=== PATIENT | male | born 1940 | race Caucasian/White ===

== ENCOUNTER 2022-05-26 21:03 | Inpatient (IN) | payer MEDICARE, SELFPAY ==
[2022-05-26] VITALS (18 sets, daily range): BP systolic 106–157; BP diastolic 44–65; BMI 38.9
[2022-05-26 17:10] LABS: % Basophils 1.4 % (0-2); % Eosinophils 1.5 % (0-6); % Monocytes 13.5 % (1.7-9.3); % Neutrophils 62.6 % (42.2-75.2); Absolute Basophils 0.1 10^3/uL (0-0.2); Absolute Eosinophils 0.1 10^3/uL (0-0.7); Absolute Immature Granulocytes 0.7 10^3/uL (0-0.05); Absolute Lymphocytes 1.1 10^3/uL (1.2-3.4); Absolute Monocytes 1.1 10^3/uL (0.1-0.6); Absolute Neutrophils 5.1 10^3/uL (1.4-6.5); Hematocrit 24.5 % (39.0-52.0); Hemoglobin 7.6 g/dL (13.0-18.0); Mean Corpuscular Hgb 30.8 pg (27.0-31.0); Mean Corpuscular Volume 99.2 fL (80.0-94.0); Mean Platelet Volume 11.2 fL (7.4-10.4); Nucleated Red Blood Cells % 0.5 % (-); Platelet Count 131 10^3/uL (130-400); Red Blood Cell Count 2.47 10^6/uL (4.70-6.10); Red Cell Dist. Width 16.9 % (11.5-14.5); White Blood Cell Count 8.1 10^3/uL (4.8-10.8)
[2022-05-26 17:26] LABS: ALT (SGPT) 22 U/L (0-50); AST (SGOT) 34 U/L (17-59); Albumin 3.9 g/dl (3.5-5.0); Alkaline Phosphatase 234 U/L (38-126); Blood Urea Nitrogen 24 mg/dl (9-20); Calcium 9.1 mg/dl (8.4-10.2); Carbon Dioxide 34 mmol/L (22-30); Chloride 96 mmol/L (98-107); Glomerular Filtration Rate 19.4; Glucose 102 mg/dl (65-99); Potassium 3.4 mmol/L (3.5-5.1); Sodium 140 mmol/L (135-145); Total Bilirubin 0.8 mg/dl (0.2-1.3); Total Protein 6.8 g/dl (6.3-8.2)
--- NOTE | 2022-05-26 18:55 | ED.GENMED ---
History of Present Illness
General
Chief Complaint: Urinary Symptoms
Source: patient and spouse
Exam Limitations: none
Time Seen by Provider: 05/26/22 18:16
Nursing documentation reviewed up to this point in time: agreed with
Travel History
Have you had any contact with someone who has COVID-19?: No
Do you have any symptoms of coronavirus? Fever > 100 degrees, chills, cough, shortness of breath, sore throat, loss of taste or smell, muscle aches, or headache?: No
History of Present Illness
History of Present Illness:
Patient with history of bladder cancer, currently receiving chemotherapy, receiving dialysis, but with chronic indwelling Watson catheter, presents to ED secondary to recurrent increased bleeding noted in his catheter today. Denies fever or chills.
Denies trauma. Denies abdominal pain. Denies nausea or vomiting. Denies dizziness. Denies shortness of breath. Denies loss of appetite. Patient was admitted to the hospital at [facility] earlier this month and subsequently transferred to [facility], where he was discharged home 1 week ago.
Past History
Past History
ED Past Medical History: HTN, Hypercholesterolemia, IDDM, Renal failure (hemodialysis via L AV fistula), Other (MRSA, Sleep apnea and wears C-pap) and Other (Gout); Negative CAD
ED Past Surgical History: Orthopedic (Nils knee replacments.) and Other (Peritoneal dialysis catheter)
Social History
Tobacco: Former smoker
Alcohol: None
Personal:
Living: with family
Employment: Employed ([employer])
Family History
Family History: Other (Noncontributory)
Review of Systems
Review of Systems
Allergies reviewed?: Yes
All Other Systems: ROS reviewed and negative except as documented in HPI and ROS
Constitutional: Reports no symptoms
EENT: Reports no symptoms
Respiratory: Reports no symptoms
Cardiac: Reports no symptoms
ABD/GI: Reports no symptoms
: Reports bleeding
Musculoskeletal: Reports no symptoms
Skin: Reports no symptoms
Neurological: Reports no symptoms
Phy Exam
Physical Exam
Physical Exam:
Physical Exam
General: mild distress, not acutely ill. afebrile
Head: nc/at. eomi
Neck: supple. no meningeal signs.
Abdomen: normal bowel sounds. not tender.
: watson catheter in place with blood noted within catheter but draining.
Neuro: alert and oriented. no focal neurological deficits
Skin: no rash
Psychiatric: well kept. interactive and cooperative
Extremities: LE b/l edema. no calf tenderness.
Course
Orders/Labs/Results
Orders:
Orders
05/26/22 16:59
CMP [Comprehensive Metabolic Panel] Urgent
Complete Blood Count/With Diff Urgent
05/26/22 17:39
Urinalysis Reflex To Culture Urgent
05/26/22 18:52
* Blood Bank Products Urgent
Blood Bank Products: *Packed RBC Leuko(PRBC's)
Quantity: 1
Transfuse Today: Yes
Reason: Bleeding
Type+Screen Urgent
IV Insert/Care/Rem.- Treatment PRN
PTT Urgent
Prothrombin Time Urgent
05/26/22 18:53
CBI- Treatment PRN
Solution: NSS
Irrigate to Clear?: Yes
Abnormal Lab Results
05/26/22 05/26/22
16:59 16:59
RBC 2.47 10^6/uL L 10^6/uL
(4.70-6.10)
Hgb 7.6 g/dL L g/dL
(13.0-18.0)
Hct 24.5 % L %
(39.0-52.0)
MCV 99.2 fL H fL
(80.0-94.0)
MCHC 31.0 g/dL L g/dL
(33.0-37.0)
RDW 16.9 % H %
(11.5-14.5)
MPV 11.2 fL H fL
(7.4-10.4)
Abs Immat Gran (auto) 0.7 10^3/uL H 10^3/uL
(0-0.05)
Absolute Lymphs (auto) 1.1 10^3/uL L 10^3/uL
(1.2-3.4)
Absolute Monos (auto) 1.1 10^3/uL H 10^3/uL
(0.1-0.6)
Immature Gran % 8.0 % H %
(0-0.5)
Lymphocytes % 13.0 % L %
(20.5-51.1)
Monocytes % 13.5 % H %
(1.7-9.3)
Potassium 3.4 mmol/L L mmol/L
(3.5-5.1)
Chloride 96 mmol/L L mmol/L
(98-107)
Carbon Dioxide 34 mmol/L H mmol/L
(22-30)
BUN 24 mg/dl H mg/dl
(9-20)
Creatinine 3.1 mg/dL H mg/dL
(0.7-1.3)
Glucose 102 mg/dl H mg/dl
(65-99)
Alkaline Phosphatase 234 U/L H U/L
(38-126)
05/26/22 16:59
05/26/22 16:59
Vital Signs
Initial and Last Documented VS:
Initial Vital Signs
Temp Pulse Resp BP Pulse Ox
98.6 F 75 18 157/65 97
05/26/22 16:40 05/26/22 16:40 05/26/22 16:40 05/26/22 16:40 05/26/22 16:40
Last Documented Vital Signs
Temp Pulse Resp BP Pulse Ox
98.6 F 75 18 157/65 97
05/26/22 16:40 05/26/22 16:40 05/26/22 16:40 05/26/22 16:40 05/26/22 16:40
MDM/Problems Addressed
MDM/Problems Addressed:
Patient presenting with recurrent increased hematuria with chronic indwelling Watson catheter. H&H noted. Patient will be consented for blood transfusion and CBI will be started.
Chronic Conditions Affecting Care
Chronic conditions affecting care: Immunosuppressed, Kidney disease and Cancer
Acute Exacerbation/Progession of Illness
Acute Exacerbation and/or Progression of Chronic Illness: Immunosuppressed, Kidney disease and Cancer
Discharge Plan
Departure
Patient Disposition: Admit
Date of Disposition: 05/26/22
Time of Disposition: 19:27
Admit to: Med/Surg
Condition: Fair
Discharge Problem:
Hematuria, Anemia
Prescriptions:
No Action
ascorbic acid (vitamin C) [Vitamin C] 1,000 MG tablet
1,000 mg PO DAILY
cyanocobalamin (vitamin B-12) 1,000 MCG tablet
1,000 mcg PO DAILY
cholecalciferol (vitamin D3) [Vitamin D3] 2,000 UNIT capsule
2,000 unit PO DAILY
multivitamin 1 EACH tablet
1 ea PO DAILY
pantoprazole 40 MG tablet,delayed release (DR/EC)
40 mg PO BID
carvedilol 6.25 MG tablet
6.25 mg PO BID 0RF
ezetimibe 10 MG tablet
10 mg PO HS 0RF
hydralazine 25 mg Tablet
25 mg PO BID
lisinopril 5 mg Tablet
5 mg PO DAILY
ProRenal 8 mg iron-800 mcg-1,000 unit Tablet
1 tab PO MOWEFR
cinacalcet 30 mg Tablet
30 mg PO SUTUTHSA
allopurinol 100 mg tablet
200 mg PO DAILY
lidocaine-prilocaine 2.5-2.5 % Cream
1 applic topical MOWEFR
Rx Instructions:
apply prior to
aspirin 81 MG tablet,chewable
81 mg PO DAILY
Hold Instructions: do not resume until instructed by your doctors
atorvastatin 80 MG tablet
80 mg PO HS
acetaminophen 325 MG tablet
650 mg PO Q6H PRN (Reason: mild pain/BARBA/fever)
oxycodone 5 mg tablet
5 mg PO Q4H PRN (Reason: moderate to severe pain)
Label Comments:
05/08/2022: last filled 04/22/22, 20 tabs for 10 days from [id number]
Rx Instructions:
1 tab for mod pain or 2 tabs for severe pain
sevelamer carbonate 800 MG tablet
3,200 mg PO MEALS
lidocaine HCl-menthol 4-1 % Cream
1 applic TOPICAL MOWEFR
Referrals:
Eliezer Arroyo MD [Family Provider] -
Interventions
Interventions:
*General Assessment Last Done: 05/26/22 16:40
*ED COVID-19 Vaccine History Last Done: 05/26/22 16:40
[2022-05-26 19:57] LABS: Urine Albumin 2+ (Neg - Trace); Urine Bilirubin Negative (Negative); Urine Character Bloody (Clear); Urine Color Red; Urine Glucose Negative (Negative); Urine Ketone Negative (Negative); Urine Leukocyte Negative (Negative); Urine Nitrite Negative (Negative); Urine Occult Blood 2+ (Negative); Urine Specific Gravity 1.015 (<1.030); Urine Urobilinogen Negative (Neg - 1+)
[2022-05-26 20:03] LABS: Urine Red Blood Cell >100 /HPF (0-2); Urine Squamous Cell 0-2 /LPF (Few); Urine White Cell None Seen /HPF (0-5)
[2022-05-26 20:10] LABS: INR 1.12; PT 14.7 Sec (11.4-14.6)
[2022-05-26 20:11] LABS: APTT 29.8 Sec (23.4-35.0)
--- NOTE | 2022-05-26 20:54 | HPS.HSE ---
Addendum entered and electronically signed by Chilo Shaikh DO 05/26/22 21:52:
Patient seen and examined independently. Agree with findings and plan as set forth by Nadege Arce PA-C.
Patient is an 81y M with PMH significant for bladder cancer, ESRD on HD and multiple recent admissions relating to bladder malignancy and hematuria who presents to ED this evening complaining of new / worsened hematuria in his Carey catheter.
Patient has had recurrent similar issues recently as noted. He denies any associated pain, fevers / chills, GI symptoms or other sources of bleeding.
Ass:
Gross Hematuria with Clots
Bladder Cancer
Acute Blood Loss Anemia secondary to the above
ASCVD
Benign Hypertension
DM-II
ESRD on HD
GERD
History of Gout
Plan:
Admit for further evaluation and treatment.
Continue CBI initiated in the ED.
Urology evaluation.
Transfuse PRBCs and follow H&H for improvement. Additional transfusions if needed.
Nephrology evaluation for HD needs during stay (had usual HD today).
Continue outpatient med regimen.
Patient had 1 chemo session thus far (one week ago).
Original Note:
Family Physician
-
Family Physician: Eliezer Arroyo
Chief Complaint
-
Hematuria
History of Present Illness
Patient is an 81 y/o male past medical history of bladder cancer who presents with hematuria. Patient was recently discharged from [facility] one week ago. Patient notes since discharge his urine has been dark brown with vicente in it which was
expected. Today his urine became more of a red color which prompted his presentation to the emergency department. He denies fevers, weats or chills.
Medical History
Past Medical History
Past Medical History: Reports Other
Additional Past Medical History:
Coronary Artery Disease s/p CABG in April 2021
Essential Hypertension
Hyperlipidemia
Diabetes Mellitus, Type 2
ESRD on HD MoWeFr
GERD
Gout
Past Surgical History: Reports Other
Additional Past Surgical History:
Bilateral knee replacements
Hemorrhoidectomy
Left upper extremity AV fistula
CABG
TURBT
Social History
Tobacco: Non-smoker
Alcohol: None
Drug: None
Personal:
Family History
Family History: Not pertinent
Allergies / Home Medications
Allergies reflects when Allergies were last updated in [facility].
Home Medications with original date entered in [facility]
Allergy/Medication List:
Allergies
Allergy/AdvReac Type Severity Reaction Status Date / Time
linagliptin [From Tradjenta] Allergy kidney Verified 05/26/22 16:49
problems
pioglitazone [From Actos] Allergy kidney Verified 05/26/22 16:49
failure
poison vivian extract Allergy 'nasty' Verified 05/26/22 16:49
rash
Home Medications
ascorbic acid (vitamin C) 1,000 mg tablet (Vitamin C) 1,000 mg PO DAILY Supplement 09/20/18
cholecalciferol (vitamin D3) 50 mcg (2,000 unit) capsule (Vitamin D3) 2,000 unit PO DAILY Supplement 09/20/18
cyanocobalamin (vitamin B-12) 1,000 mcg tablet 1,000 mcg PO DAILY Supplement 09/20/18
multivitamin 1 ea PO DAILY Supplement 06/29/20
pantoprazole 40 mg tablet,delayed release 40 mg PO BID Gastrointestinal issue 05/20/21
carvedilol 6.25 mg tablet 6.25 mg PO BID 05/30/21
hydralazine 25 mg tablet 25 mg PO BID Blood pressure 03/31/22
lisinopril 5 mg tablet 5 mg PO DAILY Blood pressure 03/31/22
vit B complx, C-iron 8 mg-folic acid 800 mcg-D3 1,000 unit-zinc tablet (ProRenal) 1 tab PO MOWEFR Supplement 03/31/22
cinacalcet 30 mg tablet 30 mg PO SUTUTHSA Kidney Disease 04/04/22
allopurinol 100 mg tablet 200 mg PO DAILY Gout 04/18/22
aspirin 81 mg chewable tablet 81 mg PO DAILY Blood clot prevention/tx 04/19/22
acetaminophen 325 mg tablet 650 mg PO Q6HPRN PRN mild pain/BARBA/fever 05/08/22
atorvastatin 80 mg tablet 80 mg PO HS High cholesterol 05/08/22
sevelamer carbonate 800 mg tablet 3,200 mg PO AC Kidney Disease 05/08/22
ezetimibe 10 mg tablet 10 mg PO DAILY 05/26/22
Review of Systems
-
History Source: Patient
A 12 point ROS was completed and negative except as noted: Yes
Constitutional: Denies Fever or Chills
Respiratory: Denies Cough or Trouble Breathing
Cardiac: Denies Chest Pain or Palpitations
Abdomen/GI: Denies Abdominal Pain, Nausea, Vomiting, Diarrhea or Constipated
: Reports See HPI
Physical Exam
Vital Signs
Vital Signs
Temp Pulse Resp BP Pulse Ox
98.7 F 79 20 143/55 97
05/26/22 20:40 05/26/22 20:40 05/26/22 20:40 05/26/22 20:40 05/26/22 20:40
Physical Exam
General: Well Developed, Well Nourished, No Apparent Distress and Other (Appears pale)
HEENT: NormoCephalic, Anicteric, Moist mucous membranes and Atraumatic
Respiratory: Clear and Non Labored Respirations; No Wheezes, Rales or Rhonchi
Cardiac: S1/S2 and Regular Rhythm; No Murmur
GI: Soft, Non Tender, Non Distended and Normal Bowel Sounds
Rectal: Deferred by Provider
Genito-urinary: Bloody Urine (Wine Colored)
Musculoskeletal: No Clubbing, No Cyanosis and Other
Skin: Warm and Dry; No Rash
Neuro: Awake, Alert, Oriented and Nonfocal/grossly intact
Psych: Calm
Laboratory Results
-
05/26/22 16:59
05/26/22 16:59
Laboratory Results
PT 14.7 Sec (11.4-14.6) H 05/26/22 19:41
INR 1.12 05/26/22 19:41
APTT 29.8 Sec (23.4-35.0) 05/26/22 19:41
Total Bilirubin 0.8 mg/dl (0.2-1.3) 05/26/22 16:59
AST 34 U/L (17-59) 05/26/22 16:59
ALT 22 U/L (0-50) 05/26/22 16:59
Alkaline Phosphatase 234 U/L (38-126) H 05/26/22 16:59
Data Reviewed
-
Lab Data: Labs Reviewed by me
Impression/Plan
-
Hematuria secondary to Bladder CA
-Consult Urology
-Continue CBI
Acute Blood Loss Anemia on Anemia of Chronic Disease
-Transfuse 1 units PRBCs
Coronary Artery Disease s/p CABG in April 2021
-Hold aspirin in setting of hematuria
Essential Hypertension
-Continue Coreg, Hydralazine and Lisinopril
Hyperlipidemia
-Continue Lipitor and Zetia
Diabetes Mellitus, Type 2
-Monitor sugars on AM labs
ESRD on HD MoWeFr
-Continue Sensipar and Renvela
GERD
-Continue Protonix
Gout
-Continue allopurinol
DVT proph: SCDs
Code Status: DNR
[2022-05-27] VITALS (7 sets, daily range): BP systolic 127–168; BP diastolic 57–79; PULSE 70–72; O2SAT 94
[2022-05-27] MEDS: LIPITOR 80 MG PO ×2 (00:22→21:11)
--- NOTE | 2022-05-27 06:38 | PTCARENOTE ---
Pt watson hand irrigated r/t to pressure and no active drainage in catheter. Approx 2-3 medium size blood clots flushed, CBI infusing w/o complications at this time.
[2022-05-27 06:44] LABS: Hematocrit 26.4 % (39.0-52.0); Hemoglobin 8.4 g/dL (13.0-18.0); Mean Corp Hgb Conc. 31.8 g/dL (33.0-37.0); Mean Corpuscular Hgb 31.1 pg (27.0-31.0); Mean Corpuscular Volume 97.8 fL (80.0-94.0); Mean Platelet Volume 11.4 fL (7.4-10.4); Platelet Count 140 10^3/uL (130-400); Red Cell Dist. Width 17.6 % (11.5-14.5); White Blood Cell Count 10.1 10^3/uL (4.8-10.8)
--- NOTE | 2022-05-27 06:47 | W.PN.UPDATE ---
Update Note
Progress Note Update
pt well-known
Impressions:
recurrent GH and anemia due to subtotally resected bladder cancer
Rec: CBI
transfusions
[2022-05-27 07:08] LABS: Blood Urea Nitrogen 31 mg/dl (9-20); Calcium 9.2 mg/dl (8.4-10.2); Carbon Dioxide 34 mmol/L (22-30); Chloride 96 mmol/L (98-107); Estimated Creatinine Clearance 21 ml/min; Glomerular Filtration Rate 15.4; Glucose 88 mg/dl (65-99); Potassium 3.4 mmol/L (3.5-5.1); Sodium 139 mmol/L (135-145)
[2022-05-27] MEDS: VITAMIN C 1000 MG PO (07:57)
[2022-05-27] MEDS: COREG 6.25 MG PO ×2 (07:57→19:54)
[2022-05-27] MEDS: ZYLOPRIM 200 MG PO (07:57)
[2022-05-27] MEDS: ZETIA 10 MG PO (07:57)
[2022-05-27] MEDS: ZESTRIL 5 MG PO (07:57)
[2022-05-27] MEDS: THERAGRAN 1 TABLET PO (07:57)
[2022-05-27] MEDS: VITAMIN B-12 1000 MCG PO (07:57)
[2022-05-27] MEDS: HYDROPHOR 1 APPLIC TOPICAL (07:57)
[2022-05-27] MEDS: VITAMIN D3 (cholecalciferol) 2000 UNITS PO (07:57)
[2022-05-27] MEDS: PROTONIX 40 MG PO ×2 (07:57→19:53)
[2022-05-27] MEDS: RENVELA 3200 MG PO ×3 (07:57→17:32)
[2022-05-27] MEDS: APRESOLINE 25 MG PO ×2 (07:58→19:53)
[2022-05-27] MEDS: SENSIPAR 30 MG PO (10:00)
--- NOTE | 2022-05-27 10:21 | CON.MD ---
Consultation - Medical
-
Impression:
Gross hematuria
Bladder malignancy received one dose of chemotherapy (cisplatinum + ...)
TURBT April 04, 2022
ESRD (PD 2017; HD 2018)
Anemia, multifactorial
CABG x2 (ANN-LAD, SVG-ramus, on pump with right Endo vein harvest/sternal plate
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
Biopsy-proven focal sclerosis
Diabetes mellitus
Gout, chronic
Secondary hyperparathyroidism
History hypertension with relative hypotension
History morbid obesity
History sleep apnea on CPAP
Left arm AV fistula 2018
Pelvic adenopathy
Pulmonary nodules
Plan:
-HD sunday
-transfuse for anemia prn, and LIZ on HD
-bp stable on anti-htns and EDW
-maintain phosphate binders for hyperphosphatemia
-fluid restriction and appropriate dietary restrictions ordered
--- NOTE | 2022-05-27 11:53 | W.PN.HOSP.TC ---
Today's Communication/Plan
-
Continue CBI
monitor hematuria
s/p 1 units PRBCs with improved Hgb
HD per Renal
Assessment / Plan
Assessment / Plan
81 y/o male past medical history of bladder cancer who presented with hematuria.�Patient was recently discharged from [place] one week ago.�Patient notes since discharge his urine has been dark brown with vicente in it which was expected. On DOA,
his urine became more of a red color which prompted his presentation to the emergency department. He denies fevers, sweat or chills.
A/P:
# Hematuria secondary to Bladder CA
Continue CBI
Urology on board
# Acute Blood Loss Anemia due to hematuria on Anemia of Chronic Disease
s/p 1 units PRBCs
# Coronary Artery Disease s/p CABG in April 2021
Hold aspirin in setting of hematuria
# Essential Hypertension
Continue Coreg, Hydralazine and Lisinopril
# Hyperlipidemia
Continue Lipitor and Zetia
# Diabetes Mellitus, Type 2
Monitor sugars on AM labs
# ESRD on HD MoWeFr
Continue Sensipar and Renvela
HD per Renal
# GERD
Continue Protonix
# Gout
Continue allopurinol
DVT proph: SCDs
Code Status: DNR
updated daughter on the phone
Anticipated Discharge: > 48 hours
Subjective/Interval History
-
no event overnight, comfortable
Objective Data
-
Labs:
Laboratory Results
05/27/22 05/27/22
05:59 05:59
WBC 10.1
Hgb 8.4 L
Hct 26.4 L
Plt Count 140
Sodium 139
Potassium 3.4 L
Chloride 96 L
Carbon Dioxide 34 H
BUN 31 H
Creatinine 3.8 H
Glucose 88
Calcium 9.2
Vital Signs:
Vital Signs
Temp Pulse Resp BP Pulse Ox
36.4 C 76 17 127/57 97
05/27/22 07:30 05/27/22 07:30 05/27/22 07:30 05/27/22 07:30 05/27/22 07:30
I&O
05/26/22 05/27/22 05/28/22
06:59 06:59 06:59
Intake Total 470 / 470
Output Total 850 / 850
Balance -380 / -380
Review of Systems
-
History Source: Patient
Constitutional: Reports No Symptoms
EENT: Reports No Symptoms Reported
Respiratory: Reports No Symptoms
Abdomen/GI: Reports No Symptoms
Genitourinary: Reports Bleeding (gross hematuria)
Neuro: Reports No Symptoms
Physical Exam
-
General: Well Developed, Well Nourished, No Apparent Distress, Comfortable and Obese
HEENT: Normocephalic, Atraumatic and Moist Mucous Membranes
Respiratory: Clear to Auscultation and Non Labored Respirations; Negative Accessory Resp Muscle Use
Cardiac: Regular Rhythm and S1/S2
GI: Soft, Nontender and Nondistended
Genito-urinary: Bloody Urine and Continuous Bladder Irrigation
Musculoskeletal: No Clubbing, No Cyanosis and No Edema
Neuro: Awake, Alert, Oriented and AO x 3
Psych: Calm and Intact Judgement/Insight
Data Reviewed
-
Labs: Labs Reviewed by me
[2022-05-27 12:20] LABS: Magnesium 1.9 mg/dl (1.6-2.3)
--- NOTE | 2022-05-27 12:21 | CONS.URO ---
Consultation
-
Date/Time Consultation Performed: 05/27 06
Performing Provider: Harsha
Reason for Consultation: Bladder Cancer; hematuria
Medical History
History of Present Illness
81M with small cell bladder cancer
History of large dense bladder clot requiring transfer to [facility] for clot evacuation 03/2022
Presenting again with hematuria and associated anemia
Past Medical History
Past Surgical History: Other ( Hypertension. Hyperlipidemia. Noninsulin-dependent diabetes mellitus (diet controlled). End-stage renal disease on hemodialysis.)
Allergies/Home Medications
Allergies
Allergy/AdvReac Type Severity Reaction Status Date / Time
linagliptin [From Tradjenta] Allergy kidney Verified 05/26/22 16:49
problems
pioglitazone [From Actos] Allergy kidney Verified 05/26/22 16:49
failure
poison vivian extract Allergy 'nasty' Verified 05/26/22 16:49
rash
Home Medications
Medication Instructions Recorded Confirmed Type
ascorbic acid (vitamin C) 1,000 mg 1,000 mg PO DAILY Supplement 09/20/18 05/26/22 History
tablet (Vitamin C)
cholecalciferol (vitamin D3) 50 2,000 unit PO DAILY Supplement 09/20/18 05/26/22 History
mcg (2,000 unit) capsule (Vitamin
D3)
cyanocobalamin (vitamin B-12) 1,000 mcg PO DAILY Supplement 09/20/18 05/26/22 History
1,000 mcg tablet
multivitamin 1 ea PO DAILY Supplement 06/29/20 05/26/22 History
pantoprazole 40 mg tablet,delayed 40 mg PO BID Gastrointestinal issue 05/20/21 05/26/22 History
release
carvedilol 6.25 mg tablet 6.25 mg PO BID 05/30/21 05/26/22 Rx
hydralazine 25 mg tablet 25 mg PO BID Blood pressure 03/31/22 05/26/22 History
lisinopril 5 mg tablet 5 mg PO DAILY Blood pressure 03/31/22 05/26/22 History
vit B complx, C-iron 8 mg-folic 1 tab PO MOWEFR Supplement 03/31/22 05/26/22 History
acid 800 mcg-D3 1,000 unit-zinc
tablet (ProRenal)
cinacalcet 30 mg tablet 30 mg PO SUTUTHSA Kidney Disease 04/04/22 05/26/22 History
allopurinol 100 mg tablet 200 mg PO DAILY Gout 04/18/22 05/26/22 History
aspirin 81 mg chewable tablet 81 mg PO DAILY Blood clot 04/19/22 05/26/22 History
prevention/tx
acetaminophen 325 mg tablet 650 mg PO Q6HPRN PRN mild 05/08/22 05/26/22 History
pain/BARBA/fever
atorvastatin 80 mg tablet 80 mg PO HS High cholesterol 05/08/22 05/26/22 History
sevelamer carbonate 800 mg tablet 3,200 mg PO AC Kidney Disease 05/08/22 05/26/22 History
ezetimibe 10 mg tablet 10 mg PO DAILY High cholesterol 05/26/22 05/26/22 History
Physical Exam
Vital Signs
Vital Signs
Temp Pulse Resp BP Pulse Ox
97.5 F 76 17 127/57 97
05/27/22 07:30 05/27/22 07:30 05/27/22 07:30 05/27/22 07:30 05/27/22 07:30
Lab / Testing Results
Laboratory Results
05/27/22 05:59
05/27/22 05:59
Physical Exam
elderly male in bed
Carey draining pale red urine
Assessment / Plan
-
Recurrent hematuria due to bladder cancer
Anemia
Rec: CBI for now
patient will return to [facility] after discharge
[2022-05-27] MEDS: KCL 40 MEQ PO (12:22)
--- NOTE | 2022-05-27 15:30 | CM ---
Patient came to with hematuria.
CBI in place
Patient has bladder CA and is active with [facility] and also [facility].
Has received 1st dose chemo
Patient is active with [facility]
Receives HD at [place] [facility]. Is transported either by [employer] or by family in a car.
Patient is independent; ambulatory with a cane or walker.
Uses CPAP at night.
PLAN::: home.
resume [facility] and OP HD
--- NOTE | 2022-05-27 16:32 | PTCARENOTE ---
Pt no longer being followed at [facility] all providers are through [facility]. Pt's primary urologist is Dr. Garland, and oncologist is Dr. Garcia.
[2022-05-27] MEDS: TYLENOL 650 MG PO (21:11)
--- NOTE | 2022-05-27 21:15 | PTCARENOTE ---
Pt reported he was having chills and shivering. VS 170/79 HR 85 99.4 oral temp. House provider notified, PRN Tylenol given. Pt reported he had an episode in the afternoon but did not report it and it subsided in an hour. Pt daughter in room at the
time of evening assessment, reported that her Father had similar symptoms back in March prior to his chemo treatments, reports blood cultures were negative but given a ABX.
--- NOTE | 2022-05-28 01:18 | PTCARENOTE ---
Pt sleeping comfortably, VSS, afebrile at this time.
[2022-05-28 04:51] LABS: Hematocrit 27.2 % (39.0-52.0); Hemoglobin 8.6 g/dL (13.0-18.0); Mean Corp Hgb Conc. 31.6 g/dL (33.0-37.0); Mean Corpuscular Hgb 30.5 pg (27.0-31.0); Mean Corpuscular Volume 96.5 fL (80.0-94.0); Mean Platelet Volume 10.9 fL (7.4-10.4); Platelet Count 157 10^3/uL (130-400); Red Blood Cell Count 2.82 10^6/uL (4.70-6.10); Red Cell Dist. Width 17.8 % (11.5-14.5); White Blood Cell Count 12.9 10^3/uL (4.8-10.8)
[2022-05-28 05:25] LABS: Blood Urea Nitrogen 42 mg/dl (9-20); Calcium 9.1 mg/dl (8.4-10.2); Carbon Dioxide 33 mmol/L (22-30); Chloride 96 mmol/L (98-107); Estimated Creatinine Clearance 15 ml/min; Glomerular Filtration Rate 10.5; Glucose 105 mg/dl (65-99); Magnesium 1.9 mg/dl (1.6-2.3); Potassium 3.8 mmol/L (3.5-5.1); Sodium 138 mmol/L (135-145)
[2022-05-28] MEDS: TYLENOL 650 MG PO ×3 (05:57→23:10)
[2022-05-28 06:05] VITALS: BMI 39.1
[2022-05-28 06:07] VITALS: BP 166/77
--- NOTE | 2022-05-28 06:19 | PTCARENOTE ---
Critical Lab value Creatine 5.3 HP notified.
--- NOTE | 2022-05-28 06:20 | PTCARENOTE ---
Pt VS 166/77 HR 86 oral temp 100.8 ... Tylenol given at this time. Pt denies shivers or chills, resting comfortably in bed.
[2022-05-28 07:44] VITALS: BP 134/54
[2022-05-28 08:10] LABS: Glucose - Point of Care 114 mg/dl (65-99)
[2022-05-28] MEDS: HYDROPHOR 1 APPLIC TOPICAL (08:13)
[2022-05-28] MEDS: ZETIA 10 MG PO (08:14)
[2022-05-28] MEDS: MAXIPIME 1000 MG IV (08:14)
[2022-05-28] MEDS: THERAGRAN 1 TABLET PO (08:14)
[2022-05-28] MEDS: STERILE WATER FOR INJECTION 10 ML IV (08:14)
[2022-05-28] MEDS: RENVELA 3200 MG PO ×3 (08:14→16:59)
[2022-05-28] MEDS: PROTONIX 40 MG PO ×2 (08:14→19:53)
[2022-05-28] MEDS: VITAMIN D3 (cholecalciferol) 2000 UNITS PO (08:16)
[2022-05-28] MEDS: VITAMIN B-12 1000 MCG PO (08:17)
[2022-05-28] MEDS: VITAMIN C 1000 MG PO (08:17)
[2022-05-28] MEDS: ZYLOPRIM 200 MG PO (08:17)
[2022-05-28] MEDS: SENSIPAR 30 MG PO (08:19)
[2022-05-28] MEDS: APRESOLINE 25 MG PO ×2 (08:20→19:53)
[2022-05-28] MEDS: COREG 6.25 MG PO ×2 (08:21→19:53)
[2022-05-28] MEDS: ZESTRIL 5 MG PO (08:21)
--- NOTE | 2022-05-28 09:45 | W.PN.NEPH.PH ---
Today's Communication / Plan
-
Hd tomorrow
Assessment/Plan
-
Impression:
Gross hematuria
Bladder malignancy received one dose of chemotherapy (cisplatinum + ...)
TURBT April 04, 2022
ESRD (PD 2018; HD 2018)
Anemia, multifactorial
CABG x2 (ANN-LAD, SVG-ramus, on pump with right Endo vein harvest/sternal plate
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
Biopsy-proven focal sclerosis
Diabetes mellitus
Gout, chronic
Secondary hyperparathyroidism
History hypertension with relative hypotension
History morbid obesity
History sleep apnea on CPAP
Left arm AV fistula 2018
Pelvic adenopathy
Pulmonary nodules
Plan:
-HD sunday
-transfuse for anemia prn, and LIZ on HD
-bp stable on anti-htns and EDW
-maintain phosphate binders for hyperphosphatemia
-fluid restriction and appropriate dietary restrictions ordered
-
-
Date of Service: May 28, 2022
CC / HPI / ROS
-
Chief Complaint:
ESRD
History of Present Illness:
ESRD MWF
hemodynamically stable
h/h stable in setting of macro hematuria
Review of Systems:
no chest pain or sob
macrohematuria with CBI
Labs
-
Labs:
WBC 12.9 10^3/uL (4.8-10.8) H 05/28/22 04:24
RBC 2.82 10^6/uL (4.70-6.10) L 05/28/22 04:24
Hgb 8.6 g/dL (13.0-18.0) L 05/28/22 04:24
Hct 27.2 % (39.0-52.0) L 05/28/22 04:24
Plt Count 157 10^3/uL (130-400) 05/28/22 04:24
Sodium 138 mmol/L (135-145) 05/28/22 04:24
Potassium 3.8 mmol/L (3.5-5.1) 05/28/22 04:24
Chloride 96 mmol/L (98-107) L 05/28/22 04:24
Carbon Dioxide 33 mmol/L (22-30) H 05/28/22 04:24
BUN 42 mg/dl (9-20) H 05/28/22 04:24
Creatinine 5.3 mg/dL (0.7-1.3) H* 05/28/22 04:24
Glomerular Filtr Rate 10.5 05/28/22 04:24
Glucose 105 mg/dl (65-99) H 05/28/22 04:24
Calcium 9.1 mg/dl (8.4-10.2) 05/28/22 04:24
Albumin 3.9 g/dl (3.5-5.0) 05/26/22 16:59
Physical Exam
-
Vital Signs:
Vital Signs
Temp Pulse Resp BP Pulse Ox
99.5 F 78 18 134/54 93
05/28/22 07:44 05/28/22 08:21 05/28/22 07:44 05/28/22 08:21 05/28/22 07:44
Cardiovascular:: Regular rate and rhythm
Respiratory:: Bilateral: CTA
Lung Excursion:: Normal
Abdomen:: Nontender and Soft
Bowel Sounds:: Normal
Extremity Edema:: +2: Bilateral:
Carey Catheter: Yes
Other Findings::
: CBI/macro hematuria
--- NOTE | 2022-05-28 10:32 | W.PN.URO.CBU ---
Today's Communication / Plan
-
Patient and have decided that they will not be returning to [facility] -- all medical [including oncologic and surgical] care will be here at .
I have offerred that cystectomy WITHOUT urinary diversion would perhaps be his best option; surgical obstruction the the ureters or cutaneous common ureterostomy to drain negligible urine production would be options to consider.
Assessment / Plan
-
improved hematuria and anemia
Diagnosis
-
Date of Service: May 28, 2022
-
Patient Diagnosis:
81M with small cell bladder cancer
History of large dense bladder clot requiring transfer to [facility] for clot evacuation 03/2022
Presenting again with hematuria and associated anemia
Subjective
-
'tired of being in the hospital so much'
Objective
-
Vital Signs
Temp Pulse Resp BP Pulse Ox
99.5 F 78 18 134/54 93
05/28/22 07:44 05/28/22 08:21 05/28/22 07:44 05/28/22 08:21 05/28/22 08:15
Intake and Output
05/27/22 05/28/22 05/29/22
06:59 06:59 06:59
Intake Total 470 / 470 680 / 680
Output Total 850 / 850 3000 / 3000
Balance -380 / -380 -2320 / -2320
Intake:
Oral fluids 120 / 120 680 / 680
Blood products 100 / 100
Blood Product Amount Infused ( 250 / 250
mL)
Packed Rbc Leukoreduced Unit 250 / 250
[id number]
Output:
True Urine Output from CBI 850 / 850 3000 / 3000
Laboratory Results
05/28/22 04:24
05/28/22 04:24
Physical Exam
-
General - no acute distress
Genitalia -Carey with CBI draining pink outflow
--- NOTE | 2022-05-28 10:34 | W.PN.HOSP.TC ---
Today's Communication/Plan
-
Continue CBI
Hematuria appear to be improving
There is possible plan for bladder resection in coming week? Need to clarify with Uro (awaiting note from today)
HD tmr
Assessment / Plan
Assessment / Plan
81 y/o male past medical history of bladder cancer who presented with hematuria.�Patient was recently discharged from [facility] one week ago.�Patient notes since discharge his urine has been dark brown with vicente in it which was expected. On DOA,
his urine became more of a red color which prompted his presentation to the emergency department. He denies fevers, sweat or chills.
A/P:
# Hematuria secondary to Bladder CA
Continue CBI
Urology on board
There is possible plan for bladder resection in coming week? Need to clarify with Uro (awaiting note from today)
# Acute Blood Loss Anemia due to hematuria on Anemia of Chronic Disease
s/p 1 units PRBCs
Monitor Hgb, stable at 8.6
# Coronary Artery Disease s/p CABG in April 2021
Hold aspirin in setting of hematuria
# Essential Hypertension
Continue Coreg, Hydralazine and Lisinopril
# Hyperlipidemia
Continue Lipitor and Zetia
# Diabetes Mellitus, Type 2
Monitor sugars on AM labs
# ESRD on HD MoWeFr
Continue Sensipar and Renvela
HD per Renal
# GERD
Continue Protonix
# Gout
Continue allopurinol
DVT proph: SCDs
Code Status: DNR
updated daughter on the phone 05/28/22
DW RN
Anticipated Discharge: > 48 hours
Subjective/Interval History
-
no event overnight, comfortable
Objective Data
-
Labs:
Laboratory Results
05/28/22 05/28/22
04:24 04:24
WBC 12.9 H
Hgb 8.6 L
Hct 27.2 L
Plt Count 157
Sodium 138
Potassium 3.8
Chloride 96 L
Carbon Dioxide 33 H
BUN 42 H
Creatinine 5.3 H*
Glucose 105 H
Calcium 9.1
Vital Signs:
Vital Signs
Temp Pulse Resp BP Pulse Ox
37.5 C 78 18 134/54 93
05/28/22 07:44 05/28/22 08:21 05/28/22 07:44 05/28/22 08:21 05/28/22 08:15
I&O
05/27/22 05/28/22 05/29/22
06:59 06:59 06:59
Intake Total 470 / 470 680 / 680
Output Total 850 / 850 3000 / 3000
Balance -380 / -380 -2320 / -2320
Review of Systems
-
History Source: Patient
Constitutional: Reports No Symptoms
EENT: Reports No Symptoms Reported
Respiratory: Reports No Symptoms
Abdomen/GI: Reports No Symptoms
Genitourinary: Reports Bleeding (gross hematuria)
Neuro: Reports No Symptoms
Physical Exam
-
General: Well Developed, Well Nourished, No Apparent Distress, Comfortable and Obese
HEENT: Normocephalic, Atraumatic and Moist Mucous Membranes
Respiratory: Clear to Auscultation and Non Labored Respirations; Negative Accessory Resp Muscle Use
Cardiac: Regular Rhythm and S1/S2
GI: Soft, Nontender and Nondistended
Genito-urinary: Bloody Urine and Continuous Bladder Irrigation
Musculoskeletal: No Clubbing, No Cyanosis and No Edema
Neuro: Awake, Alert, Oriented and AO x 3
Psych: Calm and Intact Judgement/Insight
Data Reviewed
-
Labs: Labs Reviewed by me
[2022-05-28 11:34] LABS: Urine Albumin Trace (Neg - Trace); Urine Bilirubin Negative (Negative); Urine Character Slightly Cloudy (Clear); Urine Color Red; Urine Glucose Negative (Negative); Urine Ketone Negative (Negative); Urine Leukocyte Trace (Negative); Urine Nitrite Negative (Negative); Urine Occult Blood 4+ (Negative); Urine Specific Gravity 1.005 (<1.030); Urine Urobilinogen Negative (Neg - 1+)
[2022-05-28 11:53] LABS: Urine Bacteria Few (Negative); Urine Red Blood Cell 90-100 /HPF (0-2); Urine White Cell 30-40 /HPF (0-5)
[2022-05-28] MEDS: ZOFRAN 4 MG IV (12:13)
[2022-05-28 15:08] VITALS: BP 122/43; PULSE 77
[2022-05-28 16:25] VITALS: BP 116/52
[2022-05-28] MEDS: LIPITOR 80 MG PO (21:38)
[2022-05-28 23:24] VITALS: BP 121/57
[2022-05-29 05:22] VITALS: BMI 39.5
[2022-05-29 07:18] VITALS: BP 145/69
[2022-05-29 07:26] LABS: Hematocrit 27.3 % (39.0-52.0); Hemoglobin 8.6 g/dL (13.0-18.0); Mean Corp Hgb Conc. 31.5 g/dL (33.0-37.0); Mean Corpuscular Hgb 30.8 pg (27.0-31.0); Mean Corpuscular Volume 97.8 fL (80.0-94.0); Mean Platelet Volume 11.1 fL (7.4-10.4); Platelet Count 155 10^3/uL (130-400); Red Blood Cell Count 2.79 10^6/uL (4.70-6.10); Red Cell Dist. Width 18.1 % (11.5-14.5)
--- NOTE | 2022-05-29 07:31 | W.PN.URO.CBU ---
Today's Communication / Plan
-
patient and agree that definitive surgical management of bladder is now desired -- will d/w Dr Garland to determine plan and timeline
Assessment / Plan
-
improved hematuria and anemia
Diagnosis
-
Date of Service: May 29, 2022
-
Patient Diagnosis:
81M with small cell bladder cancer
History of large dense bladder clot requiring transfer to [facility] for clot evacuation 03/2022
Presenting again with hematuria and associated anemia
Objective
-
Vital Signs
Temp Pulse Resp BP Pulse Ox
99.2 F 78 19 145/69 92
05/29/22 07:18 05/29/22 07:18 05/29/22 07:18 05/29/22 07:18 05/29/22 07:18
Intake and Output
05/28/22 05/29/22 05/30/22
06:59 06:59 06:59
Intake Total 680 / 680 1975
Output Total 3000 / 3000 1999
Balance -2320 / -2320 -24 / 24
Intake:
Oral fluids 680 / 680 1975
Output:
True Urine Output from CBI 3000 / 3000 1999
Laboratory Results
05/29/22 07:04
[2022-05-29 08:08] LABS: Blood Urea Nitrogen 60 mg/dl (9-20); Carbon Dioxide 29 mmol/L (22-30); Chloride 94 mmol/L (98-107); Estimated Creatinine Clearance 11 ml/min; Glomerular Filtration Rate 7.7; Glucose 90 mg/dl (65-99); Potassium 4.1 mmol/L (3.5-5.1); Sodium 137 mmol/L (135-145)
[2022-05-29] MEDS: RENVELA 3200 MG PO ×2 (08:24→16:27)
[2022-05-29] MEDS: VITAMIN D3 (cholecalciferol) 2000 UNITS PO (08:26)
[2022-05-29] MEDS: ZETIA 10 MG PO (08:26)
[2022-05-29] MEDS: PROTONIX 40 MG PO ×2 (08:26→20:51)
[2022-05-29] MEDS: THERAGRAN 1 TABLET PO (08:27)
[2022-05-29] MEDS: ZYLOPRIM 200 MG PO (08:27)
[2022-05-29] MEDS: COREG 6.25 MG PO ×2 (08:27→20:51)
[2022-05-29] MEDS: VITAMIN C 1000 MG PO (08:27)
[2022-05-29] MEDS: VITAMIN B-12 1000 MCG PO (08:28)
[2022-05-29] MEDS: STERILE WATER FOR INJECTION 10 ML IV (08:28)
[2022-05-29] MEDS: MAXIPIME 1000 MG IV (08:28)
[2022-05-29] MEDS: FLUSH (NSS) 2 FLUSH IV ×2 (08:29→08:32)
[2022-05-29] MEDS: HYDROPHOR 1 APPLIC TOPICAL (08:55)
--- NOTE | 2022-05-29 10:00 | W.PN.HOSP.TC ---
Today's Communication/Plan
-
cont CBI
await timing of urologic surgery
Assessment / Plan
Assessment / Plan
pt is an 81 year old male
Hematuria secondary to Bladder CA--apprec urology--cont CBI--bladder resection as per urology
Acute Blood Loss Anemia due to hematuria on Anemia of Chronic Disease-s/p 1 units PRBCs-Monitor Hgb, stable at 8.6
Coronary Artery Disease s/p CABG in April 2021--Hold aspirin in setting of hematuria
Essential Hypertension--Continue Coreg, Hydralazine and Lisinopril
Hyperlipidemia--Continue Lipitor and Zetia
Diabetes Mellitus, Type 2--Monitor sugars on AM labs
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
GERD--Continue Protonix
Gout--Continue allopurinol
DVT proph: SCDs
Code Status: DNR
Anticipated Discharge: > 48 hours
Subjective/Interval History
-
Date of Service: May 29, 2022
pt tearful regarding situation
Objective Data
-
Labs:
Laboratory Results
05/29/22 05/29/22
07:04 07:04
WBC 17.0 H
Hgb 8.6 L
Hct 27.3 L
Plt Count 155
Sodium 137
Potassium 4.1
Chloride 94 L
Carbon Dioxide 29
BUN 60 H
Creatinine 6.9 H*
Glucose 90
Calcium 9.0
Vital Signs:
max temp for 24 hours
05/28/22
13:40
Temp 101.4 F H
Vital Signs
Temp Pulse Resp BP Pulse Ox
99.2 F 78 19 145/69 92
05/29/22 07:18 05/29/22 07:18 05/29/22 07:18 05/29/22 07:18 05/29/22 07:18
I&O
05/28/22 05/29/22 05/30/22
06:59 06:59 06:59
Intake Total 680 / 680 1975
Output Total 3000 / 3000 1999
Balance -2320 / -2320 -24 / -24
Review of Systems
-
All other systems: Reviewed and negative
Genitourinary: Reports Bleeding
Physical Exam
-
General: Well Developed, Well Nourished and No Apparent Distress
HEENT: Normocephalic and Atraumatic
Respiratory: Clear to Auscultation; Negative Wheezes, Rales or Rhonchi
Cardiac: Regular Rhythm and S1/S2; Negative Murmur
GI: Soft, Nontender, Nondistended and Normal Bowel Sounds
Musculoskeletal: No Clubbing and No Cyanosis; Negative No Edema (4+ LE edema)
Skin: Warm
Neuro: Awake
Psych: Other (tearful)
--- NOTE | 2022-05-29 10:04 | CM ---
Patient seen at bedside with physician. Per patient he resides with his spouse in a two story home with two steps to enter. The patient has a stair glide, rolling walker, shower chair and a cane. The patient receives HD on at [place]. The
patient uses [facility] for transportation to and from dialysis. The patient has had [facility] in the past and been to [facility]. The patients discharge plans will depend on his progress. Patient for possible surgical procedure pending further workup. CM
continues to be follow for discharge planning needs.
Plan; home with family; VN
[2022-05-29 11:45] LABS: Glucose - Point of Care 144 mg/dl (65-99)
[2022-05-29] MEDS: RETACRIT 10000 UNITS IV (13:48)
--- NOTE | 2022-05-29 14:49 | W.PN.NEPH.HD ---
Assessment
-
Patient evaluated during the hemodialysis procedure
Carey catheter in place
CBI in process
Minimally pink urine
Hb 8.6 GM/DL
Diagnoses:
Gross hematuria, recurrent
Bladder malignancy received one dose of chemotherapy (cisplatinum + ...)
TURBT April 04, 2022
ESRD (PD 2017; HD 2018)
Anemia, multifactorial
CABG x2 (ANN-LAD, SVG-ramus, on pump with right Endo vein harvest/sternal plate
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
Biopsy-proven focal sclerosis
Diabetes mellitus
Gout, chronic
Secondary hyperparathyroidism
History hypertension with relative hypotension
History morbid obesity
History sleep apnea on CPAP
Left arm AV fistula 2018
Pelvic adenopathy
Pulmonary nodules
Plans for cystectomy in process
Patient reportedly does not want to return to [facility]
Heparin Free HD today
Await urologic plans
LIZ with HD
Will transfuse as needed
Progress Note - Hemodialysis
-
Date of Service: May 29, 2022
Duration: 30 minutes and 3 hours
Potassium Bath: 2
Calcium Bath: 2.5
Opti-Dialyzer: 160
Ultrafiltration: Other (2.5-3 kg)
Blood Flow: 400
Dialysate Flow: 600
Heparin: None
EPO: 10,000 units
[2022-05-29 15:17] VITALS: BP 165/78
[2022-05-29] MEDS: RENVELA PO (16:27)
[2022-05-29] MEDS: ZESTRIL 5 MG PO (16:28)
[2022-05-29] MEDS: APRESOLINE 25 MG PO ×2 (16:28→20:51)
[2022-05-29 19:28] VITALS: BP 113/51
[2022-05-29] MEDS: TYLENOL 650 MG PO (20:51)
[2022-05-29] MEDS: LIPITOR 80 MG PO (22:47)
[2022-05-29 23:49] VITALS: BP 110/52
[2022-05-30 06:00] VITALS: BMI 38.3
[2022-05-30 07:28] VITALS: BP 135/60
[2022-05-30 08:05] LABS: Hematocrit 25.8 % (39.0-52.0); Hemoglobin 8.2 g/dL (13.0-18.0); Mean Corp Hgb Conc. 31.8 g/dL (33.0-37.0); Mean Corpuscular Hgb 31.1 pg (27.0-31.0); Mean Corpuscular Volume 97.7 fL (80.0-94.0); Platelet Count 188 10^3/uL (130-400); Red Blood Cell Count 2.64 10^6/uL (4.70-6.10); Red Cell Dist. Width 18.2 % (11.5-14.5); White Blood Cell Count 16.3 10^3/uL (4.8-10.8)
--- NOTE | 2022-05-30 08:10 | CON.ONC ---
Impression
Impression
Hematuria, multifactorial due to bladder CA, uremic platelet dysfunction, anemia
ESRD on HD
Anemia of ESRD
Plan
Plan
Pt has been in and out of the hospital with hematuria. Bleeding has been difficult to get under control. And it will likely continue this way for him due to the many factors contributing to hematuria.
Will be worse when counts drop from chemo as the cis/etoposide regimen is significantly myelosuppressive.
Ultimately, the repeated hematuria will compromise attempts to deliver systemic therapy which is essential to cure small cell cancers.
Although bleeding could potentially be palliated with some radiation, it is unclear whether that would work and how long it would take.
Bladder not needed in the setting of ESRD on HD.
Discussed with pt and daughter that checkpoint inhibitors work very well for small cell so he has every reason to be hopeful about his prognosis going forward.
Suggest proceeding to cystectomy as soon as possible. Pt preference is for this to be done prior to hospital d/c.
His hemoglobin is currently at his usual baseline, chronic due to renal insufficiency.
Case d/w Dr. Stapleton.
Thank you for consult, will follow along with you.
Patient History
History of Present Illness
Heraclio Vegas 81-year-old gentleman diagnosed with small cell carcinoma of the bladder status post initial cycle of CDDP/etoposide 05/15/22 at [place] to rocío persistent hematuria. He tolerated 50% dose reduction without significant
toxicities. He saw Dr. Sepulveda 05/24/22 with intention to continue his therapy locally. At that visit, he denied recurrent hematuria, back pain, shortness of breath, fever or focal symptoms of infection. He reported some tissue extrusion through the
Carey catheter very likely dying tumor. Patient came to ED with c/o his urine becoming been dark brown with vicente in it which was expected.� On day of admission his urine became more of a red color which prompted his presentation to the emergency
department. He denies fevers, sweats or chills. Pt and daughter state he has been in and out of the hospital many times due to the hematuria, including two admissions to [facility]. Pt tearful during this discussion.
Past-Medical/Surgical History
PMH:
heart disease
hypertension
diabetes
sleep apnea
ESRD on HD
hyperlipidemia
anemia
arthritis
obesity
cataracts
PSH:
CABG 04/2021
AV fistula 08/2017
B/l TKR
Patient reports having routine colonoscopy last done 08/19/14
Soc:
, former smoker, no EtOH
Fam:
Denies family history of cancer or blood disorders
Patient Medication
Medication Instructions Recorded Confirmed Last Taken Type
ascorbic acid (vitamin C) 1,000 mg 1,000 mg PO DAILY Supplement 09/20/18 05/26/22 05/26/22 History
tablet (Vitamin C)
cholecalciferol (vitamin D3) 50 2,000 unit PO DAILY Supplement 09/20/18 05/26/22 05/26/22 History
mcg (2,000 unit) capsule (Vitamin
D3)
cyanocobalamin (vitamin B-12) 1,000 mcg PO DAILY Supplement 09/20/18 05/26/22 05/26/22 History
1,000 mcg tablet
multivitamin 1 ea PO DAILY Supplement 06/29/20 05/26/22 05/26/22 History
pantoprazole 40 mg tablet,delayed 40 mg PO BID Gastrointestinal issue 05/20/21 05/26/22 05/26/22 History
release
carvedilol 6.25 mg tablet 6.25 mg PO BID 05/30/21 05/26/22 05/26/22 Rx
hydralazine 25 mg tablet 25 mg PO BID Blood pressure 03/31/22 05/26/22 05/25/22 History
lisinopril 5 mg tablet 5 mg PO DAILY Blood pressure 03/31/22 05/26/22 05/26/22 History
vit B complx, C-iron 8 mg-folic 1 tab PO MOWEFR Supplement 03/31/22 05/26/22 05/26/22 History
acid 800 mcg-D3 1,000 unit-zinc
tablet (ProRenal)
cinacalcet 30 mg tablet 30 mg PO SUTUTHSA Kidney Disease 04/04/22 05/26/22 05/25/22 History
allopurinol 100 mg tablet 200 mg PO DAILY Gout 04/18/22 05/26/22 05/26/22 History
aspirin 81 mg chewable tablet 81 mg PO DAILY Blood clot 04/19/22 05/26/22 05/26/22 History
prevention/tx
acetaminophen 325 mg tablet 650 mg PO Q6HPRN PRN mild 05/08/22 05/26/22 Unknown History
pain/BARBA/fever
atorvastatin 80 mg tablet 80 mg PO HS High cholesterol 05/08/22 05/26/22 05/25/22 History
sevelamer carbonate 800 mg tablet 3,200 mg PO AC Kidney Disease 05/08/22 05/26/22 05/25/22 History
ezetimibe 10 mg tablet 10 mg PO DAILY High cholesterol 05/26/22 05/26/22 05/26/22 History
Active Medications
Generic Name Dose Route Start Last Admin
Trade Name Freq PRN Reason Stop Dose Admin
Acetaminophen 650 mg 05/26/22 23:05 05/29/22 20:51
Acetaminophen 325 Mg Tablet PO 06/23/22 23:04 650 mg
Q6HPRN PRN Administration
mild pain/BARBA/fever
Allopurinol 200 mg 05/27/22 08:00 05/29/22 08:27
Allopurinol 100 Mg Tablet PO 06/24/22 07:59 200 mg
DAILY MUNIRA Administration
Ascorbic Acid 1,000 mg 05/27/22 08:00 05/29/22 08:27
Ascorbic Acid 500 Mg Tablet PO 06/24/22 07:59 1,000 mg
DAILY MUNIRA Administration
Atorvastatin Calcium 80 mg 05/26/22 23:05 05/29/22 22:47
Atorvastatin (Lipitor) 80 Mg Tablet PO 06/23/22 23:04 80 mg
HS MUNIRA Administration
Carvedilol 6.25 mg 05/27/22 08:00 05/29/22 20:51
Carvedilol 6.25 Mg Tablet PO 06/24/22 07:59 6.25 mg
BID MUNIRA Administration
Cefepime HCl 1,000 mg 05/28/22 08:00 05/29/22 08:28
Cefepime Hcl 1,000 Mg/11.3 Ml Vial IV 1,000 mg
Q24H MUNIRA Administration
Cholecalciferol 2,000 units 05/27/22 08:00 05/29/22 08:26
Cholecalciferol (Vitamin D3) 2,000 Units Tablet (50 Mcg) PO 06/24/22 07:59 2,000 units
DAILY MUNIRA Administration
Cinacalcet 30 mg 05/27/22 08:00 05/28/22 08:19
Cinacalcet 30 Mg Tablet PO 06/24/22 07:59 30 mg
SuTuThSa@0800 MUNIRA Administration
Cyanocobalamin 1,000 mcg 05/27/22 08:00 05/29/22 08:28
Cyanocobalamin 1,000 Mcg Tablet PO 06/24/22 07:59 1,000 mcg
DAILY MUNIRA Administration
Ezetimibe 10 mg 05/27/22 08:00 05/29/22 08:26
Ezetimibe (Zetia) 10 Mg Tablet PO 06/24/22 07:59 10 mg
DAILY MUNIRA Administration
Emollient Ointment 0 applic 05/27/22 08:00 05/29/22 08:55
Petrolatum/Mineral Oil (Hydrophor) Oint 100 Gram TOPICAL 06/24/22 07:59 1 applic
DAILY MUNIRA Administration
Hydralazine HCl 25 mg 05/27/22 08:00 05/29/22 20:51
Hydralazine 25 Mg Tablet PO 06/24/22 07:59 25 mg
BID MUNIRA Administration
Lidocaine/Prilocaine 0 gram 05/28/22 11:52
*Pom* Lidocaine 2.5%/Prilocaine 2.5% (Cream) 5 Gram Tube TOPICAL 06/25/22 11:51
PRN PRN
TO FISTULA PRIOR TO HD
Lisinopril 5 mg 05/27/22 08:00 05/29/22 16:28
Lisinopril 5 Mg Tablet PO 06/24/22 07:59 5 mg
DAILY MUNIRA Administration
Multivitamins Therapeutic 1 tablet 05/27/22 08:00 05/29/22 08:27
Multivitamin Tablet PO 06/24/22 07:59 1 tablet
DAILY MUNIRA Administration
Ondansetron HCl 4 mg 05/28/22 11:35 05/28/22 12:13
Ondansetron 4 Mg/2 Ml Vial IV 06/25/22 11:34 4 mg
Q6HPRN PRN Administration
NAUSEA/VOMITING
Pantoprazole Sodium 40 mg 05/27/22 08:00 05/29/22 20:51
Pantoprazole 40 Mg Delayed Release Tablet PO 06/24/22 07:59 40 mg
BID MUNIRA Administration
Sevelamer Carbonate 3,200 mg 05/27/22 07:30 05/29/22 16:27
Sevelamer Carbonate (Renvela) 800 Mg Tablet PO 06/24/22 07:29 3,200 mg
AC MUNIRA Administration
Sodium Chloride 0 flush 05/26/22 23:00 05/29/22 08:32
Sodium Chloride 0.9% (Flush) Syringe IV 06/23/22 22:59 2 flush
PER PROTOCOL MUNIRA Administration
Sterile Water 10 ml 05/28/22 08:00 05/29/22 08:28
Sterile Water For Injection 10 Ml Vial IV 06/25/22 07:59 10 ml
Q24H MUNIRA Administration
Review of Systems
-
History Source: Patient
All Other Systems: Reviewed and Negative (Denies pain)
Constitutional: Reports Fatigue
Respiratory: Reports Cough
Musculoskeletal: Reports Edema
Neuro: Reports Weakness
Physical Exam
-
General: Well Developed and Well Nourished
HEENT: Negative Jaundice
Cardiology: Normal Sinus Rhythm, S1 and S2
Pulmonary: Clear
GI: Soft and Normal Bowel Sounds
Musculoskeletal: Other (B/l lower extremity edema with chronic venous stasis changes)
Neurology: Non Focal and Other (Tearful)
Skin: Warm and Dry
Hematologic / Lymphatic: No Lymphadenopathy
Psych: Calm, Intact Judgement/Insight and Depressed
Labs
Lab Results
WBC 16.3 10^3/uL (4.8-10.8) H 05/30/22 07:35
RBC 2.64 10^6/uL (4.70-6.10) L 05/30/22 07:35
Hgb 8.2 g/dL (13.0-18.0) L 05/30/22 07:35
Hct 25.8 % (39.0-52.0) L 05/30/22 07:35
MCV 97.7 fL (80.0-94.0) H 05/30/22 07:35
MCH 31.1 pg (27.0-31.0) H 05/30/22 07:35
MCHC 31.8 g/dL (33.0-37.0) L 05/30/22 07:35
RDW 18.2 % (11.5-14.5) H 05/30/22 07:35
Plt Count 188 10^3/uL (130-400) D 05/30/22 07:35
MPV 11.0 fL (7.4-10.4) H 05/30/22 07:35
Abs Immat Gran (auto) 0.7 10^3/uL (0-0.05) H 05/26/22 16:59
Absolute Neuts (auto) 5.1 10^3/uL (1.4-6.5) 05/26/22 16:59
Absolute Lymphs (auto) 1.1 10^3/uL (1.2-3.4) L 05/26/22 16:59
Absolute Monos (auto) 1.1 10^3/uL (0.1-0.6) H 05/26/22 16:59
Absolute Eos (auto) 0.1 10^3/uL (0-0.7) 05/26/22 16:59
Absolute Basos (auto) 0.1 10^3/uL (0-0.2) 05/26/22 16:59
Immature Gran % 8.0 % (0-0.5) H 05/26/22 16:59
Neutrophils % 62.6 % (42.2-75.2) 05/26/22 16:59
Lymphocytes % 13.0 % (20.5-51.1) L 05/26/22 16:59
Monocytes % 13.5 % (1.7-9.3) H 05/26/22 16:59
Eosinophils % 1.5 % (0-6) 05/26/22 16:59
Basophils % 1.4 % (0-2) 05/26/22 16:59
Creatinine 6.9 mg/dL (0.7-1.3) H* 05/29/22 07:04
Vital Signs
Vital Signs
Temp Pulse Resp BP Pulse Ox
98.8 F 81 18 135/60 93
05/30/22 07:28 05/30/22 07:28 05/30/22 07:28 05/30/22 07:28 05/30/22 07:28
[2022-05-30 08:43] LABS: ALT (SGPT) 21 U/L (0-50); AST (SGOT) 30 U/L (17-59); Albumin 3.3 g/dl (3.5-5.0); Alkaline Phosphatase 256 U/L (38-126); Blood Urea Nitrogen 44 mg/dl (9-20); Carbon Dioxide 30 mmol/L (22-30); Chloride 96 mmol/L (98-107); Estimated Creatinine Clearance 14 ml/min; Glomerular Filtration Rate 9.8; Glucose 102 mg/dl (65-99); Potassium 3.9 mmol/L (3.5-5.1); Sodium 136 mmol/L (135-145); Total Bilirubin 0.9 mg/dl (0.2-1.3); Total Protein 5.9 g/dl (6.3-8.2)
[2022-05-30] MEDS: HYDROPHOR 1 APPLIC TOPICAL (09:09)
[2022-05-30] MEDS: ZETIA 10 MG PO (09:09)
[2022-05-30] MEDS: VITAMIN C 1000 MG PO (09:09)
[2022-05-30] MEDS: VITAMIN B-12 1000 MCG PO (09:10)
[2022-05-30] MEDS: ZESTRIL 5 MG PO (09:10)
[2022-05-30] MEDS: COREG 6.25 MG PO ×2 (09:10→20:04)
[2022-05-30] MEDS: PROTONIX 40 MG PO ×2 (09:10→20:05)
[2022-05-30] MEDS: APRESOLINE 25 MG PO ×2 (09:10→20:04)
[2022-05-30] MEDS: ZYLOPRIM 200 MG PO (09:11)
[2022-05-30] MEDS: THERAGRAN 1 TABLET PO (09:11)
[2022-05-30] MEDS: STERILE WATER FOR INJECTION 10 ML IV (09:11)
[2022-05-30] MEDS: VITAMIN D3 (cholecalciferol) 2000 UNITS PO (09:11)
[2022-05-30] MEDS: MAXIPIME 1000 MG IV (09:12)
[2022-05-30] MEDS: SENSIPAR 30 MG PO (09:14)
[2022-05-30] MEDS: RENVELA 3200 MG PO ×3 (09:15→15:57)
[2022-05-30] MEDS: FLUSH (NSS) 2 FLUSH IV (09:16)
--- NOTE | 2022-05-30 10:00 | CM ---
Addendum entered by Adamaris Ordonez 05/30/22 11:21:
and daughter asked for VN to be cancelled with [facility] and transferred to [facility] when patient closer to discharge. Family discussing options for next steps with physicians.
Original Note:
Patient seen at bedside with physician and patient present. Patient for pending surgery. Patient plan at discharge pending functional status, however family plan is for discharge home [facility]. Patient is active with both [facility]
and with [facility] dialysis. CM will continue to follow for discharge planning needs.
Plan; home with [facility]; lashonda, [facility]ANKAR P[facility]RE[facility] and Oncology here at , [facility]
--- NOTE | 2022-05-30 10:08 | PN.CDI ---
CDI
- -
CDI:
Physician Documentation Request
Admit Date: 05/26/22 21:03
Dear Doctor Daya,
Please review the following and provide your response in the progress notes.
Clinical Indicators:
Laboratory Tests
05/26/22 05/27/22 05/28/22
16:59 05:59 04:24
Potassium 3.4 L 3.4 L 3.8
05/29/22 05/30/22
07:04 07:35
Potassium 4.1 3.9
Potassium Chloride (Potassium Chloride 20 Meq Extended Release Tablet) 40 meq PO NOW STA
Stop: 05/27/22 12:00
Last Admin: 05/27/22 12:22 Dose: 40 meq
Based on the above, please clarify in the progress notes, the appropriate diagnosis, if significant, that supports the above abnormalities and additional evaluation, monitoring and/or treatment rendered:
Hypokalemia
Abnormal lab value, clinically insignificant
Other
Unable to determine
Use of terms such as suspected, likely, concern for, or probable (associated with a specific diagnosis that is being evaluated, monitored, or treated as if it exists) are acceptable and can be coded in the inpatient setting, when documented at the
time of discharge.
Thank you,
Denise Hoffmann RN BSN CCDS
CDI Specialist
please contact via tiger text
Please use your independent medical judgment in providing your response.
[2022-05-30 10:09] VITALS: BP 133/54; PULSE 79; O2SAT 91
--- NOTE | 2022-05-30 10:13 | PN.CDI ---
CDI
- -
CDI:
Physician Documentation Request
Admit Date: 05/26/22 21:03
Dear Doctor Daya,
Please review the following and provide your response in the progress notes.
Clinical Indicators:
ER, 05/26
#Patient with history of bladder cancer,
#currently receiving chemotherapy, receiving dialysis,
#but with chronic indwelling Watson catheter
H+P, 05/26
#complaining of new / worsened hematuria in his Watson catheter.
Laboratory Tests
05/26/22 05/27/22 05/28/22
16:59 05:59 04:24
WBC 8.1 10.1 12.9 H
05/29/22 05/30/22
07:04 07:35
WBC 17.0 H 16.3 H
05/28/22 11:17 Urine Culture - Final
Urine Pseudomonas aeruginosa
Documentation in the medical record includes administration of Medication:
Cefepime HCl (Cefepime Hcl 1,000 Mg/11.3 Ml Vial) 1,000 mg IV Q24H MUNIRA
Last Admin: 05/30/22 09:12 Dose: 1,000 mg
Please provide in the Progress Notes the diagnosis(es) associated with the medication listed above.
UTI due to/associated with/related to chronic indwelling watson
UTI only
Other
Unable to determine
Use of terms such as suspected, likely, concern for, or probable (associated with a specific diagnosis that is being evaluated, monitored, or treated as if it exists) are acceptable and can be coded in the inpatient setting, when documented at the
time of discharge.
Thank you,
Denise Hoffmann RN BSN CCDS
CDI Specialist
please contact via tiger text
Please use your independent medical judgment in providing your response.
--- NOTE | 2022-05-30 12:09 | W.PN.URO.CBU ---
Today's Communication / Plan
-
Cystectomy vs endoscopic management
Assessment / Plan
-
81M with small cell bladder cancer
History of large dense bladder clot requiring transfer to [facility] for clot evacuation 03/2022
Presenting again with hematuria and associated anemia
Had a long discussion with patient and his family today regarding management strategies
Patient's overall disease course and progression is most likely to be improved with continued chemotherapy, however the persistent hematuria presents a difficult obstacle
Given his significant medical comorbidity, cystectomy may entail a prolonged inpatient recovery and likely delay his ability to receive chemotherapy
We reviewed proceeding with definitive treatment with radical vs supratrigonal cystectomy and ureteral ligation to eliminate source of bleeding. He is not a good candidate for urinary diversion.
Alternatively we discussed repeat cystoscopy and fulguration, along with urinary diversion with bilateral PCN placement. Diverting his small urine volume may improve ability of bladder to clot and reduce symptoms of any recurrent bleeding.
Patient wanted more time to discuss these options with his family this afternoon
Diagnosis
-
Date of Service: May 30, 2022
-
81M with small cell bladder cancer
History of large dense bladder clot requiring transfer to [facility] for clot evacuation 03/2022
Presenting again with hematuria and associated anemia
UTI
Subjective
-
No bladder pain
CBI draining well
Objective
-
Vital Signs
Temp Pulse Resp BP Pulse Ox
99.2 F 73 16 140/59 93
05/30/22 15:20 05/30/22 20:04 05/30/22 15:20 05/30/22 20:04 05/30/22 15:20
Intake and Output
05/29/22 05/30/22 05/31/22
06:59 06:59 06:59
Intake Total 1975 1070 / 1070 930 / 930
Output Total 1999 3050 / 3050 200 / 200
Balance -24 / -24 -1979 / -1979 730 / 730
Intake:
Oral fluids 1975 1070 / 1070 930 / 930
Output:
True Urine Output from CBI 1999 / 3049 200 / 200
Laboratory Results
05/30/22 07:35
05/30/22 07:35
Physical Exam
-
General - well developed, well nourished, no acute distress
Chest - clear bilaterally
Abdomen - soft, non-tender, positive bowel sounds, no CVAT
Genitalia - watson in place with CBI, clear urine
Skin - warm & dry with no rash
Neuro - AOx3, no motor deficits
--- NOTE | 2022-05-30 13:43 | W.PN.NEPH.PH ---
Today's Communication / Plan
-
Hemodialysis tomorrow
Assessment/Plan
-
Assessment:
Gross hematuria, recurrent
Bladder malignancy received one dose of chemotherapy (cisplatinum + ...)
TURBT April 04, 2022
ESRD (PD 2018; HD 2019)
Anemia, multifactorial
CABG x2 (ANN-LAD, SVG-ramus, on pump with right Endo vein harvest/sternal plate
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
Biopsy-proven focal sclerosis
Diabetes mellitus
Gout, chronic
Secondary hyperparathyroidism
History hypertension with relative hypotension
History morbid obesity
History sleep apnea on CPAP
Left arm AV fistula 2018
Pelvic adenopathy
Pulmonary nodules
Plan:
Oncology note reviewed
Cystectomy recommended
Patient reportedly does not want to return to [facility]
Spoke with daughter Mikayla (RN)
She and mother have lots of questions regarding proposed bilateral percutaneous nephrostomy stents
This is the first I have heard
They understand that he is a high operative risk for cystectomy though had lots of questions about bilateral percutaneous nephrostomy tubes and whether there would be any value given lack of root cause correction
I will reach out to urology
In any event, hemodialysis will be planned tomorrow without heparin
LIZ and IV iron with HD
He appears hypervolemic so we will try to keep dry weight as low as possible
Transfuse as needed
-
-
Date of Service: May 30, 2022
CC / HPI / ROS
-
Chief Complaint:
Follow-up ESRD
History of Present Illness:
ESRD MWF
Hb 8.2 GM/DL
Further gross hematuria
Weight has increased, edema present
Review of Systems:
Pain or shortness of breath
Gross hematuria at this time
Carey drainage bag pink-colored urine
Labs
-
Labs:
WBC 16.3 10^3/uL (4.8-10.8) H 05/30/22 07:35
RBC 2.64 10^6/uL (4.70-6.10) L 05/30/22 07:35
Hgb 8.2 g/dL (13.0-18.0) L 05/30/22 07:35
Hct 25.8 % (39.0-52.0) L 05/30/22 07:35
Plt Count 188 10^3/uL (130-400) D 05/30/22 07:35
Sodium 136 mmol/L (135-145) 05/30/22 07:35
Potassium 3.9 mmol/L (3.5-5.1) 05/30/22 07:35
Chloride 96 mmol/L (98-107) L 05/30/22 07:35
Carbon Dioxide 30 mmol/L (22-30) 05/30/22 07:35
BUN 44 mg/dl (9-20) H 05/30/22 07:35
Creatinine 5.6 mg/dL (0.7-1.3) H* 05/30/22 07:35
Glomerular Filtr Rate 9.8 05/30/22 07:35
Glucose 102 mg/dl (65-99) H 05/30/22 07:35
Calcium 9.0 mg/dl (8.4-10.2) 05/30/22 07:35
Albumin 3.3 g/dl (3.5-5.0) L 05/30/22 07:35
Physical Exam
-
Vital Signs:
Vital Signs
Temp Pulse Resp BP Pulse Ox
98.8 F 81 18 135/60 93
05/30/22 07:28 05/30/22 07:28 05/30/22 07:28 05/30/22 07:28 05/30/22 09:06
Other Findings::
Evaluated sitting out of bed
Comfortable on room air
No rub or gallop
No anterior wheezing or rhonchi
Obese soft abdomen
Krebs-tinged urine in drainage bag
2+ lower extremity edema
[2022-05-30 15:20] VITALS: BP 151/62
--- NOTE | 2022-05-30 15:40 | W.PN.HOSP.TC ---
Today's Communication/Plan
-
possible surgery
port placement for chemo deferred to outpt (infection risks)
Assessment / Plan
Assessment / Plan
pt is an 81 year old male
Hematuria secondary to Bladder CA--apprec urology--cont CBI--bladder resection as per urology--discussions in process with family
Pseudomonas UTI due related to indwelling watson catheter- cont cefepime
hypokalemia (prior to me assuming patient's care)-- pt on HD
Acute Blood Loss Anemia due to hematuria on Anemia of Chronic Disease-s/p 1 units PRBCs-Monitor Hgb, stable at 8.6
Coronary Artery Disease s/p CABG in April 2021--Hold aspirin in setting of hematuria
Essential Hypertension--Continue Coreg, Hydralazine and Lisinopril
Hyperlipidemia--Continue Lipitor and Zetia
Diabetes Mellitus, Type 2--Monitor sugars on AM labs
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
GERD--Continue Protonix
Gout--Continue allopurinol
DVT proph: SCDs
Code Status: DNR
Anticipated Discharge: > 48 hours
Subjective/Interval History
-
Date of Service: May 30, 2022
Objective Data
-
Labs:
Laboratory Results
05/30/22 05/30/22
07:35 07:35
WBC 16.3 H
Hgb 8.2 L
Hct 25.8 L
Plt Count 188 D
Sodium 136
Potassium 3.9
Chloride 96 L
Carbon Dioxide 30
BUN 44 H
Creatinine 5.6 H*
Glucose 102 H
Calcium 9.0
Total Bilirubin 0.9
AST 30
ALT 21
Alkaline Phosphatase 256 H
Vital Signs:
Vital Signs
Temp Pulse Resp BP Pulse Ox
98.8 F 81 18 135/60 93
05/30/22 07:28 05/30/22 07:28 05/30/22 07:28 05/30/22 07:28 05/30/22 09:06
I&O
05/29/22 05/30/22 05/31/22
06:59 06:59 06:59
Intake Total 1975 1070 / 1070
Output Total 1999 3050 / 3050
Balance - / - -1979 /
[2022-05-30] MEDS: DESENEX/MITRAZOL/ZEASORB 1 APPLIC TOPICAL ×2 (15:57→20:05)
--- NOTE | 2022-05-30 20:00 | PTCARENOTE ---
Per Dr. Atwood - Tell patient I spoke with urology and they will come speak to patient and family later in the day. Message passed along to patient.
[2022-05-30] MEDS: LIPITOR 80 MG PO (21:23)
[2022-05-30 23:09] VITALS: BP 146/66
[2022-05-31 05:43] VITALS: BMI 38.1
[2022-05-31 07:40] VITALS: BP 144/72
[2022-05-31 08:26] LABS: Hematocrit 25.6 % (39.0-52.0); Hemoglobin 8.1 g/dL (13.0-18.0)
[2022-05-31 08:35] LABS: Albumin 3.3 g/dl (3.5-5.0); Blood Urea Nitrogen 65 mg/dl (9-20); Carbon Dioxide 26 mmol/L (22-30); Chloride 95 mmol/L (98-107); Glucose 108 mg/dl (65-99); Phosphorus 2.6 mg/dl (2.5-4.5); Potassium 4.3 mmol/L (3.5-5.1); Sodium 134 mmol/L (135-145)
[2022-05-31] MEDS: HYDROPHOR 1 APPLIC TOPICAL (08:39)
[2022-05-31] MEDS: ProAmatine 2.5 MG PO (08:48)
[2022-05-31] MEDS: DESENEX/MITRAZOL/ZEASORB 1 APPLIC TOPICAL ×2 (08:49→20:04)
[2022-05-31] MEDS: ZYLOPRIM 200 MG PO (08:50)
[2022-05-31] MEDS: APRESOLINE PO (08:50)
[2022-05-31] MEDS: PROTONIX 40 MG PO ×2 (08:50→20:03)
[2022-05-31] MEDS: ZETIA 10 MG PO (08:50)
[2022-05-31] MEDS: COREG PO (08:50)
[2022-05-31] MEDS: MAXIPIME 1000 MG IV (08:51)
[2022-05-31] MEDS: STERILE WATER FOR INJECTION 10 ML IV (08:51)
[2022-05-31] MEDS: THERAGRAN 1 TABLET PO (08:52)
[2022-05-31] MEDS: RENVELA PO ×2 (08:52→11:35)
[2022-05-31] MEDS: VITAMIN B-12 1000 MCG PO (08:53)
[2022-05-31] MEDS: VITAMIN D3 (cholecalciferol) 2000 UNITS PO (08:53)
[2022-05-31] MEDS: ZESTRIL PO (08:53)
[2022-05-31] MEDS: VITAMIN C 1000 MG PO (08:54)
--- NOTE | 2022-05-31 08:55 | W.PN.URO.CBU ---
Today's Communication / Plan
-
IR embolization of kidneys
Surgical planning
Assessment / Plan
-
81M with small cell bladder cancer
History of large dense bladder clot requiring transfer to [facility] for clot evacuation 03/2022
Presenting again with hematuria and associated anemia
- After further discussion with family, have decided to proceed with cystectomy - will attempt to do this robotically
- Would not recommend urinary diversion due to very high rate of anastomosis failure in oliguric patient. Discussed with IR and nephrology who agree with strategy to embolize kidneys bilaterally to eliminate urine output
-
Diagnosis
-
Date of Service: May 31, 2022
-
81M with small cell bladder cancer
History of large dense bladder clot requiring transfer to [facility] for clot evacuation 03/2022
Presenting again with hematuria and associated anemia
UTI
Subjective
-
no events overnight
Objective
-
Vital Signs
Temp Pulse Resp BP Pulse Ox
97.6 F 69 18 144/72 95
05/31/22 07:40 05/31/22 07:40 05/31/22 07:40 05/31/22 07:40 05/31/22 07:40
Intake and Output
05/30/22 05/31/22 06/01/22
06:59 06:59 06:59
Intake Total 1070 / 1070 1170 / 1170
Output Total 3050 / 3050 825 / 825
Balance -1979 / -1979 345 / 345
Intake:
Oral fluids 1070 / 1070 1170 / 1170
Output:
True Urine Output from CBI 3050 / 3050 825 / 825
Laboratory Results
05/31/22 08:12
05/31/22 08:12
Physical Exam
-
General - well developed, well nourished, no acute distress
Chest - clear bilaterally
Abdomen - soft, non-tender, positive bowel sounds, no CVAT
- watson in place, light urine
Rectal - normal
Skin - warm & dry with no rash
Neuro - AOx3, no motor deficits
[2022-05-31 09:03] LABS: Estimated Creatinine Clearance 11 ml/min; Glomerular Filtration Rate 7.7
[2022-05-31] MEDS: FERRLECIT 125 MG IV (09:08)
[2022-05-31] MEDS: RETACRIT 10000 UNITS IV (09:08)
--- NOTE | 2022-05-31 09:48 | W.PN.NEPH.HD ---
Assessment
-
Patient seen on HD
sbp 138 at current u/f
CBI continues (less blood in urine)
for IR embolization of kidneys this week then eventual cystectomy
Progress Note - Hemodialysis
-
Date of Service: May 31, 2022
Duration: 45 minutes and 3 hours
Potassium Bath: 3
Calcium Bath: 2.5
Opti-Dialyzer: 160
Ultrafiltration: Other (4kg)
Blood Flow: 400
Dialysate Flow: 600
Heparin: none
EPO: 00837 and Iron
--- NOTE | 2022-05-31 11:53 | W.PN.HOSP.TC ---
Today's Communication/Plan
-
apprec urology
apprec IR
Assessment / Plan
Assessment / Plan
pt is an 81 year old male
Hematuria secondary to Bladder CA--apprec urology--cont CBI--discussions in process with family--settled on IR embolization to kidneys presumed today followed by cystectomy presumably tomorrow
Pseudomonas UTI due related to indwelling watson catheter- cont cefepime
hypokalemia (prior to me assuming patient's care)-- pt on HD
Acute Blood Loss Anemia due to hematuria on Anemia of Chronic Disease-s/p 1 units PRBCs--Monitor Hgb
Coronary Artery Disease s/p CABG in April 2021--Hold aspirin in setting of hematuria
Essential Hypertension--Continue Coreg, Hydralazine and Lisinopril
Hyperlipidemia--Continue Lipitor and Zetia
Diabetes Mellitus, Type 2--Monitor sugars on AM labs
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
GERD--Continue Protonix
Gout--Continue allopurinol
DVT proph: SCDs
Code Status: DNR
Anticipated Discharge: > 48 hours
Subjective/Interval History
-
Date of Service: May 31, 2022
pt NPO for procedure--just finishing up HD
Objective Data
-
Labs:
Laboratory Results
05/31/22 05/31/22
08:12 08:12
Hgb 8.1 L
Hct 25.6 L
Sodium 134 L
Potassium 4.3
Chloride 95 L
Carbon Dioxide 26
BUN 65 H
Creatinine 6.9 H*
Glucose 108 H
Calcium 9.0
Vital Signs:
max temp for 24 hours
05/30/22
15:20
Temp 99.2 F
Vital Signs
Temp Pulse Resp BP Pulse Ox
97.6 F 70 18 134/66 95
05/31/22 07:40 05/31/22 08:48 05/31/22 07:40 05/31/22 08:48 05/31/22 07:40
I&O
05/30/22 05/31/22 06/01/22
06:59 06:59 06:59
Intake Total 1070 / 1070 1170 / 1170
Output Total 3050 / 3050 825 / 825
Balance -1979 / -1979 345 / 345
Review of Systems
-
All other systems: Reviewed and negative
Physical Exam
-
General: Well Developed, Well Nourished and No Apparent Distress
HEENT: Normocephalic and Atraumatic
Respiratory: Clear to Auscultation; Negative Wheezes or Rhonchi
Cardiac: Regular Rhythm and S1/S2; Negative Murmur
GI: Soft, Nontender, Nondistended and Normal Bowel Sounds
Musculoskeletal: No Clubbing and No Cyanosis; Negative No Edema
Skin: Warm
Neuro: Awake
--- NOTE | 2022-05-31 15:36 | W.PN.UPDATE ---
Addendum entered and electronically signed by Konstantin Merrill MD 05/31/22 18:28:
- Case cancelled this afternoon due to technical issues with our angio suite. Will tentatively plan for tomorrow afternoon, however depends on how quickly our room can be fixed. Will follow up in the morning.
Original Note:
Update Note
Progress Note Update
- After discussions with Dr. Garland earlier today, we will attempt to embolize superior vesicle arteries in attempt to control hemorrhagic bladder tumor. Limited case series have demonstrated efficacy in similar clinical situations, even with
unilateral embolization. May be technically challenging with risk of non target embolization
- If super vesicle embo does not appear technically feasible, we will instead pursue bilateral renal artery embolizations in preparation for cystectomy.
- Pt understandably frustrated but wishes to proceed with procedure.
--- NOTE | 2022-05-31 17:20 | PTCARENOTE ---
Pt back from IR w/o intervention due to technical problems in the IR room. Diet resumed. Family at bedside.
[2022-05-31] MEDS: RENVELA 3200 MG PO (17:37)
[2022-05-31] MEDS: LIPITOR 80 MG PO (20:03)
[2022-05-31] MEDS: APRESOLINE 25 MG PO (20:04)
[2022-05-31] MEDS: COREG 6.25 MG PO (20:04)
[2022-05-31 23:54] VITALS: BP 106/69
[2022-06-01] VITALS (13 sets, daily range): BP systolic 110–154; BP diastolic 52–66; BMI 38.3
[2022-06-01] MEDS: MELATONIN 5 MG PO (00:11)
[2022-06-01 04:53] LABS: ALT (SGPT) 48 U/L (0-50); AST (SGOT) 69 U/L (17-59); Alkaline Phosphatase 302 U/L (38-126); Blood Urea Nitrogen 43 mg/dl (9-20); Calcium 8.7 mg/dl (8.4-10.2); Carbon Dioxide 27 mmol/L (22-30); Chloride 98 mmol/L (98-107); Estimated Creatinine Clearance 17 ml/min; Glomerular Filtration Rate 12.3; Glucose 102 mg/dl (65-99); Magnesium 2.1 mg/dl (1.6-2.3); Potassium 4.3 mmol/L (3.5-5.1); Sodium 137 mmol/L (135-145); Total Bilirubin 0.8 mg/dl (0.2-1.3); Total Protein 5.7 g/dl (6.3-8.2)
[2022-06-01 05:06] LABS: Hematocrit 23.9 % (39.0-52.0); Hemoglobin 7.5 g/dL (13.0-18.0); Mean Corp Hgb Conc. 31.4 g/dL (33.0-37.0); Mean Corpuscular Hgb 30.5 pg (27.0-31.0); Mean Corpuscular Volume 97.2 fL (80.0-94.0); Mean Platelet Volume 10.8 fL (7.4-10.4); Platelet Count 217 10^3/uL (130-400); Red Blood Cell Count 2.46 10^6/uL (4.70-6.10); Red Cell Dist. Width 18.1 % (11.5-14.5); White Blood Cell Count 15.8 10^3/uL (4.8-10.8)
--- NOTE | 2022-06-01 08:07 | W.PN.URO.CBU ---
Today's Communication / Plan
-
IR procedure when able
Assessment / Plan
-
81M with small cell bladder cancer
History of large dense bladder clot requiring transfer to [facility] for clot evacuation 03/2022 and 04/2021
s/p first cycle of chemotherapy
Presenting again with hematuria and associated anemia
- Discussed definitive plan for proceeding with cystectomy. Would not recommend urinary diversion due to very high rate of anastomosis failure in oliguric patient. Discussed with IR and nephrology who agree with strategy to embolize kidneys
bilaterally to eliminate urine output
- Reviewed with IR who may also be able to embolize tumor or bladder blood supply. If this intervention is successful, patient may be able to avoid high risk surgery
- NPO today for procedure
- Post procedure CT to evaluate bladder clot burden if this is not imaged in the course of IR procedure
- Surgical timing TBD based on results of procedure
Diagnosis
-
Date of Service: June 01, 2022
-
Patient Diagnosis:
Post Op Day:
81M with small cell bladder cancer
History of large dense bladder clot requiring transfer to [facility] for clot evacuation 03/2022
Presenting again with hematuria and associated anemia
UTI
Subjective
-
No events overnight
Urine clear on slow CBI
Objective
-
Vital Signs
Temp Pulse Resp BP Pulse Ox
98.3 F 71 17 113/64 96
06/01/22 07:45 06/01/22 07:45 06/01/22 07:45 06/01/22 07:45 06/01/22 07:45
Intake and Output
05/31/22 06/01/22 06/02/22
06:59 06:59 06:59
Intake Total 1170 / 1170 480 / 480
Output Total 825 / 825 375 / 375
Balance 345 / 345 105 / 105
Intake:
Oral fluids 1170 / 1170 480 / 480
Output:
True Urine Output from CBI 825 / 825 375 / 375
Laboratory Results
06/01/22 03:32
06/01/22 03:32
Physical Exam
-
General - well developed, well nourished, no acute distress
Chest - clear bilaterally
Abdomen - soft, non-tender
- watson in place clear on slow CBI
Skin - warm & dry with no rash
Neuro - AOx3, no motor deficits
[2022-06-01] MEDS: COREG 6.25 MG PO ×2 (08:42→20:54)
[2022-06-01] MEDS: ZESTRIL 5 MG PO (08:42)
[2022-06-01] MEDS: APRESOLINE 25 MG PO ×2 (08:42→20:54)
[2022-06-01] MEDS: THERAGRAN 1 TABLET PO (08:44)
[2022-06-01] MEDS: ZYLOPRIM 200 MG PO (08:44)
[2022-06-01] MEDS: PROTONIX 40 MG PO ×2 (08:44→20:54)
[2022-06-01] MEDS: VITAMIN D3 (cholecalciferol) 2000 UNITS PO (08:44)
[2022-06-01] MEDS: HYDROPHOR 1 APPLIC TOPICAL (08:44)
[2022-06-01] MEDS: ZETIA 10 MG PO (08:44)
[2022-06-01] MEDS: VITAMIN C 1000 MG PO (08:44)
[2022-06-01] MEDS: DESENEX/MITRAZOL/ZEASORB 1 APPLIC TOPICAL ×2 (08:45→20:55)
[2022-06-01] MEDS: STERILE WATER FOR INJECTION 10 ML IV (08:45)
[2022-06-01] MEDS: MAXIPIME 1000 MG IV (08:45)
[2022-06-01] MEDS: VITAMIN B-12 1000 MCG PO (08:53)
[2022-06-01] MEDS: RENVELA 3200 MG PO (08:54)
[2022-06-01] MEDS: SENSIPAR 30 MG PO (08:58)
--- NOTE | 2022-06-01 09:17 | CM ---
Patient seen at bedside with physician. Patient for further procedure today. CM will continue to follow for discharge planning needs.
Plan; home with VN vs SNF
--- NOTE | 2022-06-01 09:22 | W.PN.HOSP.TC ---
Today's Communication/Plan
-
transfuse pRBC today
Assessment / Plan
Assessment / Plan
pt is an 81 year old male
Hematuria secondary to Bladder CA--apprec urology--cont CBI--discussions in process with family--settled on IR embolization to kidneys followed by cystectomy
Pseudomonas UTI due related to indwelling watson catheter- cont cefepime
hypokalemia (prior to me assuming patient's care)-- pt on HD
Acute Blood Loss Anemia due to hematuria on Anemia of Chronic Disease-s/p 1 units PRBCs--Monitor Hgb--will give another unit today
Coronary Artery Disease s/p CABG in April 2021--Hold aspirin in setting of hematuria
Essential Hypertension--Continue Coreg, Hydralazine and Lisinopril
Hyperlipidemia--Continue Lipitor and Zetia
Diabetes Mellitus, Type 2--Monitor sugars on AM labs
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
GERD--Continue Protonix
Gout--Continue allopurinol
DVT proph: SCDs
Code Status: DNR
Anticipated Discharge: > 48 hours
Subjective/Interval History
-
Date of Service: June 01, 2022
pt waiting for renal/bladder embolization (machine broken yesterday-waiting for part today)
Objective Data
-
Labs:
Laboratory Results
06/01/22 06/01/22
03:32 03:32
WBC 15.8 H
Hgb 7.5 L
Hct 23.9 L
Plt Count 217
Sodium 137
Potassium 4.3
Chloride 98
Carbon Dioxide 27
BUN 43 H
Creatinine 4.6 H*
Glucose 102 H
Calcium 8.7
Total Bilirubin 0.8
AST 69 H
ALT 48
Alkaline Phosphatase 302 H
Vital Signs:
max temp for 24 hours
05/31/22
23:54
Temp 98.1 F
Vital Signs
Temp Pulse Resp BP Pulse Ox
98.3 F 71 17 113/64 96
06/01/22 07:45 06/01/22 08:42 06/01/22 07:45 06/01/22 08:42 06/01/22 07:45
I&O
05/31/22 06/01/22 06/02/22
06:59 06:59 06:59
Intake Total 1170 / 1170 480 / 480
Output Total 825 / 825 375 / 375
Balance 345 / 345 105 / 105
Review of Systems
-
All other systems: Reviewed and negative
Physical Exam
-
General: Well Developed, Well Nourished and No Apparent Distress
Respiratory: Clear to Auscultation; Negative Wheezes or Rhonchi
Cardiac: Regular Rhythm and S1/S2; Negative Murmur
GI: Soft, Nontender, Nondistended and Normal Bowel Sounds
Genito-urinary: Continuous Bladder Irrigation
Musculoskeletal: No Clubbing, No Cyanosis and No Edema
Skin: Warm
Neuro: Awake
--- NOTE | 2022-06-01 11:23 | W.PN.ONC ---
Today's Communication / Plan
-
Patient received initial dose of CDDP/[employer]ATION[employer]IP MANAGER at [place]
Anxious to continue plan tentatively plan for cycle 2 next week
Transfuse packed red blood cells today
Wait IR catheter part replacement for fulguration/Embolization
Anticipate cycle 2 of chemotherapy as an outpatient next week
Impression
Impression
Hematuria, multifactorial due to small cell bladdeStatus post cycle CDDP/ [employer]ATION[employer]IP MANAGER-16
Uremic platelet dysfunction,
Anemia
ESRD on HD
Anemia of ESRD
Subjective/Objective
Subjective/Objective
Some discomfort with clot retention this morning
Vital Signs:
Vital Signs
Temp Pulse Resp BP Pulse Ox
98.0 F 69 18 117/52 95
06/01/22 10:37 06/01/22 10:37 06/01/22 10:37 06/01/22 10:37 06/01/22 10:10
PE:
General: Well Developed, Well Nourished and No Apparent Distress
Respiratory: Clear to Auscultation; Negative Wheezes or Rhonchi
Cardiac: Regular Rhythm and S1/S2; Negative Murmur
GI: Soft, Nontender, Nondistended and Normal Bowel Sounds
Genito-urinary: Continuous Bladder Irrigation
Musculoskeletal: No Clubbing, No Cyanosis and No Edema
Skin: Warm
Neuro: Awake
Lab Results:
Laboratory Data
WBC 15.8 10^3/uL (4.8-10.8) H 06/01/22 03:32
Hgb 7.5 g/dL (13.0-18.0) L 06/01/22 03:32
Plt Count 217 10^3/uL (130-400) 06/01/22 03:32
PT 14.7 Sec (11.4-14.6) H 05/26/22 19:41
INR 1.12 05/26/22 19:41
APTT 29.8 Sec (23.4-35.0) 05/26/22 19:41
Glomerular Filtr Rate 12.3 06/01/22 03:32
[2022-06-01] MEDS: RENVELA PO ×2 (13:16→18:14)
--- NOTE | 2022-06-01 15:15 | W.PN.UPDATE ---
Update Note
Progress Note Update
Given technical difficulty in IR suite, procedure is on hold until tomorrow
Discussed with patient and family and will take him to OR today for clot evacuation and fulguration
Plan for IR embolization of kidneys and possible bladder tomorrow AM
[2022-06-01 17:25] LABS: Glucose - Point of Care 114 mg/dl (65-99)
[2022-06-01] MEDS: DILAUDID 0.5 MG IV (17:30)
--- NOTE | 2022-06-01 17:40 | W.IMMPOSTOP ---
Surgical Immed Post Op Note
-
Primary Surgeon: Cathleenfer
Assisting Surgeon: -
Pre-op Diagnosis: Bladder cancer, hematuria
Post-op Diagnosis: same
Procedure Performed: cystoscopy, fulguration of bladder
Anesthesia Type: general
Specimen / Cultures: none
Estimated Blood Loss: 1cc
Complications: none
Operative Findings:
- Surprisingly, no blood clot within the bladder and no active bleeding visible
- Extensive fulguration of all prior fulgurated/resected areas of the bladder performed, no hematuria at conclusion of procedure
- Obtain CTAP angiogram to rule out retroperitoneal bleed
--- NOTE | 2022-06-01 18:05 | W.PN.NEPH.PH ---
Today's Communication / Plan
-
HD tomorrow in am
Assessment/Plan
-
Assessment:
Gross hematuria, recurrent
Bladder malignancy received one dose of chemotherapy (cisplatinum + ...)
TURBT April 04, 2022
ESRD (PD 2018; HD 2018)
Anemia, multifactorial
CABG x2 (ANN-LAD, SVG-ramus, on pump with right Endo vein harvest/sternal plate
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
Biopsy-proven focal sclerosis
Diabetes mellitus
Gout, chronic
Secondary hyperparathyroidism
History hypertension with relative hypotension
History morbid obesity
History sleep apnea on CPAP
Left arm AV fistula 2018
Pelvic adenopathy
Pulmonary nodules
Plan:
s/p cystoscopy with out active bleeding
CT ordered to r/o other causes of bleeding
plan bilat renal embolization in am
Cystectomy eventually
HD tomorrow with out heparin
LIZ and IV iron with HD
Transfuse as needed
-
-
Date of Service: June 01, 2022
CC / HPI / ROS
-
Chief Complaint:
Follow-up ESRD
History of Present Illness:
ESRD MWF
Hb low at 7.5 GM/DL
no active bleeding today, s/p cystoscopy and fulguration, CBI
Weight slightly up
Review of Systems:
pain at watson site
no sob at rest
just back from OR
Labs
-
Labs:
WBC 15.8 10^3/uL (4.8-10.8) H 06/01/22 03:32
RBC 2.46 10^6/uL (4.70-6.10) L 06/01/22 03:32
Hgb 7.5 g/dL (13.0-18.0) L 06/01/22 03:32
Hct 23.9 % (39.0-52.0) L 06/01/22 03:32
Plt Count 217 10^3/uL (130-400) 06/01/22 03:32
Sodium 137 mmol/L (135-145) 06/01/22 03:32
Potassium 4.3 mmol/L (3.5-5.1) 06/01/22 03:32
Chloride 98 mmol/L (98-107) 06/01/22 03:32
Carbon Dioxide 27 mmol/L (22-30) 06/01/22 03:32
BUN 43 mg/dl (9-20) H 06/01/22 03:32
Creatinine 4.6 mg/dL (0.7-1.3) H* 06/01/22 03:32
Glomerular Filtr Rate 12.3 06/01/22 03:32
Glucose 102 mg/dl (65-99) H 06/01/22 03:32
Calcium 8.7 mg/dl (8.4-10.2) 06/01/22 03:32
Phosphorus 2.6 mg/dl (2.5-4.5) 05/31/22 08:12
Albumin 3.0 g/dl (3.5-5.0) L 06/01/22 03:32
Physical Exam
-
Vital Signs:
Vital Signs
Temp Pulse Resp BP Pulse Ox
97.4 F 67 19 142/64 98
06/01/22 18:01 06/01/22 18:01 06/01/22 18:01 06/01/22 18:01 06/01/22 18:01
Cardiovascular:: Regular rate and rhythm
Respiratory:: Bilateral: CTA (anteriorly)
Lung Excursion:: Normal
Abdomen:: Nontender and Soft
Extremity Edema:: None: Bilateral: (trace)
Watson Catheter: No
--- NOTE | 2022-06-01 18:35 | PTCARENOTE ---
Pt back in room from PACU after cysto, clot evacuation. 3way watson exchanged in OR, CBI running slowly. VSS, pt comfortable at this time.
[2022-06-01] MEDS: LIPITOR 80 MG PO (20:54)
[2022-06-01] MEDS: ROXICODONE 2.5 MG PO (21:39)
[2022-06-02 03:22] VITALS: BP 123/54
[2022-06-02 06:00] VITALS: BMI 38.2
[2022-06-02 07:30] VITALS: BP 145/69
[2022-06-02] MEDS: RETACRIT 10000 UNITS IV (08:15)
[2022-06-02] MEDS: FERRLECIT 125 MG IV (08:15)
[2022-06-02 08:21] LABS: Hematocrit 27.6 % (39.0-52.0); Mean Corp Hgb Conc. 32.6 g/dL (33.0-37.0); Mean Corpuscular Hgb 31.5 pg (27.0-31.0); Mean Corpuscular Volume 96.5 fL (80.0-94.0); Mean Platelet Volume 11.1 fL (7.4-10.4); Platelet Count 262 10^3/uL (130-400); Red Blood Cell Count 2.86 10^6/uL (4.70-6.10); Red Cell Dist. Width 18.1 % (11.5-14.5); White Blood Cell Count 25.2 10^3/uL (4.8-10.8)
[2022-06-02 08:40] LABS: Blood Urea Nitrogen 61 mg/dl (9-20); Calcium 9.2 mg/dl (8.4-10.2); Carbon Dioxide 26 mmol/L (22-30); Chloride 98 mmol/L (98-107); Estimated Creatinine Clearance 12 ml/min; Glomerular Filtration Rate 8.6; Glucose 164 mg/dl (65-99); Potassium 4.9 mmol/L (3.5-5.1); Sodium 136 mmol/L (135-145)
--- NOTE | 2022-06-02 08:43 | W.PN.URO.CBU ---
Today's Communication / Plan
-
IR procedure
Assessment / Plan
-
81M with small cell bladder cancer
History of large dense bladder clot requiring transfer to [facility] for clot evacuation 03/2022 and 04/2021
s/p first cycle of chemotherapy
Presenting again with hematuria and associated anemia
s/p OR 2/2 for cystoscopy and fulguration
NO CLOT was found within bladder, indicating persistent hematuria is not a major contributor to anemia
- Proceed with IR embolization of kidneys to stop urine production. This will help prevent future hematuria episodes/promote clotting if bladder has any further bleeding
- NPO for IR today
- Maintain watson today, plan for removal 06/03 or 06/04
Diagnosis
-
Date of Service: June 02, 2022
-
Patient Diagnosis:
Post Op Day:
Patient Diagnosis:
Post Op Day:
81M with small cell bladder cancer
History of large dense bladder clot requiring transfer to [facility] for clot evacuation 03/2022
Presenting again with hematuria and associated anemia
UTI
Subjective
-
No issues overnight
Objective
-
Vital Signs
Temp Pulse Resp BP Pulse Ox
98.2 F 63 17 145/69 95
06/02/22 07:30 06/02/22 07:30 06/02/22 07:30 06/02/22 07:30 06/02/22 07:30
Intake and Output
06/01/22 06/02/22 06/03/22
06:59 06:59 06:59
Intake Total 480 / 480 1320 / 1320
Output Total 375 / 375 650 / 650 50 / 50
Balance 105 / 105 670 / 670 -50 / -50
Intake:
Oral fluids 480 / 480 720 / 720
IV fluids (Total) 100 / 100
normosol 50 / 50
IV piggybacks 250 / 250
Blood Product Amount Infused ( 250 / 250
mL)
Packed Rbc Leukoreduced Unit 250 / 250
[id number]
Output:
True Urine Output from CBI 375 / 375 650 / 650 50 / 50
Laboratory Results
06/02/22 07:52
06/02/22 07:52
Physical Exam
-
General - well developed, well nourished, no acute distress
Chest - clear bilaterally
Abdomen - soft, non-tender, positive bowel sounds, no CVAT
- clear urine slow CBI
Skin - warm & dry with no rash
Neuro - AOx3, no motor deficits
Extremities - no clubbing, no cyanosis, no edema
--- NOTE | 2022-06-02 09:27 | W.PN.NEPH.HD ---
Assessment
-
Patient evaluated during the hemodialysis procedure
Status post cystoscopy, report reviewed June 01
No gross hematuria
Hb 9.0 GM/DL
Received 1 unit PRBC transfusion June 01
Diagnoses:
Gross hematuria, recurrent
Bladder malignancy received one dose of chemotherapy (cisplatinum + ...)
TURBT April 04, 2022
ESRD (PD 2017; HD 2018)
Anemia, multifactorial
CABG x2 (ANN-LAD, SVG-ramus, on pump with right Endo vein harvest/sternal plate
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
Biopsy-proven focal sclerosis
Diabetes mellitus
Gout, chronic
Secondary hyperparathyroidism
History hypertension with relative hypotension
History morbid obesity
History sleep apnea on CPAP
Left arm AV fistula 2018
Pelvic adenopathy
Pulmonary nodules
s/p cystoscopy with out active bleeding on June 01
CT June 01 with empty bladder, atrophic kidneys, stable borderline retroperitoneal lymph nodes, no obvious bleed
For bilateral renal embolization in IR later today
LIZ with HD
Transfuse as needed
Urology note reviewed
Progress Note - Hemodialysis
-
Date of Service: June 02, 2022
Duration: 30 minutes and 3 hours
Potassium Bath: 2
Calcium Bath: 2.5
Opti-Dialyzer: 160
Ultrafiltration: Other (3-3.5 kg)
Blood Flow: 400
Dialysate Flow: 600
EPO: 10,000 units
[2022-06-02 11:00] VITALS: BP 140/69
--- NOTE | 2022-06-02 11:18 | CM ---
Addendum entered by Adamaris Ordonez 06/02/22 14:08:
Referral sent to [facility], and tentatively accepted, CM left VM for Gillian at [facility] to let them know that family wants to change to [facility].
Original Note:
Patient seen at bedside with physician. Patient states that he is for further treatment today, currently on HD. Patient would like to continue with [facility]N supports. CM will continue to follow for discharge planning needs.
Plan; Vn to restart with [facility]
--- NOTE | 2022-06-02 11:28 | W.PN.HOSP.TC ---
Today's Communication/Plan
-
consider reculture
consider removal of watson
consider ID consult
remains on cefepime
Assessment / Plan
Assessment / Plan
pt is an 81 year old male
Hematuria secondary to Bladder CA--apprec urology--cont CBI--s/p OR 06/01/22 for cystoscopy and fulguration--IR embolization of kidneys to stop urine, today--hopefully with prevent hematuria in future
leukocytosis--WBC count up to 25K--already being treated with cefepime for pseudomonas UTI--consider reculture--consider ID consult
Pseudomonas UTI due related to indwelling watson catheter- cont cefepime (has been ongoing since 05/28/22)--remove watson if possible
hypokalemia (prior to me assuming patient's care)-- pt on HD
Acute Blood Loss Anemia due to hematuria on Anemia of Chronic Disease--s/p 2 units PRBCs--Monitor Hgb
Coronary Artery Disease s/p CABG in April 2021--Hold aspirin in setting of hematuria
Essential Hypertension--Continue Coreg, Hydralazine and Lisinopril
Hyperlipidemia--Continue Lipitor and Zetia
Diabetes Mellitus, Type 2--Monitor sugars on AM labs
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
GERD--Continue Protonix
Gout--Continue allopurinol
DVT proph: SCDs
Code Status: DNR
Anticipated Discharge: > 48 hours
Subjective/Interval History
-
Date of Service: June 02, 2022
pt without c/o--getting HD
Objective Data
-
Labs:
Laboratory Results
06/02/22 06/02/22
07:52 07:52
WBC 25.2 H
Hgb 9.0 L
Hct 27.6 L
Plt Count 262 D
Sodium 136
Potassium 4.9
Chloride 98
Carbon Dioxide 26
BUN 61 H
Creatinine 6.3 H*
Glucose 164 H
Calcium 9.2
Vital Signs:
max temp for 24 hours
06/01/22
20:56
Temp 98.3 F
Vital Signs
Temp Pulse Resp BP Pulse Ox
98.1 F 65 17 140/69 96
06/02/22 11:00 06/02/22 11:00 06/02/22 11:00 06/02/22 11:00 06/02/22 11:00
I&O
06/01/22 06/02/22 06/03/22
06:59 06:59 06:59
Intake Total 480 / 480 1320 / 1320
Output Total 375 / 375 650 / 650 50 / 50
Balance 105 / 105 670 / 670 -50 / -50
Review of Systems
-
All other systems: Reviewed and negative
Physical Exam
-
General: Well Developed, Well Nourished and No Apparent Distress
HEENT: Normocephalic and Atraumatic
Respiratory: Clear to Auscultation; Negative Wheezes or Rhonchi
Cardiac: Regular Rhythm and S1/S2; Negative Murmur
GI: Soft, Nontender, Nondistended and Normal Bowel Sounds
Genito-urinary: Continuous Bladder Irrigation (clear urine)
Musculoskeletal: No Clubbing, No Cyanosis and No Edema
Skin: Warm
Neuro: Awake
Psych: Calm
[2022-06-02] MEDS: RENVELA PO ×3 (11:59→18:19)
[2022-06-02] MEDS: COREG 6.25 MG PO ×2 (12:00→20:11)
[2022-06-02] MEDS: DESENEX/MITRAZOL/ZEASORB 1 APPLIC TOPICAL ×2 (12:00→20:14)
[2022-06-02] MEDS: MAXIPIME 1000 MG IV (12:01)
[2022-06-02] MEDS: HYDROPHOR 1 APPLIC TOPICAL (12:01)
[2022-06-02] MEDS: STERILE WATER FOR INJECTION 10 ML IV (12:02)
[2022-06-02] MEDS: VITAMIN C 1000 MG PO (12:03)
[2022-06-02] MEDS: VITAMIN B-12 1000 MCG PO (12:03)
[2022-06-02] MEDS: ZYLOPRIM 200 MG PO (12:05)
[2022-06-02] MEDS: ZETIA 10 MG PO (12:05)
[2022-06-02] MEDS: VITAMIN D3 (cholecalciferol) 2000 UNITS PO (12:06)
[2022-06-02] MEDS: ZESTRIL 5 MG PO (12:06)
[2022-06-02] MEDS: THERAGRAN 1 TABLET PO (12:24)
[2022-06-02] MEDS: PROTONIX 40 MG PO ×2 (12:24→20:11)
[2022-06-02] MEDS: APRESOLINE 25 MG PO ×2 (12:24→20:12)
[2022-06-02 16:22] VITALS: BP 137/66
[2022-06-02] MEDS: ZOFRAN 4 MG IV (16:35)
[2022-06-02] MEDS: ROXICODONE 2.5 MG PO (16:36)
[2022-06-02] MEDS: DILAUDID 0.5 MG IV (18:20)
[2022-06-02 19:20] VITALS: BP 112/48
[2022-06-02] MEDS: ROXICODONE 10 MG PO (20:11)
[2022-06-02 22:38] VITALS: BP 92/42
[2022-06-02] MEDS: LIPITOR 80 MG PO (22:46)
[2022-06-03] VITALS (34 sets, daily range): BP systolic 82–132; BP diastolic 38–91; BMI 37.3
[2022-06-03] MEDS: ROXICODONE 10 MG PO (02:59)
[2022-06-03 06:14] LABS: Hematocrit 22.6 % (39.0-52.0); Hemoglobin 7.3 g/dL (13.0-18.0); Mean Corp Hgb Conc. 32.3 g/dL (33.0-37.0); Mean Corpuscular Hgb 31.6 pg (27.0-31.0); Mean Corpuscular Volume 97.8 fL (80.0-94.0); Mean Platelet Volume 10.8 fL (7.4-10.4); Platelet Count 344 10^3/uL (130-400); Red Blood Cell Count 2.31 10^6/uL (4.70-6.10); Red Cell Dist. Width 18.2 % (11.5-14.5); White Blood Cell Count 31.6 10^3/uL (4.8-10.8)
[2022-06-03 06:36] LABS: Blood Urea Nitrogen 40 mg/dl (9-20); Calcium 9.1 mg/dl (8.4-10.2); Carbon Dioxide 29 mmol/L (22-30); Chloride 95 mmol/L (98-107); Estimated Creatinine Clearance 16 ml/min; Glucose 145 mg/dl (65-99); Potassium 4.5 mmol/L (3.5-5.1); Sodium 136 mmol/L (135-145)
--- NOTE | 2022-06-03 07:52 | W.PN.URO.CBU ---
Today's Communication / Plan
-
stop cbi- if no sig bleeding- trial of watson removal tomorrow
Assessment / Plan
-
81M with small cell bladder cancer
History of large dense bladder clot requiring transfer to [facility] for clot evacuation 03/2022 and 04/2021
s/p first cycle of chemotherapy
Presenting again with hematuria and associated anemia
s/p OR /2 for cystoscopy and fulguration
NO CLOT was found within bladder, indicating persistent hematuria is not a major contributor to anemia
s/p bilateral renal embolization 06/02
no sig bleeding
will defer to med team regarding need for transfucion
cbi stopped- if no sig bladder blood over next 24hrs- will remove watson tomorrow and observe for another 24hrs- if stable then would be cleared urologically for discharge pending other med issues
Diagnosis
-
Date of Service: June 03, 2022
-
81M with small cell bladder cancer and recurrent hematuria
now s/p cysto- fulguration on 06/01 and bilateral renal embolization of 06/02
Subjective
-
pt with mild flank pain- but generally stable after embolization
wbc up- but no fevers- possible reactionary-?
hgb down- but no obvious bleeding source
cbi at very slow drip- no blood
Objective
-
Vital Signs
Temp Pulse Resp BP Pulse Ox
98.1 F 70 19 132/60 94
06/03/22 03:05 06/03/22 03:05 06/03/22 03:05 06/03/22 03:05 06/03/22 03:05
Intake and Output
06/02/22 06/03/22 06/04/22
06:59 06:59 06:59
Intake Total 1320 / 1320 720 / 720
Output Total 650 / 650 -650 / -650
Balance 670 / 670 1370 / 1370
Intake:
Oral fluids 720 / 720 720 / 720
IV fluids (Total) 100 / 100
normosol 50 / 50
IV piggybacks 250 / 250
Blood Product Amount Infused ( 250 / 250
mL)
Packed Rbc Leukoreduced Unit 250 / 250
[id number]
Output:
True Urine Output from CBI 650 / 650 -650 / -650
Laboratory Results
06/03/22 05:56
06/03/22 05:56
Review of Systems
-
Constitutional: Fatigue
Respiratory: No Symptoms
Cardiac: No Symptoms
Abdomen/GI: Other (mild flank pain)
: Other (mild watson bother)
Musculoskeletal: Muscle Stiffness
Physical Exam
-
General - no acute distress
Abdomen - soft, non-tender
Genitalia - watson in place
[2022-06-03] MEDS: RENVELA 3200 MG PO (08:53)
[2022-06-03] MEDS: MAXIPIME 1000 MG IV (08:54)
[2022-06-03] MEDS: HYDROPHOR 1 APPLIC TOPICAL (08:54)
[2022-06-03] MEDS: DESENEX/MITRAZOL/ZEASORB 1 APPLIC TOPICAL ×2 (08:54→23:20)
[2022-06-03] MEDS: PROTONIX 40 MG PO (08:55)
[2022-06-03] MEDS: VITAMIN B-12 1000 MCG PO (08:56)
[2022-06-03] MEDS: STERILE WATER FOR INJECTION 10 ML IV (08:56)
[2022-06-03] MEDS: THERAGRAN 1 TABLET PO (08:56)
[2022-06-03] MEDS: VITAMIN C 1000 MG PO (08:57)
[2022-06-03] MEDS: VITAMIN D3 (cholecalciferol) 2000 UNITS PO (08:57)
[2022-06-03] MEDS: ZYLOPRIM 200 MG PO (08:58)
[2022-06-03] MEDS: ZETIA 10 MG PO (08:58)
[2022-06-03] MEDS: APRESOLINE PO ×2 (09:00→09:10)
[2022-06-03] MEDS: COREG 6.25 MG PO (09:00)
[2022-06-03] MEDS: ZESTRIL 5 MG PO (09:10)
[2022-06-03] MEDS: SENSIPAR 30 MG PO (09:33)
--- NOTE | 2022-06-03 09:52 | W.PN.HOSP.TC ---
Today's Communication/Plan
-
consult ID
blood cultures
CXR
transfuse pRBC
Assessment / Plan
Assessment / Plan
pt is an 81 year old male
Hematuria secondary to Bladder CA--apprec urology--stop CBI--s/p OR 06/01/22 for cystoscopy and fulguration--s/p IR embolization of kidneys to stop urine 06/02/22--hopefully with prevent hematuria in future
leukocytosis--WBC count up to 31K, could be reactive but seems a bit high--already being treated with cefepime for pseudomonas UTI-- reculture blood and check CXR--consult ID
Acute Blood Loss Anemia due to hematuria on Anemia of Chronic Disease--s/p 2 units PRBCs--Monitor Hgb, today 7.3--transfuse pRBC again
Pseudomonas UTI due related to indwelling watson catheter- cont cefepime (has been ongoing since 05/28/22)--remove watson if possible, hopefully in 24 hours--consult ID
hypokalemia (prior to me assuming patient's care)-- pt on HD
Coronary Artery Disease s/p CABG in April 2021--Hold aspirin in setting of hematuria
Essential Hypertension--Continue Coreg, Hydralazine and Lisinopril
Hyperlipidemia--Continue Lipitor and Zetia
Diabetes Mellitus, Type 2--Monitor sugars on AM labs
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
GERD--Continue Protonix
Gout--Continue allopurinol
DVT proph: SCDs
Code Status: DNR
Anticipated Discharge: > 48 hours
Subjective/Interval History
-
Date of Service: June 03, 2022
pt going for CXR
Objective Data
-
Labs:
Laboratory Results
06/03/22 06/03/22
05:56 05:56
WBC 31.6 H
Hgb 7.3 L
Hct 22.6 L
Plt Count 344 D
Sodium 136
Potassium 4.5
Chloride 95 L
Carbon Dioxide 29
BUN 40 H
Creatinine 4.7 H*
Glucose 145 H
Calcium 9.1
Vital Signs:
max temp for 24 hours
06/02/22
22:38
Temp 98.6 F
Vital Signs
Temp Pulse Resp BP Pulse Ox
97.8 F 75 18 109/49 99
06/03/22 07:50 06/03/22 07:50 06/03/22 07:50 06/03/22 07:50 06/03/22 07:50
I&O
06/02/22 06/03/22 06/04/22
06:59 06:59 06:59
Intake Total 1320 / 1320 720 / 720
Output Total 650 / 650 -650 / -650
Balance 670 / 670 1370 / 1370
Review of Systems
-
All other systems: Reviewed and negative
Respiratory: Denies Cough
Abdomen/GI: Denies Nausea, Vomiting or Diarrhea
Physical Exam
-
General: Well Developed and No Apparent Distress
HEENT: Normocephalic and Atraumatic
Respiratory: Clear to Auscultation; Negative Wheezes or Rhonchi
Cardiac: Regular Rhythm and S1/S2; Negative Murmur
GI: Soft, Nontender, Nondistended and Normal Bowel Sounds
Musculoskeletal: No Clubbing, No Cyanosis and No Edema
Neuro: Awake and Alert
Psych: Calm
[2022-06-03] MEDS: ZOFRAN 4 MG IV (10:16)
--- NOTE | 2022-06-03 10:47 | W.PN.UPDATE ---
Update Note
Progress Note Update
Had to have patient sign BLOOD CONSENT FORM again due to not being able to find it--consented him myself 2 days ago....consented again--placed on chart by myself
--- NOTE | 2022-06-03 11:58 | CON.ID ---
Consultation
-
Date/Time Consultation Requested: 06/03/22 7:23
Date/Time Consultation Performed: 06/03/22 11:59
Requesting Provider: Dr Stapleton
Performing Provider: Dr Fraser
Reason for Consultation: complicated UTI
Consultation - Infectious Dis.
Chief Complaint
progressive heamturia in the watson
History of Present Illness
Mr Vegas is an 81 year old male with past medical history notable for small cell bladder cancer, ESRD on HD who presented here on 05/26 for progression of hematuria from the watson from dark brown to red. No pain, fevers, chills, nausea/vomiting at
arrival.
Since arrival he was initially febrile to a tmax of 101.4 from 05/27-05/29 now resolved over 72 hrs, BP overall stable, initial WBC count 8.1 started uptrending 05/28 and has increased to 31.6 today, hgb currently 7.3, plt 344, cr now 4.7 glucose
running in the low 100s, t bili 0.8, ast 69, alt 48, alk shahrzad 302 it has been elevatd since march last year. 05/28 UA: gross hematuria also new pyuria few bacteria, 05/28 urine culture 100K Pseudomonas currently on cefepime, CXR this AM: mild chf.
Clinical course notable for OR 06/01/22 for cystoscopy and fulguration - not clot within the bladder. Then s/p IR embolization of kidneys to stop urine productive (patient is already ESRD for several years) 06/02/22, also anemia, currently has watson
with plans for removal in next 24 hr. ID is consulted for assistance with antibiotic management.
Past History
Additional Past Medical History:
Bladder malignancy received one dose of chemotherapy
ESRD (PD 2017; HD 2019)
Anemia, multifactorial
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
Biopsy-proven focal sclerosis
Diabetes mellitus
Gout, chronic
Secondary hyperparathyroidism
History hypertension with relative hypotension
History morbid obesity
History sleep apnea on CPAP
Pelvic adenopathy
Pulmonary nodules
Additional Past Surgical History:
TURBT April 04, 2022
CABG x2
Left arm AV fistula 2018
BL knee replacements
Hemorrhoidectomy
Allergy History:
linagliptin [From Tradjenta] Allergy (Verified 05/26/22 16:49)
kidney problems
pioglitazone [From Actos] Allergy (Verified 05/26/22 16:49)
kidney failure
poison vivian extract Allergy (Verified 05/26/22 16:49)
'nasty' rash
Medications Reviewed: Yes
Social History
Tobacco: Non-Smoker
Alcohol: None
Drug: None
Family History
Family History: Reviewed & Not Pertinent
Review of Systems
General: Negative Fever or Chills
All systems: All other systems were reviewed and were negative
Vital Signs
Temp Pulse Resp BP Pulse Ox
97.5 F 72 14 107/48 99
06/03/22 11:32 06/03/22 11:18 06/03/22 11:18 06/03/22 11:18 06/03/22 07:50
Physical Exam
Constitutional: No Acute Distress
Eyes: Pupils Equal, Pupils Round, No Conjunctival Hemorrhage and Sclera Anicteric
Cardiovascular: Regular Rate and S1/S2; Negative Murmur or Rub
Pulmonary: Clear and Symmetric; Negative Wheezes, Rales or Rhonchi
Gastrointestinal: Soft, Non Tender, Non Distended and Normal Bowel Sounds
Extremities: Negative Edema, Clubbing, Cyanosis or Splinter Hemorrhage
Skin: Warm and Dry; Negative Rash or Jaundice
Wound: None
Neurological: Awake, Alert and Oriented
Psychological: Calm
Lines: PIV
Lab / Diagnostic Study Results
06/03/22 05:56
06/03/22 05:56
Abs Immat Gran (auto) 0.7 10^3/uL (0-0.05) H 05/26/22 16:59
Absolute Neuts (auto) 5.1 10^3/uL (1.4-6.5) 05/26/22 16:59
Absolute Lymphs (auto) 1.1 10^3/uL (1.2-3.4) L 05/26/22 16:59
Absolute Monos (auto) 1.1 10^3/uL (0.1-0.6) H 05/26/22 16:59
Absolute Basos (auto) 0.1 10^3/uL (0-0.2) 05/26/22 16:59
Immature Gran % 8.0 % (0-0.5) H 05/26/22 16:59
Neutrophils % 62.6 % (42.2-75.2) 05/26/22 16:59
Lymphocytes % 13.0 % (20.5-51.1) L 05/26/22 16:59
Monocytes % 13.5 % (1.7-9.3) H 05/26/22 16:59
Eosinophils % 1.5 % (0-6) 05/26/22 16:59
Basophils % 1.4 % (0-2) 05/26/22 16:59
PT 14.7 Sec (11.4-14.6) H 05/26/22 19:41
INR 1.12 05/26/22 19:41
Ur Squamous Epith Cells 0-2 /LPF (Few) 05/26/22 19:41
Microbiology Results
Micro:
06/03/22 09:33 Blood Culture - Pending
Blood/Venous
06/03/22 08:33 Blood Culture - Pending
Blood/Venous
05/28/22 08:40 Blood Culture - Final
Blood/Venous No Growth - Final Report
05/28/22 08:06 Blood Culture - Final
Blood/Venous No Growth - Final Report
05/28/22 11:17 Urine Culture - Final
Urine Pseudomonas aeruginosa
Assessment / Plan
-
Complicated UTI
Leukocytosis
ESRD on HD
Bladder Cancer
S/p embolization of kidneys 06/02/22
- antibiotics started 05/28 today is day 7
- switch to ciprofloxacin 500 mg PO qday to complete 14 day course through 06/10
- recheck qtc in the AM
- for watson removal prior to discharge
- attribute further progression of leukocytosis to embolization on 06/02, note that fevers are also relatively common post embolization; follow clinically
--- NOTE | 2022-06-03 13:14 | W.PN.NEPH.PH ---
Today's Communication / Plan
-
See plan
Assessment/Plan
-
Assessment:
Gross hematuria, recurrent
Bladder malignancy received one dose of chemotherapy (cisplatinum + ...)
TURBT April 04, 2022
ESRD (PD 2017; HD 2018)
Anemia, multifactorial
CABG x2 (ANN-LAD, SVG-ramus, on pump with right Endo vein harvest/sternal plate
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
Biopsy-proven focal sclerosis
Diabetes mellitus
Gout, chronic
Secondary hyperparathyroidism
History hypertension with relative hypotension
History morbid obesity
History sleep apnea on CPAP
Left arm AV fistula 2018
Pelvic adenopathy
Pulmonary nodules
Bilateral renal artery coil embolization June 02
Plan:
s/p cystoscopy with out active bleeding on June 01
CT June 01 with empty bladder, atrophic kidneys, stable borderline retroperitoneal lymph nodes, no obvious bleed
Status post bilateral renal artery coil embolization June 02
Postoperative anemia though Hb only 9.0 GM/DL preprocedure
Renal infarction associated with fever, leukocytosis, pain, cytokine reaction so some of the symptoms are not unexpected
Agree with PRBC transfusion 1-[address] planned after initial PRBC transfusion
Add midodrine
Chest x-ray ordered earlier suggest interstitial edema though some of these changes are chronic; he is without respiratory symptoms and need for supplemental O2
If persistent hypotension, may require higher level of care
Reviewed with patient, , daughter at bedside
Reviewed with nursing
High risk situation
-
-
Date of Service: June 03, 2022
CC / HPI / ROS
-
Chief Complaint:
Follow-up ESRD
History of Present Illness:
ESRD MWF
Hb decreased 7.2 GM/DL following coil embolization of bilateral renal arteries June 02
No further gross hematuria
BP lower at this time
Review of Systems:
Notes back pain though no CVAT or flank discomfort
Leukocytosis
Feels tired and weak with lower BP
Labs
-
Labs:
WBC 31.6 10^3/uL (4.8-10.8) H 06/03/22 05:56
RBC 2.31 10^6/uL (4.70-6.10) L 06/03/22 05:56
Hgb 7.3 g/dL (13.0-18.0) L 06/03/22 05:56
Hct 22.6 % (39.0-52.0) L 06/03/22 05:56
Plt Count 344 10^3/uL (130-400) D 06/03/22 05:56
Sodium 136 mmol/L (135-145) 06/03/22 05:56
Potassium 4.5 mmol/L (3.5-5.1) 06/03/22 05:56
Chloride 95 mmol/L (98-107) L 06/03/22 05:56
Carbon Dioxide 29 mmol/L (22-30) 06/03/22 05:56
BUN 40 mg/dl (9-20) H 06/03/22 05:56
Creatinine 4.7 mg/dL (0.7-1.3) H* 06/03/22 05:56
Glomerular Filtr Rate 12.0 06/03/22 05:56
Glucose 145 mg/dl (65-99) H 06/03/22 05:56
Calcium 9.1 mg/dl (8.4-10.2) 06/03/22 05:56
Phosphorus 2.6 mg/dl (2.5-4.5) 05/31/22 08:12
Albumin 3.0 g/dl (3.5-5.0) L 06/01/22 03:32
Physical Exam
-
Vital Signs:
Vital Signs
Temp Pulse Resp BP Pulse Ox
97.5 F 72 14 107/48 99
06/03/22 11:32 06/03/22 11:18 06/03/22 11:18 06/03/22 11:18 06/03/22 07:50
Other Findings::
Examined lying in right lateral decubitus position
Respiratory status comfortable on room air
Alert and oriented
No loud gallop or rub
No CVA tenderness
No abdominal guarding
Lower extremity edema unchanged
Carey catheter without gross hematuria
[2022-06-03 13:17] LABS: LDH 371 U/L (313-618)
--- NOTE | 2022-06-03 14:30 | PTCARENOTE ---
Pt returned to his room from getting an XRay and and I immediately started to give blood bc of a 7.3 HGB. Prior to the blood transfusion the pt's blood pressure began to drop to 83/[address] Stapleton was immediately notified. After
infusing the blood the bp went up to 107/48 pulse 72. Pt asked to have pain medication and his insisted to let him sleep first until blood pressure went higher. When pt woke up from resting he than asked for his pain medication at that time I
took his blood pressure prior to given it and saw the bp dropped to 82/38 hr 75. I immediately notified Dr. Stapleton to let her know of the dropping bp and Dr. Stapleton suggested he be transferred to the ICU.
[2022-06-03 14:39] LABS: Magnesium 2.1 mg/dl (1.6-2.3)
--- NOTE | 2022-06-03 14:50 | CON.INTV ---
Consultation
Consultation Request
Date/Time Consultation Requested: 06/03/2022-3 PM
Date/Time Consultation Performed: 06/03/2022- PM
Requesting Provider: Dr. Stapleton
Performing Provider: Dr. Hdz
Reason for Consultation: Hypotension/critical care management
Medical History
-
Chief Complaint: Hypotension
History of Present Illness:
81-year-old male with multiple medical problems including bladder cancer, recurrent UTIs, CAD, end-stage renal disease who recently had cystoscopy and fulguration and IR embolization to the kidneys to prevent ongoing hematuria and developed
hypotension, right groin hematoma necessitating ICU transfer-residential substance abuse counselor consulted for hypotension/critical care management 06/03/2022. He complains of right groin pain. He denies any shortness of breath, chest pain, pleurisy, chest congestion or
abdominal pain. Did not complain of weakness.
Past Medical History
Past Medical History: None (Bladder cancer. Anemia. CAD/CABG. Hypertension. Diabetes. End-stage renal disease on hemodialysis. Obesity. GERD. History of gout. Bilateral knee replacement. Hemorrhoidectomy. TURBT.)
Social History
Tobacco: Former Smoker (Quit 45 years ago)
Alcohol: None
Drug: None
Personal:
Living: With Family
Occupational Exposures: No known tuberculosis exposure
Environmental Exposures: No known asbestos exposure
Family History
Family History: Reviewed & Not Pertinent
Allergies / Home Medications
Allergies
Allergy/AdvReac Type Severity Reaction Status Date / Time
linagliptin [From Tradjenta] Allergy kidney Verified 05/26/22 16:49
problems
pioglitazone [From Actos] Allergy kidney Verified 05/26/22 16:49
failure
poison vivian extract Allergy 'nasty' Verified 05/26/22 16:49
rash
Home Medications
Medication Instructions Recorded Confirmed Last Taken Type
ascorbic acid (vitamin C) 1,000 mg 1,000 mg PO DAILY Supplement 0505/26/22 05/26/22 History
tablet (Vitamin C)
cholecalciferol (vitamin D3) 50 2,000 unit PO DAILY Supplement 09/20/18 05/26/22 05/26/22 History
mcg (2,000 unit) capsule (Vitamin
D3)
cyanocobalamin (vitamin B-12) 1,000 mcg PO DAILY Supplement 09/20/18 05/26/22 05/26/22 History
1,000 mcg tablet
multivitamin 1 ea PO DAILY Supplement 06/29/20 05/26/22 05/26/22 History
pantoprazole 40 mg tablet,delayed 40 mg PO BID Gastrointestinal issue 05/20/21 05/26/22 05/26/22 History
release
carvedilol 6.25 mg tablet 6.25 mg PO BID 05/30/21 05/26/22 05/26/22 Rx
hydralazine 25 mg tablet 25 mg PO BID Blood pressure 03/31/22 05/26/22 05/25/22 History
lisinopril 5 mg tablet 5 mg PO DAILY Blood pressure 03/31/22 05/26/22 05/26/22 History
vit B complx, C-iron 8 mg-folic 1 tab PO MOWEFR Supplement 03/31/22 05/26/22 05/26/22 History
acid 800 mcg-D3 1,000 unit-zinc
tablet (ProRenal)
cinacalcet 30 mg tablet 30 mg PO SUTUTHSA Kidney Disease 04/04/22 05/26/22 05/25/22 History
allopurinol 100 mg tablet 200 mg PO DAILY Gout 04/18/22 05/26/22 05/26/22 History
aspirin 81 mg chewable tablet 81 mg PO DAILY Blood clot 04/19/22 05/26/22 05/26/22 History
prevention/tx
acetaminophen 325 mg tablet 650 mg PO Q6HPRN PRN mild 05/08/22 05/26/22 Unknown History
pain/BARBA/fever
atorvastatin 80 mg tablet 80 mg PO HS High cholesterol 05/08/22 05/26/22 05/25/22 History
sevelamer carbonate 800 mg tablet 3,200 mg PO AC Kidney Disease 05/08/22 05/26/22 05/25/22 History
ezetimibe 10 mg tablet 10 mg PO DAILY High cholesterol 05/26/22 05/26/22 05/26/22 History
Review of Systems
-
Unable to Obtain full review of systems at this time due to: Other (Per HPI)
Vitals / Labs / Diagnostic Testing
Vital Signs
Temp Pulse Resp BP Pulse Ox
97.8 F 75 14 82/38 99
06/03/22 14:34 06/03/22 13:37 06/03/22 11:18 06/03/22 13:37 06/03/22 07:50
Lab Data
06/03/22 05:56
06/03/22 05:56
Microbiology
05/28/22 08:40 Blood/Venous Blood Culture - Final
No Growth - Final Report
05/28/22 08:06 Blood/Venous Blood Culture - Final
No Growth - Final Report
Diagnostic Testing:
Physical Exam
-
Exam:
Well-nourished and well-developed in no apparent distress
HEENT-atraumatic, normocephalic
Neck-supple, no JVD, no bruit
Heart-regular rate and rhythm-no murmurs, rubs or gallops
Chest-clear to auscultation, no wheezes, crackles
Back-no tenderness
Abdomen-soft, nontender, nondistended, no hepatosplenomegaly
Extremities-no cyanosis, clubbing, edema and good peripheral pulses
Integument-intact, right groin hematoma noted with pain
Neurology-alert and oriented, nonfocal motor and sensory exam
Assessment
-
81-year-old male with multiple medical problems including bladder cancer, recurrent UTIs, CAD, end-stage renal disease who recently had cystoscopy and fulguration and IR embolization to the kidneys to prevent ongoing hematuria and developed
hypotension, right groin hematoma necessitating ICU transfer-residential substance abuse counselor consulted for hypotension/critical care management 06/03/2022.
Assessment
Hypotension due to acute blood loss
Anemia due to acute blood loss-hemoglobin 7.3
Right groin hematoma
Leukocytosis
Hyperglycemia
Interventional transcatheter coil embolization bilateral renal arteries 06/02/2022
Conditions present prior to admission:
Bladder cancer-small cell
Anemia.
CAD/CABG.
Hypertension.
Diabetes.
End-stage renal disease on hemodialysis.
Hyperparathyroidism
Hyperphosphatemia
Obesity.
Obstructive sleep apnea
History of pulmonary nodules
GERD.
History of gout.
Bilateral knee replacement.
Hemorrhoidectomy.
Cataract
TURBT.
AV fistula 2019
Plan
Transfer to ICU
Supplemental oxygen if needed
BiPAP if needed
CPAP at night for KATHY
Aspiration precautions
Nebulizers if needed-currently not bronchospastic
Monitor hemoglobin
Transfuse as needed
CT abdomen and pelvis to assess hematoma
Interventional radiology following
Urology following
Consider vascular consult if persistent local bleeding
Infectious disease consultation
Check cultures
Antibiotics per infectious disease
Nephrology following
Number dialysis per nephrology
Replace electrolytes
DVT prophylaxis-mechanical
Eventual nutrition
Eventual early mobilization
Critical care statement: A total of 50 minutes of critical care time was provided for this patient today. This includes management of unstable vital signs, evaluation of the patient at bedside, reviewing the patient's pertinent medical records
including radiographs, microbiology, laboratory evaluations, and discussion with primary team, consultants, pharmacy, nutrition, physical therapy, case management, charge nurse, critical care nursing, and respiratory therapy.
Diagnostic data:
Chest x-ray 04/23/2022-small left pleural effusion, mild cardiomegaly, mild elevation right hemidiaphragm
Chest x-ray 06/03/2022-mild CHF, probable right basilar atelectasis
CT abdomen and pelvis 06/01/2022-Carey catheter within essential empty urinary bladder, no findings to suggest active colonic bleeding or retroperitoneal hemorrhage, marked atrophy of the kidneys, approximate 5 cm splenic cyst, borderline
retroperitoneal lymph nodes essentially stable
Interventional transcatheter coil embolization bilateral renal arteries 06/02/2022
Echocardiogram 04/25/2022-EF 45-50%, mild mitral regurgitation, mild mitral stenosis with gradient 5 mmHg, PA systolic 41, no change from 09/22/2021
Data Reviewed
-
EKG: Report reviewed by me
Radiology: Report reviewed by me
CT Scan: Image personally visualized and interpreted and Report reviewed by me
Medical Tests (Nuc Med, Echo etc): Report reviewed by me
Old Records: Reviewed
Critical Care Time (in minutes): 50
[2022-06-03] MEDS: RENVELA PO ×2 (15:49→17:38)
[2022-06-03] MEDS: CIPRO PO (15:49)
--- NOTE | 2022-06-03 16:00 | PTCARENOTE ---
Pt received from . Pt c/o R groin pain on arrival. R groin noted to be swollen, firm and very tender to touch, Hematoma approx 13x6 inches. No oozing noted. + pedal pulses. Dr Stapleton called and at bedside. Pt taken for CT scan. Dr aware of
results. BP stable at this time. and daughter given update.
[2022-06-03] MEDS: DILAUDID 0.25 MG IV (17:38)
[2022-06-03 18:01] LABS: Glucose - Point of Care 177 mg/dl (65-99)
[2022-06-03] MEDS: NOVOLOG FLEXPEN-LOW RESISTANCE 1 UNITS SC (18:05)
[2022-06-03] MEDS: ROXICODONE 5 MG PO (20:11)
--- NOTE | 2022-06-03 20:12 | W.PN.UPDATE ---
Update Note
Progress Note Update
Pt seen in IR for attempted thrombin injection R groin pseudoaneurysm. The neck/FINAL APPLICATION REVIEWER at level of PSA could not be seen with acceptable margin of safety for thrombin injection. FINAL APPLICATION REVIEWER not clearly seen at the level of interest secondary to habitus and
hematoma surrounding PSA. Attempt also made at US guided compression. It was not possible to completely stop extraluminal color doppler flow with guided compression. d/w Dr. De La O who will take pt to OR. Pt aware of plan for surg tonight.
--- NOTE | 2022-06-03 20:30 | PTCARENOTE ---
pt brought back from IR, unable to do procedure. pt 01/07 pain oxy given.
--- NOTE | 2022-06-03 20:52 | W.PN.UPDATE ---
Update Note
Progress Note Update
81-year-old male with history of bladder cancer, underwent renal artery embolization yesterday in interventional radiology. (Patient prior known to me status post AV fistula repair in 2019). Post procedurally was noted to have right groin hematoma
and pseudoaneurysm. Underwent attempted thrombin injection of right femoral pseudoaneurysm by Dr. Lamb. I was contacted by Dr. Lamb about 45 minutes ago secondary to inability to safely inject thrombin into the pseudoaneurysm. Patient with
large hematoma. Therefore immediately came to evaluate. Patient is awake and alert. His systolic blood pressures in the 120s. He appears calm/in no acute distress while resting. His abdomen is soft and markedly obese. Has extensive pannus that
hangs out into the groins. His right groin has full/tense hematoma. Skin changes noted already. Very tender in the groin. Palpable right DP pulse.
Plan/emergent OR now for right groin pseudoaneurysm repair and evacuation hematoma. I discussed with patient extensive risks especially given his habitus. Also given active pseudoaneurysm with large hematoma and recent bleeding. Discussed risks
of procedure including allergy to bleeding, infections, wound healing issues due to his habitus, need for repeated surgery/debridement. He understands all these things and wishes to proceed emergently.
--- NOTE | 2022-06-03 20:58 | W.SUR.PREOP ---
Pre-Operative Surgical Note
-
I have examined this patient prior to the performance of the scheduled procedure.
The patient's condition is unchanged from the time of the current History and
Physical and the patient is able to undergo the scheduled procedure.
--- NOTE | 2022-06-03 21:37 | PTCARENOTE ---
vascular at bedside to see patient. taken to the OR
[2022-06-03] MEDS: COREG PO (21:38)
--- NOTE | 2022-06-03 23:09 | W.IMMPOSTOP ---
Surgical Immed Post Op Note
-
Primary Surgeon: Jairon
Assisting Surgeon: none
Pre-op Diagnosis: Large pseudoaneurysm and tense hematoma right groin s/p R MEASUREMENT AND SENSING TECHNICIAN catheterization
Post-op Diagnosis: same
Procedure Performed: Emergent repair R MEASUREMENT AND SENSING TECHNICIAN pseudoaneurysm, evacuation hematoma.
Anesthesia Type: General
Specimen / Cultures: none
Estimated Blood Loss: 300cc
Complications: none
Operative Findings: Patient with morbid obesity, severely pendulous pannus and tense hematoma in groin; all made for very challenging exposure/dissection through the blood stained tissues. Two large hematoma pockets - one medially towards
scrotum, one laterally toward hip -- large bill drains placed in those cavities; tenuous skin/SQ tissue; inferolateral skin significantly devascularized likely; palp R DP upon completion
[2022-06-03] MEDS: LIPITOR PO (23:21)
[2022-06-03] MEDS: PROTONIX PO (23:21)
[2022-06-03 23:38] LABS: Glucose - Point of Care 180 mg/dl (65-99)
[2022-06-03 23:46] LABS: % Basophils 0.5 % (0-2); % Immature Granulocytes 6.5 % (0-0.5); % Lymphocytes 3.3 % (20.5-51.1); % Monocytes 5.8 % (1.7-9.3); % Neutrophils 83.9 % (42.2-75.2); Absolute Basophils 0.2 10^3/uL (0-0.2); Absolute Immature Granulocytes 2.1 10^3/uL (0-0.05); Absolute Lymphocytes 1.1 10^3/uL (1.2-3.4); Absolute Monocytes 1.8 10^3/uL (0.1-0.6); Absolute Neutrophils 26.7 10^3/uL (1.4-6.5); Hematocrit 27.7 % (39.0-52.0); Mean Corp Hgb Conc. 34.3 g/dL (33.0-37.0); Mean Corpuscular Hgb 31.1 pg (27.0-31.0); Mean Corpuscular Volume 90.8 fL (80.0-94.0); Mean Platelet Volume 10.2 fL (7.4-10.4); Nucleated Red Blood Cells % 0.2 % (-); Platelet Count 244 10^3/uL (130-400); Red Blood Cell Count 3.05 10^6/uL (4.70-6.10); Red Cell Dist. Width 15.7 % (11.5-14.5); White Blood Cell Count 31.8 10^3/uL (4.8-10.8)
[2022-06-03 23:49] LABS: Hemoglobin 9.5 g/dL (13.0-18.0)
[2022-06-03 23:57] LABS: APTT 29.1 Sec (23.4-35.0); INR 1.36
[2022-06-03 23:59] LABS: Blood Urea Nitrogen 45 mg/dl (9-20); Calcium 8.6 mg/dl (8.4-10.2); Carbon Dioxide 28 mmol/L (22-30); Chloride 98 mmol/L (98-107); Estimated Creatinine Clearance 14 ml/min; Glomerular Filtration Rate 10.5; Glucose 145 mg/dl (65-99); Potassium 4.7 mmol/L (3.5-5.1); Sodium 133 mmol/L (135-145)
[2022-06-04] VITALS (11 sets, daily range): BP systolic 117–138; BP diastolic 54–63; BMI 38.7
[2022-06-04] MEDS: NOVOLOG FLEXPEN-LOW RESISTANCE 1 UNITS SC ×2 (00:12→17:46)
--- NOTE | 2022-06-04 00:19 | PTCARENOTE ---
Received patient back from the OR. alert and orientated x3 but drowsy. neurovascular checks done to right leg every hour. palpable DP pulses. right radial a line zeroed and transduced. right groin aquacell in place, CDI. [address] both
draining serosanguineous fluid. NS on the monitor. HOB flat until the morning. labs drawn and pending. daughter rocio called and was updated.
[2022-06-04] MEDS: ROXICODONE 5 MG PO (02:18)
[2022-06-04 04:21] LABS: Hematocrit 26.2 % (39.0-52.0); Hemoglobin 9.3 g/dL (13.0-18.0); Mean Corp Hgb Conc. 35.5 g/dL (33.0-37.0); Mean Platelet Volume 10.5 fL (7.4-10.4); Platelet Count 242 10^3/uL (130-400); Red Blood Cell Count 2.91 10^6/uL (4.70-6.10); Red Cell Dist. Width 15.6 % (11.5-14.5); White Blood Cell Count 39.3 10^3/uL (4.8-10.8)
[2022-06-04 04:39] LABS: Blood Urea Nitrogen 45 mg/dl (9-20); Calcium 8.6 mg/dl (8.4-10.2); Carbon Dioxide 24 mmol/L (22-30); Chloride 99 mmol/L (98-107); Estimated Creatinine Clearance 15 ml/min; Glomerular Filtration Rate 10.7; Glucose 154 mg/dl (65-99); Potassium 4.7 mmol/L (3.5-5.1); Sodium 136 mmol/L (135-145)
[2022-06-04 05:23] LABS: Glucose - Point of Care 190 mg/dl (65-99)
[2022-06-04] MEDS: NOVOLOG FLEXPEN-LOW RESISTANCE 300 UNITS SC (05:29)
--- NOTE | 2022-06-04 07:49 | W.PN.INTV ---
Today's Communication / Plan
Recommendations
Operative records reviewed
Follow hemoglobin
Transfuse as needed
Wean pressors
Assessment
-
81-year-old male with multiple medical problems including bladder cancer, recurrent UTIs, CAD, end-stage renal disease who recently had cystoscopy and fulguration and IR embolization to the kidneys to prevent ongoing hematuria and developed
hypotension, right groin hematoma necessitating ICU transfer-police artist consulted for hypotension/critical care management 06/03/2022.
Assessment
Hypotension due to acute blood loss
Anemia due to acute blood loss-hemoglobin 7.3
Large right groin pseudoaneurysm and tense hematoma
Status post right REAL ESTATE SALESPERSON catheterization and evacuation of hematoma-Dr. De La O-06/03/2022
Right groin hematoma
Leukocytosis
Hyperglycemia
Interventional transcatheter coil embolization bilateral renal arteries 06/02/2022
Conditions present prior to admission:
Bladder cancer-small cell
Anemia.
CAD/CABG.
Hypertension.
Diabetes.
End-stage renal disease on hemodialysis.
Hyperparathyroidism
Hyperphosphatemia
Obesity.
Obstructive sleep apnea
History of pulmonary nodules
GERD.
History of gout.
Bilateral knee replacement.
Hemorrhoidectomy.
Cataract
TURBT.
AV fistula 2019
Plan
Critically ill postop requiring multiple transfusions
Tolerated extubation
BiPAP if needed
CPAP at night for KATHY-follows with Dr. Stacy
Aspiration precautions
Nebulizers if needed-currently not bronchospastic
Follow hemoglobin
Continue to transfuse as needed
CT abdomen and pelvis 06/22-large right groin hematoma, small bilateral pleural effusions, 2 small intermediate low-attenuation lesions in the liver follow-up CT with and without contrast is recommended, cholelithiasis
Groin ultrasound 06/03/2022-large right groin pseudoaneurysm measuring 7.6 x 5.9 x 21.8 cm
Interventional radiology following-correspondence reviewed
Urology following-correspondence reviewed
Vascular surgery following-correspondence and operative records reviewed-hematoma evacuation and pseudoaneurysm repair 06/03/2022
Infectious disease consultation
Cultures reviewed-unrevealing except Pseudomonas in urine 05/28/2022
Antibiotics per infectious disease
Nephrology following-correspondence reviewed
Number dialysis per nephrology
Continue to replace electrolytes
DVT prophylaxis-mechanical
Eventual nutrition
Eventual early mobilization
If no further bleeding, pressor requirements, and hemoglobin stable then could be transferred out of ICU-call pulmonary if respiratory issues arise
Outpatient sleep disorders [id number]. Tran
Critical care statement: A total of 35 minutes of critical care time was provided for this patient today. This includes management of unstable vital signs, evaluation of the patient at bedside, reviewing the patient's pertinent medical records
including radiographs, hypotension, anemia, transfusion management, microbiology, laboratory evaluations, and discussion with primary team, consultants, pharmacy, nutrition, physical therapy, case management, charge nurse, critical care nursing,
and respiratory therapy.
Diagnostic data:
Chest x-ray 04/23/2022-small left pleural effusion, mild cardiomegaly, mild elevation right hemidiaphragm
Chest x-ray 06/03/2022-mild CHF, probable right basilar atelectasis
CT abdomen and pelvis 06/01/2022-Carey catheter within essential empty urinary bladder, no findings to suggest active colonic bleeding or retroperitoneal hemorrhage, marked atrophy of the kidneys, approximate 5 cm splenic cyst, borderline
retroperitoneal lymph nodes essentially stable
Interventional transcatheter coil embolization bilateral renal arteries 06/02/2022
Echocardiogram 04/25/2022-EF 45-50%, mild mitral regurgitation, mild mitral stenosis with gradient 5 mmHg, PA systolic 41, no change from 09/22/2021
Subjective Dataa
Subjective Data
Chief Complaint: Medical Charge Entry Specialist Follow Up
Subjective:
Events noted, feels much better, groin pain improved, no complaints of shortness of breath, chest pain or abdominal pain
Review of Systems
General: Other (Per HPI)
Objective Data
Data Reviewed
Vital Signs / I&O / Oxygen:
Vital Signs
Temp Pulse Resp BP Pulse Ox
97.3 F 83 16 136/60 93
06/04/22 03:05 06/04/22 06:15 06/04/22 06:15 06/04/22 03:58 06/04/22 06:15
Intake and Output
06/03/22 06/04/22 06/05/22
06:59 06:59 06:59
Intake Total 720 / 720 620 / 620
Output Total -650 / -650 220 / 220
Balance 1370 / 1370 620 / 620 -220 / -220
SaO2 93
Nasal Cannula flow liters per 1
minute
Physical Exam
General: Respiratory Distress (n) and Comfortable
HEENT: Normocephalic, Anicteric and Moist Mucous Membranes
Cardiovascular: Regular Rhythm and Peripheral Edema
Respiratory: Wheeze (n), Crackles (n), Rhonchi (n), Non-Labored Respirations, Accessory Resp Muscle Use (n) and Stridor (n)
GI: Soft, Distended and Non Tender
Neurology: Awake, Alert and No Motor Deficits
Skin: Warm, Good Color, Cyanosis (n), Jaundice (n) and Rash (n)
Labs/Micro/Reports
Lab Data
06/04/22 03:58
06/04/22 03:58
Laboratory Results
06/03/22
23:38
PT 17.0 H
INR 1.36
APTT 29.1
Microbiology
05/28/22 08:40 Blood/Venous Blood Culture - Final
No Growth - Final Report
05/28/22 08:06 Blood/Venous Blood Culture - Final
No Growth - Final Report
[2022-06-04] MEDS: HYDROPHOR 1 APPLIC TOPICAL (08:00)
--- NOTE | 2022-06-04 08:10 | W.PN.URO.CBU ---
Today's Communication / Plan
-
continue watson and medical support
Assessment / Plan
-
81M with small cell bladder cancer
History of large dense bladder clot requiring transfer to [facility] for clot evacuation 03/2022 and 04/2021
s/p first cycle of chemotherapy
Presenting again with hematuria and associated anemia
s/p OR 06/01 for cystoscopy and fulguration
NO CLOT was found within bladder, indicating persistent hematuria is not a major contributor to anemia
s/p bilateral renal embolization 06/02
exploration and repair of right groin pseudoanny 06/03 with vascular
pt does have some clear urine in watson tubing
given events of yesterday- will leave watson in place- if no bleeding plan to remove in am and observe
hgb stable- ID now following for elevated wbc
Diagnosis
-
Date of Service: June 04, 2022
-
81M with small cell bladder cancer and recurrent hematuria
now s/p cysto- fulguration on 06/01 and bilateral renal embolization of 06/02
developed right groin pseudoanny- s/p vascular repair 06/03
Subjective
-
pt feels ok
some abd and groin pain
watson in place- there is about 30cc of clear urine in tubing
Objective
-
Vital Signs
Temp Pulse Resp BP Pulse Ox
97.6 F 83 16 136/60 93
06/04/22 07:05 06/04/22 06:15 06/04/22 06:15 06/04/22 03:58 06/04/22 06:15
Intake and Output
06/03/22 06/04/22 06/05/22
06:59 06:59 06:59
Intake Total 720 / 720 620 / 620
Output Total -650 / -650 220 / 220
Balance 1370 / 1370 620 / 620 -220 / -220
Intake:
Oral fluids 720 / 720 120 / 120
Blood Product Amount Infused ( 500 / 500
mL)
Packed Rbc Leukoreduced Unit 250 / 250
[id number]
Packed Rbc Leukoreduced Unit 250 / 250
[id number]
Output:
Drain Output (Total) 220
Right Lower Pelvis B 100 / 100
Right Pelvis Bruce-Allen A 120 / 120
True Urine Output from CBI -650 / -650
Other:
Number of immeasurable emeses? 1
Laboratory Results
06/04/22 03:58
06/04/22 03:58
Review of Systems
-
Constitutional: Fatigue
Respiratory: No Symptoms
Cardiac: No Symptoms
Abdomen/GI: Abdominal Pain (right groin and flank)
: Other (watson)
Physical Exam
-
General - no acute distress
Genitalia - mild edema- watson in place
[2022-06-04 08:26] LABS: Glucose - Point of Care 183 mg/dl (65-99)
[2022-06-04] MEDS: ZETIA 10 MG PO (08:42)
[2022-06-04] MEDS: COREG 6.25 MG PO ×2 (08:42→19:28)
[2022-06-04] MEDS: VITAMIN B-12 1000 MCG PO (08:42)
[2022-06-04] MEDS: ZYLOPRIM 200 MG PO (08:42)
[2022-06-04] MEDS: VITAMIN D3 (cholecalciferol) 2000 UNITS PO (08:42)
--- NOTE | 2022-06-04 08:42 | W.PN.ANS.POP ---
Anesthesia Post Operative
- Anesthesia Post Op Note
Vital Signs Stable-See Nursing Note: Yes
Airway Patent: Yes
Adequate Pain Control: Yes
Change in Mental Status: No
Current Postoperative Nausea & Vomiting: No
Anesthesia Complications: No
General Anesthetic Recall: No
Unplanned Admission: No
Post Op Hydration Adequate: Yes
[2022-06-04] MEDS: RENVELA 3200 MG PO ×3 (08:43→17:51)
[2022-06-04] MEDS: PROTONIX 40 MG PO ×2 (08:43→19:29)
[2022-06-04] MEDS: DESENEX/MITRAZOL/ZEASORB 1 APPLIC TOPICAL ×2 (08:43→19:28)
[2022-06-04] MEDS: THERAGRAN 1 TABLET PO (08:43)
--- NOTE | 2022-06-04 08:49 | W.PN.HOSP.TC ---
Addendum entered and electronically signed by Denise Stapleton MD 06/04/22 09:10:
pt calcium level WNL, will hold off on calcium repletion
Original Note:
Today's Communication/Plan
-
activity as per vascular
follow H&H
cont watson today
follow cultures
restart BP meds with parameters
Assessment / Plan
Assessment / Plan
pt is an 81 year old male
hypovolemic shock 06/03/22--dropped HGB and BP on 06/03/22 and moved to ICU--CT scan showed LARGE hematoma right groin (had IR embolization of kidneys the day before 06/02/22)--US of right groin showed pseudoaneurysm leaking blood--IR attempted to
thrombinize but was unsuccessful, pt taken to OR by vascular for repair and hematoma evacuation --to date pt has received 7 units of pRBC (3 alone in OR), will give calcium IV given transfusion of > 5 units
Hematuria secondary to Bladder CA--apprec urology--had CBI and stopped---s/p OR 06/01/22 for cystoscopy and fulguration--s/p IR embolization of kidneys to stop urine 06/02/22--watson to remain today
leukocytosis--WBC count up to 39K, could be reactive but seems a bit high--already being treated with cefepime for pseudomonas UTI, changed to cipro per ID-- reculture blood (kidneys embolized and pt on HD so not checking urine)--sepsis was thought
about but more likely just SIRS reaction to renal embolization
Acute Blood Loss Anemia due to hematuria and blood loss from pseudoaneurysm on Anemia of Chronic Disease--s/p 7 units PRBCs--Monitor Hgb
Pseudomonas UTI due related to indwelling watson catheter- cont cefepime (has been ongoing since 05/28/22)--remove watson if possible Sunday AM if pt remains stable--apprec ID/urology
hypokalemia (prior to me assuming patient's care)-- pt on HD
Coronary Artery Disease s/p CABG in April 2021--Hold aspirin in setting of hematuria
Essential Hypertension--Continue Coreg, Hydralazine and Lisinopril as clinically able
Hyperlipidemia--Continue Lipitor and Zetia
Diabetes Mellitus, Type 2--Monitor sugars on AM labs
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
GERD--Continue Protonix
Gout--Continue allopurinol
DVT proph: SCDs
Code Status: DNR
Total Critical Care Time 37 minutes. I was immediately available to the patient and staff. I personally examined, reviewed labs, diagnostic images/reports, interpretations, treatment plans, discussed patient care with other providers and family
or caregivers (if patient is unable to make decisions), entered orders as appropriate and documented the medical record.
Anticipated Discharge: > 48 hours
Subjective/Interval History
-
Date of Service: June 04, 2022
pt feeling much better today after the events of yesterday
Objective Data
-
Labs:
Laboratory Results
06/03/22 06/03/22 06/03/22
23:38 23:38 23:38
WBC 31.8 H
Hgb 9.5 L D
Hct 27.7 L
Plt Count 244 D
PT 17.0 H
INR 1.36
APTT 29.1
Sodium 133 L
Potassium 4.7
Chloride 98
Carbon Dioxide 28
BUN 45 H
Creatinine 5.3 H*
Glucose 145 H
Calcium 8.6
06/04/22 06/04/22
03:58 03:58
WBC 39.3 H
Hgb 9.3 L
Hct 26.2 L
Plt Count 242
PT
INR
APTT
Sodium 136
Potassium 4.7
Chloride 99
Carbon Dioxide 24
BUN 45 H
Creatinine 5.2 H*
Glucose 154 H
Calcium 8.6
Vital Signs:
max temp for 24 hours
06/03/22
19:30
Temp 98.4 F
Vital Signs
Temp Pulse Resp BP Pulse Ox
97.6 F 83 16 136/60 93
06/04/22 07:05 06/04/22 06:15 06/04/22 06:15 06/04/22 03:58 06/04/22 06:15
I&O
06/03/22 06/04/22 06/05/22
06:59 06:59 06:59
Intake Total 720 / 720 620 / 620
Output Total -650 / -650 220 / 220
Balance 1370 / 1370 620 / 620 -220 / -220
Review of Systems
-
All other systems: Reviewed and negative
Physical Exam
-
General: Well Developed, Well Nourished and No Apparent Distress
HEENT: Normocephalic and Atraumatic; Negative Oxygen
Respiratory: Clear to Auscultation; Negative Wheezes or Rhonchi
Cardiac: Regular Rhythm and S1/S2; Negative Murmur
GI: Soft, Nontender, Nondistended and Normal Bowel Sounds
Musculoskeletal: No Clubbing, No Cyanosis and No Edema
Skin: Warm
Neuro: Awake
Psych: Calm
--- NOTE | 2022-06-04 08:55 | W.PN.ID1 ---
Today's Communication
-
- continue ciprofloxacin 500 mg PO qday to complete 14 day course through 06/10
Assessment / Plan
-
Complicated UTI
Leukocytosis
ESRD on HD
Bladder Cancer
S/p embolization of kidneys 06/02/22
S/p repair right groin pseudoanuerysm 06/03/22
- continue ciprofloxacin 500 mg PO qday to complete 14 day course through 06/10
- rechecked qtc - acceptable
- agree with delaying watson removal given events of the evening, if feasible, would still like to see it removed before discharge
- follow clinically
Chief Complaint
-
Date of Service: June 04, 2022
-: Leukocytosis and UTI
Subjective / Review of Systems
-
patient underwent exploration and repair of right groin pseudoaneurysm, evac hematoma 06/03 with vascular & urology - uncomplicated
transferred to ICU
QTc remains acceptable at 484
today afebrile
BP stable
further increased WBC count post operatively
hgb stable at 9.3 (had 2 units yesterday)
cr 5.2
blood culutres yesterday AM no growth to date
'I feel fantastic'
Vital Signs / Physical Exam
Vital Signs
Vital Signs
Temp Pulse Resp BP Pulse Ox
97.6 F 83 16 136/60 93
06/04/22 07:05 06/04/22 06:15 06/04/22 06:15 06/04/22 03:58 06/04/22 06:15
Physical Exam
Constitutional: No Acute Distress and Obese
Cardiovascular: Regular Rate and S1/S2; Negative Murmur or Rub
Pulmonary: Clear and Symmetric; Negative Wheezes or Rales
Gastrointestinal: Soft, Non Tender, Non Distended and Normal Bowel Sounds
Skin: Warm and Dry; Negative Rash or Jaundice
Objective Data
Lab Data
Lab Results
06/04/22 03:58
06/04/22 03:58
PT 17.0 Sec (11.4-14.6) H 06/03/22 23:38
INR 1.36 06/03/22 23:38
APTT 29.1 Sec (23.4-35.0) 06/03/22 23:38
Estimated Creat Clear 15 ml/min 06/04/22 03:58
Total Bilirubin 0.8 mg/dl (0.2-1.3) 06/01/22 03:32
AST 69 U/L (17-59) H 06/01/22 03:32
ALT 48 U/L (0-50) 06/01/22 03:32
Alkaline Phosphatase 302 U/L (38-126) H 06/01/22 03:32
Most recent labs reviewed.
Micro Results:
06/03/22 08:33 Blood Culture - Preliminary
Blood/Venous No Growth in 24 hours- Final report to follow
06/03/22 09:33 Blood Culture - Pending
Blood/Venous
05/28/22 08:40 Blood Culture - Final
Blood/Venous No Growth - Final Report
05/28/22 08:06 Blood Culture - Final
Blood/Venous No Growth - Final Report
05/28/22 11:17 Urine Culture - Final
Urine Pseudomonas aeruginosa
[2022-06-04] MEDS: VITAMIN C 1000 MG PO (09:53)
--- NOTE | 2022-06-04 10:12 | W.PN.NEPH.PH ---
Today's Communication / Plan
-
Follow H&H
Transfuse as needed
Hemodialysis tomorrow morning
Assessment/Plan
-
Assessment:
Gross hematuria, recurrent
Bladder malignancy received one dose of chemotherapy (cisplatinum + ...)
TURBT April 04, 2022
ESRD (PD 2017; HD 2018)
Anemia, multifactorial
CABG x2 (ANN-LAD, SVG-ramus, on pump with right Endo vein harvest/sternal plate
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
Biopsy-proven focal sclerosis
Diabetes mellitus
Gout, chronic
Secondary hyperparathyroidism
History hypertension with relative hypotension
History morbid obesity
History sleep apnea on CPAP
Left arm AV fistula 2018
Pelvic adenopathy
Pulmonary nodules
Bilateral renal artery coil embolization June 02
Large pseudoaneurysm with tense hematoma right groin status post common femoral artery catheterization and repair June 03
Plan:
Status post 5 unit PRBC transfusion over the past 24 hours
Hemodynamically more stable following pseudoaneurysm repair and hematoma evacuation
Hb 9.2 GM/DL today
Status post bilateral renal artery coil embolization June 02 with minimal urine output
Chest x-ray June 03 suggested interstitial edema though some of these changes are chronic; he is without respiratory symptoms and need for supplemental O2
No urgent indication for dialysis of fluid removal today
We will plan early tomorrow morning
Patient understands that procedure was successful though unfortunately lack of reserve and existing comorbidities places him at risk for perioperative, periprocedure complications
High risk situation
-
-
Date of Service: June 04, 2022
CC / HPI / ROS
-
Chief Complaint:
Follow-up ESRD
History of Present Illness:
Transferred to ICU
Received 5 units PRBC transfusion overnight
Status post right femoral bleed, urgent pseudoaneurysm repair June 03
Status post coil embolization of bilateral renal arteries June 02
No further gross hematuria
BP higher at this time in ICU
So far not requiring supplemental O2
Review of Systems:
Weights have increased significantly
No shortness of breath
No chest pain or pressure
No need for supplemental O2
Right lower quadrant pain dissipated
Labs
-
Labs:
WBC 39.3 10^3/uL (4.8-10.8) H 06/04/22 03:58
RBC 2.91 10^6/uL (4.70-6.10) L 06/04/22 03:58
Plt Count 242 10^3/uL (130-400) 06/04/22 03:58
Sodium 136 mmol/L (135-145) 06/04/22 03:58
Potassium 4.7 mmol/L (3.5-5.1) 06/04/22 03:58
Chloride 99 mmol/L (98-107) 06/04/22 03:58
Carbon Dioxide 24 mmol/L (22-30) 06/04/22 03:58
BUN 45 mg/dl (9-20) H 06/04/22 03:58
Creatinine 5.2 mg/dL (0.7-1.3) H* 06/04/22 03:58
Glomerular Filtr Rate 10.7 06/04/22 03:58
Glucose 154 mg/dl (65-99) H 06/04/22 03:58
Calcium 8.6 mg/dl (8.4-10.2) 06/04/22 03:58
Phosphorus 2.6 mg/dl (2.5-4.5) 05/31/22 08:12
Albumin 3.0 g/dl (3.5-5.0) L 06/01/22 03:32
Physical Exam
-
Vital Signs:
Vital Signs
Temp Pulse Resp BP Pulse Ox
97.6 F 83 16 136/60 93
06/04/22 07:05 06/04/22 06:15 06/04/22 06:15 06/04/22 03:58 06/04/22 06:15
Other Findings::
Examined in ICU
Speech clear
No conversational dyspnea
O2 saturation 94% on room air
No rub or gallop
No abdominal guarding
Right groin drains in place
Marked lower extremity edema
Weight has increased
--- NOTE | 2022-06-04 11:40 | W.PN.VS ---
Today's Communication / Plan
-
See plan above for today 06/04/2022.
Assessment/Plan
-
POD#1
-Labs reviewed, hemoglobin stable.
� Repeat CBC at noon given moderate drain output. Hemodynamics are all stable however. Transfuse as needed if hemoglobin less than 8.
� Okay for out of bed to chair.
� Okay for regular diet.
� Discontinue arterial line.
-
Total Time Spent with Patient (in minutes): 15
Subjective Data
-
Date of Service: June 04, 2022
Patient without significant complaints. He notes that his right groin feels much better than preop. No significant discomfort at rest now. No other complaints.
Objective Data
-
Vital Signs
Temp Pulse Resp BP Pulse Ox
97.6 F 83 16 136/60 93
06/04/22 07:05 06/04/22 06:15 06/04/22 06:15 06/04/22 03:58 06/04/22 06:15
Intake and Output
06/03/22 06/04/22 06/05/22
06:59 06:59 06:59
Intake Total 720 / 720 620 / 620
Output Total -650 / -650 220 / 220
Balance 1370 / 1370 620 / 620 -220 / -220
Intake:
Oral fluids 720 / 720 120 / 120
Blood Product Amount Infused ( 500 / 500
mL)
Packed Rbc Leukoreduced Unit 250 / 250
[id number]
Packed Rbc Leukoreduced Unit 250 / 250
[id number]
Output:
Drain Output (Total) 220 / 220
Right Lower Pelvis B 100 / 100
Right Pelvis Bruce-Allen A 120 / 120
True Urine Output from CBI -650 / -650
Other:
Number of immeasurable emeses? 1
Lab Results
06/04/22 21:15
06/04/22 03:58
Calcium 8.6 mg/dl (8.4-10.2) 06/04/22 03:58
Phosphorus 2.6 mg/dl (2.5-4.5) 05/31/22 08:12
Magnesium 2.1 mg/dl (1.6-2.3) 06/03/22 05:56
Total Bilirubin 0.8 mg/dl (0.2-1.3) 06/01/22 03:32
AST 69 U/L (17-59) H 06/01/22 03:32
ALT 48 U/L (0-50) 06/01/22 03:32
Alkaline Phosphatase 302 U/L (38-126) H 06/01/22 03:32
Total Protein 5.7 g/dl (6.3-8.2) L 06/01/22 03:32
Albumin 3.0 g/dl (3.5-5.0) L 06/01/22 03:32
Physical Exam
-
He is awake and alert.
Abdomen is soft, nondistended, nontender.
Right groin and prior hematoma cavities are flat. JPs put out approximately 120 cc each overnight. In addition currently drained an additional 75 cc approximately from each. Sanguinous/serosanguineous.
2+ palpable right DP pulse.
[2022-06-04] MEDS: SENSIPAR 30 MG PO (11:47)
[2022-06-04] MEDS: NOVOLOG FLEXPEN-LOW RESISTANCE 2 UNITS SC (11:48)
[2022-06-04] MEDS: CIPRO 500 MG PO (11:48)
[2022-06-04 11:54] LABS: Glucose - Point of Care 220 mg/dl (65-99)
[2022-06-04 12:57] LABS: % Basophils 0.3 % (0-2); % Neutrophils 85.8 % (42.2-75.2); Mean Platelet Volume 10.5 fL (7.4-10.4); Nucleated Red Blood Cells % 0.1 % (-); Red Cell Dist. Width 16.1 % (11.5-14.5)
[2022-06-04 13:02] LABS: % Immature Granulocytes 3.8 % (0-0.5); % Lymphocytes 1.8 % (20.5-51.1); % Monocytes 8.3 % (1.7-9.3); Absolute Basophils 0.2 10^3/uL (0-0.2); Absolute Immature Granulocytes 1.9 10^3/uL (0-0.05); Absolute Lymphocytes 0.9 10^3/uL (1.2-3.4); Absolute Neutrophils 41.5 10^3/uL (1.4-6.5); Hematocrit 25.1 % (39.0-52.0); Hemoglobin 8.8 g/dL (13.0-18.0); Mean Corp Hgb Conc. 35.1 g/dL (33.0-37.0); Mean Corpuscular Hgb 31.7 pg (27.0-31.0); Mean Corpuscular Volume 90.3 fL (80.0-94.0); Platelet Count 263 10^3/uL (130-400); Red Blood Cell Count 2.78 10^6/uL (4.70-6.10)
[2022-06-04 13:06] LABS: White Blood Cell Count 48.4 10^3/uL (4.8-10.8)
--- NOTE | 2022-06-04 13:32 | PTCARENOTE ---
Pt received this am. Assessment as documented. No changes in am assessment. Pt denies pain. No complaints offered. R groin soft. + ecchymosis. ERICK x2 draining serous fluid. at bedside. Updates given Dr De La O aware of afternoon lab results. No new
orders at this time.
[2022-06-04 17:55] LABS: Glucose - Point of Care 194 mg/dl (65-99)
--- NOTE | 2022-06-04 19:20 | PTCARENOTE ---
Pt OOB in chair with assist of 2 with walker. Gait steady but weak. R groin intact.
[2022-06-04] MEDS: APRESOLINE 25 MG PO (19:28)
[2022-06-04] MEDS: LIPITOR 80 MG PO (20:59)
[2022-06-04 21:53] LABS: Glucose - Point of Care 208 mg/dl (65-99)
--- NOTE | 2022-06-04 23:08 | PTCARENOTE ---
pt back to bed with 2 assist. scrotum +4 edema, weeping, and red. elevated on a towel. legs on a pillow. pt set up with at home bipap said he will put it on himself when hes ready.
[2022-06-05] VITALS (46 sets, daily range): BP systolic 89–138; BP diastolic 38–63; PULSE 95–96; O2SAT 96; BMI 38.5
[2022-06-05 01:33] LABS: Hematocrit 23.2 % (39.0-52.0)
[2022-06-05 04:27] LABS: Hematocrit 22.7 % (39.0-52.0); Hemoglobin 7.9 g/dL (13.0-18.0); Mean Corp Hgb Conc. 34.8 g/dL (33.0-37.0); Mean Corpuscular Hgb 32.2 pg (27.0-31.0); Mean Corpuscular Volume 92.7 fL (80.0-94.0); Mean Platelet Volume 10.7 fL (7.4-10.4); Platelet Count 252 10^3/uL (130-400); Red Blood Cell Count 2.45 10^6/uL (4.70-6.10); Red Cell Dist. Width 16.1 % (11.5-14.5)
[2022-06-05 04:31] LABS: White Blood Cell Count 44.7 10^3/uL (4.8-10.8)
[2022-06-05 04:43] LABS: ALT (SGPT) 18 U/L (0-50); AST (SGOT) 20 U/L (17-59); Albumin 2.8 g/dl (3.5-5.0); Alkaline Phosphatase 174 U/L (38-126); Blood Urea Nitrogen 59 mg/dl (9-20); Calcium 8.2 mg/dl (8.4-10.2); Carbon Dioxide 24 mmol/L (22-30); Chloride 96 mmol/L (98-107); Estimated Creatinine Clearance 13 ml/min; Glomerular Filtration Rate 8.7; Glucose 137 mg/dl (65-99); Potassium 5.2 mmol/L (3.5-5.1); Sodium 133 mmol/L (135-145)
--- NOTE | 2022-06-05 06:55 | W.PN.URO.CBU ---
Today's Communication / Plan
-
watson out
Assessment / Plan
-
81M with small cell bladder cancer
History of large dense bladder clot requiring transfer to [facility] for clot evacuation 03/2022 and 04/2021
s/p first cycle of chemotherapy
Presenting again with hematuria and associated anemia
s/p OR / for cystoscopy and fulguration
NO CLOT was found within bladder, indicating persistent hematuria is not a major contributor to anemia
s/p bilateral renal embolization 06/02
exploration and repair of right groin pseudoanny 06/03 with vascular
WATSON REMOVED- WILL OBSERVE
Diagnosis
-
Date of Service: June 05, 2022
-
81M with small cell bladder cancer and recurrent hematuria
now s/p cysto- fulguration on 06/01 and bilateral renal embolization of 06/02
developed right groin pseudoanny- s/p vascular repair 06/03
Subjective
-
pt stable
no fevers/ wbc still rising
hgb stable
scant amount of clear/puneet urine in watson tubing
Objective
-
Vital Signs
Temp Pulse Resp BP Pulse Ox
98.5 F 75 18 109/50 93
06/05/22 03:15 06/05/22 06:00 06/05/22 06:00 06/05/22 06:00 06/05/22 06:00
Intake and Output
06/03/22 06/04/22 06/05/22
06:59 06:59 06:59
Intake Total 720 / 720 620 / 620 720 / 720
Output Total -650 / -650 370 / 370
Balance 1370 / 1370 620 / 620 350 / 350
Intake:
Oral fluids 720 / 720 120 / 120 720 / 720
Blood Product Amount Infused ( 500 / 500
mL)
Packed Rbc Leukoreduced Unit 250 / 250
[id number]
Packed Rbc Leukoreduced Unit 250 / 250
[id number]
Output:
Drain Output (Total) 320 / 320
Right Lower Pelvis B 160 / 160
Right Pelvis Bruce-Allen A 160 / 160
Urine, Watson 50 / 50
True Urine Output from CBI -650 / -650
Other:
Number of immeasurable emeses? 1
Laboratory Results
06/05/22 04:09
Physical Exam
-
General - well developed, well nourished, no acute distress
Abdomen - soft, non-tender
Genitalia - edema- watson in place
[2022-06-05] MEDS: NOVOLOG FLEXPEN-LOW RESISTANCE 1 UNITS SC ×2 (07:39→12:17)
[2022-06-05] MEDS: THERAGRAN 1 TABLET PO (07:40)
[2022-06-05] MEDS: VITAMIN D3 (cholecalciferol) 2000 UNITS PO (07:40)
[2022-06-05] MEDS: VITAMIN B-12 1000 MCG PO (07:40)
[2022-06-05] MEDS: ZETIA 10 MG PO (07:40)
[2022-06-05] MEDS: PROTONIX 40 MG PO ×2 (07:40→20:52)
[2022-06-05] MEDS: ZYLOPRIM 200 MG PO (07:40)
[2022-06-05] MEDS: RENVELA 3200 MG PO ×3 (07:41→17:13)
[2022-06-05] MEDS: ProAmatine 5 MG PO (07:41)
[2022-06-05 07:42] LABS: Glucose - Point of Care 186 mg/dl (65-99)
[2022-06-05] MEDS: HYDROPHOR 1 APPLIC TOPICAL (07:42)
[2022-06-05] MEDS: COREG PO ×2 (07:42→20:56)
[2022-06-05] MEDS: APRESOLINE PO ×2 (07:42→20:51)
[2022-06-05] MEDS: DESENEX/MITRAZOL/ZEASORB 1 APPLIC TOPICAL ×2 (07:42→20:51)
[2022-06-05] MEDS: VITAMIN C PO (07:43)
--- NOTE | 2022-06-05 08:12 | W.PN.VS ---
Addendum entered and electronically signed by Rinku Craey III, MD 06/05/22 11:18:
This patient was seen and examined with CORRIE Zuniga. I agree with the history and physical exam as well as the assessment and plan.
Signed:
Rinku Carey III, MD
[facility]
[phone] ([phone])
Original Note:
Today's Communication / Plan
-
see plan
Assessment/Plan
-
POD 4 cystoscopy, fulguration of bladder
POD 3 Ultrasound-guided access right common femoral artery, abdominal aortogram, bilateral renal arteriography, bilateral transcatheter coil embolization of the renal arteries
POD 2 Emergent repair R [employer] pseudoaneurysm, evacuation hematoma
- recommend PRBC while on HD
- OOB/chair/ambulate
- Will change dressing tomorrow
- PT/OT
- cont JPs
- walter maza'd per urology
- HD per nephrology
- antibiotics per ID
Subjective Data
-
Date of Service: June 05, 2022
Pt seen at bedside this am with Dr Carey. Pt offers no complaints at this time. No events overnight. Eating breakfast
Objective Data
-
Vital Signs
Temp Pulse Resp BP Pulse Ox
98.2 F 75 18 109/50 93
06/05/22 07:24 06/05/22 06:00 06/05/22 06:00 06/05/22 06:00 06/05/22 06:00
Intake and Output
06/04/22 06/05/22 06/06/22
06:59 06:59 06:59
Intake Total 620 / 620 720 / 720
Output Total 370 / 370
Balance 620 / 620 350 / 350
Intake:
Oral fluids 120 / 120 720 / 720
Blood Product Amount Infused ( 500 / 500
mL)
Packed Rbc Leukoreduced Unit 250 / 250
[id number]
Packed Rbc Leukoreduced Unit 250 / 250
[id number]
Output:
Drain Output (Total) 320 / 320
Right Lower Pelvis B 160 / 160
Right Pelvis Bruce-Allen A 160 / 160
Urine, Carey 50 / 50
Other:
Number of immeasurable emeses? 1
Lab Results
06/05/22 04:09
Calcium 8.2 mg/dl (8.4-10.2) L 06/05/22 04:09
Phosphorus 2.6 mg/dl (2.5-4.5) 05/31/22 08:12
Magnesium 2.0 mg/dl (1.6-2.3) 06/05/22 04:09
Total Bilirubin 1.0 mg/dl (0.2-1.3) 06/05/22 04:09
AST 20 U/L (17-59) 06/05/22 04:09
ALT 18 U/L (0-50) 06/05/22 04:09
Alkaline Phosphatase 174 U/L (38-126) H 06/05/22 04:09
Total Protein 5.0 g/dl (6.3-8.2) L 06/05/22 04:09
Albumin 2.8 g/dl (3.5-5.0) L 06/05/22 04:09
Physical Exam
-
aaox3
Abdomen is soft, NT, ND
Right groin and prior hematoma cavities are flat, soft.
Dressings c/d/i
JPs 160 each for 24 hours, serosanguineous
2+ palpable right DP pulse
[2022-06-05] MEDS: MANNITOL 12.5 GRAMS IV (08:24)
[2022-06-05] MEDS: RETACRIT 10000 UNITS IV (08:24)
[2022-06-05] MEDS: FLEXBUMIN 25% FOR HEMODIALYSIS 12.5 GRAMS IV ×2 (08:25→11:06)
--- NOTE | 2022-06-05 09:05 | PTCARENOTE ---
Pt received this am. Assessment as documented. No changes in am assessment. Pt denies pain. No complaints offered. R groin soft. + ecchymosis. ERICK x2 draining small amount serosanguineous fluid. HD already in progress. Coreg held and Midodrine given
for BP. Type and crossed for 1 unit PRBC. Awaiting unit. No obvious sign of bleeding rpesent
--- NOTE | 2022-06-05 09:22 | W.PN.ID1 ---
Today's Communication
-
- attribute majority of leukocytosis to embolization 06/02/22 - follow clinically
- continue ciprofloxacin 500 mg PO qday to complete 14 day course through 06/10
Assessment / Plan
-
Complicated UTI
Leukocytosis
ESRD on HD
Bladder Cancer
S/p embolization of kidneys 06/02/22
S/p repair right groin pseudoanuerysm 06/03/22
- attribute majority of leukocytosis to embolization 06/02/22
- continue ciprofloxacin 500 mg PO qday to complete 14 day course through 06/10
- qtc - acceptable
- s/p watson removal
- follow clinically
Chief Complaint
-
Date of Service: June 05, 2022
-: Leukocytosis and UTI
Subjective / Review of Systems
-
afebrile
BP stable - elaine removed
WBC count peaked at 48 and downtrending
hgb stable
plt stable
cr 6.2
/ blood cultures reviewedno growth at 24 hr
reviewed: urology, vascular, nephrology, IM notes
no new complaints
Vital Signs / Physical Exam
Vital Signs
Vital Signs
Temp Pulse Resp BP Pulse Ox
98.2 F 72 15 111/49 97
06/05/22 07:24 06/05/22 09:00 06/05/22 09:00 06/05/22 09:00 06/05/22 09:00
Physical Exam
Constitutional: No Acute Distress
Cardiovascular: Regular Rate and S1/S2; Negative Murmur or Rub
Pulmonary: Clear and Symmetric; Negative Wheezes or Rales
Gastrointestinal: Soft, Non Tender, Non Distended and Normal Bowel Sounds
Skin: Warm and Dry; Negative Rash or Jaundice
Objective Data
Lab Data
Lab Results
06/05/22 04:09
PT 17.0 Sec (11.4-14.6) H 06/03/22 23:38
INR 1.36 06/03/22 23:38
APTT 29.1 Sec (23.4-35.0) 06/03/22 23:38
Estimated Creat Clear 13 ml/min 06/05/22 04:09
Total Bilirubin 1.0 mg/dl (0.2-1.3) 06/05/22 04:09
AST 20 U/L (17-59) 06/05/22 04:09
ALT 18 U/L (0-50) 06/05/22 04:09
Alkaline Phosphatase 174 U/L (38-126) H 06/05/22 04:09
Most recent labs reviewed.
Micro Results:
06/03/22 08:33 Blood Culture - Preliminary
Blood/Venous No Growth in 48 hours- Final report to follow
06/03/22 09:33 Blood Culture - Preliminary
Blood/Venous No Growth in 24 hours- Final report to follow
05/28/22 08:40 Blood Culture - Final
Blood/Venous No Growth - Final Report
05/28/22 08:06 Blood Culture - Final
Blood/Venous No Growth - Final Report
05/28/22 11:17 Urine Culture - Final
Urine Pseudomonas aeruginosa
--- NOTE | 2022-06-05 10:25 | W.PN.NEPH.HD ---
Assessment
-
Pt seen and examined during HD
vitals stable, UF as tolerates
transfusion with HD
no heparin
high dose of LIZ
watson was removed
Progress Note - Hemodialysis
-
Date of Service: June 05, 2022
Duration: 4 hours
Potassium Bath: 2
Calcium Bath: 2.5
Opti-Dialyzer: 160
Ultrafiltration: Other (3.5-4.5kg)
Blood Flow: 400
Dialysate Flow: 600
Heparin: no
EPO: [id number]
--- NOTE | 2022-06-05 10:33 | CM ---
Addendum entered by Adamaris Ordonez 06/05/22 14:02:
Patient for transfer to IMU at this time per chart review. Patient conversational and comfortable, and daughter also present in room. CM will continue to follow for discharge planning needs.
Original Note:
Patient seen at bedside with HD in progress. Patient for probable transfer to med surg. Per Patient plan continues to be home with [facility] and family supports. Patient family is not interested in SNF placement. CM will continue to follow for
discharge planning needs.
Plan; home with [facility]; and family supports
--- NOTE | 2022-06-05 10:44 | W.PN.HOSP.TC ---
Today's Communication/Plan
-
Transfuse with hemodialysis.
Watson catheter removed.
Cipro p.o.
Follow CBC
Continue Coreg. Hold lisinopril monitoring hemodynamics.
Physical therapy
Assessment / Plan
Assessment / Plan
pt is an 81 year old male
Hemorrhagic/hypovolemic shock 06/03/22--dropped HGB and BP on 06/03/22 and moved to ICU--CT scan showed LARGE hematoma right groin (had IR embolization of kidneys the day before 06/02/22)--US of right groin showed pseudoaneurysm leaking blood--IR
attempted to thrombinize but was unsuccessful, pt taken to OR by vascular for repair and hematoma evacuation --to date pt has received 8 units of pRBC (3 alone in OR).
Follow calcium level with large volume transfusions.
Hematuria secondary to Bladder CA--apprec urology--had CBI and stopped---s/p OR 06/01/22 for cystoscopy and fulguration--s/p IR embolization of kidneys to stop urine 06/02/22--catheter removed on 06/05.
leukocytosis--WBC count up to 39K, could be reactive but seems a bit high--already being treated with cefepime for pseudomonas UTI, changed to cipro per ID-- reculture blood (kidneys embolized and pt on HD so not checking urine)--sepsis was thought
about but more likely just SIRS reaction to renal embolization.
Acute Blood Loss Anemia due to hematuria and blood loss from pseudoaneurysm on Anemia of Chronic Disease--s/p 7 units PRBCs--Monitor Hgb
Pseudomonas UTI due related to indwelling watson catheter-catheter removed on 06/05. Antibiotics: Transition from cefepime to Cipro.
hypokalemia (prior to me assuming patient's care)-- pt on HD
Coronary Artery Disease s/p CABG in April 2021--Hold aspirin in setting of hematuria
Essential Hypertension--Continue Coreg, Hydralazine and Lisinopril as clinically able
Hyperlipidemia--Continue Lipitor and Zetia
Diabetes Mellitus, Type 2--Monitor sugars on AM labs
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
GERD--Continue Protonix
Gout--Continue allopurinol
DVT proph: SCDs
Code Status: DNR
Total Critical Care Time 37 minutes. I was immediately available to the patient and staff. I personally examined, reviewed labs, diagnostic images/reports, interpretations, treatment plans, discussed patient care with other providers and family
or caregivers (if patient is unable to make decisions), entered orders as appropriate and documented the medical record.
Anticipated Discharge: > 48 hours
Subjective/Interval History
-
Date of Service: June 05, 2022
Objective Data
-
Labs:
Laboratory Results
06/05/22 06/05/22 06/05/22
01:24 04:09 04:09
WBC 44.7 H*
Hgb 8.0 L 7.9 L
Hct 23.2 L 22.7 L
Plt Count 252
Sodium 133 L
Potassium 5.2 H
Chloride 96 L
Carbon Dioxide 24
BUN 59 H
Creatinine 6.2 H*
Glucose 137 H
Calcium 8.2 L
Total Bilirubin 1.0
AST 20
ALT 18
Alkaline Phosphatase 174 H
06/05/22
12:00
WBC
Hgb Pending
Hct Pending
Plt Count
Sodium
Potassium
Chloride
Carbon Dioxide
BUN
Creatinine
Glucose
Calcium
Total Bilirubin
AST
ALT
Alkaline Phosphatase
Vital Signs:
Vital Signs
Temp Pulse Resp BP Pulse Ox
98.2 F 80 20 116/50 94
06/05/22 10:23 06/05/22 10:23 06/05/22 10:23 06/05/22 10:23 06/05/22 10:15
I&O
06/04/22 06/05/22 06/06/22
06:59 06:59 06:59
Intake Total 620 / 620 720 / 720 0 / 0
Output Total 370 / 370 0 / 0
Balance 620 / 620 350 / 350 0 / 0
Physical Exam
-
General: Well Developed and No Apparent Distress
HEENT: Normocephalic, Atraumatic and Moist Mucous Membranes
Respiratory: Clear to Auscultation
Cardiac: Regular Rhythm and S1/S2; Negative Murmur, Rub or Gallop
GI: Soft, Nontender, Nondistended and Normal Bowel Sounds; Negative Organomegaly
Rectal: Deferred by Provider
Musculoskeletal: No Clubbing, No Cyanosis and No Edema
Skin: Negative Rash
Neuro: Nonfocal/Grossly Intact
--- NOTE | 2022-06-05 12:09 | W.PN.INTV ---
Today's Communication / Plan
Recommendations
transfuse as necessary
Dialysis per nephrology
Monitor drain outputs
Follow electrolytes
Continue nocturnal CPAP for obstructive sleep apnea
Sign off
Assessment
-
81-year-old male with multiple medical problems including bladder cancer, recurrent UTIs, CAD, end-stage renal disease who recently had cystoscopy and fulguration and IR embolization to the kidneys to prevent ongoing hematuria and developed
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
Assessment
Hypotension due to acute blood loss
Anemia due to acute blood loss-hemoglobin 7.3
Large right groin pseudoaneurysm and tense hematoma
Status post right PRACTICE MANAGERS catheterization and evacuation of hematoma-Dr. De La O-06/03/2022
Right groin hematoma
Leukocytosis
Hyperglycemia
Interventional transcatheter coil embolization bilateral renal arteries 06/02/2022
Conditions present prior to admission:
Bladder cancer-small cell
Anemia.
CAD/CABG.
Hypertension.
Diabetes.
End-stage renal disease on hemodialysis.
Hyperparathyroidism
Hyperphosphatemia
Obesity.
Obstructive sleep apnea
History of pulmonary nodules
GERD.
History of gout.
Bilateral knee replacement.
Hemorrhoidectomy.
Cataract
TURBT.
AV fistula 2019
Plan
Clinically much improved
On low rate supplemental oxygen
Has not needed noninvasive mechanical ventilation.
CPAP at night for KATHY-follows with Dr. Stacy
-
To get additional transfusion today 06/05/2022.
Follow hemoglobin
CT abdomen and pelvis 06/22-large right groin hematoma, small bilateral pleural effusions, 2 small intermediate low-attenuation lesions in the liver follow-up CT with and without contrast is recommended, cholelithiasis
Groin ultrasound 06/03/2022-large right groin pseudoaneurysm measuring 7.6 x 5.9 x 21.8 cm
-
Interventional radiology following-correspondence reviewed
Urology following-correspondence reviewed
Vascular surgery following-correspondence and operative records reviewed-hematoma evacuation and pseudoaneurysm repair 06/03/2022
Continue with postoperative care
Okay to transfer out of the ICU.
Infectious disease consultation-on ciprofloxacin.
Afebrile- leukocytosis noted
Cultures reviewed-unrevealing except Pseudomonas in urine 05/28/2022
Antibiotics per infectious disease
Nephrology following-correspondence reviewed
dialysis per nephrology-is status post dialysis 06/05/2022-tolerated well.
Continue to replace electrolytes
DVT prophylaxis-mechanical
Eventual nutrition
Eventual early mobilization
Outpatient sleep disorders kdsdhb-gi-Ob. Tran
will transfer out of the ICU to intermediate care unit.
Critical care team will sign off.
Diagnostic data:
Chest x-ray 04/23/2022-small left pleural effusion, mild cardiomegaly, mild elevation right hemidiaphragm
Chest x-ray 06/03/2022-mild CHF, probable right basilar atelectasis
CT abdomen and pelvis 06/01/2022-Carey catheter within essential empty urinary bladder, no findings to suggest active colonic bleeding or retroperitoneal hemorrhage, marked atrophy of the kidneys, approximate 5 cm splenic cyst, borderline
retroperitoneal lymph nodes essentially stable
Interventional transcatheter coil embolization bilateral renal arteries 06/02/2022
Echocardiogram 04/25/2022-EF 45-50%, mild mitral regurgitation, mild mitral stenosis with gradient 5 mmHg, PA systolic 41, no change from 09/22/2021
Subjective Dataa
Subjective Data
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
Subjective:
Currently on dialysis and tolerating well.
Denies any pain.
Denies lightheadedness.
Review of Systems
General: Fever (n)
Cardiopulmonary: Dyspnea (n)
GI: Abdominal Pain (n), Nausea (n) and Vomiting
Neuro: Headache (n)
Objective Data
Data Reviewed
Vital Signs / I&O / Oxygen:
Vital Signs
Temp Pulse Resp BP Pulse Ox
97.9 F 83 20 125/50 94
06/05/22 11:14 06/05/22 11:04 06/05/22 11:04 06/05/22 11:04 06/05/22 10:15
Intake and Output
06/04/22 06/05/22 06/06/22
06:59 06:59 06:59
Intake Total 620 / 620 720 / 720 250 / 250
Output Total 370 / 370 75 / 75
Balance 620 / 620 350 / 350 175 / 175
SaO2 94
Nasal Cannula flow liters per 1
minute
Physical Exam
General: Respiratory Distress (n) and Comfortable
HEENT: Normocephalic, Anicteric and Moist Mucous Membranes
Cardiovascular: Regular Rhythm and Peripheral Edema
Respiratory: Wheeze (n), Crackles (n), Rhonchi (n), Non-Labored Respirations, Accessory Resp Muscle Use (n) and Stridor (n)
GI: Soft, Distended and Non Tender
Neurology: Awake, Alert and No Motor Deficits
Skin: Warm, Good Color, Cyanosis (n), Jaundice (n), Rash (n) and Other (Right groin without hematoma. Drains in place with serosanguineous fluid)
Labs/Micro/Reports
Lab Data
06/05/22 04:09
Microbiology
06/03/22 09:33 Blood/Venous Blood Culture - Preliminary
No Growth in 48 hours- Final report to follow
06/03/22 08:33 Blood/Venous Blood Culture - Preliminary
No Growth in 48 hours- Final report to follow
05/28/22 08:40 Blood/Venous Blood Culture - Final
No Growth - Final Report
05/28/22 08:06 Blood/Venous Blood Culture - Final
No Growth - Final Report
[2022-06-05 12:18] LABS: Hematocrit 29.9 % (39.0-52.0)
[2022-06-05] MEDS: CIPRO 500 MG PO (12:18)
[2022-06-05 12:23] LABS: Hemoglobin 10.2 g/dL (13.0-18.0)
[2022-06-05 12:33] LABS: Glucose - Point of Care 160 mg/dl (65-99)
--- NOTE | 2022-06-05 14:54 | PTCARENOTE ---
HD completed without issue. 3.5L removed. PT to bedside. Pt refusing OOB to chair. Stood at bedside with rolling walker, took several steps laterally and repositioned in bed. See PT note.
[2022-06-05] MEDS: NOVOLOG FLEXPEN-MODERATE RESISTANCE 1 UNITS SC (17:12)
[2022-06-05 17:26] LABS: Glucose - Point of Care 194 mg/dl (65-99)
[2022-06-05] MEDS: LIPITOR 80 MG PO (20:52)
[2022-06-05 21:24] LABS: Glucose - Point of Care 211 mg/dl (65-99)
[2022-06-06] VITALS (13 sets, daily range): BP systolic 105–135; BP diastolic 44–73; PULSE 87; O2SAT 95; BMI 37.6
[2022-06-06 04:15] LABS: Hematocrit 24.6 % (39.0-52.0); Hemoglobin 8.3 g/dL (13.0-18.0); Mean Corp Hgb Conc. 33.7 g/dL (33.0-37.0); Mean Corpuscular Hgb 31.4 pg (27.0-31.0); Mean Corpuscular Volume 93.2 fL (80.0-94.0); Mean Platelet Volume 10.8 fL (7.4-10.4); Platelet Count 245 10^3/uL (130-400); Red Blood Cell Count 2.64 10^6/uL (4.70-6.10); Red Cell Dist. Width 18.3 % (11.5-14.5); White Blood Cell Count 30.9 10^3/uL (4.8-10.8)
[2022-06-06 04:37] LABS: Blood Urea Nitrogen 39 mg/dl (9-20); Calcium 8.3 mg/dl (8.4-10.2); Carbon Dioxide 27 mmol/L (22-30); Chloride 96 mmol/L (98-107); Estimated Creatinine Clearance 18 ml/min; Glomerular Filtration Rate 13.3; Glucose 140 mg/dl (65-99); Potassium 4.3 mmol/L (3.5-5.1); Sodium 133 mmol/L (135-145)
[2022-06-06] MEDS: ROXICODONE 5 MG PO ×3 (07:45→23:10)
[2022-06-06] MEDS: ZYLOPRIM 200 MG PO (07:46)
[2022-06-06] MEDS: ZETIA 10 MG PO (07:46)
[2022-06-06] MEDS: VITAMIN C 1000 MG PO (07:46)
[2022-06-06] MEDS: RENVELA 3200 MG PO ×3 (07:46→16:13)
[2022-06-06] MEDS: PROTONIX 40 MG PO ×2 (07:46→19:45)
[2022-06-06] MEDS: NOVOLOG FLEXPEN-MODERATE RESISTANCE 1 UNITS SC ×2 (07:46→16:13)
[2022-06-06] MEDS: COREG 6.25 MG PO ×2 (07:47→19:45)
[2022-06-06] MEDS: HYDROPHOR 1 APPLIC TOPICAL (07:47)
[2022-06-06] MEDS: THERAGRAN 1 TABLET PO (07:47)
[2022-06-06] MEDS: VITAMIN B-12 1000 MCG PO (07:47)
[2022-06-06] MEDS: VITAMIN D3 (cholecalciferol) 2000 UNITS PO (07:47)
[2022-06-06] MEDS: APRESOLINE PO (07:48)
[2022-06-06] MEDS: DESENEX/MITRAZOL/ZEASORB 1 APPLIC TOPICAL ×2 (07:48→22:09)
[2022-06-06] MEDS: ZESTRIL PO (07:49)
--- NOTE | 2022-06-06 07:49 | W.PN.VS ---
Addendum entered and electronically signed by Rinku Carey III, MD 06/06/22 09:39:
This patient was seen and examined with CORRIE Zuniga. I agree with the history and physical exam as well as the assessment and plan.
High risk for wound related morbidity given groin incision and morbid obesity. Keep incision clean and dry at all times. Leave drains in place.
Signed:
Rinku Carey III, MD
[facility] Vascular Surgery
[phone] (yeql)
Original Note:
Today's Communication / Plan
-
see plan
Assessment/Plan
-
POD 5 cystoscopy, fulguration of bladder
POD 4 Ultrasound-guided access right common femoral artery, abdominal aortogram, bilateral renal arteriography, bilateral transcatheter coil embolization of the renal arteries
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
- change ABDs as needed, wound site tenuous
- OOB/chair/ambulate
- PT/OT
- cont JPs
- HD per nephrology
- antibiotics per ID
Subjective Data
-
Date of Service: June 06, 2022
Pt seen at bedside this am with Dr Carey. Pt offers no complaints at this time. No events overnight
Objective Data
-
Vital Signs
Temp Pulse Resp BP Pulse Ox
99.6 F 82 18 110/70 92
06/06/22 03:10 06/06/22 05:00 06/06/22 05:00 06/06/22 04:00 06/06/22 05:00
Intake and Output
06/05/22 06/06/22 06/07/22
06:59 06:59 06:59
Intake Total 720 / 720 730 / 730
Output Total 370 / 370 210 / 210
Balance 350 / 350 520 / 520
Intake:
Oral fluids 720 / 720 480 / 480
Blood Product Amount Infused ( 250 / 250
mL)
Packed Rbc Leukoreduced Unit 250 / 250
[id number]
Output:
Drain Output (Total) 320 / 320 210 / 210
Right Lower Pelvis B 160 / 160 135 / 135
Right Pelvis Bruce-Allen A 160 / 160 75 / 75
Urine, Carey 50 / 50
Urine, Voided 0 / 0
Lab Results
06/06/22 03:31
06/06/22 03:31
Calcium 8.3 mg/dl (8.4-10.2) L 06/06/22 03:31
Phosphorus 2.6 mg/dl (2.5-4.5) 05/31/22 08:12
Magnesium 2.0 mg/dl (1.6-2.3) 06/05/22 04:09
Total Bilirubin 1.0 mg/dl (0.2-1.3) 06/05/22 04:09
AST 20 U/L (17-59) 06/05/22 04:09
ALT 18 U/L (0-50) 06/05/22 04:09
Alkaline Phosphatase 174 U/L (38-126) H 06/05/22 04:09
Total Protein 5.0 g/dl (6.3-8.2) L 06/05/22 04:09
Albumin 2.8 g/dl (3.5-5.0) L 06/05/22 04:09
Physical Exam
-
aaox3
Abdomen is soft, NT, ND
Right groin and prior hematoma cavities are flat, soft.
Dressings changed at bedside, replaced with ABDs to not use tape, skin thin
ERICK A-85, ERICK B- 55 for 24 hours, serosanguineous
2+ palpable right DP pulse
[2022-06-06] MEDS: SENSIPAR 30 MG PO (07:50)
[2022-06-06 07:57] LABS: Glucose - Point of Care 170 mg/dl (65-99)
--- NOTE | 2022-06-06 08:30 | PTCARENOTE ---
Pt received this am. Assessment as documented. No changes in am assessment. Dr Carey to bedside and dressing removed. JPs remain. ABD pads placed along abdominal folds to hold dressing in place. 4X4s placed over drain sites. Swelling and
ecchymosis present at op site. PO pain med given as requested. ERICK x2 draining small amount serosanguineous fluid. No urine output. Hydralizine and lisinopril held for borderline BP.
--- NOTE | 2022-06-06 09:04 | W.PN.ID1 ---
Today's Communication
-
leukocytosis improving
- continue ciprofloxacin 500 mg PO qday to complete 14 day course through 06/10
Assessment / Plan
-
Complicated UTI
Leukocytosis - improving
ESRD on HD
Bladder Cancer
S/p embolization of kidneys 06/02/22
S/p repair right groin pseudoanuerysm 06/03/22
- attribute majority of leukocytosis to embolization 06/02/22, also post operative state
- continue ciprofloxacin 500 mg PO qday to complete 14 day course through 06/10
- qtc - acceptable
- follow clinically
Chief Complaint
-
Date of Service: June 06, 2022
-: Leukocytosis and UTI
Subjective / Review of Systems
-
afebrile
BP stable
declining leukocytosis
hgb 8.3 this AM
plt stable
K 4.3
06/03 blood cultures remain no growth to date
reviewed vascular, vending machine host/hostess, hospitalist notes
drains serosanguinous fluid
no complaints beyond feeling tired
Vital Signs / Physical Exam
Vital Signs
Vital Signs
Temp Pulse Resp BP Pulse Ox
98.5 F 82 18 110/70 92
06/06/22 07:00 06/06/22 05:00 06/06/22 05:00 06/06/22 04:00 06/06/22 05:00
Physical Exam
Constitutional: No Acute Distress
Cardiovascular: Regular Rate and S1/S2; Negative Murmur or Rub
Pulmonary: Clear and Symmetric; Negative Wheezes or Rales
Gastrointestinal: Soft, Non Tender, Non Distended and Normal Bowel Sounds
Skin: Warm and Dry; Negative Rash or Jaundice
Lines: Other (drains serosanguinous fluid)
Objective Data
Lab Data
Lab Results
06/06/22 03:31
06/06/22 03:31
PT 17.0 Sec (11.4-14.6) H 06/03/22 23:38
INR 1.36 06/03/22 23:38
APTT 29.1 Sec (23.4-35.0) 06/03/22 23:38
Estimated Creat Clear 18 ml/min 06/06/22 03:31
Total Bilirubin 1.0 mg/dl (0.2-1.3) 06/05/22 04:09
AST 20 U/L (17-59) 06/05/22 04:09
ALT 18 U/L (0-50) 06/05/22 04:09
Alkaline Phosphatase 174 U/L (38-126) H 06/05/22 04:09
Most recent labs reviewed.
Micro Results:
06/03/22 08:33 Blood Culture - Preliminary
Blood/Venous No Growth in 72 hours- Final report to follow
06/03/22 09:33 Blood Culture - Preliminary
Blood/Venous No Growth in 48 hours- Final report to follow
05/28/22 08:40 Blood Culture - Final
Blood/Venous No Growth - Final Report
05/28/22 08:06 Blood Culture - Final
Blood/Venous No Growth - Final Report
05/28/22 11:17 Urine Culture - Final
Urine Pseudomonas aeruginosa
--- NOTE | 2022-06-06 09:27 | CM ---
Patient seen at bedside. Patient remaining in ICU awaiting bed at IMU. Patient asking for therapy today and nursing updated. Patient and /daughter very committed to going to home with VN and not going to SNF, due to concerns about care. CM will
continue to follow for discharge planning needs.
--- NOTE | 2022-06-06 10:05 | W.PN.NEPH.PH ---
Today's Communication / Plan
-
HD tomorrow
follow h/h
Assessment/Plan
-
Assessment:
Gross hematuria, recurrent
Bladder malignancy received one dose of chemotherapy (cisplatinum + ...)
TURBT April 04, 2022
ESRD (PD 2017; HD 2018)
Anemia, multifactorial
CABG x2 (ANN-LAD, SVG-ramus, on pump with right Endo vein harvest/sternal plate
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
Biopsy-proven focal sclerosis
Diabetes mellitus
Gout, chronic
Secondary hyperparathyroidism
History hypertension with relative hypotension
History morbid obesity
History sleep apnea on CPAP
Left arm AV fistula 2018
Pelvic adenopathy
Pulmonary nodules
Bilateral renal artery coil embolization June 02
Large pseudoaneurysm with tense hematoma right groin status post common femoral artery catheterization and repair June 03
Plan:
monitor h/h down trending slowly
BP are soft, hold ACEI and hydralazine, coreg with holding parameters
Status post bilateral renal artery coil embolization June 02
HD tomorrow
-
-
Date of Service: June 06, 2022
CC / HPI / ROS
-
Chief Complaint:
Follow-up ESRD
History of Present Illness:
Received 6 units PRBC so far, hb decreasing 8.3, WBC better at 30.9k
Status post right femoral bleed, urgent pseudoaneurysm repair June 03
Status post coil embolization of bilateral renal arteries June 02
BP soft, no hypotension
So far not requiring supplemental O2
Review of Systems:
Weights decreasing with HD
No shortness of breath
No chest pain or pressure
No need for supplemental O2
minimal Right lower quadrant pain
Labs
-
Labs:
WBC 30.9 10^3/uL (4.8-10.8) H 06/06/22 03:31
RBC 2.64 10^6/uL (4.70-6.10) L 06/06/22 03:31
Hgb 8.3 g/dL (13.0-18.0) L 06/06/22 03:31
Hct 24.6 % (39.0-52.0) L 06/06/22 03:31
Plt Count 245 10^3/uL (130-400) 06/06/22 03:31
Sodium 133 mmol/L (135-145) L 06/06/22 03:31
Potassium 4.3 mmol/L (3.5-5.1) 06/06/22 03:31
Chloride 96 mmol/L (98-107) L 06/06/22 03:31
Carbon Dioxide 27 mmol/L (22-30) 06/06/22 03:31
BUN 39 mg/dl (9-20) H 06/06/22 03:31
Creatinine 4.3 mg/dL (0.7-1.3) H* 06/06/22 03:31
Glomerular Filtr Rate 13.3 06/06/22 03:31
Glucose 140 mg/dl (65-99) H 06/06/22 03:31
Calcium 8.3 mg/dl (8.4-10.2) L 06/06/22 03:31
Phosphorus 2.6 mg/dl (2.5-4.5) 05/31/22 08:12
Albumin 2.8 g/dl (3.5-5.0) L 06/05/22 04:09
Physical Exam
-
Vital Signs:
Vital Signs
Temp Pulse Resp BP Pulse Ox
98.5 F 81 21 127/44 95
06/06/22 07:00 06/06/22 09:00 06/06/22 09:00 06/06/22 08:00 06/06/22 09:00
Cardiovascular:: Regular rate and rhythm
Respiratory:: Bilateral: CTA
Lung Excursion:: Normal
Abdomen:: Nontender and Soft
Extremity Edema:: None: Bilateral: (trace)
Carey Catheter: No
[2022-06-06] MEDS: NOVOLOG FLEXPEN-MODERATE RESISTANCE 3 UNITS SC (11:49)
--- NOTE | 2022-06-06 11:56 | W.PN.HOSP.TC ---
Today's Communication/Plan
-
Hemoglobin stable after transfusion.
Monitor for symptomatic hypotension while on current antihypertensive regimen.
WBC improving.
Continue oral Cipro as recommended
HD as per schedule
Physical therapy assessment
Telemetry
Assessment / Plan
Assessment / Plan
pt is an 81 year old male
Hemorrhagic/hypovolemic shock 06/03/22--dropped HGB and BP on 06/03/22 and moved to ICU--CT scan showed LARGE hematoma right groin (had IR embolization of kidneys the day before 06/02/22)--US of right groin showed pseudoaneurysm leaking blood--IR
attempted to thrombinize but was unsuccessful, pt taken to OR by vascular for repair and hematoma evacuation --to date pt has received 8 units of pRBC (3 alone in OR). Hemoglobin improved at 8.3.
Follow calcium level with large volume transfusions.
Hematuria secondary to Bladder CA--apprec urology--had CBI and stopped---s/p OR 06/01/22 for cystoscopy and fulguration--s/p IR embolization of kidneys to stop urine 06/02/22--catheter removed on 06/05.
leukocytosis--WBC count up to 39K, could be reactive but seems a bit high--already being treated with cefepime for pseudomonas UTI, changed to cipro per ID-- reculture blood (kidneys embolized and pt on HD so not checking urine)--sepsis was thought
about but more likely just SIRS reaction to renal embolization.
Acute Blood Loss Anemia due to hematuria and blood loss from pseudoaneurysm on Anemia of Chronic Disease--s/p 7 units PRBCs--Monitor Hgb
Pseudomonas UTI due related to indwelling watson catheter-catheter removed on 06/05. Antibiotics: Transition from cefepime to Cipro.
hypokalemia (prior to me assuming patient's care)-- pt on HD
Coronary Artery Disease s/p CABG in April 2021--Hold aspirin in setting of hematuria
Essential Hypertension--Continue Coreg, Hydralazine and Lisinopril. Blood pressure remains on the lower side while on current antihypertensive regimen. Monitor closely for symptomatic hypotension. Adjust accordingly.
Hyperlipidemia--Continue Lipitor and Zetia
Diabetes Mellitus, Type 2--Monitor sugars on AM labs
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
GERD--Continue Protonix
Gout--Continue allopurinol
DVT proph: SCDs
Code Status: DNR
Anticipated Discharge: > 48 hours
Subjective/Interval History
-
Date of Service: June 06, 2022
Objective Data
-
Labs:
Laboratory Results
06/06/22 06/06/22
03:31 03:31
WBC 30.9 H
Hgb 8.3 L
Hct 24.6 L
Plt Count 245
Sodium 133 L
Potassium 4.3
Chloride 96 L
Carbon Dioxide 27
BUN 39 H
Creatinine 4.3 H*
Glucose 140 H
Calcium 8.3 L
Vital Signs:
Vital Signs
Temp Pulse Resp BP Pulse Ox
98.5 F 81 21 127/44 95
06/06/22 07:00 06/06/22 09:00 06/06/22 09:00 06/06/22 08:00 06/06/22 09:00
I&O
06/05/22 06/06/22 06/07/22
06:59 06:59 06:59
Intake Total 720 / 720 730 / 730
Output Total 370 / 370 210 / 210
Balance 350 / 350 520 / 520
Physical Exam
-
General: Well Developed and No Apparent Distress
HEENT: Normocephalic, Atraumatic and Moist Mucous Membranes
Respiratory: Clear to Auscultation
Cardiac: Regular Rhythm and S1/S2; Negative Murmur, Rub or Gallop
GI: Soft, Nontender, Nondistended and Normal Bowel Sounds; Negative Organomegaly
Rectal: Deferred by Provider
Musculoskeletal: No Clubbing, No Cyanosis and No Edema
Skin: Negative Rash
Neuro: Nonfocal/Grossly Intact
[2022-06-06 11:59] LABS: Glucose - Point of Care 203 mg/dl (65-99)
[2022-06-06] MEDS: CIPRO 500 MG PO (12:53)
[2022-06-06 16:23] LABS: Glucose - Point of Care 196 mg/dl (65-99)
--- NOTE | 2022-06-06 20:00 | PTCARENOTE ---
Received pt. at 1900. Pt. currently in bed. No complaints of pain at this time. Currently on room air. Groin site intact. Neurovascular checks normal. Discussed plan of care. Vital signs stable at this time.
[2022-06-06 21:17] LABS: Glucose - Point of Care 227 mg/dl (65-99)
[2022-06-06] MEDS: LIPITOR 80 MG PO (22:09)
[2022-06-07] VITALS (29 sets, daily range): BP systolic 94–142; BP diastolic 41–66; BMI 36.9
[2022-06-07] MEDS: ROXICODONE 5 MG PO ×4 (03:07→23:53)
[2022-06-07 03:31] LABS: % Basophils 0.3 % (0-2); % Eosinophils 0.1 % (0-6); % Immature Granulocytes 4.8 % (0-0.5); % Lymphocytes 4.5 % (20.5-51.1); % Neutrophils 77.3 % (42.2-75.2); Absolute Basophils 0.1 10^3/uL (0-0.2); Absolute Immature Granulocytes 1.3 10^3/uL (0-0.05); Absolute Lymphocytes 1.2 10^3/uL (1.2-3.4); Absolute Monocytes 3.5 10^3/uL (0.1-0.6); Absolute Neutrophils 21.1 10^3/uL (1.4-6.5); Hematocrit 23.8 % (39.0-52.0); Hemoglobin 7.8 g/dL (13.0-18.0); Mean Corp Hgb Conc. 32.8 g/dL (33.0-37.0); Mean Corpuscular Volume 94.4 fL (80.0-94.0); Mean Platelet Volume 10.4 fL (7.4-10.4); Nucleated Red Blood Cells % 0 % (-); Platelet Count 245 10^3/uL (130-400); Red Blood Cell Count 2.52 10^6/uL (4.70-6.10); Red Cell Dist. Width 18.3 % (11.5-14.5); White Blood Cell Count 27.3 10^3/uL (4.8-10.8)
[2022-06-07 04:19] LABS: Blood Urea Nitrogen 56 mg/dl (9-20); Calcium 8.3 mg/dl (8.4-10.2); Carbon Dioxide 26 mmol/L (22-30); Chloride 95 mmol/L (98-107); Estimated Creatinine Clearance 13 ml/min; Glomerular Filtration Rate 9.2; Glucose 116 mg/dl (65-99); Potassium 4.8 mmol/L (3.5-5.1); Sodium 133 mmol/L (135-145)
--- NOTE | 2022-06-07 07:25 | W.PN.VS ---
Addendum entered and electronically signed by Dylan De La O MD 06/07/22 07:34:
Seen and examined with [employer] DRIVER. Agree with findings as noted below. Patient sitting comfortably he is without any complaints. No events noted overnight. On exam/his abdomen is soft, nondistended, nontender. Right groin is relatively flat (obese
habitus). Incision is clean dry and intact. The skin is actually reasonably pink. No necrosis is noted. No blistering. ERICK drain scant currently. 10 and 15 cc overnight is noted.
Plan/ Overall stable. No obvious or ongoing bleeding signs. JPs have slowed. Hemoglobin 7.8. Repeat check later today or tomorrow morning. If stable can hold off on any further transfusion. However if dropping then may need further
transfusion. As I discussed with patient and family prior the skin stretched by the hematoma and devascularize was of concern. Seems to be holding on. We will continue to observe. If any concern for skin breakdown or issues, I may get plastic
surgery involved. For now appears stable. Plan otherwise as discussed and noted below.
Original Note:
Today's Communication / Plan
-
Patient seen and examined at bedside with Dr. Dylan De La O, below plan reviewed with attending.
Assessment/Plan
-
POD 6 cystoscopy, fulguration of bladder
POD 5 Ultrasound-guided access right common femoral artery, abdominal aortogram, bilateral renal arteriography, bilateral transcatheter coil embolization of the renal arteries
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
- change ABDs as needed, wound site tenuous
- OOB/chair/ambulate
- PT/OT
- cont JPs
- HD per nephrology
- antibiotics per ID
Subjective Data
-
Date of Service: June 07, 2022
Patient seen and examined, no acute events overnight. Patient offers no complaints. Denies nausea, vomiting, fever, chills, and lightheadedness/dizziness. Reports he did get out of bed to chair yesterday without incident.
Objective Data
-
Vital Signs
Temp Pulse Resp BP Pulse Ox
98.8 F 76 14 99/52 94
06/07/22 03:35 06/07/22 06:00 06/07/22 06:00 06/07/22 04:00 06/07/22 06:00
Intake and Output
06/06/22 06/07/22 06/08/22
06:59 06:59 06:59
Intake Total 730 / 730 1100 / 1100
Output Total 210 / 210 30 / 30
Balance 520 / 520 1070 / 1070
Intake:
Oral fluids 480 / 480 1000 / 1000
Amount instilled into Drain ( 100 / 100
Total)
Right Lower Pelvis B 50 / 50
Right Pelvis Bruce-Allen A 50 / 50
Blood Product Amount Infused ( 250 / 250
mL)
Packed Rbc Leukoreduced Unit 250 / 250
[id number]
Output:
Drain Output (Total) 210 / 210 30 / 30
Right Lower Pelvis B 135 / 135 10 / 10
Right Pelvis Bruce-Allen A 75 / 75 20 / 20
Urine, Voided 0 / 0
Lab Results
06/07/22 03:17
06/07/22 03:17
Calcium 8.3 mg/dl (8.4-10.2) L 06/07/22 03:17
Phosphorus 2.6 mg/dl (2.5-4.5) 05/31/22 08:12
Magnesium 2.0 mg/dl (1.6-2.3) 06/05/22 04:09
Total Bilirubin 1.0 mg/dl (0.2-1.3) 06/05/22 04:09
AST 20 U/L (17-59) 06/05/22 04:09
ALT 18 U/L (0-50) 06/05/22 04:09
Alkaline Phosphatase 174 U/L (38-126) H 06/05/22 04:09
Total Protein 5.0 g/dl (6.3-8.2) L 06/05/22 04:09
Albumin 2.8 g/dl (3.5-5.0) L 06/05/22 04:09
Physical Exam
-
aaox3
Abdomen is soft, NT, ND
Right groin and prior hematoma cavities are flat, soft.
Dressings changed at bedside, replaced with ABDs
Right groin ERICK with scant serosanguineous drainage
2+ palpable right DP pulse
[2022-06-07] MEDS: ProAmatine 2.5 MG PO (07:42)
[2022-06-07] MEDS: RENVELA PO (08:06)
[2022-06-07] MEDS: PROTONIX 40 MG PO ×2 (08:07→20:22)
--- NOTE | 2022-06-07 08:25 | W.PN.URO.CBU ---
Today's Communication / Plan
-
- Carey removed 2/5 with no evidence of recurrent bleeding
- Resume chemotherapy when stable after discharge
Assessment / Plan
-
81M with small cell bladder cancer
History of large dense bladder clot requiring transfer to [facility] for clot evacuation 03/2022 and 04/2021
s/p first cycle of chemotherapy
Presenting again with hematuria and associated anemia
s/p OR 06/01 for cystoscopy and fulguration
NO CLOT was found within bladder, indicating persistent hematuria is not a major contributor to anemia
s/p bilateral renal embolization 06/02
exploration and repair of right groin pseudoanny 06/03 with vascular
- Carey removed 2/5 with no evidence of recurrent bleeding
- Resume chemotherapy when stable after discharge
Diagnosis
-
Date of Service: June 07, 2022
-
Patient Diagnosis:
81M with small cell bladder cancer and recurrent hematuria
now s/p cysto- fulguration on 06/01 and bilateral renal embolization of 06/02
developed right groin pseudoanuerysm- s/p vascular repair 06/03
Subjective
-
was able to be OOB yesterday
No voiding or hematuria
Objective
-
Vital Signs
Temp Pulse Resp BP Pulse Ox
98.8 F 78 14 99/52 94
06/07/22 07:59 06/07/22 07:42 06/07/22 06:00 06/07/22 07:42 06/07/22 06:00
Intake and Output
06/06/22 06/07/22 06/08/22
06:59 06:59 06:59
Intake Total 730 / 730 1100 / 1100
Output Total 210 / 210 30 / 30
Balance 520 / 520 1070 / 1070
Intake:
Oral fluids 480 / 480 1000 / 1000
Amount instilled into Drain ( 100 / 100
Total)
Right Lower Pelvis B 50 / 50
Right Pelvis Bruce-Allen A 50 / 50
Blood Product Amount Infused ( 250 / 250
mL)
Packed Rbc Leukoreduced Unit 250 / 250
[id number]
Output:
Drain Output (Total) 210 / 210 30 / 30
Right Lower Pelvis B 135 / 135 10 / 10
Right Pelvis Bruce-Allen A 75 / 75 20 / 20
Urine, Voided 0 / 0
Laboratory Results
06/07/22 03:17
06/07/22 03:17
Physical Exam
-
General - well developed, well nourished, no acute distress
Chest - clear bilaterally
Abdomen - soft, non-tender, positive bowel sounds, no CVAT
Skin - warm & dry with no rash
Neuro - AOx3, no motor deficits
Dressing - clean, dry, intact
[2022-06-07 08:40] LABS: Glucose - Point of Care 158 mg/dl (65-99)
--- NOTE | 2022-06-07 09:00 | PTCARENOTE ---
Rec' d pt at 0730 resting in bed awake alert and oriented. Pulse checks done with offgoing shift. Pt admitted to 12/07 R groin aching/soreness. Medicated with Roxicodone 5 mg po and pt sleeping on reevaluation currently. Speech is clear, Denies
dizziness or headache. Skin is pink wm and dry. R groin incision with tremayne intact. Approximated. Scant to small amt of sang drainage on abds that are tucked in the abd folds. Pt does admit to tenderness when abd folds moved. Area around is sl red
and ecchymotic but no swelling. GASPAR. Respires are unlabored on RA with sats of 95%. BS are decreased at the bases. Denies shortness of breath. Monitor SR.+ pulses as documented. VS as documented. Pt mediated with Midodrine 2.5 mg po at 0745 prior
to HD being started. ABd is obese and round with + BS. Pt denies nausea but did not want anything for breakfast as HD started around 0815. No urine currently. L upper arm AV fistula with + Bruit and thrill. Capped ints intact RAC, R hand and LEJ
-sites wnl. Will give most of daily meds post HD today. Call davidson in reach. Will monitor closely.
[2022-06-07] MEDS: FLEXBUMIN 25% FOR HEMODIALYSIS 12.5 GRAMS IV (09:02)
[2022-06-07] MEDS: MANNITOL 12.5 GRAMS IV (09:02)
[2022-06-07] MEDS: RETACRIT 10000 UNITS IV (09:03)
[2022-06-07] MEDS: NOVOLOG FLEXPEN-MODERATE RESISTANCE 1 UNITS SC ×2 (09:22→18:08)
[2022-06-07] MEDS: COREG PO (09:23)
--- NOTE | 2022-06-07 09:27 | W.PN.NEPH.PH ---
Today's Communication / Plan
-
Hemodialysis today
Assessment/Plan
-
Assessment:
Gross hematuria, recurrent
Bladder malignancy received one dose of chemotherapy (cisplatinum + ...)
TURBT April 04, 2022
ESRD (PD 2017; HD 2018)
Anemia, multifactorial
CABG x2 (ANN-LAD, SVG-ramus, on pump with right Endo vein harvest/sternal plate
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
Biopsy-proven focal sclerosis
Diabetes mellitus
Gout, chronic
Secondary hyperparathyroidism
History hypertension with relative hypotension
History morbid obesity
History sleep apnea on CPAP
Left arm AV fistula 2018
Pelvic adenopathy
Pulmonary nodules
Bilateral renal artery coil embolization June 02
Large pseudoaneurysm with tense hematoma right groin status post common femoral artery catheterization and repair June 03
Plan:
Recheck Hb after HD
Anticipate 4-4.5 kg fluid removal
SHANELLE inhibitor and hydralazine on hold, carvedilol with hold parameters
Check iron stores
LIZ and possibly IV iron with HD
Check reticulocyte count
PT
Eventual resumption of chemotherapy
Continue to optimize dry weight
-
-
Date of Service: June 07, 2022
CC / HPI / ROS
-
Chief Complaint:
Follow-up ESRD
History of Present Illness:
Received 8 units PRBC so far, Hb 7.8 GM/DL, none since May
Status post right femoral bleed, urgent pseudoaneurysm repair June 03
Status post coil embolization of bilateral renal arteries June 02
BP better today
Not requiring supplemental O2
Carey catheter removed without gross hematuria
Review of Systems:
Weights decreasing with HD
No shortness of breath
No chest pain or pressure
Labs
-
Labs:
WBC 27.3 10^3/uL (4.8-10.8) H 06/07/22 03:17
RBC 2.52 10^6/uL (4.70-6.10) L 06/07/22 03:17
Hgb 7.8 g/dL (13.0-18.0) L 06/07/22 03:17
Hct 23.8 % (39.0-52.0) L 06/07/22 03:17
Plt Count 245 10^3/uL (130-400) 06/07/22 03:17
Sodium 133 mmol/L (135-145) L 06/07/22 03:17
Potassium 4.8 mmol/L (3.5-5.1) 06/07/22 03:17
Chloride 95 mmol/L (98-107) L 06/07/22 03:17
Carbon Dioxide 26 mmol/L (22-30) 06/07/22 03:17
BUN 56 mg/dl (9-20) H 06/07/22 03:17
Creatinine 5.9 mg/dL (0.7-1.3) H* 06/07/22 03:17
Glomerular Filtr Rate 9.2 06/07/22 03:17
Glucose 116 mg/dl (65-99) H 06/07/22 03:17
Calcium 8.3 mg/dl (8.4-10.2) L 06/07/22 03:17
Phosphorus 2.6 mg/dl (2.5-4.5) 05/31/22 08:12
Albumin 2.8 g/dl (3.5-5.0) L 06/05/22 04:09
Physical Exam
-
Vital Signs:
Vital Signs
Temp Pulse Resp BP Pulse Ox
98.8 F 78 14 99/52 94
06/07/22 07:59 06/07/22 07:42 06/07/22 06:00 06/07/22 07:42 06/07/22 06:00
Other Findings::
Examined in ICU
Hemodynamically stable
Sitting up at 30 degrees without supplemental O2
No gallop or rub
No tremors
Left arm AV fistula patent
1+ lower extremity edema
Weights decreased significantly
--- NOTE | 2022-06-07 09:30 | PTCARENOTE ---
additional assessment- Pt just has R hand and L ej Capped ints not RAC as documented.
--- NOTE | 2022-06-07 10:17 | W.PN.NEPH.HD ---
Assessment
-
Patient evaluated during the hemodialysis procedure in the ICU
Hemodynamically stable
Tolerating UF target 4-4.5 kg
No gross hematuria
No need for supplemental O2
Received LIZ (Retacrit) 10,000 units IV
We will update iron stores and provide IV iron if low or borderline
Recheck reticulocyte count in the morning
Total time to complete both encounters today 36 minutes
Progress Note - Hemodialysis
-
Date of Service: June 07, 2022
Duration: 45 minutes and 3 hours
Potassium Bath: 2
Calcium Bath: 2.5
Opti-Dialyzer: 160
Ultrafiltration: Other (4-4.5 kg)
Blood Flow: 400
Dialysate Flow: 600
Heparin: None
EPO: 10,000 units
--- NOTE | 2022-06-07 10:25 | W.PN.ONC2 ---
Today's Communication / Plan
-
Since he has had B/L renal artery embolization, no further bleeding and okay to resume chemotherapy per urology.
Will make arrangements for OV follow up.
Impression
Impression
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
Hematuria
Uremic platelet dysfunction
Anemia
ESRD on HD
Anemia of ESRD
Plan
Plan
Per Urology:
s/p OR / for cystoscopy and fulguration
NO CLOT was found within bladder, indicating persistent hematuria is not a major contributor to anemia
s/p bilateral renal embolization 06/02
exploration and repair of right groin pseudoanny 06/03 with vascular
- Carey removed 06/04 with no evidence of recurrent bleeding
- Resume chemotherapy when stable after discharge
Therefore plan is to attempt to resume chemotherapy.
Subjective/Objective
Chief Complaint
ACS Heme Onc
Subjective
No complaints. Weak. Currently getting bedside dialysis
Vital Signs:
Vital Signs
Temp Pulse Resp BP Pulse Ox
98.8 F 72 15 124/51 95
06/07/22 07:59 06/07/22 09:45 06/07/22 09:45 06/07/22 09:45 06/07/22 09:45
Lab Results:
Laboratory Data
WBC 27.3 10^3/uL (4.8-10.8) H 06/07/22 03:17
Hgb 7.8 g/dL (13.0-18.0) L 06/07/22 03:17
Plt Count 245 10^3/uL (130-400) 06/07/22 03:17
PT 17.0 Sec (11.4-14.6) H 06/03/22 23:38
INR 1.36 06/03/22 23:38
APTT 29.1 Sec (23.4-35.0) 06/03/22 23:38
Glomerular Filtr Rate 9.2 06/07/22 03:17
Physical Exam
Cardiology: S1 and S2
Pulmonary: Clear
GI: Soft
--- NOTE | 2022-06-07 10:49 | W.PN.ID1 ---
Today's Communication
-
- attribute majority of leukocytosis to embolization 06/02/22, also post operative state
- continue ciprofloxacin 500 mg PO qday to complete 14 day course through 06/10
ID service will no longer actively follow this patient please recall for further questions
Assessment / Plan
-
Complicated UTI
Leukocytosis - continues improving
ESRD on HD
Bladder Cancer
S/p embolization of kidneys 06/02/22
S/p repair right groin pseudoanuerysm 06/03/22
- attribute majority of leukocytosis to embolization 06/02/22, also post operative state
- continue ciprofloxacin 500 mg PO qday to complete 14 day course through 06/10
- qtc - acceptable
ID service will no longer actively follow this patient please recall for further questions
Chief Complaint
-
Date of Service: June 07, 2022
-: Leukocytosis and UTI
Subjective / Review of Systems
-
afebrile
BP stable
further declining leukocytosis
plt stable
hgb 7.8 down from 8.3
L shift noted - almost normalized
blood cultures no growth at 4 days
Vital Signs / Physical Exam
Vital Signs
Vital Signs
Temp Pulse Resp BP Pulse Ox
98.8 F 72 15 124/51 95
06/07/22 07:59 06/07/22 09:45 06/07/22 09:45 06/07/22 09:45 06/07/22 09:45
Physical Exam
Constitutional: No Acute Distress
Cardiovascular: Regular Rate and S1/S2; Negative Murmur or Rub
Pulmonary: Clear and Symmetric; Negative Wheezes or Rales
Gastrointestinal: Soft, Non Tender, Non Distended and Normal Bowel Sounds
Skin: Warm and Dry; Negative Rash or Jaundice
Wound: Other (clean dressing over surgical site)
Objective Data
Lab Data
Lab Results
06/07/22 03:17
PT 17.0 Sec (11.4-14.6) H 06/03/22 23:38
INR 1.36 06/03/22 23:38
APTT 29.1 Sec (23.4-35.0) 06/03/22 23:38
Estimated Creat Clear 13 ml/min 06/07/22 03:17
Total Bilirubin 1.0 mg/dl (0.2-1.3) 06/05/22 04:09
AST 20 U/L (17-59) 06/05/22 04:09
ALT 18 U/L (0-50) 06/05/22 04:09
Alkaline Phosphatase 174 U/L (38-126) H 06/05/22 04:09
Most recent labs reviewed.
Micro Results:
06/03/22 09:33 Blood Culture - Preliminary
Blood/Venous No Growth in 4 days- Final report to follow
06/03/22 08:33 Blood Culture - Preliminary
Blood/Venous No Growth in 4 days- Final report to follow
05/28/22 08:40 Blood Culture - Final
Blood/Venous No Growth - Final Report
05/28/22 08:06 Blood Culture - Final
Blood/Venous No Growth - Final Report
05/28/22 11:17 Urine Culture - Final
Urine Pseudomonas aeruginosa
--- NOTE | 2022-06-07 11:00 | PTCARENOTE ---
Remains on HD- mostly dozing unless disturbed. No complaints offered. VS as documented. Will continue to monitor.
--- NOTE | 2022-06-07 12:15 | PTCARENOTE ---
EDITH completed. Labs sent as ordered by EDITH RN.
[2022-06-07 12:36] LABS: Hematocrit 26.3 % (39.0-52.0); Hemoglobin 8.7 g/dL (13.0-18.0)
[2022-06-07 12:41] LABS: Glucose - Point of Care 134 mg/dl (65-99)
[2022-06-07 12:55] LABS: Iron 11 ug/dl (49-181)
[2022-06-07 13:04] LABS: Percent Saturation 5 % (20-50); Total Iron Binding Capacity 202 ug/dl (261-462)
[2022-06-07] MEDS: HYDROPHOR 1 APPLIC TOPICAL (13:26)
[2022-06-07] MEDS: DESENEX/MITRAZOL/ZEASORB 1 APPLIC TOPICAL ×2 (13:26→20:28)
[2022-06-07] MEDS: ZYLOPRIM 200 MG PO (13:27)
[2022-06-07] MEDS: RENVELA 3200 MG PO ×2 (13:27→18:08)
[2022-06-07] MEDS: CIPRO 500 MG PO (13:27)
[2022-06-07] MEDS: VITAMIN B-12 1000 MCG PO (13:28)
[2022-06-07] MEDS: VITAMIN D3 (cholecalciferol) 2000 UNITS PO (13:28)
[2022-06-07] MEDS: THERAGRAN 1 TABLET PO (13:29)
[2022-06-07] MEDS: ZETIA 10 MG PO (13:29)
--- NOTE | 2022-06-07 13:30 | PTCARENOTE ---
HD completed around 1230. Overall pt states he is 'wiped out' but easily conversive and likes to joke. Complete CHG bath given. Pt then medicated at 1310 with Roxicodone 5 mg for 8/10 R groin discomfort- describes it as a burning discomfort. Site
unchanged. Ecchymotic but no swelling. R groin is soft. Stuart intact. Neurovascular checks unchanged. JPs x2 with small amts of serosang drainage. Pt then assisted oob to the chair with assist of 2 mostly for guarding pt as pt used the walker.
Currently oob in the chair. Pt has not had a BM for several days. Miralax given. Pt currently eating lunch oob. Call davidson in reach.
[2022-06-07] MEDS: NOVOLOG FLEXPEN-MODERATE RESISTANCE SC (13:33)
[2022-06-07] MEDS: VITAMIN C 1000 MG PO (13:36)
[2022-06-07] MEDS: MIRALAX 17 GRAMS PO (13:37)
--- NOTE | 2022-06-07 14:15 | PTCARENOTE ---
Dr. Atwood updated on labs sent post HD. Pt remains sitting oob eating lunch.
--- NOTE | 2022-06-07 15:20 | PTCARENOTE ---
Mostly dozing oob in the chair since earlier Roxicodone. Overall appetite was fair at best for lunch. Denies nausea. Did ask for more pain medication but realized it was because his scrotum was hurting and was relieved with repositioning. Was able
to paritally stand back up but is having difficulty rising from the chair. Currently states hes comforable. No other changes in assessment. Call davidson in reach.
[2022-06-07] MEDS: FLUSH (NSS) 2 FLUSH IV (15:34)
[2022-06-07] MEDS: FLUSH (NSS) 1 FLUSH IV (15:35)
--- NOTE | 2022-06-07 16:44 | W.PN.HOSP.TC ---
Today's Communication/Plan
-
Monitor hemoglobin.
Transfuse if further significant drop below 7.5.
Continue ERICK drain monitoring output, currently minimal.
Hemodialysis.
Physical therapy assessment
Assessment / Plan
Assessment / Plan
pt is an 81 year old male
Hemorrhagic/hypovolemic shock 06/03/22--dropped HGB and BP on 06/03/22 and moved to ICU--CT scan showed LARGE hematoma right groin (had IR embolization of kidneys the day before 06/02/22)--US of right groin showed pseudoaneurysm leaking blood--IR
attempted to thrombinize but was unsuccessful, pt taken to OR by vascular for repair and hematoma evacuation --to date pt has received 8 units of pRBC (3 alone in OR). Hemoglobin improved at 8.3-7.8
Follow calcium level with large volume transfusions.
Hematuria secondary to Bladder CA--apprec urology--had CBI and stopped---s/p OR 06/01/22 for cystoscopy and fulguration--s/p IR embolization of kidneys to stop urine 06/02/22--catheter removed on 06/05.
leukocytosis--WBC count up to 39K, could be reactive but seems a bit high--already being treated with cefepime for pseudomonas UTI, changed to cipro per ID-- reculture blood (kidneys embolized and pt on HD so not checking urine)--sepsis was thought
about but more likely just SIRS reaction to renal embolization.
Acute Blood Loss Anemia due to hematuria and blood loss from pseudoaneurysm on Anemia of Chronic Disease--s/p 7 units PRBCs--Monitor Hgb
Pseudomonas UTI due related to indwelling watson catheter-catheter removed on 06/05. Antibiotics: Transition from cefepime to Cipro.
hypokalemia (prior to me assuming patient's care)-- pt on HD
Coronary Artery Disease s/p CABG in April 2021--Hold aspirin in setting of hematuria
Essential Hypertension--Continue Coreg, Hydralazine and Lisinopril. Blood pressure remains on the lower side while on current antihypertensive regimen. Monitor closely for symptomatic hypotension. Adjust accordingly.
Hyperlipidemia--Continue Lipitor and Zetia
Diabetes Mellitus, Type 2--Monitor sugars on AM labs
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
GERD--Continue Protonix
Gout--Continue allopurinol
DVT proph: SCDs
Code Status: DNR
Anticipated Discharge: > 48 hours
Subjective/Interval History
-
Date of Service: June 07, 2022
Objective Data
-
Labs:
Laboratory Results
06/07/22
12:03
Hgb 8.7 L
Hct 26.3 L
Vital Signs:
Vital Signs
Temp Pulse Resp BP Pulse Ox
98.1 F 73 13 107/44 94
06/07/22 11:27 06/07/22 16:00 06/07/22 16:00 06/07/22 16:00 06/07/22 16:00
I&O
06/06/22 06/07/22 06/08/22
06:59 06:59 06:59
Intake Total 730 / 730 1100 / 1100 450 / 450
Output Total 210 / 210 30 / 30 30 / 30
Balance 520 / 520 1070 / 1070 420 / 420
Physical Exam
-
General: Well Developed and No Apparent Distress
HEENT: Normocephalic, Atraumatic and Moist Mucous Membranes
Respiratory: Clear to Auscultation
Cardiac: Regular Rhythm and S1/S2; Negative Murmur, Rub or Gallop
GI: Soft, Nontender, Nondistended and Normal Bowel Sounds; Negative Organomegaly
Rectal: Deferred by Provider
Musculoskeletal: No Clubbing, No Cyanosis and No Edema
Skin: Negative Rash
Neuro: Nonfocal/Grossly Intact
--- NOTE | 2022-06-07 17:11 | PTCARENOTE ---
Report called to [facility] [place]. Will transfer pt after getting pt back to bed.
--- NOTE | 2022-06-07 18:00 | PTCARENOTE ---
Pts daughter in and was concerned about pt being more sleepy then he normally is after HD. Still easily awakens- was off on the month but oriented otherwise. States he just feels wiped out. Denies dizziness. Speech is clear. GASPAR. Dr. Shane
updated and will keep IMU level tonight and reevaluate in the AM. Pt assisted back to bed with assist of 2 into standing position then was able to hold on to the walker and slowly transfer self back to bed with staff as guards. Tearful getting back
to bed stating ' I feel like a failure'. Pt encouraged by both staff and daughter. Currently resting back in bed and ready to eat some dinner. Drank Nepro supplement. Pulses and incision unchanged. Call davidson in reach.
[2022-06-07 18:04] LABS: Glucose - Point of Care 177 mg/dl (65-99)
[2022-06-07] MEDS: COREG 6.25 MG PO (20:22)
[2022-06-07] MEDS: LIPITOR 80 MG PO (20:27)
[2022-06-07 21:40] LABS: Glucose - Point of Care 182 mg/dl (65-99)
[2022-06-07] MEDS: TYLENOL 650 MG PO (21:42)
[2022-06-08] VITALS (10 sets, daily range): BP systolic 103–135; BP diastolic 43–81; PULSE 77–78; O2SAT 96–97; BMI 37.7
--- NOTE | 2022-06-08 01:43 | PTCARENOTE ---
Pt awake oriented,assisted minimally with assessment,tolerates turning.VS stable.SR teletypesetter monitor.No resp distress,pulse ox 94% on room air.Pt reporting pain to groin,/,pt medicated with Roxicodone,with + relief within a half hour.Close
observation throughout the night.
[2022-06-08 05:20] LABS: Hematocrit 23.6 % (39.0-52.0); Hemoglobin 7.7 g/dL (13.0-18.0); Mean Corp Hgb Conc. 32.6 g/dL (33.0-37.0); Mean Corpuscular Hgb 31.3 pg (27.0-31.0); Mean Corpuscular Volume 95.9 fL (80.0-94.0); Mean Platelet Volume 10.6 fL (7.4-10.4); Platelet Count 246 10^3/uL (130-400); Red Blood Cell Count 2.46 10^6/uL (4.70-6.10); Red Cell Dist. Width 18.1 % (11.5-14.5); Reticulocyte Count 4.5 % (0.4-2.8); White Blood Cell Count 21.8 10^3/uL (4.8-10.8)
[2022-06-08 05:32] LABS: Albumin 2.7 g/dl (3.5-5.0); Blood Urea Nitrogen 42 mg/dl (9-20); Calcium 8.4 mg/dl (8.4-10.2); Carbon Dioxide 30 mmol/L (22-30); Chloride 94 mmol/L (98-107); Estimated Creatinine Clearance 19 ml/min; Glomerular Filtration Rate 14.5; Glucose 163 mg/dl (65-99); Phosphorus 3.6 mg/dl (2.5-4.5); Potassium 4.5 mmol/L (3.5-5.1); Sodium 133 mmol/L (135-145)
[2022-06-08 07:34] LABS: Glucose - Point of Care 189 mg/dl (65-99)
--- NOTE | 2022-06-08 07:41 | W.PN.VS ---
Addendum entered and electronically signed by Dylan De La O MD 06/08/22 07:49:
Seen and examined with CUSTOMER MARKETING MANAGER. Agree with findings as noted below. ERICK drainage approximately 50 cc each. Exam is stable. Right groin incision is clean dry and intact. No hematoma. Skin still appears somewhat viable. JPs scant and serosanguineous
at this point.
Plan/as discussed and noted below. Still at risk for eventual skin breakdown and healing issues. However, overall looks well. No signs of active bleeding. Hemoglobin noted to be is slightly low again. However was up yesterday. Will defer to
hospitalist service regarding need for transfusion as there is no signs of ongoing blood loss.
Original Note:
Today's Communication / Plan
-
Patient seen and examined with Dr. Dylan De La O, below plan reviewed with attending.
Assessment/Plan
-
POD 7 cystoscopy, fulguration of bladder
POD 6 Ultrasound-guided access right common femoral artery, abdominal aortogram, bilateral renal arteriography, bilateral transcatheter coil embolization of the renal arteries
POD 5 Emergent repair R EPIC TRAINER pseudoaneurysm, evacuation hematoma
- change ABDs as needed, wound site tenuous. Changed this AM by vascular surgery team.
- OOB/chair/ambulate
- PT/OT
- cont JPs
- HD per nephrology
- antibiotics per ID
Subjective Data
-
Date of Service: June 08, 2022
Seen and examined at bedside, no acute events overnight. Patient reports he tolerated HD well yesterday. Patient offers no complaints.
Objective Data
-
Vital Signs
Temp Pulse Resp BP Pulse Ox
98.6 F 69 14 103/81 93
06/08/22 03:05 06/08/22 05:00 06/08/22 05:00 06/08/22 04:00 06/08/22 05:00
Intake and Output
06/07/22 06/08/22 06/09/22
06:59 06:59 06:59
Intake Total 1100 / 1100 1180 / 1180
Output Total 170 / 170
Balance 1070 / 1070 1010 / 1010
Intake:
Oral fluids 1000 / 1000 1180 / 1180
Amount instilled into Drain ( 100 / 100
Total)
Right Lower Pelvis B 50 / 50
Right Pelvis Bruce-Allen A 50 / 50
Output:
Drain Output (Total) 170 / 170
Right Lower Pelvis B 10 10 105 / 105
Right Pelvis Bruce-Allen A 65 / 65
Lab Results
06/08/22 05:09
06/08/22 05:09
Calcium 8.4 mg/dl (8.4-10.2) 06/08/22 05:09
Phosphorus 3.6 mg/dl (2.5-4.5) 06/08/22 05:09
Magnesium 2.0 mg/dl (1.6-2.3) 06/08/22 05:09
Total Bilirubin 1.0 mg/dl (0.2-1.3) 06/05/22 04:09
AST 20 U/L (17-59) 06/05/22 04:09
ALT 18 U/L (0-50) 06/05/22 04:09
Alkaline Phosphatase 174 U/L (38-126) H 06/05/22 04:09
Total Protein 5.0 g/dl (6.3-8.2) L 06/05/22 04:09
Albumin 2.7 g/dl (3.5-5.0) L 06/08/22 05:09
Physical Exam
-
aaox3
Abdomen is soft, NT, ND
Right groin and prior hematoma cavities are flat, soft.
Dressings changed at bedside, replaced with ABDs
Right groin ERICK with scant serosanguineous drainage
2+ palpable right DP pulse
[2022-06-08] MEDS: NOVOLOG FLEXPEN-MODERATE RESISTANCE 1 UNITS SC ×3 (07:48→16:47)
[2022-06-08] MEDS: MIRALAX 17 GRAMS PO (07:48)
[2022-06-08] MEDS: ZYLOPRIM 200 MG PO (07:48)
[2022-06-08] MEDS: RENVELA 3200 MG PO ×3 (07:48→16:47)
[2022-06-08] MEDS: PROTONIX 40 MG PO ×2 (07:49→21:08)
[2022-06-08] MEDS: VITAMIN C 1000 MG PO (07:49)
[2022-06-08] MEDS: VITAMIN D3 (cholecalciferol) 2000 UNITS PO (07:49)
[2022-06-08] MEDS: THERAGRAN 1 TABLET PO (07:49)
[2022-06-08] MEDS: VITAMIN B-12 1000 MCG PO (07:49)
[2022-06-08] MEDS: COREG 6.25 MG PO ×2 (07:49→21:08)
[2022-06-08] MEDS: ZETIA 10 MG PO (07:51)
[2022-06-08] MEDS: SENSIPAR 30 MG PO (07:53)
[2022-06-08] MEDS: HYDROPHOR 1 APPLIC TOPICAL (07:53)
[2022-06-08] MEDS: DESENEX/MITRAZOL/ZEASORB 1 APPLIC TOPICAL ×2 (07:59→21:08)
[2022-06-08 08:17] LABS: Absolute Neutrophils -Man Diff 18.5 10^3/uL (1.4-6.5); Anisocytosis 1+; Band Neutrophils 1 % (0-3); Hypochromasia 1+; Lymphocytes 4 % (20-51); Metamyelocytes 1 % (-); Monocytes 9 % (2-9); Myelocytes 1 % (-); Normal RBC Morphology No; Ovalocytes 1+; Platelets Checked Yes; Polychromasia 1+; Segmented Neutrophils 84 % (42-75); Total Cells Counted 100
--- NOTE | 2022-06-08 09:05 | PTCARENOTE ---
Pt received this am. Assessment as documented. No changes in am assessment. JPs remain with small amt serosanguineous drainage. incisions SILVIA. Eecchymosis present at op site. Ariana intact. No urine output. VSS. on Room air.
--- NOTE | 2022-06-08 09:24 | W.PN.NEPH.PH ---
Today's Communication / Plan
-
See plan
HD tomorrow
IV iron
Serial HB
PT
Bladder scan
Assessment/Plan
-
Assessment:
Gross hematuria, recurrent
Bladder malignancy received one dose of chemotherapy (cisplatinum + ...)
TURBT April 04, 2022
ESRD (PD 2017; HD 2018)
Anemia, multifactorial
CABG x2 (ANN-LAD, SVG-ramus, on pump with right Endo vein harvest/sternal plate
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
Biopsy-proven focal sclerosis
Diabetes mellitus
Gout, chronic
Secondary hyperparathyroidism
History hypertension with relative hypotension
History morbid obesity
History sleep apnea on CPAP
Left arm AV fistula 2018
Pelvic adenopathy
Pulmonary nodules
Bilateral renal artery coil embolization June 02
Large pseudoaneurysm with tense hematoma right groin status post common femoral artery catheterization and repair June 03
Iron deficiency with saturation 5%
Plan:
Recheck Hb later today
If Hb drifts down further, can transfuse with HD tomorrow
SHANELLE inhibitor and hydralazine on hold, carvedilol with hold parameters
Iron saturation only 5%
LIZ and IV iron with HD tomorrow though additional IV iron today
Reticulocyte count appropriately elevated
Bladder scan
PT
Eventual resumption of chemotherapy
Continue to optimize dry weight
Completing course of ciprofloxacin till June 10
-
-
Date of Service: June 08, 2022
CC / HPI / ROS
-
Chief Complaint:
Follow-up ESRD
History of Present Illness:
Received 8 units PRBC so far, Hb 7.7 GM/DL
Status post right femoral bleed, urgent pseudoaneurysm repair June 03
Status post coil embolization of bilateral renal arteries June 02
BP better today tolerated 4-4.5 kg UF June 07 with HD
Not requiring supplemental O2
Carey catheter removed without gross hematuria
Review of Systems:
Weights gradually decreasing with UF/HD
No shortness of breath
No chest pain or pressure
Labs
-
Labs:
WBC 21.8 10^3/uL (4.8-10.8) H 06/08/22 05:09
RBC 2.46 10^6/uL (4.70-6.10) L 06/08/22 05:09
Hgb 7.7 g/dL (13.0-18.0) L 06/08/22 05:09
Hct 23.6 % (39.0-52.0) L 06/08/22 05:09
Plt Count 246 10^3/uL (130-400) 06/08/22 05:09
Sodium 133 mmol/L (135-145) L 06/08/22 05:09
Potassium 4.5 mmol/L (3.5-5.1) 06/08/22 05:09
Chloride 94 mmol/L (98-107) L 06/08/22 05:09
Carbon Dioxide 30 mmol/L (22-30) 06/08/22 05:09
BUN 42 mg/dl (9-20) H 06/08/22 05:09
Creatinine 4.0 mg/dL (0.7-1.3) H 06/08/22 05:09
Glomerular Filtr Rate 14.5 06/08/22 05:09
Glucose 163 mg/dl (65-99) H 06/08/22 05:09
Calcium 8.4 mg/dl (8.4-10.2) 06/08/22 05:09
Phosphorus 3.6 mg/dl (2.5-4.5) 06/08/22 05:09
Albumin 2.7 g/dl (3.5-5.0) L 06/08/22 05:09
Physical Exam
-
Vital Signs:
Vital Signs
Temp Pulse Resp BP Pulse Ox
98.5 F 76 18 116/54 95
06/08/22 07:48 06/08/22 08:00 06/08/22 08:00 06/08/22 08:00 06/08/22 08:00
Other Findings::
Evaluated in ICU
Hemodynamics are stable
Weights reviewed
No supplemental O2
Gregarious
No conversational dyspnea
Report of right groin stable as per vascular and critical care nursing
No edema whatsoever
Vital signs reviewed
--- NOTE | 2022-06-08 10:15 | PTCARENOTE ---
Pt. transferred from ICU to . VS stable. Pt. oriented to floor. Tele monitor in place. Call davidson within reach.
[2022-06-08] MEDS: DULCOLAX 10 MG RECTAL (11:12)
[2022-06-08 11:51] LABS: Glucose - Point of Care 181 mg/dl (65-99)
[2022-06-08] MEDS: CIPRO 500 MG PO (11:56)
--- NOTE | 2022-06-08 12:03 | CM ---
Patient seen at bedside. Reassurance provided that was aware of where patient was. CM will continue to follow for discharge planning needs.
Plan; home with [facility]; watch for family needs.
[2022-06-08] MEDS: FERRLECIT 110 MG IV (13:36)
--- NOTE | 2022-06-08 14:45 | W.PN.HOSP.TC ---
Today's Communication/Plan
-
Monitor hemoglobin.
Transfuse to keep above 8, likely tomorrow with HD.
Bowel regimen.
Physical therapy
Assessment / Plan
Assessment / Plan
pt is an 81 year old male
Hemorrhagic/hypovolemic shock 06/03/22--dropped HGB and BP on 06/03/22 and moved to ICU--CT scan showed LARGE hematoma right groin (had IR embolization of kidneys the day before 06/02/22)--US of right groin showed pseudoaneurysm leaking blood--IR
attempted to thrombinize but was unsuccessful, pt taken to OR by vascular for repair and hematoma evacuation --to date pt has received 8 units of pRBC (3 alone in OR). Hemoglobin improved at 8.3-7.8
Follow calcium level with large volume transfusions.
Hematuria secondary to Bladder CA--apprec urology--had CBI and stopped---s/p OR 06/01/22 for cystoscopy and fulguration--s/p IR embolization of kidneys to stop urine 06/02/22--catheter removed on 06/05.
leukocytosis--WBC count up to 39K, could be reactive but seems a bit high--already being treated with cefepime for pseudomonas UTI, changed to cipro per ID-- reculture blood (kidneys embolized and pt on HD so not checking urine)--sepsis was thought
about but more likely just SIRS reaction to renal embolization.
Acute Blood Loss Anemia due to hematuria and blood loss from pseudoaneurysm on Anemia of Chronic Disease--s/p 7 units PRBCs--Monitor Hgb
Pseudomonas UTI due related to indwelling watson catheter-catheter removed on 06/05. Antibiotics: Transition from cefepime to Cipro.
hypokalemia (prior to me assuming patient's care)-- pt on HD
Coronary Artery Disease s/p CABG in April 2021--Hold aspirin in setting of hematuria
Essential Hypertension--Continue Coreg, Hydralazine and Lisinopril. Blood pressure remains on the lower side while on current antihypertensive regimen. Monitor closely for symptomatic hypotension. Adjust accordingly.
Hyperlipidemia--Continue Lipitor and Zetia
Diabetes Mellitus, Type 2--Monitor sugars on AM labs
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
GERD--Continue Protonix
Gout--Continue allopurinol
DVT proph: SCDs
Code Status: DNR
Anticipated Discharge: > 48 hours
Subjective/Interval History
-
Date of Service: June 08, 2022
Objective Data
-
Labs:
Laboratory Results
06/08/22 06/08/22
05:09 05:09
WBC 21.8 H
Hgb 7.7 L
Hct 23.6 L
Plt Count 246
Sodium 133 L
Potassium 4.5
Chloride 94 L
Carbon Dioxide 30
BUN 42 H
Creatinine 4.0 H
Glucose 163 H
Calcium 8.4
Vital Signs:
Vital Signs
Temp Pulse Resp BP Pulse Ox
98.1 F 73 18 126/51 97
06/08/22 10:11 06/08/22 10:11 06/08/22 10:11 06/08/22 10:11 06/08/22 10:25
I&O
06/07/22 06/08/22 06/09/22
06:59 06:59 06:59
Intake Total 1100 / 1100 1180 / 1180 240 / 240
Output Total 30 / 30 170 / 170
Balance 1070 / 1070 1010 / 1010 240 / 240
Physical Exam
-
General: Well Developed and No Apparent Distress
HEENT: Normocephalic, Atraumatic and Moist Mucous Membranes
Respiratory: Clear to Auscultation
Cardiac: Regular Rhythm and S1/S2; Negative Murmur, Rub or Gallop
GI: Soft, Nontender, Nondistended and Normal Bowel Sounds; Negative Organomegaly
Rectal: Deferred by Provider
Musculoskeletal: No Clubbing, No Cyanosis and No Edema
Skin: Negative Rash
Neuro: Nonfocal/Grossly Intact
[2022-06-08 15:58] LABS: Glucose - Point of Care 180 mg/dl (65-99)
[2022-06-08] MEDS: LIPITOR 80 MG PO (21:08)
[2022-06-08] MEDS: ROXICODONE 5 MG PO (21:16)
[2022-06-08 21:33] LABS: Glucose - Point of Care 168 mg/dl (65-99)
[2022-06-09] VITALS (7 sets, daily range): BP systolic 114–151; BP diastolic 49–59; PULSE 75; O2SAT 96; BMI 37.9
[2022-06-09 07:25] LABS: Glucose - Point of Care 134 mg/dl (65-99)
--- NOTE | 2022-06-09 08:04 | W.PN.VS ---
Today's Communication / Plan
-
Patient seen and examined at bedside with Dr. Dylan De La O, following plan reviewed with attending.
Assessment/Plan
-
POD 8 cystoscopy, fulguration of bladder
POD 7 Ultrasound-guided access right common femoral artery, abdominal aortogram, bilateral renal arteriography, bilateral transcatheter coil embolization of the renal arteries
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
- change ABDs as needed, wound site tenuous. Changed this AM by vascular surgery team.
- OOB/chair/ambulate
- PT/OT
- cont JPs
- HD per nephrology
- antibiotics per ID
Subjective Data
-
Date of Service: June 09, 2022
Patient seen and examined at bedside, no acute events overnight. Patient denies fever, chills, nausea, and vomiting. Reports well-managed postoperative pain at right surgical groin site.
Objective Data
-
Vital Signs
Temp Pulse Resp BP Pulse Ox
98.7 F 75 18 118/52 95
06/09/22 07:00 06/09/22 07:00 06/09/22 07:00 06/09/22 07:00 06/09/22 07:00
Intake and Output
06/08/22 06/09/22 06/10/22
06:59 06:59 06:59
Intake Total 1180 / 1180 840 / 840
Output Total 170 / 170 190 / 190
Balance 1010 / 1010 650 / 650
Intake:
Oral fluids 1180 / 1180 840 / 840
Output:
Drain Output (Total) 170 / 170 190 / 190
Right Lower Pelvis B 105 / 105 65 / 65
Right Pelvis Bruce-Allen A 65 / 65 125 / 125
Calcium 8.4 mg/dl (8.4-10.2) 06/08/22 05:09
Phosphorus 3.6 mg/dl (2.5-4.5) 06/08/22 05:09
Magnesium 2.0 mg/dl (1.6-2.3) 06/08/22 05:09
Total Bilirubin 1.0 mg/dl (0.2-1.3) 06/05/22 04:09
AST 20 U/L (17-59) 06/05/22 04:09
ALT 18 U/L (0-50) 06/05/22 04:09
Alkaline Phosphatase 174 U/L (38-126) H 06/05/22 04:09
Total Protein 5.0 g/dl (6.3-8.2) L 06/05/22 04:09
Albumin 2.7 g/dl (3.5-5.0) L 06/08/22 05:09
Physical Exam
-
aaox3
Abdomen is soft, NT, ND
Right groin and prior hematoma cavities are flat, soft.
Dressings changed at bedside, replaced with ABDs, surgical incision remains well approximated
Right groin JPx 2 with scant serosanguineous drainage
2+ palpable right DP pulse
[2022-06-09] MEDS: NOVOLOG FLEXPEN-MODERATE RESISTANCE SC ×3 (08:31→15:55)
[2022-06-09] MEDS: MIRALAX 17 GRAMS PO (08:38)
[2022-06-09] MEDS: ZYLOPRIM 200 MG PO (08:40)
[2022-06-09] MEDS: THERAGRAN 1 TABLET PO (08:41)
[2022-06-09] MEDS: VITAMIN D3 (cholecalciferol) 2000 UNITS PO (08:41)
[2022-06-09] MEDS: RENVELA 3200 MG PO ×2 (08:41→15:53)
[2022-06-09] MEDS: ZETIA 10 MG PO (08:42)
[2022-06-09] MEDS: DESENEX/MITRAZOL/ZEASORB 1 APPLIC TOPICAL ×2 (08:42→20:10)
[2022-06-09] MEDS: PROTONIX 40 MG PO ×2 (08:42→20:10)
[2022-06-09] MEDS: COREG 6.25 MG PO ×2 (08:42→20:10)
[2022-06-09] MEDS: VITAMIN C 1000 MG PO (08:42)
[2022-06-09] MEDS: HYDROPHOR 1 APPLIC TOPICAL (08:43)
[2022-06-09] MEDS: VITAMIN B-12 1000 MCG PO (08:44)
--- NOTE | 2022-06-09 11:48 | VNURNOTE ---
Home Health Liaison met with patient's Ashleigh at 1145 to discuss [facility] nurse/therapy, visits, schedule and homebound status. Ashleigh is agreeable and understands that visits at home will be 2-3 x per week to assess and teach medical management and ERICK
drain care.
Ashleigh is aware that [facility] will contact them for start of care in few days after discharge from .
[facility] referral updated in [facility].
COVID-19 guidelines recommended by CDC � wearing mask, distancing and frequent hand washing reviewed with patient/caregiver and all are agreeable to wear masks during home health visit.
[2022-06-09] MEDS: RENVELA PO (12:25)
[2022-06-09 12:29] LABS: % Basophils 0.7 % (0-2); % Eosinophils 0.4 % (0-6); % Immature Granulocytes 6.8 % (0-0.5); % Lymphocytes 4.8 % (20.5-51.1); % Monocytes 18.4 % (1.7-9.3); % Neutrophils 68.9 % (42.2-75.2); Absolute Basophils 0.1 10^3/uL (0-0.2); Absolute Eosinophils 0.1 10^3/uL (0-0.7); Absolute Immature Granulocytes 1.3 10^3/uL (0-0.05); Absolute Lymphocytes 0.9 10^3/uL (1.2-3.4); Absolute Monocytes 3.6 10^3/uL (0.1-0.6); Absolute Neutrophils 13.5 10^3/uL (1.4-6.5); Hematocrit 23.7 % (39.0-52.0); Hemoglobin 7.7 g/dL (13.0-18.0); Mean Corp Hgb Conc. 32.5 g/dL (33.0-37.0); Mean Corpuscular Hgb 31.3 pg (27.0-31.0); Mean Corpuscular Volume 96.3 fL (80.0-94.0); Mean Platelet Volume 10.8 fL (7.4-10.4); Nucleated Red Blood Cells % 0 % (-); Platelet Count 287 10^3/uL (130-400); Red Blood Cell Count 2.46 10^6/uL (4.70-6.10); Red Cell Dist. Width 17.5 % (11.5-14.5); White Blood Cell Count 19.5 10^3/uL (4.8-10.8)
[2022-06-09] MEDS: FERRLECIT 125 MG IV (12:36)
[2022-06-09] MEDS: RETACRIT 10000 UNITS IV (12:37)
[2022-06-09 13:05] LABS: Albumin 2.8 g/dl (3.5-5.0); Blood Urea Nitrogen 67 mg/dl (9-20); Calcium 8.5 mg/dl (8.4-10.2); Carbon Dioxide 28 mmol/L (22-30); Chloride 90 mmol/L (98-107); Estimated Creatinine Clearance 13 ml/min; Glomerular Filtration Rate 9.4; Glucose 152 mg/dl (65-99); Phosphorus 4.1 mg/dl (2.5-4.5); Potassium 5.2 mmol/L (3.5-5.1); Sodium 128 mmol/L (135-145)
--- NOTE | 2022-06-09 13:36 | W.PN.HOSP.TC ---
Today's Communication/Plan
-
Hemoglobin stable at 7.7 over the last 48 hours with no evidence of ongoing hemorrhage. Monitor closely.
Hemodialysis.
Physical therapy assessment.
Eventually placement to rehab.
Assessment / Plan
Assessment / Plan
pt is an 81 year old male
Hemorrhagic/hypovolemic shock 06/03/22--dropped HGB and BP on 06/03/22 and moved to ICU--CT scan showed LARGE hematoma right groin (had IR embolization of kidneys the day before 06/02/22)--US of right groin showed pseudoaneurysm leaking blood--IR
attempted to thrombinize but was unsuccessful, pt taken to OR by vascular for repair and hematoma evacuation --to date pt has received 8 units of pRBC (3 alone in OR). Hemoglobin improved at 8.3-7.8-7.7
Follow calcium level with large volume transfusions.
Hematuria secondary to Bladder CA--apprec urology--had CBI and stopped---s/p OR 06/01/22 for cystoscopy and fulguration--s/p IR embolization of kidneys to stop urine 06/02/22--catheter removed on 06/05.
leukocytosis--WBC count up to 39K, could be reactive but seems a bit high--already being treated with cefepime for pseudomonas UTI, changed to cipro per ID-- reculture blood (kidneys embolized and pt on HD so not checking urine)--sepsis was thought
about but more likely just SIRS reaction to renal embolization.
Acute Blood Loss Anemia due to hematuria and blood loss from pseudoaneurysm on Anemia of Chronic Disease--s/p 7 units PRBCs--Monitor Hgb
Pseudomonas UTI due related to indwelling watson catheter-catheter removed on 06/05. Antibiotics: Transition from cefepime to Cipro.
hypokalemia (prior to me assuming patient's care)-- pt on HD
Coronary Artery Disease s/p CABG in April 2021--Hold aspirin in setting of hematuria
Essential Hypertension--Continue Coreg, Hydralazine and Lisinopril. Blood pressure remains on the lower side while on current antihypertensive regimen. Monitor closely for symptomatic hypotension. Adjust accordingly.
Hyperlipidemia--Continue Lipitor and Zetia
Diabetes Mellitus, Type 2--Monitor sugars on AM labs
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
GERD--Continue Protonix
Gout--Continue allopurinol
DVT proph: SCDs
Code Status: DNR
Anticipated Discharge: 24 - 48 hours
Subjective/Interval History
-
Date of Service: June 09, 2022
Objective Data
-
Labs:
Laboratory Results
06/09/22 06/09/22
12:11 12:11
WBC 19.5 H
Hgb 7.7 L
Hct 23.7 L
Plt Count 287
Sodium 128 L
Potassium 5.2 H
Chloride 90 L
Carbon Dioxide 28
BUN 67 H
Creatinine 5.8 H*
Glucose 152 H
Calcium 8.5
Vital Signs:
Vital Signs
Temp Pulse Resp BP Pulse Ox
98.5 F 71 14 120/49 96
06/09/22 11:00 06/09/22 11:00 06/09/22 11:00 06/09/22 11:00 06/09/22 11:00
I&O
06/08/22 06/09/22 06/10/22
06:59 06:59 06:59
Intake Total 1180 / 1180 840 / 840
Output Total 170 / 170 190 / 190
Balance 1010 / 1010 650 / 650
Physical Exam
-
General: Well Developed and No Apparent Distress
HEENT: Normocephalic, Atraumatic and Moist Mucous Membranes
Respiratory: Clear to Auscultation
Cardiac: Regular Rhythm and S1/S2; Negative Murmur, Rub or Gallop
GI: Soft, Nontender, Nondistended and Normal Bowel Sounds; Negative Organomegaly
Rectal: Deferred by Provider
Musculoskeletal: No Clubbing, No Cyanosis and No Edema
Skin: Negative Rash
Neuro: Nonfocal/Grossly Intact
--- NOTE | 2022-06-09 13:53 | W.PN.NEPH.HD ---
Assessment
-
Pt seen during HD
vitals stable
reports wiped out completely last time with large UF
keep goal below 4kg
reviewed imp of FR
hb stable in 7s, no active bleeding
Progress Note - Hemodialysis
-
Date of Service: June 09, 2022
Duration: 45 minutes and 3 hours
Potassium Bath: 2
Calcium Bath: 2.5
Opti-Dialyzer: 160
Ultrafiltration: Other (3-3.5kg)
Blood Flow: 400
Dialysate Flow: 600
Heparin: no
EPO: 22208
[2022-06-09] MEDS: CIPRO 500 MG PO (15:52)
[2022-06-09 15:56] LABS: Glucose - Point of Care 139 mg/dl (65-99)
[2022-06-09] MEDS: ROXICODONE 5 MG PO (20:09)
[2022-06-09] MEDS: LIPITOR 80 MG PO (20:10)
--- NOTE | 2022-06-09 20:34 | PTCARENOTE ---
During this RN shift assessment, both ERICK drains were found to have an increase in output as well as a change in color. Notified Vascular on-call, Dr. Dillon. Recommended to monitor the output and notify if output is over 100 ml per 12 hr shift.
Also notified [facility].
[2022-06-09 21:50] LABS: Glucose - Point of Care 203 mg/dl (65-99)
[2022-06-10] VITALS (7 sets, daily range): BP systolic 110–130; BP diastolic 49–57; BMI 37.5
[2022-06-10 07:11] LABS: Glucose - Point of Care 135 mg/dl (65-99)
--- NOTE | 2022-06-10 07:21 | W.PN.HOSP.TC ---
Addendum entered and electronically signed by Ren Juarez MD 06/10/22 07:29:
Latest chemistry shows sodium 128 after dialysis anemia ultrafiltration yesterday will defer to Nephrology repeat BMP in a.m.
Original Note:
Today's Communication/Plan
-
ERICK drain status remains stable
Hemoglobin stable at 7.7 along with calcium/continued monitoring
Last day of antibiotic today
Continue PT/OT with walker he needs at least 2 person assist just for transfers and still may need inpatient rehab
Assessment / Plan
Assessment / Plan
pt is an 81 year old male
Hemorrhagic/hypovolemic shock 06/03/22--dropped HGB and BP on 06/03/22 and moved to ICU--CT scan showed LARGE hematoma right groin (had IR embolization of kidneys the day before 06/02/22)--US of right groin showed pseudoaneurysm leaking blood--IR
attempted to thrombinize but was unsuccessful, pt taken to OR by vascular for repair and hematoma evacuation --to date pt has received 8 units of pRBC (3 alone in OR). Hemoglobin improved at 8.3-7.8-7.7>> 7.7 again today
Follow calcium level with large volume transfusions.
Hematuria secondary to Bladder CA--apprec urology--had CBI and stopped---s/p OR 06/01/22 for cystoscopy and fulguration--s/p IR embolization of kidneys to stop urine 06/02/22--catheter removed on 06/05.
leukocytosis--WBC count up to 39K, could be reactive but seems a bit high--already being treated with cefepime for pseudomonas UTI, changed to cipro per ID-- reculture blood (kidneys embolized and pt on HD so not checking urine)--sepsis was thought
about but more likely just SIRS reaction to renal embolization.
Acute Blood Loss Anemia due to hematuria and blood loss from pseudoaneurysm on Anemia of Chronic Disease--s/p 7 units PRBCs--Monitor Hgb
Pseudomonas UTI due related to indwelling watson catheter-catheter removed on 06/05. Antibiotics: Transition from cefepime to Cipro. Last day of Cipro today there were 11
hypokalemia (prior to me assuming patient's care)-- pt on HD
Coronary Artery Disease s/p CABG in April 2021--Hold aspirin in setting of hematuria
Essential Hypertension--Continue Coreg, Hydralazine and Lisinopril. Blood pressure remains on the lower side while on current antihypertensive regimen. Monitor closely for symptomatic hypotension. Adjust accordingly.
Hyperlipidemia--Continue Lipitor and Zetia
Diabetes Mellitus, Type 2--Monitor sugars on AM labs
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
GERD--Continue Protonix
Gout--Continue allopurinol
DVT proph: SCDs
Code Status: DNR
Anticipated Discharge: 24 - 48 hours
Subjective/Interval History
-
Date of Service: June 10, 2022
Patient with no complaints eating breakfast denies abdominal pain no issues with ERICK drains.
Objective Data
-
Vital Signs:
Vital Signs
Temp Pulse Resp BP Pulse Ox
98.3 F 72 18 114/53 94
06/10/22 07:00 06/10/22 07:00 06/10/22 07:00 06/10/22 07:00 06/10/22 07:00
I&O
06/09/22 06/10/22 06/11/22
06:59 06:59 06:59
Intake Total 840 / 840 1283 / 1283
Output Total 190 / 190 130 / 130
Balance 650 / 650 1153 / 1153
Review of Systems
-
History Source: Patient
All other systems: Not reviewed unless documented
EENT: Reports No Symptoms Reported
Respiratory: Reports No Symptoms
Cardiac: Reports No Symptoms
Abdomen/GI: Reports No Symptoms
Physical Exam
-
General: Well Developed
HEENT: Normocephalic
Cardiac: Regular Rhythm
GI: Soft and Other (2 ERICK drains right side with serous sanguinous return low volume)
Musculoskeletal: Edema, Right Lower Extrem and Edema, Left Lower Extrem (Bilateral stasis changes)
Neuro: Awake
Psych: Calm
[2022-06-10] MEDS: NOVOLOG FLEXPEN-MODERATE RESISTANCE SC ×2 (08:04→11:45)
[2022-06-10] MEDS: COREG 6.25 MG PO ×2 (08:05→20:43)
[2022-06-10] MEDS: RENVELA 3200 MG PO ×3 (08:05→16:00)
[2022-06-10] MEDS: MIRALAX 17 GRAMS PO (08:05)
[2022-06-10] MEDS: ZYLOPRIM 200 MG PO (08:06)
[2022-06-10] MEDS: VITAMIN C 1000 MG PO (08:06)
[2022-06-10] MEDS: VITAMIN B-12 1000 MCG PO (08:06)
[2022-06-10] MEDS: THERAGRAN 1 TABLET PO (08:06)
[2022-06-10] MEDS: PROTONIX 40 MG PO ×2 (08:06→20:43)
[2022-06-10] MEDS: VITAMIN D3 (cholecalciferol) 2000 UNITS PO (08:06)
[2022-06-10] MEDS: ZETIA 10 MG PO (08:06)
[2022-06-10] MEDS: HYDROPHOR 1 APPLIC TOPICAL (08:08)
[2022-06-10] MEDS: DESENEX/MITRAZOL/ZEASORB 1 APPLIC TOPICAL ×2 (08:08→20:43)
[2022-06-10] MEDS: SENSIPAR 30 MG PO (08:16)
--- NOTE | 2022-06-10 08:32 | W.PN.VS ---
Today's Communication / Plan
-
follow labs
if hgb decreases - consider tansfusion. No evidence of active bleeding
robbie drainage normal at this stage
leave drains
Assessment/Plan
-
POD 9 cystoscopy, fulguration of bladder
POD 8 Ultrasound-guided access right common femoral artery, abdominal aortogram, bilateral renal arteriography, bilateral transcatheter coil embolization of the renal arteries
POD 7 Emergent repair R NICK[employer] AND BREAKER pseudoaneurysm, evacuation hematoma
- wound looks clean. no signs of infection.
- OOB/chair/ambulate
- PT/OT
- cont JPs
- HD per nephrology
- antibiotics per ID
Subjective Data
-
Date of Service: June 10, 2022
Doing well
no complaints this am
Objective Data
-
Vital Signs
Temp Pulse Resp BP Pulse Ox
98.3 F 72 18 114/53 94
06/10/22 07:00 06/10/22 08:05 06/10/22 07:00 06/10/22 08:05 06/10/22 07:00
Intake and Output
06/09/22 06/10/22 06/11/22
06:59 06:59 06:59
Intake Total 840 / 840 1283 / 1283
Output Total 190 / 190 130 / 130
Balance 650 / 650 1153 / 1153
Intake:
Oral fluids 840 / 840 1283 / 1283
Output:
Drain Output (Total) 190 / 190 130 / 130
Right Lower Pelvis B 65 / 65 70 / 70
Right Pelvis Bruce-Allen A 125 / 125 60 / 60
Lab Results
06/09/22 12:11
06/09/22 12:11
Calcium 8.5 mg/dl (8.4-10.2) 06/09/22 12:11
Phosphorus 4.1 mg/dl (2.5-4.5) 06/09/22 12:11
Magnesium 2.0 mg/dl (1.6-2.3) 06/08/22 05:09
Total Bilirubin 1.0 mg/dl (0.2-1.3) 06/05/22 04:09
AST 20 U/L (17-59) 06/05/22 04:09
ALT 18 U/L (0-50) 06/05/22 04:09
Alkaline Phosphatase 174 U/L (38-126) H 06/05/22 04:09
Total Protein 5.0 g/dl (6.3-8.2) L 06/05/22 04:09
Albumin 2.8 g/dl (3.5-5.0) L 06/09/22 12:11
Physical Exam
-
rrr
ctab
inc c/d/i
robbie dark blood
foot wrm
--- NOTE | 2022-06-10 10:56 | W.PN.NEPH.PH ---
Today's Communication / Plan
-
HD sunday, follow h/h
Assessment/Plan
-
Assessment:
Gross hematuria, recurrent
Bladder malignancy received one dose of chemotherapy (cisplatinum + ...)
TURBT April 04, 2022
ESRD (PD 2017; HD 2018)
Anemia, multifactorial
CABG x2 (ANN-LAD, SVG-ramus, on pump with right Endo vein harvest/sternal plate
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
Biopsy-proven focal sclerosis
Diabetes mellitus
Gout, chronic
Secondary hyperparathyroidism
History hypertension with relative hypotension
History morbid obesity
History sleep apnea on CPAP
Left arm AV fistula 2018
Pelvic adenopathy
Pulmonary nodules
Bilateral renal artery coil embolization June 02
Large pseudoaneurysm with tense hematoma right groin status post common femoral artery catheterization and repair June 03
Iron deficiency with�saturation 5%
Plan:
monitor h/h, no labs today but no active bleeding reported
BP stable off SHANELLE inhibitor and hydralazine, carvedilol with hold parameters
Iron saturation only 5%
will give additional Fe today
Eventual resumption of chemotherapy
Continue to optimize dry weight
Completing course of ciprofloxacin today
HD on Sunday
-
-
Date of Service: June 10, 2022
CC / HPI / ROS
-
Chief Complaint:�
Follow-up ESRD
History of Present Illness:�
Received 8 units PRBC so far, Hb 7.7 GM/DL, no labs today
Status post right femoral bleed, urgent pseudoaneurysm repair June 03
Status post coil embolization of bilateral renal arteries June 02
BP stable, wt decreasing with HD
Not requiring supplemental O2
no fever
Review of Systems:�
Weights gradually decreasing with UF/HD
No shortness of breath
No chest pain or pressure
Labs
-
Labs:
WBC 19.5 10^3/uL (4.8-10.8) H 06/09/22 12:11
RBC 2.46 10^6/uL (4.70-6.10) L 06/09/22 12:11
Hgb 7.7 g/dL (13.0-18.0) L 06/09/22 12:11
Hct 23.7 % (39.0-52.0) L 06/09/22 12:11
Plt Count 287 10^3/uL (130-400) 06/09/22 12:11
Sodium 128 mmol/L (135-145) L 06/09/22 12:11
Potassium 5.2 mmol/L (3.5-5.1) H 06/09/22 12:11
Chloride 90 mmol/L (98-107) L 06/09/22 12:11
Carbon Dioxide 28 mmol/L (22-30) 06/09/22 12:11
BUN 67 mg/dl (9-20) H 06/09/22 12:11
Creatinine 5.8 mg/dL (0.7-1.3) H* 06/09/22 12:11
Glomerular Filtr Rate 9.4 06/09/22 12:11
Glucose 152 mg/dl (65-99) H 06/09/22 12:11
Calcium 8.5 mg/dl (8.4-10.2) 06/09/22 12:11
Phosphorus 4.1 mg/dl (2.5-4.5) 06/09/22 12:11
Albumin 2.8 g/dl (3.5-5.0) L 06/09/22 12:11
Physical Exam
-
Vital Signs:
Vital Signs
Temp Pulse Resp BP Pulse Ox
98.3 F 72 18 114/53 94
06/10/22 07:00 06/10/22 08:05 06/10/22 07:00 06/10/22 08:05 06/10/22 07:00
Cardiovascular:: Regular rate and rhythm
Respiratory:: Bilateral: CTA
Lung Excursion:: Normal
Abdomen:: Nontender and Soft
Extremity Edema:: None: Bilateral: (trace)
Carey Catheter: No
[2022-06-10 11:45] LABS: Glucose - Point of Care 147 mg/dl (65-99)
[2022-06-10] MEDS: CIPRO PO (13:02)
[2022-06-10 15:34] LABS: Glucose - Point of Care 208 mg/dl (65-99)
[2022-06-10] MEDS: NOVOLOG FLEXPEN-MODERATE RESISTANCE 3 UNITS SC (16:52)
[2022-06-10] MEDS: LIPITOR 80 MG PO (20:43)
[2022-06-10 21:43] LABS: Glucose - Point of Care 159 mg/dl (65-99)
[2022-06-11] VITALS (7 sets, daily range): BP systolic 115–145; BP diastolic 49–69; BMI 37.7
[2022-06-11 05:35] LABS: Hemoglobin 8.3 g/dL (13.0-18.0); Mean Corp Hgb Conc. 31.9 g/dL (33.0-37.0); Mean Corpuscular Hgb 31.1 pg (27.0-31.0); Mean Corpuscular Volume 97.4 fL (80.0-94.0); Mean Platelet Volume 10.9 fL (7.4-10.4); Platelet Count 362 10^3/uL (130-400); Red Blood Cell Count 2.67 10^6/uL (4.70-6.10); Red Cell Dist. Width 17.6 % (11.5-14.5); White Blood Cell Count 21.1 10^3/uL (4.8-10.8)
[2022-06-11 06:02] LABS: Blood Urea Nitrogen 67 mg/dl (9-20); Carbon Dioxide 28 mmol/L (22-30); Chloride 92 mmol/L (98-107); Estimated Creatinine Clearance 14 ml/min; Glomerular Filtration Rate 9.8; Glucose 103 mg/dl (65-99); Potassium 5.2 mmol/L (3.5-5.1); Sodium 130 mmol/L (135-145)
[2022-06-11 07:13] LABS: Glucose - Point of Care 145 mg/dl (65-99)
[2022-06-11] MEDS: RENVELA 3200 MG PO ×3 (07:28→16:22)
[2022-06-11] MEDS: NOVOLOG FLEXPEN-MODERATE RESISTANCE SC (07:28)
[2022-06-11] MEDS: ZYLOPRIM 200 MG PO (07:30)
[2022-06-11] MEDS: ZETIA 10 MG PO (07:31)
[2022-06-11] MEDS: COREG 6.25 MG PO ×2 (07:31→20:08)
[2022-06-11] MEDS: VITAMIN D3 (cholecalciferol) 2000 UNITS PO (07:31)
[2022-06-11] MEDS: VITAMIN C 1000 MG PO (07:31)
[2022-06-11] MEDS: THERAGRAN 1 TABLET PO (07:31)
[2022-06-11] MEDS: PROTONIX 40 MG PO ×2 (07:31→20:08)
[2022-06-11] MEDS: VITAMIN B-12 1000 MCG PO (07:31)
[2022-06-11] MEDS: MIRALAX 17 GRAMS PO (07:31)
[2022-06-11] MEDS: HYDROPHOR 1 APPLIC TOPICAL (07:33)
[2022-06-11] MEDS: DESENEX/MITRAZOL/ZEASORB 1 APPLIC TOPICAL ×2 (07:34→20:09)
[2022-06-11] MEDS: SENSIPAR 30 MG PO (07:35)
--- NOTE | 2022-06-11 07:53 | W.PN.HOSP.TC ---
Addendum entered and electronically signed by Ren Juarez MD 06/11/22 09:12:
Staff nursing reporting excoriation to right lower quadrant area of ERICK drains will consult wound care
Original Note:
Today's Communication/Plan
-
Drains in right abdomen to remain in place per vascular
Continue to monitor H&H now trending up hemodynamically stable
Slight trend up in white count today after last day of Cipro yesterday
If trend continues would reculture
Assessment / Plan
Assessment / Plan
pt is an 81 year old male
Hemorrhagic/hypovolemic shock 06/03/22--dropped HGB and BP on 06/03/22 and moved to ICU--CT scan showed LARGE hematoma right groin (had IR embolization of kidneys the day before 06/02/22)--US of right groin showed pseudoaneurysm leaking blood--IR
attempted to thrombinize but was unsuccessful, pt taken to OR by vascular for repair and hematoma evacuation --to date pt has received 8 units of pRBC (3 alone in OR). Hemoglobin improved at 8.3-7.8-7.7>> 7.7 >> 8.3/
Per vascular follow-up drains to remain in place
Follow calcium level with large volume transfusions.
Hematuria secondary to Bladder CA--apprec urology--had CBI and stopped---s/p OR 06/01/22 for cystoscopy and fulguration--s/p IR embolization of kidneys to stop urine 06/02/22--catheter removed on 06/05.
leukocytosis--WBC count up to 39K, could be reactive but seems a bit high--already being treated with cefepime for pseudomonas UTI, changed to cipro per ID-- reculture blood (kidneys embolized and pt on HD so not checking urine)--sepsis was thought
about but more likely just SIRS reaction to renal embolization.
Acute Blood Loss Anemia due to hematuria and blood loss from pseudoaneurysm on Anemia of Chronic Disease--s/p 7 units PRBCs--Monitor Hgb trending up as of today from 7.7-8.3
Pseudomonas UTI due related to indwelling watson catheter-catheter removed on 06/05. Antibiotics: Transition from cefepime to Cipro. Last day of Cipro Jun 10
hypokalemia (prior to me assuming patient's care)-- pt on HD
Coronary Artery Disease s/p CABG in April 2021--Hold aspirin in setting of hematuria
Essential Hypertension--Continue Coreg, Hydralazine and Lisinopril. Blood pressure remains on the lower side while on current antihypertensive regimen. Monitor closely for symptomatic hypotension. Adjust accordingly.
Hyperlipidemia--Continue Lipitor and Zetia
Diabetes Mellitus, Type 2--Monitor sugars on AM labs
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
GERD--Continue Protonix
Gout--Continue allopurinol
DVT proph: SCDs
Code Status: DNR
Anticipated Discharge: 24 - 48 hours
Subjective/Interval History
-
Date of Service: June 11, 2022
Sitting upright eating breakfast no complaints/stable return from ERICK drains/did walk around room yesterday
Objective Data
-
Labs:
Laboratory Results
06/11/22 06/11/22
04:53 04:53
WBC 21.1 H
Hgb 8.3 L
Hct 26.0 L
Plt Count 362 D
Sodium 130 L
Potassium 5.2 H
Chloride 92 L
Carbon Dioxide 28
BUN 67 H
Creatinine 5.6 H*
Glucose 103 H
Calcium 9.0
Vital Signs:
Vital Signs
Temp Pulse Resp BP Pulse Ox
98.8 F 79 18 121/56 96
06/11/22 03:21 06/11/22 07:31 06/11/22 03:21 06/11/22 07:31 06/11/22 03:21
I&O
06/10/22 06/11/22 06/12/22
06:59 06:59 06:59
Intake Total 1283 / 1283 1340 / 1340
Output Total 130 / 130 145 / 145
Balance 1153 / 1153 1195 / 1195
Review of Systems
-
History Source: Patient
EENT: Reports No Symptoms Reported
Respiratory: Reports No Symptoms
Cardiac: Reports No Symptoms
Abdomen/GI: Reports No Symptoms
Physical Exam
-
General: Obese
HEENT: Normocephalic
Respiratory: Clear to Auscultation
Cardiac: Regular Rhythm
GI: Soft and Other (2 separate ERICK drains right side/with 40 and 50 cc return yesterday from each)
Genito-urinary: Bloody Urine
Musculoskeletal: Edema, Right Lower Extrem and Edema, Left Lower Extrem
Neuro: Awake, Alert and Oriented
Psych: Calm
[2022-06-11 12:03] LABS: Glucose - Point of Care 205 mg/dl (65-99)
--- NOTE | 2022-06-11 12:16 | W.PN.URO.CBU ---
Today's Communication / Plan
-
Resume chemotherapy at discharge
Assessment / Plan
-
81M with small cell bladder cancer
History of large dense bladder clot requiring transfer to [facility] for clot evacuation 03/2022 and 04/2021
s/p first cycle of chemotherapy
Presenting again with hematuria and associated anemia
s/p OR / for cystoscopy and fulguration
No clot was found within bladder, indicating persistent hematuria is not a major contributor to anemia
s/p bilateral renal embolization 06/02
exploration and repair of right groin pseudoanny 06/03 with vascular
- Carey removed 06/04 with no evidence of recurrent bleeding
- Resume chemotherapy when stable after discharge
Diagnosis
-
Date of Service: June 11, 2022
-
Patient Diagnosis:
Post Op Day:
Patient Diagnosis:
81M with small cell bladder cancer and recurrent hematuria
now s/p cysto- fulguration on 06/01 and bilateral renal embolization of 06/02
developed right groin pseudoanuerysm- s/p vascular repair 06/03
Subjective
-
no events
Objective
-
Vital Signs
Temp Pulse Resp BP Pulse Ox
98.4 F 79 18 121/56 94
06/11/22 07:05 06/11/22 07:31 06/11/22 07:05 06/11/22 07:31 06/11/22 10:04
Intake and Output
06/10/22 06/11/22 06/12/22
06:59 06:59 06:59
Intake Total 1283 / 1283 1340 / 1340
Output Total 130 / 130 145 / 145
Balance 1153 / 1153 1195 / 1195
Intake:
Oral fluids 1283 / 1283 1340 / 1340
Output:
Drain Output (Total) 130 / 130 145 / 145
Right Lower Pelvis B 70 / 70 60 / 60
Right Pelvis Bruce-Allen A 60 / 60 85 / 85
Laboratory Results
06/11/22 04:53
06/11/22 04:53
Physical Exam
-
General - well developed, well nourished, no acute distress
Chest - clear bilaterally
Abdomen - soft, non-tender, positive bowel sounds, no CVAT
Skin - warm & dry with no rash
Neuro - AOx3, no motor deficits
Extremities - no clubbing, no cyanosis, no edema
[2022-06-11] MEDS: NOVOLOG FLEXPEN-MODERATE RESISTANCE 3 UNITS SC (12:18)
--- NOTE | 2022-06-11 15:36 | W.PN.NEPH.PH ---
Today's Communication / Plan
-
IV fe
HD tomorrow
Assessment/Plan
-
Assessment:
Gross hematuria, recurrent
Bladder malignancy received one dose of chemotherapy (cisplatinum + ...)
TURBT April 04, 2022
ESRD (PD 2017; HD 2018)
Anemia, multifactorial
CABG x2 (ANN-LAD, SVG-ramus, on pump with right Endo vein harvest/sternal plate
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
Biopsy-proven focal sclerosis
Diabetes mellitus
Gout, chronic
Secondary hyperparathyroidism
History hypertension with relative hypotension
History morbid obesity
History sleep apnea on CPAP
Left arm AV fistula 2018
Pelvic adenopathy
Pulmonary nodules
Bilateral renal artery coil embolization June 02
Large pseudoaneurysm with tense hematoma right groin status post common femoral artery catheterization and repair June 03
Iron deficiency with�saturation 5%
Plan:
monitor h/h improving
BP stable off SHANELLE inhibitor and hydralazine, carvedilol with hold parameters
Iron saturation only 5%, IV fe today and with HD
Eventual resumption of chemotherapy
Continue to optimize dry weight
HD on Sunday
-
-
Date of Service: June 11, 2022
CC / HPI / ROS
-
Chief Complaint:�
Follow-up ESRD
History of Present Illness:�
Received 8 units PRBC so far, Hb 8.3GM/DL,
Status post right femoral bleed, urgent pseudoaneurysm repair June 03
Status post coil embolization of bilateral renal arteries June 02
BP stable, wt decreasing with HD
Not requiring supplemental O2
no fever
Review of Systems:�
Weights gradually decreasing with UF/HD
No shortness of breath
No chest pain or pressure
Labs
-
Labs:
WBC 21.1 10^3/uL (4.8-10.8) H 06/11/22 04:53
RBC 2.67 10^6/uL (4.70-6.10) L 06/11/22 04:53
Hgb 8.3 g/dL (13.0-18.0) L 06/11/22 04:53
Hct 26.0 % (39.0-52.0) L 06/11/22 04:53
Plt Count 362 10^3/uL (130-400) D 06/11/22 04:53
Sodium 130 mmol/L (135-145) L 06/11/22 04:53
Potassium 5.2 mmol/L (3.5-5.1) H 06/11/22 04:53
Chloride 92 mmol/L (98-107) L 06/11/22 04:53
Carbon Dioxide 28 mmol/L (22-30) 06/11/22 04:53
BUN 67 mg/dl (9-20) H 06/11/22 04:53
Creatinine 5.6 mg/dL (0.7-1.3) H* 06/11/22 04:53
Glomerular Filtr Rate 9.8 06/11/22 04:53
Glucose 103 mg/dl (65-99) H 06/11/22 04:53
Calcium 9.0 mg/dl (8.4-10.2) 06/11/22 04:53
Phosphorus 4.1 mg/dl (2.5-4.5) 06/09/22 12:11
Albumin 2.8 g/dl (3.5-5.0) L 06/09/22 12:11
Physical Exam
-
Vital Signs:
Vital Signs
Temp Pulse Resp BP Pulse Ox
98.5 F 72 16 115/49 98
06/11/22 15:00 06/11/22 15:00 06/11/22 15:00 06/11/22 15:00 06/11/22 15:00
Cardiovascular:: Regular rate and rhythm
Respiratory:: Bilateral: CTA
Lung Excursion:: Normal
Abdomen:: Nontender and Soft
Extremity Edema:: None: Bilateral:
Carey Catheter: No
[2022-06-11] MEDS: FERRLECIT 110 MG IV (16:23)
[2022-06-11] MEDS: NOVOLOG FLEXPEN-MODERATE RESISTANCE 1 UNITS SC (16:28)
[2022-06-11 16:30] LABS: Glucose - Point of Care 167 mg/dl (65-99)
--- NOTE | 2022-06-11 17:20 | PTCARENOTE ---
Sutures at ERICK site loose and draining serosanguineous fluid. Area secure with drain gauze. Vascular notified. Continue to monitor closely.
--- NOTE | 2022-06-11 18:48 | CM ---
CM spoke with pt to discuss PT recommendation for short term rehab and SNF. Pt declines. CM and pt discussed other options such as OP and VN service. Pt reports he is only intrested in VN service at this time and requests a referral to [facility]
services. CM submitted referral via [employer]. CM willp provide pt with update. CM will continue to monitor for changes in dc planning needs.
Plan- dc to [facility] when medically ready.
[2022-06-11] MEDS: ROXICODONE 5 MG PO (20:03)
[2022-06-11 21:23] LABS: Glucose - Point of Care 220 mg/dl (65-99)
[2022-06-11] MEDS: LIPITOR 80 MG PO (21:46)
[2022-06-12 04:24] VITALS: BP 108/52
[2022-06-12 04:30] VITALS: BMI 38.1
[2022-06-12 06:56] LABS: Glucose - Point of Care 127 mg/dl (65-99)
[2022-06-12 07:40] VITALS: BP 142/66
--- NOTE | 2022-06-12 07:54 | W.PN.VS ---
Addendum entered and electronically signed by Rinku Carey III, MD 06/12/22 12:43:
This patient was seen and examined with CORRIE Matos. I agree with the history and physical exam as well as the assessment and plan. I have the following additions:
Right groin incision currently intact
There is an area of dusky eschar at the midportion laterally which I suspect will breakdown
Watching drain output closely
He is high risk for wound related morbidity and if drains remain high output and wound breaks down he may require reexploration, debridement or VAC placement.
For now we will continue to watch closely
Signed:
Rinku Carey III, MD
[facility] Vascular Surgery
[phone] (cell)
Original Note:
Today's Communication / Plan
-
See below.
Assessment/Plan
-
POD 11 cystoscopy, fulguration of bladder
POD 10 Ultrasound-guided access right common femoral artery, abdominal aortogram, bilateral renal arteriography, bilateral transcatheter coil embolization of the renal arteries
POD 9 Emergent repair R MAIL ROOM pseudoaneurysm, evacuation hematoma
- Wound continues to look clean, no signs of infection. Dressing changed by vascular surgery team today
- OOB/chair/ambulate
- PT/OT
- Continue I and O of ERICK drains
- HD per nephrology
- Encourage incentive spirometry
Subjective Data
-
Date of Service: June 12, 2022
Patient seen and examined at bedside, no acute events overnight. Patient offers no complaints. Denies nausea, fever, and chills.
Objective Data
-
Vital Signs
Temp Pulse Resp BP Pulse Ox
98.6 F 73 18 108/52 96
06/12/22 04:24 06/12/22 04:24 06/12/22 04:24 06/12/22 04:24 06/12/22 04:24
Intake and Output
06/11/22 06/12/22 06/13/22
06:59 06:59 06:59
Intake Total 1340 / 1340 1300 / 1300
Output Total 145 / 145 110 / 110
Balance 1195 / 1195 1190 / 1190
Intake:
Oral fluids 1340 / 1340 1200 / 1200
IV piggybacks 100 / 100
Output:
Drain Output (Total) 145 / 145 110 / 110
Right Lower Pelvis B 60 / 60 45 / 45
Right Pelvis Bruce-Allen A 85 / 85 65 / 65
Calcium 9.0 mg/dl (8.4-10.2) 06/11/22 04:53
Phosphorus 4.1 mg/dl (2.5-4.5) 06/09/22 12:11
Magnesium 2.0 mg/dl (1.6-2.3) 06/08/22 05:09
Total Bilirubin 1.0 mg/dl (0.2-1.3) 06/05/22 04:09
AST 20 U/L (17-59) 06/05/22 04:09
ALT 18 U/L (0-50) 06/05/22 04:09
Alkaline Phosphatase 174 U/L (38-126) H 06/05/22 04:09
Total Protein 5.0 g/dl (6.3-8.2) L 06/05/22 04:09
Albumin 2.8 g/dl (3.5-5.0) L 06/09/22 12:11
Physical Exam
-
AAOx3
Abdomen is soft, NT, ND
Right groin and prior hematoma cavities are flat, soft.
Dressings changed at bedside, replaced with ABDs, surgical incision remains well approximated
Right groin JPx 2 with scant serosanguineous drainage
Bilateral feet warm
[2022-06-12 08:03] LABS: Hematocrit 24.5 % (39.0-52.0); Mean Corp Hgb Conc. 32.7 g/dL (33.0-37.0); Mean Corpuscular Hgb 31.9 pg (27.0-31.0); Mean Corpuscular Volume 97.6 fL (80.0-94.0); Mean Platelet Volume 10.8 fL (7.4-10.4); Platelet Count 403 10^3/uL (130-400); Red Blood Cell Count 2.51 10^6/uL (4.70-6.10); White Blood Cell Count 21.5 10^3/uL (4.8-10.8)
[2022-06-12] MEDS: FERRLECIT 125 MG IV (08:25)
[2022-06-12 09:03] LABS: Blood Urea Nitrogen 90 mg/dl (9-20); Calcium 8.7 mg/dl (8.4-10.2); Carbon Dioxide 25 mmol/L (22-30); Chloride 91 mmol/L (98-107); Estimated Creatinine Clearance 11 ml/min; Glomerular Filtration Rate 7.7; Glucose 94 mg/dl (65-99); Potassium 5.4 mmol/L (3.5-5.1); Sodium 129 mmol/L (135-145)
--- NOTE | 2022-06-12 10:36 | CM ---
Patient seen at bedside on HD, CM and physician to discuss options SNF vs family previous preference for VN only.
Plan; home with VN vs SNF
--- NOTE | 2022-06-12 10:38 | W.PN.HOSP.TC ---
Today's Communication/Plan
-
d/c planning
Assessment / Plan
Assessment / Plan
pt is an 81 year old male
Hemorrhagic/hypovolemic shock 06/03/22--dropped HGB and BP on 06/03/22 and moved to ICU--CT scan showed LARGE hematoma right groin (had IR embolization of kidneys the day before 06/02/22)--US of right groin showed pseudoaneurysm leaking blood--IR
attempted to thrombinize but was unsuccessful, pt taken to OR by vascular for repair and hematoma evacuation --to date pt has received 8 units of pRBC (3 alone in OR). Hemoglobin improved -Per vascular follow-up drains to remain in place-Follow
calcium level with large volume transfusions.
Hematuria secondary to Bladder CA--apprec urology--had CBI and stopped---s/p OR 06/01/22 for cystoscopy and fulguration--s/p IR embolization of kidneys to stop urine 06/02/22--catheter removed on 06/05.
leukocytosis--WBC count up to 39K, could be reactive but seems a bit high--already being treated with cefepime for pseudomonas UTI, changed to cipro per ID-- reculture blood (kidneys embolized and pt on HD so not checking urine)--sepsis was thought
about but more likely just SIRS reaction to renal embolization.
Acute Blood Loss Anemia due to hematuria and blood loss from pseudoaneurysm on Anemia of Chronic Disease--s/p 7 units PRBCs--Monitor Hgb trending up
Pseudomonas UTI due related to indwelling watson catheter-catheter removed on 06/05. Antibiotics: Transition from cefepime to Cipro. Last day of Cipro Jun 10
hypokalemia (prior to me assuming patient's care)-- pt on HD
Coronary Artery Disease s/p CABG in April 2021--Hold aspirin in setting of hematuria
Essential Hypertension--Continue Coreg, Hydralazine and Lisinopril. Blood pressure remains on the lower side while on current antihypertensive regimen. Monitor closely for symptomatic hypotension. Adjust accordingly.
Hyperlipidemia--Continue Lipitor and Zetia
Diabetes Mellitus, Type 2--Monitor sugars on AM labs
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
GERD--Continue Protonix
Gout--Continue allopurinol
DVT proph: SCDs
Code Status: DNR
Anticipated Discharge: > 48 hours
Subjective/Interval History
-
Date of Service: June 12, 2022
pt getting HD
Objective Data
-
Labs:
Laboratory Results
06/12/22 06/12/22
07:58 07:58
WBC 21.5 H
Hgb 8.0 L
Hct 24.5 L
Plt Count 403 H
Sodium 129 L
Potassium 5.4 H
Chloride 91 L
Carbon Dioxide 25
BUN 90 H
Creatinine 6.9 H*
Glucose 94
Calcium 8.7
Vital Signs:
max temp for 24 hours
06/11/22
22:56
Temp 99.1 F
Vital Signs
Temp Pulse Resp BP Pulse Ox
98 F 76 18 142/66 95
06/12/22 07:40 06/12/22 07:40 06/12/22 07:40 06/12/22 07:40 06/12/22 07:40
I&O
06/11/22 06/12/22 06/13/22
06:59 06:59 06:59
Intake Total 1340 / 1340 1300 / 1300
Output Total 145 / 145 110 / 110
Balance 1195 / 1195 1190 / 1190
Review of Systems
-
All other systems: Reviewed and negative
Physical Exam
-
General: Well Developed, Well Nourished and No Apparent Distress
HEENT: Normocephalic and Atraumatic
Respiratory: Clear to Auscultation; Negative Wheezes or Rhonchi
Cardiac: Regular Rhythm and S1/S2; Negative Murmur
GI: Soft, Nontender, Nondistended and Normal Bowel Sounds
Genito-urinary: Other (right groin with ERICK drains and tremayne)
Musculoskeletal: No Clubbing, No Cyanosis and No Edema
Skin: Warm
Neuro: Awake
--- NOTE | 2022-06-12 10:40 | W.PN.NEPH.HD ---
Assessment
-
Seen on HD no complaints. VSS, access ok. ferrlecit on HD. PT/OT
Progress Note - Hemodialysis
-
Date of Service: June 12, 2022
Duration: 4 hours
Potassium Bath: 2
Calcium Bath: 2.5
Opti-Dialyzer: 160
Ultrafiltration: Other (3kg)
Dialysate Flow: 600
Heparin: no
EPO: no
[2022-06-12 11:00] VITALS: BP 130/67
[2022-06-12 12:04] LABS: Glucose - Point of Care 100 mg/dl (65-99)
--- NOTE | 2022-06-12 12:14 | WOUNDNOTE ---
RIGHT LQ ERICK SITE
--- NOTE | 2022-06-12 12:15 | WOUNDNOTE ---
[facility] RN note: Patient admitted with hypovolemic shock
See H&P for complete history.
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
Wound Location and type/assessment: Patient visited for excoriated skin around leaking ERICK site. Upon assessment, skin around site was intact but tube was draining a scant amount serosang drainage. Patient reports poor mobility and fair appetite.
Patient could not turn at time of assessment due to HD. Per KISHA Pa, sacrum intact and she will check after HD and notify wound care of any changes.
Pressure redistribution devices in place: Versa-Care Air, heels off-loaded with fiber-fill boots.
Plan: Skin around ERICK site was cleaned with NS, sure-prep and thin hydrocolloid was applied and covered with clean dressing. This RN followed in with patient 2 hours later and dressing was saturated. Hydrocolloid removed with adhesive remover and
skin remained intact. Alginate was cut to fit around tube and covered with dry dressing. Spoke with Dr. Stapleton about assessment and change from hydrocolloid to alginate. Ember BEARD given update.
[2022-06-12] MEDS: NOVOLOG FLEXPEN-MODERATE RESISTANCE SC ×2 (12:20→12:21)
[2022-06-12] MEDS: VITAMIN C 1000 MG PO (12:26)
[2022-06-12] MEDS: MIRALAX 17 GRAMS PO (12:26)
[2022-06-12] MEDS: RENVELA 3200 MG PO ×2 (12:26→18:20)
[2022-06-12] MEDS: VITAMIN B-12 1000 MCG PO (12:26)
[2022-06-12] MEDS: THERAGRAN 1 TABLET PO (12:26)
[2022-06-12] MEDS: PROTONIX 40 MG PO ×2 (12:26→21:03)
[2022-06-12] MEDS: VITAMIN D3 (cholecalciferol) 2000 UNITS PO (12:26)
[2022-06-12] MEDS: COREG 6.25 MG PO ×2 (12:26→21:04)
[2022-06-12] MEDS: ZETIA 10 MG PO (12:26)
[2022-06-12] MEDS: ZYLOPRIM 200 MG PO (12:31)
[2022-06-12] MEDS: HYDROPHOR 1 APPLIC TOPICAL (12:33)
[2022-06-12] MEDS: DESENEX/MITRAZOL/ZEASORB 1 APPLIC TOPICAL ×2 (12:33→21:04)
[2022-06-12] MEDS: RENVELA PO (12:51)
--- NOTE | 2022-06-12 14:20 | PTCARENOTE ---
Pt received HD during shift, tolerating it well. Had lunch afterwards. Had full bed bath with assist x2. Pt brushed teeth. Dressings changed as per wound care order. Cream applied to BLE. Denies pain/discomfort. Call davidson within reach.
[2022-06-12 15:00] VITALS: BP 127/58
[2022-06-12 17:18] LABS: Glucose - Point of Care 170 mg/dl (65-99)
[2022-06-12] MEDS: NOVOLOG FLEXPEN-MODERATE RESISTANCE 1 UNITS SC (18:21)
[2022-06-12 19:10] VITALS: BP 117/53
[2022-06-12] MEDS: LIPITOR 80 MG PO (21:03)
[2022-06-12] MEDS: ROXICODONE 5 MG PO (21:08)
[2022-06-12 21:47] LABS: Glucose - Point of Care 132 mg/dl (65-99)
[2022-06-12 23:00] VITALS: BP 141/59
[2022-06-13] VITALS (7 sets, daily range): BP systolic 112–126; BP diastolic 49–57; PULSE 69; O2SAT 97; BMI 36.9
[2022-06-13] MEDS: ROXICODONE 5 MG PO ×2 (04:00→21:49)
[2022-06-13 06:53] LABS: Hematocrit 25.2 % (39.0-52.0); Hemoglobin 8.1 g/dL (13.0-18.0); Mean Corp Hgb Conc. 32.1 g/dL (33.0-37.0); Mean Corpuscular Hgb 31.6 pg (27.0-31.0); Mean Corpuscular Volume 98.4 fL (80.0-94.0); Mean Platelet Volume 10.7 fL (7.4-10.4); Platelet Count 404 10^3/uL (130-400); Red Blood Cell Count 2.56 10^6/uL (4.70-6.10); Red Cell Dist. Width 18.1 % (11.5-14.5); White Blood Cell Count 18.6 10^3/uL (4.8-10.8)
[2022-06-13 07:21] LABS: Glucose - Point of Care 129 mg/dl (65-99)
[2022-06-13] MEDS: NOVOLOG FLEXPEN-MODERATE RESISTANCE SC (07:26)
[2022-06-13 07:29] LABS: ALT (SGPT) 27 U/L (0-50); AST (SGOT) 40 U/L (17-59); Albumin 2.8 g/dl (3.5-5.0); Alkaline Phosphatase 274 U/L (38-126); Blood Urea Nitrogen 60 mg/dl (9-20); Calcium 8.7 mg/dl (8.4-10.2); Carbon Dioxide 29 mmol/L (22-30); Chloride 92 mmol/L (98-107); Estimated Creatinine Clearance 16 ml/min; Glomerular Filtration Rate 11.7; Glucose 86 mg/dl (65-99); Magnesium 2.3 mg/dl (1.6-2.3); Potassium 5.2 mmol/L (3.5-5.1); Sodium 130 mmol/L (135-145); Total Protein 5.4 g/dl (6.3-8.2)
--- NOTE | 2022-06-13 08:35 | W.PN.VS ---
Addendum entered and electronically signed by Rinku Carey III, MD 06/13/22 10:38:
This patient was seen and examined with CORRIE Zuniga. I agree with the history and physical exam as well as the assessment and plan.
Right groin incision with some dusky edges and ischemic area laterally that I suspect will develop into an eschar
Remove 1 ERICK (40 cc over 24 hours), will keep the other for now
Risk of groin wound breakdown high
Spoke with his daughter Mikayla via telephone today
Signed:
Rinku Carey III, MD
[facility] Vascular Surgery
[phone] (ocmr)
Original Note:
Today's Communication / Plan
-
see plan
Assessment/Plan
-
POD 12 cystoscopy, fulguration of bladder
POD 11 Ultrasound-guided access right common femoral artery, abdominal aortogram, bilateral renal arteriography, bilateral transcatheter coil embolization of the renal arteries
POD 10 Emergent repair R [employer]CRA[employer]AIL DRAFTSPERSON pseudoaneurysm, evacuation hematoma
- Wound continues to look clean, no signs of infection. Dressing changed by us
- OOB/chair/ambulate
- PT/OT
- Continue I and O of ERICK drains, I will dc one drain later today
- HD per nephrology
- IS
- ok for dc from vasc standpoint, will need drain care education
Subjective Data
-
Date of Service: June 13, 2022
Pt seen at bedside this am with Dr Carey. Pt offers no complaints at this time. No events overnight, drains intact
Objective Data
-
Vital Signs
Temp Pulse Resp BP Pulse Ox
98.1 F 72 16 118/52 95
06/13/22 08:22 06/13/22 08:22 06/13/22 08:22 06/13/22 08:22 06/13/22 08:22
Intake and Output
06/12/22 06/13/22 06/14/22
06:59 06:59 06:59
Intake Total 1300 / 1300 1190 / 1190
Output Total 110 / 110 70 / 70 40 / 40
Balance 1190 / 1190 1120 / 1120 -40 / -40
Intake:
Oral fluids 1200 / 1200 1190 / 1190
IV piggybacks 100 / 100
Output:
Drain Output (Total) 110 / 110 70 / 70 40 / 40
Right Lower Pelvis B 45 / 45 40 / 40 20 / 20
Right Pelvis Bruce-Allen A 65 / 65 30 / 30 20 / 20
Other:
How many times incontinent 1
SMALL amount urine
Lab Results
06/13/22 05:27
06/13/22 05:27
Calcium 8.7 mg/dl (8.4-10.2) 06/13/22 05:27
Phosphorus 4.1 mg/dl (2.5-4.5) 06/09/22 12:11
Magnesium 2.3 mg/dl (1.6-2.3) 06/13/22 05:27
Total Bilirubin 1.0 mg/dl (0.2-1.3) 06/13/22 05:27
AST 40 U/L (17-59) 06/13/22 05:27
ALT 27 U/L (0-50) 06/13/22 05:27
Alkaline Phosphatase 274 U/L (38-126) H 06/13/22 05:27
Total Protein 5.4 g/dl (6.3-8.2) L 06/13/22 05:27
Albumin 2.8 g/dl (3.5-5.0) L 06/13/22 05:27
Physical Exam
-
AAOx3
Abdomen is soft, NT, ND
Right groin and prior hematoma cavities are flat, soft.
Dressings changed at bedside, replaced with ABDs, surgical incision remains well approximated
Right groin JPx 2 with scant serosanguineous drainage (40 & 50 over 24 hours)
Bilateral feet warm
[2022-06-13] MEDS: MIRALAX PO (09:18)
[2022-06-13] MEDS: COREG 6.25 MG PO ×2 (09:20→21:49)
[2022-06-13] MEDS: ZYLOPRIM 100 MG PO (09:20)
[2022-06-13] MEDS: PROTONIX 40 MG PO ×2 (09:20→21:49)
[2022-06-13] MEDS: VITAMIN D3 (cholecalciferol) 2000 UNITS PO (09:20)
[2022-06-13] MEDS: THERAGRAN 1 TABLET PO (09:20)
[2022-06-13] MEDS: ZETIA 10 MG PO (09:20)
[2022-06-13] MEDS: VITAMIN C 1000 MG PO (09:21)
[2022-06-13] MEDS: DESENEX/MITRAZOL/ZEASORB 1 APPLIC TOPICAL ×2 (09:21→21:49)
[2022-06-13] MEDS: VITAMIN B-12 1000 MCG PO (09:21)
[2022-06-13] MEDS: HYDROPHOR 1 APPLIC TOPICAL (09:21)
[2022-06-13] MEDS: RENVELA 3200 MG PO ×3 (09:24→17:42)
[2022-06-13] MEDS: SENSIPAR 30 MG PO (09:24)
--- NOTE | 2022-06-13 10:46 | W.PN.HOSP.TC ---
Today's Communication/Plan
-
PT/OT
drains out per vascular
hopeful d/c Sunday after HD
Assessment / Plan
Assessment / Plan
pt is an 81 year old male
Hemorrhagic/hypovolemic shock 06/03/22--dropped HGB and BP on 06/03/22 and moved to ICU--CT scan showed LARGE hematoma right groin (had IR embolization of kidneys the day before 06/02/22)--US of right groin showed pseudoaneurysm leaking blood--IR
attempted to thrombinize but was unsuccessful, pt taken to OR by vascular for repair and hematoma evacuation --to date pt has received 8 units of pRBC (3 alone in OR). Hemoglobin improved -Per vascular follow-up drains to remain in place,
anticipate d/c Sunday after HD
Hematuria secondary to Bladder CA--apprec urology--had CBI and stopped---s/p OR 06/01/22 for cystoscopy and fulguration--s/p IR embolization of kidneys to stop urine 06/02/22--catheter removed on 06/05.
leukocytosis--WBC count up to 39K, could be reactive but seems a bit high--already being treated with cefepime for pseudomonas UTI, changed to cipro per ID-- reculture blood (kidneys embolized and pt on HD so not checking urine)--sepsis was thought
about but more likely just SIRS reaction to renal embolization.
Acute Blood Loss Anemia due to hematuria and blood loss from pseudoaneurysm on Anemia of Chronic Disease--s/p 7 units PRBCs--Monitor Hgb trending up
Pseudomonas UTI due related to indwelling watson catheter-catheter removed on 06/05. Antibiotics: Transition from cefepime to Cipro. Last day of Cipro was Jun 10
hypokalemia (prior to me assuming patient's care)-- pt on HD
Coronary Artery Disease s/p CABG in April 2021--Hold aspirin in setting of hematuria
Essential Hypertension--Continue Coreg, Hydralazine and Lisinopril. Blood pressure remains on the lower side while on current antihypertensive regimen. Monitor closely for symptomatic hypotension. Adjust accordingly.
Hyperlipidemia--Continue Lipitor and Zetia
Diabetes Mellitus, Type 2--Monitor sugars on AM labs
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
GERD--Continue Protonix
Gout--Continue allopurinol
DVT proph: SCDs
Code Status: DNR
Anticipated Discharge: > 48 hours
Subjective/Interval History
-
Date of Service: June 13, 2022
pt ( and daughter at bedside) frustrated that he is still here, losing weight, protein (albumin dropping)
Objective Data
-
Labs:
Laboratory Results
06/13/22 06/13/22
05:27 05:27
WBC 18.6 H
Hgb 8.1 L
Hct 25.2 L
Plt Count 404 H
Sodium 130 L
Potassium 5.2 H
Chloride 92 L
Carbon Dioxide 29
BUN 60 H
Creatinine 4.8 H*
Glucose 86
Calcium 8.7
Total Bilirubin 1.0
AST 40
ALT 27
Alkaline Phosphatase 274 H
Vital Signs:
max temp for 24 hours
06/12/22
15:00
Temp 98.6 F
Vital Signs
Temp Pulse Resp BP Pulse Ox
98.1 F 72 16 118/52 95
06/13/22 08:22 06/13/22 08:22 06/13/22 08:22 06/13/22 08:22 06/13/22 08:22
I&O
06/12/22 06/13/22 06/14/22
06:59 06:59 06:59
Intake Total 1300 / 1300 1190 / 1190
Output Total 110 / 110 70 / 70 40 / 40
Balance 1190 / 1190 1120 / 1120 -40 / -40
Review of Systems
-
All other systems: Reviewed and negative
Physical Exam
-
General: Well Developed, Well Nourished and No Apparent Distress
Respiratory: Clear to Auscultation; Negative Wheezes or Rhonchi
Cardiac: Regular Rhythm and S1/S2; Negative Murmur
GI: Soft, Nontender, Nondistended and Normal Bowel Sounds
Musculoskeletal: No Clubbing, No Cyanosis and No Edema
Neuro: Awake
Psych: Calm
--- NOTE | 2022-06-13 10:49 | W.PN.NEPH.PH ---
Today's Communication / Plan
-
HD tomorrow
Assessment/Plan
-
Assessment:
Gross hematuria, recurrent
Bladder malignancy received one dose of chemotherapy (cisplatinum + ...)
TURBT April 04, 2022
ESRD (PD 2017; HD 2018)
Anemia, multifactorial
CABG x2 (ANN-LAD, SVG-ramus, on pump with right Endo vein harvest/sternal plate
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
Biopsy-proven focal sclerosis
Diabetes mellitus
Gout, chronic
Secondary hyperparathyroidism
History hypertension with relative hypotension
History morbid obesity
History sleep apnea on CPAP
Left arm AV fistula 2018
Pelvic adenopathy
Pulmonary nodules
Bilateral renal artery coil embolization June 02
Large pseudoaneurysm with tense hematoma right groin status post common femoral artery catheterization and repair June 03
Iron deficiency with�saturation 5%
Plan:
-follow Hgb
-HD tomorrow
-hopeful dc sunday after HD
-
-
Date of Service: June 13, 2022
CC / HPI / ROS
-
Chief Complaint:�
Follow-up ESRD
History of Present Illness:�
Hgb low but stable
Status post right femoral bleed, urgent pseudoaneurysm repair June 03
Status post coil embolization of bilateral renal arteries June 02
BP stable
tolerated HD yesterday
Not requiring supplemental O2
no fevers
Review of Systems:�
Weights gradually decreasing with UF/HD
No shortness of breath
No chest pain or pressure
Labs
-
Labs:
WBC 18.6 10^3/uL (4.8-10.8) H 06/13/22 05:27
RBC 2.56 10^6/uL (4.70-6.10) L 06/13/22 05:27
Hgb 8.1 g/dL (13.0-18.0) L 06/13/22 05:27
Hct 25.2 % (39.0-52.0) L 06/13/22 05:27
Plt Count 404 10^3/uL (130-400) H 06/13/22 05:27
Sodium 130 mmol/L (135-145) L 06/13/22 05:27
Potassium 5.2 mmol/L (3.5-5.1) H 06/13/22 05:27
Chloride 92 mmol/L (98-107) L 06/13/22 05:27
Carbon Dioxide 29 mmol/L (22-30) 06/13/22 05:27
BUN 60 mg/dl (9-20) H 06/13/22 05:27
Creatinine 4.8 mg/dL (0.7-1.3) H* 06/13/22 05:27
Glomerular Filtr Rate 11.7 06/13/22 05:27
Glucose 86 mg/dl (65-99) 06/13/22 05:27
Calcium 8.7 mg/dl (8.4-10.2) 06/13/22 05:27
Phosphorus 4.1 mg/dl (2.5-4.5) 06/09/22 12:11
Albumin 2.8 g/dl (3.5-5.0) L 06/13/22 05:27
Physical Exam
-
Vital Signs:
Vital Signs
Temp Pulse Resp BP Pulse Ox
98.1 F 72 16 118/52 95
06/13/22 08:22 06/13/22 08:22 06/13/22 08:22 06/13/22 08:22 06/13/22 08:22
Cardiovascular:: Regular rate and rhythm
Respiratory:: Bilateral: Coarse
Lung Excursion:: Normal
Abdomen:: Nontender and Soft
Bowel Sounds:: Normal
Extremity Edema:: None: Bilateral:
[2022-06-13 11:28] LABS: Glucose - Point of Care 194 mg/dl (65-99)
[2022-06-13] MEDS: NOVOLOG FLEXPEN-MODERATE RESISTANCE 1 UNITS SC (12:16)
--- NOTE | 2022-06-13 13:04 | CM ---
Family meeting with Patient , daughter, physician and CM. Plan is for discharge home with aides and [facility] pending PT/OT assessment. Per therapy patient requires increased assistance for transfers and has DME for transfers at home. Family willing
to hire aides to assist and per and daughter have information. Plan tentatively for discharge home on sunday. CM will continue to follow for discharge planning needs.
Plan; home with [facility]; home health aides and family supports.
[2022-06-13 16:49] LABS: Glucose - Point of Care 202 mg/dl (65-99)
[2022-06-13] MEDS: NOVOLOG FLEXPEN-MODERATE RESISTANCE 3 UNITS SC (17:42)
[2022-06-13 21:23] LABS: Glucose - Point of Care 185 mg/dl (65-99)
[2022-06-13] MEDS: LIPITOR 80 MG PO (21:49)
[2022-06-14] VITALS (9 sets, daily range): BP systolic 99–136; BP diastolic 44–68; PULSE 65; O2SAT 97; BMI 38.1
--- NOTE | 2022-06-14 02:57 | DOWNTIME ---
There was a [employer] Client Hose Inspector Downtime on 06/14/2022 from 0100 to 06/14/2022 at 0225. Downtime documentation of patient's care, including medication administrations, has been reconciled in the electronic record per guidelines. Refer to the
patient's paper chart under the miscellaneous tab to see printed paper medication records and downtime forms.
[2022-06-14 06:50] LABS: Hematocrit 23.8 % (39.0-52.0); Hemoglobin 7.7 g/dL (13.0-18.0); Mean Corp Hgb Conc. 32.4 g/dL (33.0-37.0); Mean Corpuscular Hgb 31.3 pg (27.0-31.0); Mean Corpuscular Volume 96.7 fL (80.0-94.0); Mean Platelet Volume 10.7 fL (7.4-10.4); Platelet Count 401 10^3/uL (130-400); Red Blood Cell Count 2.46 10^6/uL (4.70-6.10); Red Cell Dist. Width 17.8 % (11.5-14.5); White Blood Cell Count 18.4 10^3/uL (4.8-10.8)
[2022-06-14 07:14] LABS: ALT (SGPT) 23 U/L (0-50); AST (SGOT) 33 U/L (17-59); Albumin 2.9 g/dl (3.5-5.0); Alkaline Phosphatase 241 U/L (38-126); Blood Urea Nitrogen 80 mg/dl (9-20); Calcium 8.6 mg/dl (8.4-10.2); Carbon Dioxide 27 mmol/L (22-30); Chloride 91 mmol/L (98-107); Estimated Creatinine Clearance 13 ml/min; Glomerular Filtration Rate 8.9; Glucose 89 mg/dl (65-99); Magnesium 2.3 mg/dl (1.6-2.3); Potassium 5.3 mmol/L (3.5-5.1); Sodium 128 mmol/L (135-145); Total Bilirubin 1.1 mg/dl (0.2-1.3); Total Protein 5.7 g/dl (6.3-8.2)
[2022-06-14] MEDS: RETACRIT 10000 UNITS IV (08:22)
[2022-06-14 08:31] LABS: Glucose - Point of Care 116 mg/dl (65-99)
[2022-06-14] MEDS: RENVELA PO (08:31)
[2022-06-14] MEDS: PROTONIX 40 MG PO ×2 (08:32→20:00)
[2022-06-14] MEDS: MIRALAX PO (08:32)
[2022-06-14] MEDS: MANNITOL 12.5 GRAMS IV (08:34)
[2022-06-14] MEDS: HYDROPHOR 1 APPLIC TOPICAL (08:34)
[2022-06-14] MEDS: DESENEX/MITRAZOL/ZEASORB 1 APPLIC TOPICAL ×2 (08:35→20:01)
[2022-06-14] MEDS: NOVOLOG FLEXPEN-MODERATE RESISTANCE SC ×2 (08:36→12:00)
--- NOTE | 2022-06-14 09:34 | CM ---
Patient seen at bedside with physician. Patient currently on HD. Patient eagerly anticipates discharge home with [facility] to follow. Family very supportive and involved. CM will continue to follow for discharge planning needs.
Plan; home with [facility] to follow
--- NOTE | 2022-06-14 09:43 | W.PN.NEPH.HD ---
Assessment
-
pt seen during HD
vitals stable
UF as tolerates
hb stable
need strict renal diet and FR
AVF functions well
Progress Note - Hemodialysis
-
Date of Service: June 14, 2022
Duration: 4 hours
Potassium Bath: 2
Calcium Bath: 2.5
Opti-Dialyzer: 160
Ultrafiltration: Other (3-3.5kg)
Blood Flow: 400
Dialysate Flow: 600
Heparin: no
EPO: [id number]
--- NOTE | 2022-06-14 10:15 | W.PN.VS ---
Addendum entered and electronically signed by Dylan De La O MD 06/14/22 17:52:
Late entry. Seen and examined with REED OR WIND INSTRUMENT REPAIRER earlier this AM. As below.
Original Note:
Today's Communication / Plan
-
dc drains
Assessment/Plan
-
POD 13 cystoscopy, fulguration of bladder
POD 12 Ultrasound-guided access right common femoral artery, abdominal aortogram, bilateral renal arteriography, bilateral transcatheter coil embolization of the renal arteries
POD 11 Emergent repair R [employer] TE[employer]ER pseudoaneurysm, evacuation hematoma
- Wound continues to look clean, no signs of infection. Dressing changed by us
- OOB/chair/ambulate
- PT/OT
- I will DC BOTH drains today
- HD per nephrology
- IS
- ok for dc from vasc standpoint
Subjective Data
-
Date of Service: June 14, 2022
Pt seen at bedside this am with Dr De La O. Pt currently on HD. No events overnight. No complaints at this time
Objective Data
-
Vital Signs
Temp Pulse Resp BP Pulse Ox
97.8 F 68 16 99/52 98
06/14/22 09:02 06/14/22 09:02 06/14/22 09:02 06/14/22 09:02 06/14/22 09:02
Intake and Output
06/13/22 06/14/22 06/15/22
06:59 06:59 06:59
Intake Total 1190 / 1190 1170 / 1170
Output Total 70 / 70 135 / 135
Balance 1120 / 1120 1035 / 1035
Intake:
Oral fluids 1190 / 1190 1170 / 1170
Output:
Drain Output (Total) 70 / 70 135 / 135
Right Lower Pelvis B 40 / 40 65 / 65
Right Pelvis Bruce-Allen A 30 / 30 70 / 70
Other:
How many times incontinent 1
SMALL amount urine
Lab Results
06/14/22 05:26
06/14/22 05:26
Calcium 8.6 mg/dl (8.4-10.2) 06/14/22 05:26
Phosphorus 4.1 mg/dl (2.5-4.5) 06/09/22 12:11
Magnesium 2.3 mg/dl (1.6-2.3) 06/14/22 05:26
Total Bilirubin 1.1 mg/dl (0.2-1.3) 06/14/22 05:26
AST 33 U/L (17-59) 06/14/22 05:26
ALT 23 U/L (0-50) 06/14/22 05:26
Alkaline Phosphatase 241 U/L (38-126) H 06/14/22 05:26
Total Protein 5.7 g/dl (6.3-8.2) L 06/14/22 05:26
Albumin 2.9 g/dl (3.5-5.0) L 06/14/22 05:26
Physical Exam
-
AAOx3
Abdomen is soft, NT, ND
Right groin and prior hematoma cavities are flat, soft.
Dressings changed at bedside, replaced with ABDs, surgical incision remains well approximated
Right groin JPx 2 with scant serosanguineous drainage (45 & 50 over 24 hours)
Bilateral feet warm
--- NOTE | 2022-06-14 10:49 | W.PN.HOSP.TC ---
Today's Communication/Plan
-
re-eval by heme
drains to come out per vascular
getting HD
cont PT/OT
anticipate d/c home Sunday
Assessment / Plan
Assessment / Plan
pt is an 81 year old male
Hemorrhagic/hypovolemic shock 06/03/22--dropped HGB and BP on 06/03/22 and moved to ICU--CT scan showed LARGE hematoma right groin (had IR embolization of kidneys the day before 06/02/22)--US of right groin showed pseudoaneurysm leaking blood--IR
attempted to thrombinize but was unsuccessful, pt taken to OR by vascular for repair and hematoma evacuation --to date pt has received 8 units of pRBC (3 alone in OR). Hemoglobin improved -Per vascular, drains to be removed 06/14/22- anticipate d/c
Sunday after HD
Hematuria secondary to Bladder CA--apprec urology--had CBI and stopped---s/p OR 06/01/22 for cystoscopy and fulguration--s/p IR embolization of kidneys to stop urine 06/02/22--catheter removed on 06/05.
leukocytosis--WBC count up to 39K, could be reactive but seems a bit high--already being treated with cefepime for pseudomonas UTI, changed to cipro per ID-- reculture blood (kidneys embolized and pt on HD so not checking urine)--sepsis was thought
about but more likely just SIRS reaction to renal embolization.
Acute Blood Loss Anemia on anemia of chronic disease-- due to hematuria and blood loss from pseudoaneurysm --s/p 8 units PRBCs--Monitor Hgb--apprec heme re-eval--no active bleeding noted
Pseudomonas UTI due related to indwelling watson catheter-catheter removed on 06/05. Antibiotics: Transition from cefepime to Cipro. Last day of Cipro was Jun 10
hypokalemia (prior to me assuming patient's care)-- pt on HD
Coronary Artery Disease s/p CABG in April 2021--Hold aspirin in setting of hematuria
Essential Hypertension--Continue Coreg, Hydralazine and Lisinopril. Blood pressure remains on the lower side while on current antihypertensive regimen. Monitor closely for symptomatic hypotension. Adjust accordingly.
Hyperlipidemia--Continue Lipitor and Zetia
Diabetes Mellitus, Type 2--Monitor sugars on AM labs
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
GERD--Continue Protonix
Gout--Continue allopurinol
DVT proph: SCDs
Code Status: DNR
Anticipated Discharge: > 48 hours
Subjective/Interval History
-
Date of Service: June 14, 2022
pt getting HD
Objective Data
-
Labs:
Laboratory Results
06/14/22 06/14/22
05:26 05:26
WBC 18.4 H
Hgb 7.7 L
Hct 23.8 L
Plt Count 401 H
Sodium 128 L
Potassium 5.3 H
Chloride 91 L
Carbon Dioxide 27
BUN 80 H
Creatinine 6.1 H*
Glucose 89
Calcium 8.6
Total Bilirubin 1.1
AST 33
ALT 23
Alkaline Phosphatase 241 H
Vital Signs:
max temp for 24 hours
06/13/22
23:05
Temp 98.6 F
Vital Signs
Temp Pulse Resp BP Pulse Ox
97.8 F 68 16 99/52 98
06/14/22 09:02 06/14/22 09:02 06/14/22 09:02 06/14/22 09:02 06/14/22 09:02
I&O
06/13/22 06/14/22 06/15/22
06:59 06:59 06:59
Intake Total 1190 / 1190 1170 / 1170
Output Total 70 / 70 135 / 135
Balance 1120 / 1120 1035 / 1035
Review of Systems
-
All other systems: Reviewed and negative
Physical Exam
-
General: Well Developed, Well Nourished and No Apparent Distress
HEENT: Normocephalic and Atraumatic
Respiratory: Clear to Auscultation; Negative Wheezes or Rhonchi
Cardiac: Regular Rhythm and S1/S2; Negative Murmur
GI: Soft, Nontender, Nondistended and Normal Bowel Sounds
Musculoskeletal: No Clubbing, No Cyanosis and No Edema
Skin: Warm
Neuro: Awake
--- NOTE | 2022-06-14 11:08 | W.PN.ONC2 ---
Today's Communication / Plan
-
IV iron for Fe def anemia.
Impression
Impression
Small cell bladder Ca, s/p 1 cycle CDDP/ [employer]-16
Persistent anemia
Hematuria
Uremic platelet dysfunction
ESRD on HD
Anemia of ESRD
Plan
Plan
Anemia combo of ESRD and Fe def s/p bleeding with low iron saturation 5% on 06/07.
Will give IV iron. Check baseline ferritin.
Retacrit on HD is being ordered by nephrology.
HgB actually has been pretty stable.
Subjective/Objective
Chief Complaint
ACS Heme
Subjective
Getting HD. FAtigued. No obvious bleeding.
Vital Signs:
Vital Signs
Temp Pulse Resp BP Pulse Ox
97.8 F 68 16 99/52 98
06/14/22 09:02 06/14/22 09:02 06/14/22 09:02 06/14/22 09:02 06/14/22 09:02
Lab Results:
Laboratory Data
WBC 18.4 10^3/uL (4.8-10.8) H 06/14/22 05:26
Hgb 7.7 g/dL (13.0-18.0) L 06/14/22 05:26
Plt Count 401 10^3/uL (130-400) H 06/14/22 05:26
PT 17.0 Sec (11.4-14.6) H 06/03/22 23:38
INR 1.36 06/03/22 23:38
APTT 29.1 Sec (23.4-35.0) 06/03/22 23:38
Glomerular Filtr Rate 8.9 06/14/22 05:26
Physical Exam
HEENT: No Jaundice
Cardiology: S1 and S2
Pulmonary: Clear
[2022-06-14 11:42] LABS: Glucose - Point of Care 105 mg/dl (65-99)
[2022-06-14] MEDS: VITAMIN C 1000 MG PO (12:07)
[2022-06-14] MEDS: ZETIA 10 MG PO (12:07)
[2022-06-14] MEDS: ZYLOPRIM 100 MG PO (12:07)
[2022-06-14] MEDS: VITAMIN D3 (cholecalciferol) 2000 UNITS PO (12:08)
[2022-06-14] MEDS: VITAMIN B-12 1000 MCG PO (12:08)
[2022-06-14] MEDS: THERAGRAN 1 TABLET PO (12:08)
[2022-06-14] MEDS: RENVELA 3200 MG PO ×2 (12:09→17:02)
[2022-06-14] MEDS: COREG 6.25 MG PO ×2 (12:09→20:00)
[2022-06-14] MEDS: FEOSOL 325 MG PO (12:13)
[2022-06-14] MEDS: FERRLECIT 110 MG IV (14:09)
--- NOTE | 2022-06-14 16:23 | W.PN.UPDATE ---
Update Note
Progress Note Update
ERICK drains removed at bedside, pt tolerated well. Groin redressed
[2022-06-14 17:13] LABS: Glucose - Point of Care 208 mg/dl (65-99)
[2022-06-14] MEDS: NOVOLOG FLEXPEN-MODERATE RESISTANCE 3 UNITS SC (17:15)
--- NOTE | 2022-06-14 18:00 | PTCARENOTE ---
Pt oob to chair for several hours w/o incident. ERICK drains d/c by surgery today, dsg d/i. Pain controlled. s/p HD today. No acute distress noted or reported. Will continue to monitor.
[2022-06-14] MEDS: ROXICODONE 5 MG PO (19:59)
[2022-06-14 21:17] LABS: Glucose - Point of Care 202 mg/dl (65-99)
[2022-06-14] MEDS: LIPITOR 80 MG PO (21:42)
[2022-06-14] MEDS: TYLENOL 650 MG PO (23:06)
[2022-06-15 02:42] VITALS: BP 112/54
[2022-06-15] MEDS: TYLENOL 650 MG PO ×2 (05:06→17:35)
[2022-06-15 05:31] VITALS: BMI 36.9
[2022-06-15 07:30] VITALS: BP 132/89
--- NOTE | 2022-06-15 07:30 | PTCARENOTE ---
Dressing at old ERICK site remains with old drainage unchanged from start of shift. Sutures and tremayne remain intact. Patient also with MASD wound to b/l groin and janeen skin folds. +Odor noted. MASD care done but patient not agreeable to full
janeen care. He states he was too fatigued after HD. He also declined oral care. Patient received Tylenol 650mg x 2 this shift for overnight Temps. Max 101.0. Wound odor and Temp reported to day shift.
[2022-06-15 07:32] LABS: Glucose - Point of Care 150 mg/dl (65-99)
[2022-06-15 07:49] LABS: Hematocrit 23.4 % (39.0-52.0); Hemoglobin 7.6 g/dL (13.0-18.0); Mean Corp Hgb Conc. 32.5 g/dL (33.0-37.0); Mean Corpuscular Hgb 31.4 pg (27.0-31.0); Mean Corpuscular Volume 96.7 fL (80.0-94.0); Mean Platelet Volume 10.6 fL (7.4-10.4); Platelet Count 366 10^3/uL (130-400); Red Blood Cell Count 2.42 10^6/uL (4.70-6.10); Red Cell Dist. Width 18.3 % (11.5-14.5); White Blood Cell Count 21.3 10^3/uL (4.8-10.8)
[2022-06-15 08:48] LABS: Blood Urea Nitrogen 64 mg/dl (9-20); Calcium 8.7 mg/dl (8.4-10.2); Carbon Dioxide 27 mmol/L (22-30); Chloride 93 mmol/L (98-107); Estimated Creatinine Clearance 17 ml/min; Glucose 111 mg/dl (65-99); Potassium 4.6 mmol/L (3.5-5.1); Sodium 130 mmol/L (135-145)
[2022-06-15] MEDS: RENVELA 3200 MG PO ×3 (08:53→17:39)
[2022-06-15] MEDS: COREG 6.25 MG PO ×2 (08:55→21:33)
[2022-06-15] MEDS: ZYLOPRIM 100 MG PO (08:57)
[2022-06-15] MEDS: VITAMIN D3 (cholecalciferol) 2000 UNITS PO (08:57)
[2022-06-15] MEDS: VITAMIN C 1000 MG PO (08:57)
[2022-06-15] MEDS: THERAGRAN 1 TABLET PO (08:58)
[2022-06-15] MEDS: PROTONIX 40 MG PO ×2 (08:58→21:33)
[2022-06-15] MEDS: VITAMIN B-12 1000 MCG PO (08:58)
[2022-06-15] MEDS: MIRALAX PO (08:59)
[2022-06-15] MEDS: ZETIA 10 MG PO (08:59)
[2022-06-15] MEDS: NOVOLOG FLEXPEN-MODERATE RESISTANCE 1 UNITS SC (09:10)
[2022-06-15] MEDS: HYDROPHOR 1 APPLIC TOPICAL (09:13)
[2022-06-15] MEDS: DESENEX/MITRAZOL/ZEASORB 1 APPLIC TOPICAL ×2 (09:13→21:33)
[2022-06-15] MEDS: SENSIPAR 30 MG PO (09:20)
--- NOTE | 2022-06-15 10:16 | W.PN.UPDATE ---
Addendum entered and electronically signed by Dylan De La O MD 06/15/22 10:27:
I updated patient's daughter by phone.
Original Note:
Update Note
Progress Note Update
Patient seen and examined. Noted to have right groin drainage at this point. Foul-smelling per nursing. Patient without significant new complaints himself. On exam right groin is relatively flat. Again very difficult exam due to his extensive
pannus and morbid obesity. However no significant hematoma like he had at the time of pseudoaneurysm. Incision is intact. Sutures are intact. Just lateral right of incision there is area of skin breakdown that has been there. Drainage from that
area of skin breakdown it appears. Cactus colored fluid that is foul-smelling. Continues to drain especially when I squeeze. No pocket that I can identify clearly on exam.
Plan/as I had discussed with patient he was at high risk for groin complications/wound infections due to his pseudoaneurysm and extent of hematoma he had, in conjunction with his severe morbid obesity and extensive pannus. Therefore at this point
as I had discussed with him prior that I may do I will consult plastic surgery. I have asked Dr. Tato Lewis to evaluate the patient and provide recommendations/treatment as needed as I think his subcutaneous tissue and thinned skin/nonviable skin
may be a problem in terms of wound healing.
[2022-06-15 11:13] VITALS: BP 128/50
[2022-06-15 11:28] LABS: Glucose - Point of Care 216 mg/dl (65-99)
[2022-06-15] MEDS: NOVOLOG FLEXPEN-MODERATE RESISTANCE 3 UNITS SC ×2 (12:18→17:36)
--- NOTE | 2022-06-15 12:40 | CM ---
Patient seen at bedside with present. Patient upset about new update from physician. CM will continue to follow for discharge planning needs.
Plan; discharge home with [facility] when medically appropriate.
--- NOTE | 2022-06-15 13:41 | W.PN.HOSP.TC ---
Today's Communication/Plan
-
apprec vascular
consult ID
groin culture
await plastic surgery eval
cont PT/OT
Assessment / Plan
Assessment / Plan
pt is an 81 year old male
Hemorrhagic/hypovolemic shock 06/03/22--resolved--dropped HGB and BP on 06/03/22 and moved to ICU--CT scan showed LARGE hematoma right groin (had IR embolization of kidneys the day before 06/02/22)--US of right groin showed pseudoaneurysm leaking
blood--IR attempted to thrombinize but was unsuccessful, pt taken to OR by vascular for repair and hematoma evacuation --to date pt has received 8 units of pRBC (3 alone in OR). Hemoglobin improved -Per vascular, drains removed 06/15/22
infected right groin--culture drainage--apprec vascular--drains removed--consult ID, will need to restart antibiotics with fever and increased WBC count (sepsis by definition)
Hematuria secondary to Bladder CA--apprec urology--had CBI and stopped---s/p OR 06/01/22 for cystoscopy and fulguration--s/p IR embolization of kidneys to stop urine 06/02/22--catheter removed on 06/05.
Acute Blood Loss Anemia on anemia of chronic disease-- due to hematuria and blood loss from pseudoaneurysm --s/p 8 units PRBCs--Monitor Hgb--apprec heme re-eval--no active bleeding noted
Pseudomonas UTI due related to indwelling watson catheter-catheter removed on 06/05. Antibiotics: Transition from cefepime to Cipro. Last day of Cipro was Jun 10
hypokalemia (prior to me assuming patient's care)-- pt on HD
Coronary Artery Disease s/p CABG in April 2021--Hold aspirin in setting of hematuria
Essential Hypertension--Continue Coreg, Hydralazine and Lisinopril. Blood pressure remains on the lower side while on current antihypertensive regimen. Monitor closely for symptomatic hypotension. Adjust accordingly.
Hyperlipidemia--Continue Lipitor and Zetia
Diabetes Mellitus, Type 2--Monitor sugars on AM labs
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
GERD--Continue Protonix
Gout--Continue allopurinol
DVT proph: SCDs
Code Status: DNR
Anticipated Discharge: > 48 hours
Subjective/Interval History
-
Date of Service: June 15, 2022
pt frustrated with developments re: right groin
Objective Data
-
Labs:
Laboratory Results
06/15/22 06/15/22
06:45 06:45
WBC 21.3 H
Hgb 7.6 L
Hct 23.4 L
Plt Count 366
Sodium 130 L
Potassium 4.6
Chloride 93 L
Carbon Dioxide 27
BUN 64 H
Creatinine 4.4 H*
Glucose 111 H
Calcium 8.7
Vital Signs:
max temp for 24 hours
06/15/22
02:42
Temp 101.0 F H
Vital Signs
Temp Pulse Resp BP Pulse Ox
99.4 F 76 14 128/50 96
06/15/22 12:24 06/15/22 11:13 06/15/22 11:13 06/15/22 11:13 06/15/22 11:13
I&O
06/14/22 06/15/22 06/16/22
06:59 06:59 06:59
Intake Total 1170 / 1170 1130 / 1130
Output Total 135 / 135 25 / 25
Balance 1035 / 1035 1105 / 1105
Review of Systems
-
All other systems: Reviewed and negative
Physical Exam
-
General: Well Developed, Well Nourished and No Apparent Distress
HEENT: Normocephalic and Atraumatic
Cardiac: Regular Rhythm and S1/S2; Negative Murmur
GI: Soft, Nontender, Nondistended and Normal Bowel Sounds
Musculoskeletal: No Clubbing, No Cyanosis and No Edema
Skin: Other (right groin -- tremayne present--serosanguinous drainage)
--- NOTE | 2022-06-15 14:01 | W.PN.ID1 ---
Today's Communication
-
cultures
start zosyn
Assessment / Plan
-
Surgical site infection
Leukocytosis - persistent
ESRD on HD
Bladder Cancer
S/p embolization of kidneys 06/02/22
S/p repair right groin pseudoanuerysm 06/03/22
- surgical site culture obtained by me today
- blood cultures x2
- not recently colonized with s aureus, has been colonized with pseudomonas and e faecalis (amp sensitive)
- start zosyn - dosed for pseudomonas/HD
- follow plastics consultation - would likely benefit from washout if feasible given previous size of hematoma cavities
- follow clinically
Chief Complaint
-
Date of Service: June 15, 2022
-: Leukocytosis and Other (surgical site infection)
Subjective / Review of Systems
-
asked to reassess patient by Dr Stapleton for foul smelling drainage from the groin wound; plastics has also been consulted
Tmax 101 overnight - orally
BP stable
leukocytosis 21 yesterday, catina was 18.4 48 hours ago
resolved thrombocytosis
JPs removed 06/14
purulent drainage noted by vascular team today
06/03 op note re-reviewed: note that hematoma cavities were large enough that surgeon could place his entire hand in both cavities - there are sutures but no graft material
Vital Signs / Physical Exam
Vital Signs
Vital Signs
Temp Pulse Resp BP Pulse Ox
99.4 F 76 14 128/50 96
06/15/22 12:24 06/15/22 11:13 06/15/22 11:13 06/15/22 11:13 06/15/22 11:13
Physical Exam
Constitutional: No Acute Distress
Cardiovascular: Regular Rate and S1/S2; Negative Murmur or Rub
Pulmonary: Clear and Symmetric; Negative Wheezes or Rales
Gastrointestinal: Soft, Non Tender, Non Distended and Normal Bowel Sounds
Skin: Warm and Dry; Negative Rash or Jaundice
Wound: Other (copious, foul smelling, serosanguinous fluid draining from the surgical site, more easily expressed with light touch)
Objective Data
Lab Data
Lab Results
06/15/22 06:45
06/15/22 06:45
PT 17.0 Sec (11.4-14.6) H 06/03/22 23:38
INR 1.36 06/03/22 23:38
APTT 29.1 Sec (23.4-35.0) 06/03/22 23:38
Estimated Creat Clear 17 ml/min 06/15/22 06:45
Total Bilirubin 1.1 mg/dl (0.2-1.3) 06/14/22 05:26
AST 33 U/L (17-59) 06/14/22 05:26
ALT 23 U/L (0-50) 06/14/22 05:26
Alkaline Phosphatase 241 U/L (38-126) H 06/14/22 05:26
Most recent labs reviewed.
Micro Results:
06/03/22 09:33 Blood Culture - Final
Blood/Venous No Growth - Final Report
06/03/22 08:33 Blood Culture - Final
Blood/Venous No Growth - Final Report
05/28/22 08:40 Blood Culture - Final
Blood/Venous No Growth - Final Report
05/28/22 08:06 Blood Culture - Final
Blood/Venous No Growth - Final Report
05/28/22 11:17 Urine Culture - Final
Urine Pseudomonas aeruginosa
Care Review
-
Plan reviewed with: Physician (Dr Stapleton)
[2022-06-15 15:00] VITALS: BP 131/55
[2022-06-15] MEDS: ZOSYN 50 IV (15:46)
[2022-06-15 15:51] LABS: Glucose - Point of Care 207 mg/dl (65-99)
--- NOTE | 2022-06-15 16:14 | W.PN.NEPH.PH ---
Today's Communication / Plan
-
HD tomorrow
Assessment/Plan
-
Assessment:
Gross hematuria, recurrent
Bladder malignancy received one dose of chemotherapy (cisplatinum + ...)
TURBT April 04, 2022
ESRD (PD 2017; HD 2018)
Anemia, multifactorial
CABG x2 (ANN-LAD, SVG-ramus, on pump with right Endo vein harvest/sternal plate
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
Biopsy-proven focal sclerosis
Diabetes mellitus
Gout, chronic
Secondary hyperparathyroidism
History hypertension with relative hypotension
History morbid obesity
History sleep apnea on CPAP
Left arm AV fistula 2018
Pelvic adenopathy
Pulmonary nodules
Bilateral renal artery coil embolization June 02
Large pseudoaneurysm with tense hematoma right groin status post common femoral artery catheterization and repair June 03
Iron deficiency with�saturation 5%
Plan:
h/h stable
febrile now concern of surgical site infection
abx per ID , await cxs
-HD tomorrow
BP stable on low dose coreg
-
-
Date of Service: June 15, 2022
CC / HPI / ROS
-
Chief Complaint:�
Follow-up ESRD
History of Present Illness:�
Hgb low but stable
Status post right femoral bleed, urgent pseudoaneurysm repair June 03
Status post coil embolization of bilateral renal arteries June 02
BP stable
tolerated HD yesterday
Not requiring supplemental O2
fevers this am
persistent leucocytosis
Review of Systems:�
Weights gradually decreasing with UF/HD
No shortness of breath
No chest pain or pressure
Labs
-
Labs:
WBC 21.3 10^3/uL (4.8-10.8) H 06/15/22 06:45
RBC 2.42 10^6/uL (4.70-6.10) L 06/15/22 06:45
Hgb 7.6 g/dL (13.0-18.0) L 06/15/22 06:45
Hct 23.4 % (39.0-52.0) L 06/15/22 06:45
Plt Count 366 10^3/uL (130-400) 06/15/22 06:45
Sodium 130 mmol/L (135-145) L 06/15/22 06:45
Potassium 4.6 mmol/L (3.5-5.1) 06/15/22 06:45
Chloride 93 mmol/L (98-107) L 06/15/22 06:45
Carbon Dioxide 27 mmol/L (22-30) 06/15/22 06:45
BUN 64 mg/dl (9-20) H 06/15/22 06:45
Creatinine 4.4 mg/dL (0.7-1.3) H* 06/15/22 06:45
Glomerular Filtr Rate 13.0 06/15/22 06:45
Glucose 111 mg/dl (65-99) H 06/15/22 06:45
Calcium 8.7 mg/dl (8.4-10.2) 06/15/22 06:45
Phosphorus 4.1 mg/dl (2.5-4.5) 06/09/22 12:11
Albumin 2.9 g/dl (3.5-5.0) L 06/14/22 05:26
Physical Exam
-
Vital Signs:
Vital Signs
Temp Pulse Resp BP Pulse Ox
99.9 F 75 16 131/55 98
06/15/22 15:00 06/15/22 15:00 06/15/22 15:00 06/15/22 15:00 06/15/22 15:00
Cardiovascular:: Regular rate and rhythm
Respiratory:: Bilateral: CTA
Lung Excursion:: Normal
Abdomen:: Nontender and Soft
Extremity Edema:: +1: Bilateral: (chronic)
Carey Catheter: No
--- NOTE | 2022-06-15 17:47 | CON.PS ---
Consultation - Plastic Surgery
Consultation Request
Date/Time Consultation Requested: 06/15/22
Performing Provider: TYSON Lewis MD
Reason for Consultation: Right groin wound
Medical History
-
History of Present Illness:
81yoM multiple comorbid, ESRD on dialysis, underwent renal artery embolization c/b right groin pseudoaneurysm and hematoma now with draining groin wound
Drains were placed at the time of hematoma washout and were subsequently removed.
Urine previously grew pseudomonas, completed abx therapy
Past Medical History
Past Medical History: Cancer and Renal Failure
Past Surgical History: Other
Allergies / Home Medications
Allergy/AdvReac Type Severity Reaction Status Date / Time
linagliptin [From Tradjenta] Allergy kidney Verified 05/26/22 16:49
problems
pioglitazone [From Actos] Allergy kidney Verified 05/26/22 16:49
failure
poison vivian extract Allergy 'nasty' Verified 05/26/22 16:49
rash
Medication Instructions Recorded Confirmed Type
ascorbic acid (vitamin C) 1,000 mg 1,000 mg PO DAILY Supplement 09/20/18 05/26/22 History
tablet (Vitamin C)
cholecalciferol (vitamin D3) 50 2,000 unit PO DAILY Supplement 09/20/18 05/26/22 History
mcg (2,000 unit) capsule (Vitamin
D3)
cyanocobalamin (vitamin B-12) 1,000 mcg PO DAILY Supplement 09/20/18 05/26/22 History
1,000 mcg tablet
multivitamin 1 ea PO DAILY Supplement 06/29/20 05/26/22 History
pantoprazole 40 mg tablet,delayed 40 mg PO BID Gastrointestinal issue 05/20/21 05/26/22 History
release
carvedilol 6.25 mg tablet 6.25 mg PO BID 05/30/21 05/26/22 Rx
hydralazine 25 mg tablet 25 mg PO BID Blood pressure 03/31/22 05/26/22 History
lisinopril 5 mg tablet 5 mg PO DAILY Blood pressure 03/31/22 05/26/22 History
vit B complx, C-iron 8 mg-folic 1 tab PO MOWEFR Supplement 03/31/22 05/26/22 History
acid 800 mcg-D3 1,000 unit-zinc
tablet (ProRenal)
cinacalcet 30 mg tablet 30 mg PO SUTUTHSA Kidney Disease 04/04/22 05/26/22 History
allopurinol 100 mg tablet 200 mg PO DAILY Gout 04/18/22 05/26/22 History
aspirin 81 mg chewable tablet 81 mg PO DAILY Blood clot 04/19/22 05/26/22 History
prevention/tx
acetaminophen 325 mg tablet 650 mg PO Q6HPRN PRN mild 05/08/22 05/26/22 History
pain/BARBA/fever
atorvastatin 80 mg tablet 80 mg PO HS High cholesterol 05/08/22 05/26/22 History
sevelamer carbonate 800 mg tablet 3,200 mg PO AC Kidney Disease 05/08/22 05/26/22 History
ezetimibe 10 mg tablet 10 mg PO DAILY High cholesterol 05/26/22 05/26/22 History
Physical Exam
Vital Signs
Temp 99.9 F 06/15/22 15:00
Temp route: Oral 06/15/22 15:00
Pulse 75 06/15/22 15:00
Rhythm: Normal sinus rhythm 06/14/22 20:20
With- 06/14/22 20:20
Resp Rate 16 06/15/22 15:00
Blood pressure 131/55 06/15/22 15:00
Blood pressure extremity used: Right upper arm 06/15/22 15:00
Position: Lying 06/15/22 15:00
MAP (cuff-Gianluca Monitor) 73 06/08/22 08:00
MAP 80 05/26/22 20:40
SaO2 98 06/15/22 15:00
Nasal Cannula flow liters per minute 1 06/01/22 19:47
Oxygen Mode of Delivery Room air 06/15/22 15:00
Other oxygen comment CPAP removed from pt when assesing oral temp 05/27/22 21:58
Oxygen Mode of Delivery: Room air 06/03/22 19:30
Flow liters per minute # 6 06/01/22 17:10
Pulse Ox at Rest 97 06/14/22 12:47
Can the patient verbally communicate their pain? Yes 06/15/22 10:00
Pain scale rating: Asleep 06/14/22 20:59
Arterial Systolic Pressure 140 06/04/22 14:00
Arterial Diastolic Pressure 50 06/04/22 14:00
MAP (U-Txdq-Vydnhvg Monitor) 80 06/04/22 14:00
Actual Weight 264 lb 2 oz 06/15/22 05:31
Body Mass Index (BMI) 36.9 06/15/22 05:31
Supine- Blood Pressure 120/49 06/09/22 10:02
Supine- Pulse 75 06/09/22 10:02
Sitting- Blood Pressure 112/49 06/13/22 11:48
Sitting- Pulse 65 06/14/22 12:47
Heart rate after activity 81 06/09/22 10:02
Blood pressure after activity 126/57 06/10/22 09:20
Oxygen Saturation with Activity 96 06/09/22 10:02
PEX:
NAD
No increased WOB
Alert and interactive
Daughter at bedside
Abdominal pannus and anterior thigh skin excess, diffusely edematous
Right groin with surgical incision with tremayne and sutures in place
Full thickness necrosis of skin at distal-mid portion of wound
No gross purulence
High volume thin fluid drainage
Smell and color staining of dressings c/g pseudomonas colonization
Lab Results
06/15/22 06:45
06/15/22 06:45
Assessment / Plan
-
81yoM multiple comorbid, ESRD on dialysis, underwent renal artery embolization c/b right groin pseudoaneurysm and hematoma now with draining groin wound
-After obtaining consent from the patient, his daughter and his , sutures and tremayne in the area of devitalized necrotic tissue of the right groin were removed. The necrotic tissues was also selectively excised with a scissor. A large cavity
was encountered below. This pocket was packed with dry kerlix gauze. ABD pads were applied over. He tolerated it well.
-Recommend wound care consultation with the following recommendations
-Minimum three times daily packing of right groin with Dakins solution. Consider q6h for saturation.
-ABDs applied throughout groin crease
-Overall, he is not septic from his groin wound and there is no gross purulence. Necrotic tissue appears limited to the superficial at this time. Mainstays of wound care will be packing the open wound and fluid control. Dakins is necessary to treat
presumed psuedomonas given positive urine cultures, color of saturated dressings, and smell.
-Consideration of vac therapy only after evidence of healthy progression of wound with local wound care. Obtaining a seal may be difficult
[2022-06-15 19:00] VITALS: BP 124/57
[2022-06-15] MEDS: ROXICODONE 5 MG PO (19:16)
--- NOTE | 2022-06-15 19:59 | PTCARENOTE ---
Pt with foul smelling drainage from groin wounds and copious amounts of reddish brown fluid. Dr. De La O examined patient, rt groin wound cleansed and dressed, see flowsheet for assessment and Dr. De La O note. Throughout the day, gauze and abds changed out
and wound cleansed. Rt groin culture collected and sent, Zosyn administered. Tmax 99.0 today. Plastic surgeon addressed wound, see note. Area currently d/i. Pt tearful throughout the day, emotional support given. INC of bm x1, hygiene done with bed
change. x1 BM on BSC today. Appetite good. Fluid restriction in progress. Pain addressed. Call davidson within reach. Will continue to monitor.
[2022-06-15 21:19] LABS: Glucose - Point of Care 220 mg/dl (65-99)
[2022-06-15] MEDS: LIPITOR 80 MG PO (21:33)
[2022-06-15 23:00] VITALS: BP 118/54
[2022-06-16] VITALS (7 sets, daily range): BP systolic 96–125; BP diastolic 43–56; PULSE 71–72; O2SAT 93–94; BMI 37.6
[2022-06-16] MEDS: FLUSH (NSS) 2 FLUSH IV (00:05)
[2022-06-16] MEDS: ZOSYN 50 IV ×3 (00:05→16:55)
[2022-06-16] MEDS: DAKIN'S SOLUTION 0.25% 1/2 STRENGTH 473 ML TOPICAL ×2 (00:27→22:19)
--- NOTE | 2022-06-16 04:29 | PTCARENOTE ---
Patient more alert and agreeable to care tonight. Daughter at bedside and encouraged participation and cooperation with care. Complete bed bath and linen change done. Skin folds thoroughly cleaned and dried and Desenex powder applied. Discussed
keeping area clean and dry to protect open wound. Patient verbalized understanding. Daughter expressed concern over wound care and packing changes as she had discussed with Dr Lewis. No new dressing orders noted. Order for wound care obtained
by CORRIE covering house. Wound care and packing done as ordered. Outer ABD pad noted to have strong odor and increased drainage with activity. Outer dressing changed x 2 so far this shift but has small amount of drainage at this time. Patient is
afebrile this shift. IV ABX as ordered.
[2022-06-16 07:09] LABS: Glucose - Point of Care 125 mg/dl (65-99)
[2022-06-16] MEDS: NOVOLOG FLEXPEN-MODERATE RESISTANCE SC ×2 (07:57→16:48)
[2022-06-16] MEDS: RENVELA 3200 MG PO ×3 (08:09→16:56)
[2022-06-16] MEDS: MIRALAX PO (08:09)
[2022-06-16] MEDS: VITAMIN B-12 1000 MCG PO (08:10)
[2022-06-16] MEDS: ZETIA 10 MG PO (08:10)
[2022-06-16] MEDS: THERAGRAN 1 TABLET PO (08:10)
[2022-06-16] MEDS: ZYLOPRIM 100 MG PO (08:10)
[2022-06-16] MEDS: PROTONIX 40 MG PO ×2 (08:10→22:17)
[2022-06-16] MEDS: VITAMIN D3 (cholecalciferol) 2000 UNITS PO (08:10)
[2022-06-16] MEDS: DESENEX/MITRAZOL/ZEASORB 1 APPLIC TOPICAL ×2 (08:10→22:18)
[2022-06-16] MEDS: VITAMIN C 1000 MG PO (08:10)
[2022-06-16] MEDS: DAKIN'S SOLUTION 0.25% 1/2 STRENGTH 1 ML TOPICAL (08:11)
[2022-06-16] MEDS: HYDROPHOR 1 APPLIC TOPICAL (08:11)
--- NOTE | 2022-06-16 09:04 | W.PN.ID1 ---
Today's Communication
-
continue zosyn
Assessment / Plan
-
Surgical site infection
Leukocytosis - persistent
ESRD on HD
Bladder Cancer
S/p embolization of kidneys 06/02/22
S/p repair right groin pseudoanuerysm 06/03/22
- surgical site culture no growth to date - continue to follow
- blood cultures x2
- not recently colonized with s aureus, has been colonized with pseudomonas and e faecalis (amp sensitive)
- continue Zosyn - dosed for pseudomonas/HD
- appreciate plastics
- follow clinically
Chief Complaint
-
Date of Service: June 16, 2022
-: Leukocytosis and Other (surgical site infection)
Subjective / Review of Systems
-
no further fevers
BP stable
had beside debridement yesterday
declining leukocytosis
K 4.8
wound culture no growth to date, no organisms seen
Vital Signs / Physical Exam
Vital Signs
Vital Signs
Temp Pulse Resp BP Pulse Ox
98.8 F 75 16 113/54 94
06/16/22 07:30 06/16/22 07:30 06/16/22 07:30 06/16/22 07:30 06/16/22 07:30
Physical Exam
Constitutional: No Acute Distress
Cardiovascular: Regular Rate and S1/S2; Negative Murmur or Rub
Pulmonary: Clear and Symmetric; Negative Wheezes or Rales
Gastrointestinal: Soft, Non Tender, Non Distended and Normal Bowel Sounds
Skin: Warm and Dry; Negative Rash or Jaundice
Wound: Other (refused dressing take down 'they just did that!')
Objective Data
Lab Data
PT 17.0 Sec (11.4-14.6) H 06/03/22 23:38
INR 1.36 06/03/22 23:38
APTT 29.1 Sec (23.4-35.0) 06/03/22 23:38
Estimated Creat Clear 17 ml/min 06/15/22 06:45
Total Bilirubin 1.1 mg/dl (0.2-1.3) 06/14/22 05:26
AST 33 U/L (17-59) 06/14/22 05:26
ALT 23 U/L (0-50) 06/14/22 05:26
Alkaline Phosphatase 241 U/L (38-126) H 06/14/22 05:26
Most recent labs reviewed.
Micro Results:
06/15/22 14:20 Wound Culture - Preliminary
Groin - Right Gram Stain - Preliminary
06/15/22 15:34 Blood Culture - Pending
Blood/Venous
06/15/22 14:16 Blood Culture - Pending
Blood/Venous
06/03/22 09:33 Blood Culture - Final
Blood/Venous No Growth - Final Report
06/03/22 08:33 Blood Culture - Final
Blood/Venous No Growth - Final Report
05/28/22 08:40 Blood Culture - Final
Blood/Venous No Growth - Final Report
05/28/22 08:06 Blood Culture - Final
Blood/Venous No Growth - Final Report
05/28/22 11:17 Urine Culture - Final
Urine Pseudomonas aeruginosa
--- NOTE | 2022-06-16 09:14 | W.PN.VS ---
Addendum entered and electronically signed by Rinku Carey III, MD 06/16/22 10:40:
This patient was seen and examined with CORRIE Matos. I agree with the history and physical exam as well as the assessment and plan.
Appreciate plastics assistance with wound management
Continue packing and local wound care to the right groin
Signed:
Rinku Carey III, MD
[facility] Vascular Surgery
[phone] (cell)
Original Note:
Today's Communication / Plan
-
Patient seen and examined at bedside with Dr. Rinku Carey III, below plan reviewed with attending.
Assessment/Plan
-
POD 15 cystoscopy, fulguration of bladder
POD 14 Ultrasound-guided access right common femoral artery, abdominal aortogram, bilateral renal arteriography, bilateral transcatheter coil embolization of the renal arteries
POD 13 Emergent repair R [employer]ER[employer]IST pseudoaneurysm, evacuation hematoma
- Appreciate plastic surgery recommendations, wound care nurse consult placed. Please follow wound care orders laid out by Dr. Lewis.
- OOB/chair/ambulate
- PT/OT
- HD per nephrology
- IS
- Vascular surgery will sign off, please call with questions or concerns
Subjective Data
-
Date of Service: June 16, 2022
Patient seen and examined at bedside, offers no complaints. No acute events overnight.
Objective Data
-
Vital Signs
Temp Pulse Resp BP Pulse Ox
98.8 F 75 16 113/54 94
06/16/22 07:30 06/16/22 07:30 06/16/22 07:30 06/16/22 07:30 06/16/22 07:30
Intake and Output
06/15/22 06/16/22 06/17/22
06:59 06:59 06:59
Intake Total 1130 / 1130 1520 / 1520
Output Total
Balance 1105 / 1105 1520 / 1520
Intake:
Oral fluids 1020 / 1020 1440 / 1440
IV piggybacks 110 80 / 80
Output:
Drain Output (Total)
Right Lower Pelvis B
Right Pelvis Bruce-Allen A
Calcium 8.7 mg/dl (8.4-10.2) 06/15/22 06:45
Phosphorus 4.1 mg/dl (2.5-4.5) 06/09/22 12:11
Magnesium 2.3 mg/dl (1.6-2.3) 06/14/22 05:26
Total Bilirubin 1.1 mg/dl (0.2-1.3) 06/14/22 05:26
AST 33 U/L (17-59) 06/14/22 05:26
ALT 23 U/L (0-50) 06/14/22 05:26
Alkaline Phosphatase 241 U/L (38-126) H 06/14/22 05:26
Total Protein 5.7 g/dl (6.3-8.2) L 06/14/22 05:26
Albumin 2.9 g/dl (3.5-5.0) L 06/14/22 05:26
Physical Exam
-
AAOx3
Abdomen is soft, NT, ND, rotund
Right groin s/p debridement of necrotic tissue, remaining cavity CDI and Dakins solution soaked packing replaced
Bilateral feet warm
[2022-06-16 11:20] LABS: Glucose - Point of Care 254 mg/dl (65-99)
[2022-06-16] MEDS: EMLA CREAM 5 GRAM TOPICAL (11:22)
--- NOTE | 2022-06-16 11:23 | W.PN.HOSP.TC ---
Today's Communication/Plan
-
await drainage culture results
cont zosyn for now
apprec all consultants
Assessment / Plan
Assessment / Plan
pt is an 81 year old male
Hemorrhagic/hypovolemic shock 06/03/22--resolved--dropped HGB and BP on 06/03/22 and moved to ICU--CT scan showed LARGE hematoma right groin (had IR embolization of kidneys the day before 06/02/22)--US of right groin showed pseudoaneurysm leaking
blood--IR attempted to thrombinize but was unsuccessful, pt taken to OR by vascular for repair and hematoma evacuation --to date pt has received 8 units of pRBC (3 alone in OR). Hemoglobin improved -Per vascular, drains removed 06/15/22
infected right groin--cultures pending--apprec vascular--drains removed--apprec ID, will need to restart antibiotics with fever and increased WBC count (sepsis by definition although not septic)--apprec vascular and plastic surgery
Hematuria secondary to Bladder CA--apprec urology--had CBI and stopped---s/p OR 06/01/22 for cystoscopy and fulguration--s/p IR embolization of kidneys to stop urine 06/02/22--catheter removed on 06/05.
Acute Blood Loss Anemia on anemia of chronic disease-- due to hematuria and blood loss from pseudoaneurysm --s/p 8 units PRBCs--Monitor Hgb--apprec heme re-eval--no active bleeding noted
Pseudomonas UTI due related to indwelling watson catheter-catheter removed on 06/05. Antibiotics: Transition from cefepime to Cipro. Last day of Cipro was Jun 10
hypokalemia (prior to me assuming patient's care)-- pt on HD
Coronary Artery Disease s/p CABG in April 2021--Hold aspirin in setting of hematuria
Essential Hypertension--Continue Coreg, Hydralazine and Lisinopril. Blood pressure remains on the lower side while on current antihypertensive regimen. Monitor closely for symptomatic hypotension. Adjust accordingly.
Hyperlipidemia--Continue Lipitor and Zetia
Diabetes Mellitus, Type 2--Monitor sugars on AM labs
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
GERD--Continue Protonix
Gout--Continue allopurinol
DVT proph: SCDs
Code Status: DNR
Anticipated Discharge: > 48 hours
Subjective/Interval History
-
Date of Service: June 16, 2022
pt discouraged with setback--understandable
Objective Data
-
Labs:
Laboratory Results
06/16/22 06/16/22
11:13 11:13
WBC Pending
Hgb Pending
Hct Pending
Plt Count Pending
Sodium Pending
Potassium Pending
Chloride Pending
Carbon Dioxide Pending
BUN Pending
Creatinine Pending
Glucose Pending
Calcium Pending
Total Bilirubin Pending
AST Pending
ALT Pending
Alkaline Phosphatase Pending
Vital Signs:
max temp for 24 hours
06/15/22
15:00
Temp 99.9 F
Vital Signs
Temp Pulse Resp BP Pulse Ox
98.8 F 75 16 113/54 94
06/16/22 07:30 06/16/22 07:30 06/16/22 07:30 06/16/22 07:30 06/16/22 07:30
I&O
06/15/22 06/16/22 06/17/22
06:59 06:59 06:59
Intake Total 1130 / 1130 1520 / 1520
Output Total 25 / 25
Balance 1105 / 1105 1520 / 1520
Review of Systems
-
All other systems: Reviewed and negative
Physical Exam
-
General: Well Developed, Well Nourished, No Apparent Distress and Obese
HEENT: Normocephalic and Atraumatic
Respiratory: Clear to Auscultation; Negative Wheezes or Rhonchi
Cardiac: Regular Rhythm and S1/S2; Negative Murmur
GI: Soft, Nontender, Nondistended and Normal Bowel Sounds
Musculoskeletal: No Clubbing, No Cyanosis and No Edema
Skin: Warm
Neuro: Awake
Psych: Calm and Depressed
[2022-06-16] MEDS: NOVOLOG FLEXPEN-MODERATE RESISTANCE 5 UNITS SC (11:24)
--- NOTE | 2022-06-16 11:24 | CM ---
Patient seen at bedside with physician, updated at room. Patient plan continues to be going home with family support and [facility]. Patient and family decline SNF and have no interest at all in reviewing possible SNF options. Patient sad about
need for further wound care. Physician discussed with plan for taking patient in wheelchair off of floor. CM will continue to follow for discharge planning needs.
Plan; home with family and VN/aides
[2022-06-16] MEDS: COREG PO (12:07)
[2022-06-16] MEDS: FEOSOL 325 MG PO (12:33)
[2022-06-16] MEDS: MANNITOL 12.5 GRAMS IV ×2 (12:45→14:20)
[2022-06-16] MEDS: RETACRIT 10000 UNITS IV (12:48)
[2022-06-16] MEDS: FLEXBUMIN 25% FOR HEMODIALYSIS 12.5 GRAMS IV ×2 (12:49→14:20)
[2022-06-16 12:54] LABS: Hematocrit 23.3 % (39.0-52.0); Hemoglobin 7.4 g/dL (13.0-18.0); Mean Corp Hgb Conc. 31.8 g/dL (33.0-37.0); Mean Corpuscular Hgb 31.5 pg (27.0-31.0); Mean Corpuscular Volume 99.1 fL (80.0-94.0); Mean Platelet Volume 10.7 fL (7.4-10.4); Platelet Count 340 10^3/uL (130-400); Red Blood Cell Count 2.35 10^6/uL (4.70-6.10); Red Cell Dist. Width 18.5 % (11.5-14.5); White Blood Cell Count 16.4 10^3/uL (4.8-10.8)
[2022-06-16 13:47] LABS: ALT (SGPT) 22 U/L (0-50); AST (SGOT) 27 U/L (17-59); Albumin 2.8 g/dl (3.5-5.0); Alkaline Phosphatase 232 U/L (38-126); Blood Urea Nitrogen 85 mg/dl (9-20); Calcium 8.7 mg/dl (8.4-10.2); Carbon Dioxide 25 mmol/L (22-30); Chloride 91 mmol/L (98-107); Glucose 189 mg/dl (65-99); Magnesium 2.3 mg/dl (1.6-2.3); Potassium 4.8 mmol/L (3.5-5.1); Sodium 128 mmol/L (135-145); Total Bilirubin 0.8 mg/dl (0.2-1.3); Total Protein 5.5 g/dl (6.3-8.2)
[2022-06-16 13:48] LABS: Estimated Creatinine Clearance 13 ml/min; Glomerular Filtration Rate 9.2
--- NOTE | 2022-06-16 14:10 | W.PN.NEPH.HD ---
Assessment
-
seen on HD. no complaints. VSS, access ok
Progress Note - Hemodialysis
-
Date of Service: June 16, 2022
Duration: 4 hours
Potassium Bath: 2
Calcium Bath: 2.5
Opti-Dialyzer: 160
Ultrafiltration: Other (2kg)
Blood Flow: 400
Dialysate Flow: 600
Heparin: no
EPO: [id number] units
--- NOTE | 2022-06-16 14:19 | WOUNDNOTE ---
Josue JIMENEZ WITH PHOTO FLASH
--- NOTE | 2022-06-16 14:31 | WOUNDNOTE ---
WON RN NOTE: Followed up today regarding R groin. Reviewed Dr. Lewis's note regarding bedside evacuation of hematoma to R groin. Agree with recommended dressing changes using Dakin's wet to dry TID. Patient tolerated procedure well without pain.
Few tremayne remain intact proximally, no odor or purulent drainage. Heels intact, pillow placed under calves. Unable to assess sacrum, patient currently getting dialysis. Skin on area of old ERICK site that was removed is intact. Will follow as needed.
[2022-06-16 16:42] LABS: Glucose - Point of Care 106 mg/dl (65-99)
[2022-06-16] MEDS: TYLENOL 650 MG PO (17:43)
[2022-06-16 21:45] LABS: Glucose - Point of Care 257 mg/dl (65-99)
[2022-06-16] MEDS: COREG 6.25 MG PO (22:17)
[2022-06-16] MEDS: LIPITOR 80 MG PO (22:17)
[2022-06-17] VITALS (7 sets, daily range): BP systolic 117–146; BP diastolic 47–67; BMI 36.6
[2022-06-17] MEDS: ZOSYN 50 IV ×4 (00:12→23:56)
[2022-06-17] MEDS: TYLENOL 650 MG PO ×3 (01:43→18:30)
[2022-06-17 04:48] LABS: Hematocrit 23.5 % (39.0-52.0); Hemoglobin 7.5 g/dL (13.0-18.0); Mean Corp Hgb Conc. 31.9 g/dL (33.0-37.0); Mean Corpuscular Hgb 31.8 pg (27.0-31.0); Mean Corpuscular Volume 99.6 fL (80.0-94.0); Mean Platelet Volume 10.6 fL (7.4-10.4); Platelet Count 324 10^3/uL (130-400); Red Blood Cell Count 2.36 10^6/uL (4.70-6.10); Red Cell Dist. Width 18.8 % (11.5-14.5); White Blood Cell Count 13.6 10^3/uL (4.8-10.8)
[2022-06-17 05:29] LABS: Blood Urea Nitrogen 48 mg/dl (9-20); Calcium 8.8 mg/dl (8.4-10.2); Carbon Dioxide 28 mmol/L (22-30); Chloride 96 mmol/L (98-107); Estimated Creatinine Clearance 22 ml/min; Glomerular Filtration Rate 16.9; Glucose 100 mg/dl (65-99); Potassium 4.3 mmol/L (3.5-5.1); Sodium 136 mmol/L (135-145)
[2022-06-17 07:26] LABS: Glucose - Point of Care 129 mg/dl (65-99)
[2022-06-17] MEDS: NOVOLOG FLEXPEN-MODERATE RESISTANCE SC (07:30)
[2022-06-17] MEDS: RENVELA 3200 MG PO ×3 (08:42→16:41)
[2022-06-17] MEDS: PROTONIX 40 MG PO ×2 (08:42→20:51)
[2022-06-17] MEDS: VITAMIN C 1000 MG PO (08:42)
[2022-06-17] MEDS: ZETIA 10 MG PO (08:42)
[2022-06-17] MEDS: VITAMIN B-12 1000 MCG PO (08:42)
[2022-06-17] MEDS: ZYLOPRIM 100 MG PO (08:42)
[2022-06-17] MEDS: VITAMIN D3 (cholecalciferol) 2000 UNITS PO (08:43)
[2022-06-17] MEDS: THERAGRAN 1 TABLET PO (08:43)
[2022-06-17] MEDS: DESENEX/MITRAZOL/ZEASORB 1 APPLIC TOPICAL ×2 (08:43→23:51)
[2022-06-17] MEDS: MIRALAX PO (08:43)
[2022-06-17] MEDS: COREG 6.25 MG PO ×2 (08:43→20:50)
[2022-06-17] MEDS: HYDROPHOR 1 APPLIC TOPICAL (08:44)
[2022-06-17] MEDS: DAKIN'S SOLUTION 0.25% 1/2 STRENGTH 1 ML TOPICAL ×2 (08:45→16:10)
--- NOTE | 2022-06-17 09:30 | W.PN.ID1 ---
Today's Communication
-
Continue Zosyn pending wound cx.
Assessment / Plan
-
Right groin surgical site infection
Leukocytosis - trending down
ESRD on HD
Bladder Cancer
S/p embolization of kidneys 06/02/22
S/p repair right groin pseudoaneurysm 06/03/22
s/p bedside evacuation of right groin hematoma
- surgical site culture pending
- blood cultures x2
- Urine has been colonized with pseudomonas and e faecalis (amp sensitive)
- continue Zosyn (d3) - dosed for pseudomonas/HD
- appreciate plastics
- follow clinically
Chief Complaint
-
Date of Service: June 17, 2022
-: Leukocytosis and Other (surgical site infection)
Subjective / Review of Systems
-
No new complaints. No groin pain.
Vital Signs / Physical Exam
Vital Signs
Vital Signs
Temp Pulse Resp BP Pulse Ox
98.2 F 84 17 135/58 96
06/17/22 07:18 06/17/22 08:43 06/17/22 07:18 06/17/22 08:43 06/17/22 07:18
Physical Exam
Constitutional: No Acute Distress
Gastrointestinal: Soft, Non Tender and Non Distended
Wound: Other (Right groin dressing dry, no odor. 06/16/2022 wound photo reviewed. )
Objective Data
Lab Data
Lab Results
06/17/22 03:08
06/17/22 03:08
PT 17.0 Sec (11.4-14.6) H 06/03/22 23:38
INR 1.36 06/03/22 23:38
APTT 29.1 Sec (23.4-35.0) 06/03/22 23:38
Estimated Creat Clear 22 ml/min 06/17/22 03:08
Total Bilirubin 0.8 mg/dl (0.2-1.3) 06/16/22 11:13
AST 27 U/L (17-59) 06/16/22 11:13
ALT 22 U/L (0-50) 06/16/22 11:13
Alkaline Phosphatase 232 U/L (38-126) H 06/16/22 11:13
Most recent labs reviewed.
Micro Results:
06/15/22 15:34 Blood Culture - Preliminary
Blood/Venous No Growth in 24 hours- Final report to follow
06/15/22 14:16 Blood Culture - Preliminary
Blood/Venous No Growth in 24 hours- Final report to follow
06/15/22 14:20 Wound Culture - Preliminary
Groin - Right Gram Stain - Preliminary
06/03/22 09:33 Blood Culture - Final
Blood/Venous No Growth - Final Report
06/03/22 08:33 Blood Culture - Final
Blood/Venous No Growth - Final Report
05/28/22 08:40 Blood Culture - Final
Blood/Venous No Growth - Final Report
05/28/22 08:06 Blood Culture - Final
Blood/Venous No Growth - Final Report
05/28/22 11:17 Urine Culture - Final
Urine Pseudomonas aeruginosa
[2022-06-17] MEDS: SENSIPAR 30 MG PO (09:31)
--- NOTE | 2022-06-17 09:57 | W.PN.HOSP.TC ---
Today's Communication/Plan
-
cont ABX
await vascular/plastic input re: d/c
will transfuse 1 unit pRBC today
Assessment / Plan
Assessment / Plan
pt is an 81 year old male
Hemorrhagic/hypovolemic shock 06/03/22--resolved--dropped HGB and BP on 06/03/22 and moved to ICU--CT scan showed LARGE hematoma right groin (had IR embolization of kidneys the day before 06/02/22)--US of right groin showed pseudoaneurysm leaking
blood--IR attempted to thrombinize but was unsuccessful, pt taken to OR by vascular for repair and hematoma evacuation --to date pt has received 8 units of pRBC (3 alone in OR). Hemoglobin improved -Per vascular, drains removed 06/15/22
infected right groin--cultures neg--apprec vascular--drains removed--apprec ID, zosyn restarted with fever and increased WBC count improving (sepsis by definition although pt not septic)--apprec vascular and plastic surgery
Hematuria secondary to Bladder CA--apprec urology--had CBI and stopped---s/p OR 06/01/22 for cystoscopy and fulguration--s/p IR embolization of kidneys to stop urine 06/02/22--catheter removed on 06/05.
Acute Blood Loss Anemia on anemia of chronic disease along with iron deficiency-- due to hematuria and blood loss from pseudoaneurysm --s/p 8 units PRBCs--Monitor Hgb--apprec heme re-eval--no active bleeding noted--transfuse another unit now--iron
per heme
Pseudomonas UTI due related to indwelling watson catheter-catheter removed on 06/05. Antibiotics: Transition from cefepime to Cipro. Last day of Cipro was Jun 10
hypokalemia (prior to me assuming patient's care)-- pt on HD
Coronary Artery Disease s/p CABG in April 2021--Hold aspirin in setting of hematuria
Essential Hypertension--Continue Coreg, Hydralazine and Lisinopril. Blood pressure remains on the lower side while on current antihypertensive regimen. Monitor closely for symptomatic hypotension. Adjust accordingly.
Hyperlipidemia--Continue Lipitor and Zetia
Diabetes Mellitus, Type 2--Monitor sugars on AM labs
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
GERD--Continue Protonix
Gout--Continue allopurinol
DVT proph: SCDs
Code Status: DNR
Anticipated Discharge: > 48 hours
Subjective/Interval History
-
Date of Service: June 17, 2022
pt without c/o
Objective Data
-
Labs:
Laboratory Results
06/17/22 06/17/22
03:08 03:08
WBC 13.6 H
Hgb 7.5 L
Hct 23.5 L
Plt Count 324
Sodium 136 D
Potassium 4.3
Chloride 96 L
Carbon Dioxide 28
BUN 48 H
Creatinine 3.5 H
Glucose 100 H
Calcium 8.8
Vital Signs:
max temp for 24 hours
06/16/22
23:28
Temp 98.6 F
Vital Signs
Temp Pulse Resp BP Pulse Ox
98.2 F 84 17 135/58 96
06/17/22 07:18 06/17/22 08:43 06/17/22 07:18 06/17/22 08:43 06/17/22 07:18
I&O
06/16/22 06/17/22 06/18/22
06:59 06:59 06:59
Intake Total 1520 / 1520 1430 / 1430
Balance 1520 / 1520 1430 / 1430
Review of Systems
-
All other systems: Reviewed and negative
Physical Exam
-
General: Well Developed, Well Nourished, No Apparent Distress and Morbidly Obese
HEENT: Normocephalic and Atraumatic
Respiratory: Clear to Auscultation; Negative Wheezes or Rhonchi
Cardiac: Regular Rhythm and S1/S2; Negative Murmur
GI: Soft, Nontender, Nondistended and Normal Bowel Sounds
Genito-urinary: Other (right groin with LARGE deep open wound (getting packing now))
Musculoskeletal: No Clubbing, No Cyanosis and No Edema
Skin: Warm
Neuro: Awake
Psych: Calm
[2022-06-17 11:52] LABS: Glucose - Point of Care 202 mg/dl (65-99)
--- NOTE | 2022-06-17 12:14 | W.PN.NEPH.PH ---
Today's Communication / Plan
-
liberalize diet
Assessment/Plan
-
Assessment:
Gross hematuria, recurrent
Bladder malignancy received one dose of chemotherapy (cisplatinum + ...)
TURBT April 04, 2022
ESRD (PD 2017; HD 2018)
Anemia, multifactorial
CABG x2 (ANN-LAD, SVG-ramus, on pump with right Endo vein harvest/sternal plate
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
Biopsy-proven focal sclerosis
Diabetes mellitus
Gout, chronic
Secondary hyperparathyroidism
History hypertension with relative hypotension
History morbid obesity
History sleep apnea on CPAP
Left arm AV fistula 2018
Pelvic adenopathy
Pulmonary nodules
Bilateral renal artery coil embolization June 02
Large pseudoaneurysm with tense hematoma right groin status post common femoral artery catheterization and repair June 03
Iron deficiency with�saturation 5%
Plan:
HD sunday
for transfusion PRBC
liberalize diet
-
-
Date of Service: June 17, 2022
CC / HPI / ROS
-
Chief Complaint:�
Follow-up ESRD
History of Present Illness:�
Status post right femoral bleed, urgent pseudoaneurysm repair June 03
Status post coil embolization of bilateral renal arteries June 02
BP stable
tolerated HD yesterday
leucocytosis improving
Hgb remains low 7.5
Review of Systems:�
Weights gradually decreasing with UF/HD
No shortness of breath
No chest pain or pressure
Labs
-
Labs:
WBC 13.6 10^3/uL (4.8-10.8) H 06/17/22 03:08
RBC 2.36 10^6/uL (4.70-6.10) L 06/17/22 03:08
Hgb 7.5 g/dL (13.0-18.0) L 06/17/22 03:08
Hct 23.5 % (39.0-52.0) L 06/17/22 03:08
Plt Count 324 10^3/uL (130-400) 06/17/22 03:08
Sodium 136 mmol/L (135-145) D 06/17/22 03:08
Potassium 4.3 mmol/L (3.5-5.1) 06/17/22 03:08
Chloride 96 mmol/L (98-107) L 06/17/22 03:08
Carbon Dioxide 28 mmol/L (22-30) 06/17/22 03:08
BUN 48 mg/dl (9-20) H 06/17/22 03:08
Creatinine 3.5 mg/dL (0.7-1.3) H 06/17/22 03:08
Glomerular Filtr Rate 16.9 06/17/22 03:08
Glucose 100 mg/dl (65-99) H 06/17/22 03:08
Calcium 8.8 mg/dl (8.4-10.2) 06/17/22 03:08
Phosphorus 4.1 mg/dl (2.5-4.5) 06/09/22 12:11
Albumin 2.8 g/dl (3.5-5.0) L 06/16/22 11:13
Physical Exam
-
Vital Signs:
Vital Signs
Temp Pulse Resp BP Pulse Ox
98.2 F 84 17 135/58 96
06/17/22 07:18 06/17/22 08:43 06/17/22 07:18 06/17/22 08:43 06/17/22 07:18
Cardiovascular:: Regular rate and rhythm
Respiratory:: Bilateral: Coarse
Lung Excursion:: Normal
Abdomen:: Nontender and Soft
Bowel Sounds:: Normal
Extremity Edema:: None: Bilateral:
[2022-06-17] MEDS: NOVOLOG FLEXPEN-MODERATE RESISTANCE 3 UNITS SC (12:17)
--- NOTE | 2022-06-17 16:10 | PTCARENOTE ---
Patient received 1unit PRBCs, no reactions noted. Patient resting comfortably in bed. VSS.
[2022-06-17 16:31] LABS: Glucose - Point of Care 170 mg/dl (65-99)
[2022-06-17] MEDS: NOVOLOG FLEXPEN-MODERATE RESISTANCE 1 UNITS SC (17:49)
[2022-06-17] MEDS: COLACE 100 MG PO (20:50)
[2022-06-17] MEDS: LIPITOR 80 MG PO (20:51)
[2022-06-17] MEDS: ZOSYN IV (20:51)
[2022-06-17 21:41] LABS: Glucose - Point of Care 205 mg/dl (65-99)
[2022-06-17] MEDS: DAKIN'S SOLUTION 0.25% 1/2 STRENGTH 473 ML TOPICAL (23:53)
[2022-06-18] MEDS: TYLENOL 650 MG PO ×2 (00:41→09:43)
[2022-06-18 06:33] LABS: Hematocrit 25.8 % (39.0-52.0); Hemoglobin 8.3 g/dL (13.0-18.0); Mean Corp Hgb Conc. 32.2 g/dL (33.0-37.0); Mean Corpuscular Hgb 31.8 pg (27.0-31.0); Mean Corpuscular Volume 98.9 fL (80.0-94.0); Mean Platelet Volume 10.6 fL (7.4-10.4); Platelet Count 298 10^3/uL (130-400); Red Blood Cell Count 2.61 10^6/uL (4.70-6.10); Red Cell Dist. Width 18.4 % (11.5-14.5); White Blood Cell Count 14.8 10^3/uL (4.8-10.8)
[2022-06-18 07:00] VITALS: BP 120/54
[2022-06-18 07:16] LABS: Glucose - Point of Care 139 mg/dl (65-99)
[2022-06-18] MEDS: RENVELA 3200 MG PO ×3 (08:28→16:52)
[2022-06-18] MEDS: NOVOLOG FLEXPEN-MODERATE RESISTANCE SC (08:28)
[2022-06-18] MEDS: ZOSYN 50 IV (08:28)
[2022-06-18] MEDS: COREG 6.25 MG PO ×2 (08:29→20:45)
[2022-06-18] MEDS: THERAGRAN 1 TABLET PO (08:29)
[2022-06-18] MEDS: ZYLOPRIM 100 MG PO (08:29)
[2022-06-18] MEDS: PROTONIX 40 MG PO ×2 (08:29→20:45)
[2022-06-18] MEDS: VITAMIN C 1000 MG PO (08:29)
[2022-06-18] MEDS: DESENEX/MITRAZOL/ZEASORB 1 APPLIC TOPICAL ×2 (08:29→22:16)
[2022-06-18] MEDS: VITAMIN B-12 1000 MCG PO (08:29)
[2022-06-18] MEDS: COLACE 100 MG PO ×2 (08:29→20:45)
[2022-06-18] MEDS: ZETIA 10 MG PO (08:29)
[2022-06-18] MEDS: VITAMIN D3 (cholecalciferol) 2000 UNITS PO (08:29)
[2022-06-18] MEDS: HYDROPHOR 1 APPLIC TOPICAL (08:30)
[2022-06-18] MEDS: DAKIN'S SOLUTION 0.25% 1/2 STRENGTH 1 ML TOPICAL ×2 (08:31→15:45)
[2022-06-18] MEDS: SENSIPAR 30 MG PO (08:32)
--- NOTE | 2022-06-18 10:24 | W.PN.NEPH.PH ---
Today's Communication / Plan
-
HD tomorrow
Assessment/Plan
-
Assessment:
Gross hematuria, recurrent
Bladder malignancy received one dose of chemotherapy (cisplatinum + ...)
TURBT April 04, 2022
ESRD (PD 2017; HD 2018)
Anemia, multifactorial
CABG x2 (ANN-LAD, SVG-ramus, on pump with right Endo vein harvest/sternal plate
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
Biopsy-proven focal sclerosis
Diabetes mellitus
Gout, chronic
Secondary hyperparathyroidism
History hypertension with relative hypotension
History morbid obesity
History sleep apnea on CPAP
Left arm AV fistula 2018
Pelvic adenopathy
Pulmonary nodules
Bilateral renal artery coil embolization June 02
Large pseudoaneurysm with tense hematoma right groin status post common femoral artery catheterization and repair June 03
Iron deficiency with�saturation 5%
Plan:
HD tomorrow
for transfusion PRBC prn
liberalize diet more
-
-
Date of Service: June 18, 2022
CC / HPI / ROS
-
Chief Complaint:�
Follow-up ESRD
History of Present Illness:�
Status post right femoral bleed, urgent pseudoaneurysm repair June 03
Status post coil embolization of bilateral renal arteries June 02
BP stable
tolerated HD sunday
leucocytosis improving overall
Review of Systems:�
Weights gradually decreasing with UF/HD
No shortness of breath
No chest pain or pressure
Labs
-
Labs:
WBC 14.8 10^3/uL (4.8-10.8) H 06/18/22 05:12
RBC 2.61 10^6/uL (4.70-6.10) L 06/18/22 05:12
Hgb 8.3 g/dL (13.0-18.0) L 06/18/22 05:12
Hct 25.8 % (39.0-52.0) L 06/18/22 05:12
Plt Count 298 10^3/uL (130-400) 06/18/22 05:12
Sodium 136 mmol/L (135-145) D 06/17/22 03:08
Potassium 4.3 mmol/L (3.5-5.1) 06/17/22 03:08
Chloride 96 mmol/L (98-107) L 06/17/22 03:08
Carbon Dioxide 28 mmol/L (22-30) 06/17/22 03:08
BUN 48 mg/dl (9-20) H 06/17/22 03:08
Creatinine 3.5 mg/dL (0.7-1.3) H 06/17/22 03:08
Glomerular Filtr Rate 16.9 06/17/22 03:08
Glucose 100 mg/dl (65-99) H 06/17/22 03:08
Calcium 8.8 mg/dl (8.4-10.2) 06/17/22 03:08
Phosphorus 4.1 mg/dl (2.5-4.5) 06/09/22 12:11
Albumin 2.8 g/dl (3.5-5.0) L 06/16/22 11:13
Physical Exam
-
Vital Signs:
Vital Signs
Temp Pulse Resp BP Pulse Ox
97.6 F 67 18 120/54 100
06/18/22 07:00 06/18/22 08:29 06/18/22 07:00 06/18/22 08:29 06/18/22 07:00
Cardiovascular:: Regular rate and rhythm
Respiratory:: Bilateral: Coarse
Lung Excursion:: Normal
Abdomen:: Nontender and Soft
Bowel Sounds:: Normal
Extremity Edema:: None: Bilateral:
--- NOTE | 2022-06-18 10:27 | W.PN.HOSP.TC ---
Today's Communication/Plan
-
need to finalize definitive plans re: further surgery/wound vac to right groin
need to determine ABX choice for d/c
d/c planning to home
Assessment / Plan
Assessment / Plan
pt is an 81 year old male
Hemorrhagic/hypovolemic shock 06/03/22--resolved--dropped HGB and BP on 06/03/22 and moved to ICU--CT scan showed LARGE hematoma right groin (had IR embolization of kidneys the day before 06/02/22)--US of right groin showed pseudoaneurysm leaking
blood--IR attempted to thrombinize but was unsuccessful, pt taken to OR by vascular for repair and hematoma evacuation --to date pt has received 9 units of pRBC (3 alone in OR). Hemoglobin improved -Per vascular, drains removed 06/15/22
infected right groin--culture with enterococcus and diphtheroids --apprec vascular--drains removed--apprec ID, zosyn restarted with fever and increased WBC count improving (sepsis by definition although pt not septic)--apprec vascular and plastic
surgery--family tells me that more surgery planned for right groin but I do not see any definitive documentation re: more surgical interventions--await vascular input and await ID input re: ABX for d/c
Hematuria secondary to Bladder CA--apprec urology--had CBI and stopped---s/p OR 06/01/22 for cystoscopy and fulguration--s/p IR embolization of kidneys to stop urine 06/02/22--catheter removed on 06/05.
Acute Blood Loss Anemia on anemia of chronic disease along with iron deficiency-- due to hematuria and blood loss from pseudoaneurysm --s/p 9 units PRBCs--Monitor Hgb--apprec heme re-eval--no active bleeding noted--transfuse another unit now--iron
per heme
Pseudomonas UTI due related to indwelling watson catheter-catheter removed on 06/05. Antibiotics: Transition from cefepime to Cipro. Last day of Cipro was Jun 10
hypokalemia (prior to me assuming patient's care)-- pt on HD
Coronary Artery Disease s/p CABG in April 2021--Hold aspirin in setting of hematuria
Essential Hypertension--Continue Coreg, Hydralazine and Lisinopril. Blood pressure remains on the lower side while on current antihypertensive regimen. Monitor closely for symptomatic hypotension. Adjust accordingly.
Hyperlipidemia--Continue Lipitor and Zetia
Diabetes Mellitus, Type 2--Monitor sugars on AM labs
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
GERD--Continue Protonix
Gout--Continue allopurinol
DVT proph: SCDs
Code Status: DNR
Anticipated Discharge: > 48 hours
Subjective/Interval History
-
Date of Service: June 18, 2022
pt doing OK
Objective Data
-
Labs:
Laboratory Results
06/18/22
05:12
WBC 14.8 H
Hgb 8.3 L
Hct 25.8 L
Plt Count 298
Vital Signs:
max temp for 24 hours
06/17/22
16:02
Temp 98.3 F
06/15/22 14:20 Wound Culture - Preliminary
Groin - Right Gram Stain - Preliminary
Enterococcus species
Diptheroids
Vital Signs
Temp Pulse Resp BP Pulse Ox
97.6 F 67 18 120/54 100
06/18/22 07:00 06/18/22 08:29 06/18/22 07:00 06/18/22 08:29 06/18/22 07:00
I&O
06/17/22 06/18/22 06/19/22
06:59 06:59 06:59
Intake Total 1430 / 1430 1450 / 1450 70 / 70
Balance 1430 / 1430 1450 / 1450 70 / 70
Review of Systems
-
All other systems: Reviewed and negative
Physical Exam
-
General: Well Developed, Well Nourished and No Apparent Distress
HEENT: Normocephalic and Atraumatic
Respiratory: Clear to Auscultation; Negative Wheezes or Rhonchi
Cardiac: Regular Rhythm and S1/S2; Negative Murmur
GI: Soft, Nontender, Nondistended and Normal Bowel Sounds
Musculoskeletal: No Clubbing, No Cyanosis, No Edema and Other (right groin wound packed)
Neuro: Awake and Alert
Psych: Calm
[2022-06-18 11:59] LABS: Glucose - Point of Care 192 mg/dl (65-99)
[2022-06-18] MEDS: NOVOLOG FLEXPEN-MODERATE RESISTANCE 1 UNITS SC ×2 (12:31→17:41)
[2022-06-18] MEDS: FEOSOL 325 MG PO (12:32)
[2022-06-18] MEDS: UNASYN IV (13:22)
--- NOTE | 2022-06-18 13:40 | W.PN.ID1 ---
Today's Communication
-
Narrow Zosyn to Unasyn.
Assessment / Plan
-
Right groin surgical site infection
Leukocytosis - trending down
ESRD on HD
Bladder Cancer
S/p embolization of kidneys 06/02/22
S/p repair right groin pseudoaneurysm 06/03/22
s/p bedside evacuation of right groin hematoma
- surgical site culture Enterococcus faecalis, amp sensitive
- blood cultures x2
- Narrow Zosyn (d4) to Unasyn (renally adjusted). Eventual outpatient Augmentin.
- appreciate plastics
- follow clinically
Chief Complaint
-
Date of Service: June 18, 2022
-: Leukocytosis and Other (surgical site infection)
Subjective / Review of Systems
-
Enjoyed his lunch. No complaints today.
Vital Signs / Physical Exam
Vital Signs
Vital Signs
Temp Pulse Resp BP Pulse Ox
97.6 F 67 18 120/54 100
06/18/22 07:00 06/18/22 08:29 06/18/22 07:00 06/18/22 08:29 06/18/22 07:00
Physical Exam
Constitutional: No Acute Distress and Comfortable
Wound: Other (right groin dressing dry)
Objective Data
Lab Data
Lab Results
06/18/22 05:12
06/17/22 03:08
PT 17.0 Sec (11.4-14.6) H 06/03/22 23:38
INR 1.36 06/03/22 23:38
APTT 29.1 Sec (23.4-35.0) 06/03/22 23:38
Estimated Creat Clear 22 ml/min 06/17/22 03:08
Total Bilirubin 0.8 mg/dl (0.2-1.3) 02/17/23 11:13
AST 27 U/L (17-59) 06/16/22 11:13
ALT 22 U/L (0-50) 06/16/22 11:13
Alkaline Phosphatase 232 U/L (38-126) H 06/16/22 11:13
Most recent labs reviewed.
Micro Results:
06/15/22 14:20 Wound Culture - Final
Groin - Right Enterococcus faecalis
Diptheroids
Gram Stain - Final
06/15/22 15:34 Blood Culture - Preliminary
Blood/Venous No Growth in 48 hours- Final report to follow
06/15/22 14:16 Blood Culture - Preliminary
Blood/Venous No Growth in 48 hours- Final report to follow
06/03/22 09:33 Blood Culture - Final
Blood/Venous No Growth - Final Report
06/03/22 08:33 Blood Culture - Final
Blood/Venous No Growth - Final Report
05/28/22 08:40 Blood Culture - Final
Blood/Venous No Growth - Final Report
05/28/22 08:06 Blood Culture - Final
Blood/Venous No Growth - Final Report
05/28/22 11:17 Urine Culture - Final
Urine Pseudomonas aeruginosa
[2022-06-18 15:00] VITALS: BP 119/55
[2022-06-18 16:57] LABS: Glucose - Point of Care 157 mg/dl (65-99)
[2022-06-18 19:32] VITALS: BP 142/71
[2022-06-18] MEDS: LIPITOR 80 MG PO (20:45)
[2022-06-18] MEDS: DAKIN'S SOLUTION 0.25% 1/2 STRENGTH 473 ML TOPICAL (20:55)
[2022-06-18 21:36] LABS: Glucose - Point of Care 167 mg/dl (65-99)
[2022-06-18 23:18] VITALS: BP 116/51
[2022-06-19] MEDS: UNASYN IV ×2 (02:39→13:41)
[2022-06-19 05:33] VITALS: BMI 37.5
--- NOTE | 2022-06-19 06:16 | PTCARENOTE ---
Pt drowsy most of the night but easily arousable. AAOx3. Wound care completed x2 this shift per order. Drainage on dressing with odor present. Pt remains afebrile this shift. Bed bath and evening hygiene care performed. Pt had BM on BSC x1
tonight - tolerated OOB well. Pt offers no complaints.
[2022-06-19] MEDS: DAKIN'S SOLUTION 0.25% 1/2 STRENGTH 473 ML TOPICAL ×2 (07:11→20:11)
[2022-06-19 07:33] VITALS: BP 123/56
[2022-06-19 08:11] LABS: Glucose - Point of Care 204 mg/dl (65-99)
[2022-06-19] MEDS: THERAGRAN 1 TABLET PO (08:20)
[2022-06-19] MEDS: PROTONIX 40 MG PO ×2 (08:20→20:10)
[2022-06-19] MEDS: VITAMIN C 1000 MG PO (08:20)
[2022-06-19] MEDS: ZETIA 10 MG PO (08:20)
[2022-06-19] MEDS: VITAMIN D3 (cholecalciferol) 2000 UNITS PO (08:20)
[2022-06-19] MEDS: RENVELA 3200 MG PO ×3 (08:20→17:08)
[2022-06-19] MEDS: ZYLOPRIM 100 MG PO (08:21)
[2022-06-19] MEDS: VITAMIN B-12 1000 MCG PO (08:21)
[2022-06-19 08:22] LABS: Hematocrit 26.3 % (39.0-52.0); Hemoglobin 8.4 g/dL (13.0-18.0); Mean Corp Hgb Conc. 31.9 g/dL (33.0-37.0); Mean Corpuscular Hgb 31.7 pg (27.0-31.0); Mean Corpuscular Volume 99.2 fL (80.0-94.0); Mean Platelet Volume 10.5 fL (7.4-10.4); Platelet Count 277 10^3/uL (130-400); Red Blood Cell Count 2.65 10^6/uL (4.70-6.10); Red Cell Dist. Width 18.5 % (11.5-14.5); White Blood Cell Count 12.5 10^3/uL (4.8-10.8)
[2022-06-19] MEDS: NOVOLOG FLEXPEN-MODERATE RESISTANCE 3 UNITS SC (08:28)
[2022-06-19] MEDS: COLACE 100 MG PO ×2 (08:30→20:10)
[2022-06-19] MEDS: DESENEX/MITRAZOL/ZEASORB 1 APPLIC TOPICAL ×2 (08:35→20:12)
[2022-06-19] MEDS: HYDROPHOR 1 APPLIC TOPICAL (08:36)
[2022-06-19] MEDS: FLEXBUMIN 25% FOR HEMODIALYSIS 12.5 GRAMS IV (08:45)
[2022-06-19] MEDS: MANNITOL 12.5 GRAMS IV (08:53)
[2022-06-19] MEDS: RETACRIT 10000 UNITS IV (08:53)
--- NOTE | 2022-06-19 09:08 | W.PN.NEPH.HD ---
Assessment
-
Patient seen on HD
sbp 133 at current u/f
no complaints
Progress Note - Hemodialysis
-
Date of Service: June 19, 2022
Duration: 4 hours
Potassium Bath: 2
Calcium Bath: 2.5
Opti-Dialyzer: 160
Ultrafiltration: Other (3kg)
Blood Flow: 400
Dialysate Flow: 600
Heparin: none
EPO: [id number]
[2022-06-19 09:31] LABS: Blood Urea Nitrogen 101 mg/dl (9-20); Carbon Dioxide 25 mmol/L (22-30); Chloride 95 mmol/L (98-107); Estimated Creatinine Clearance 11 ml/min; Glomerular Filtration Rate 7.9; Glucose 160 mg/dl (65-99); Potassium 5.1 mmol/L (3.5-5.1); Sodium 134 mmol/L (135-145)
--- NOTE | 2022-06-19 09:53 | PTCARENOTE ---
Provider Lit Richardson notified of BUN 101 on .
[2022-06-19 11:22] LABS: Glucose - Point of Care 127 mg/dl (65-99)
[2022-06-19] MEDS: NOVOLOG FLEXPEN-MODERATE RESISTANCE SC (11:45)
--- NOTE | 2022-06-19 11:53 | CM ---
Patient seen at bedside on HD. Patient plan is for discharge home with [facility] and aides. Patient and family are not intrested in SNF placement. CM will continue to follow for discharge planning needs.
Plan; home with [facility]/aides.
[2022-06-19] MEDS: COREG 6.25 MG PO ×2 (13:15→20:11)
--- NOTE | 2022-06-19 14:55 | W.PN.HOSP.TC ---
Today's Communication/Plan
-
Continue with antibiotics per ID
DC planning
Assessment / Plan
Assessment / Plan
pt is an 81 year old male
Hemorrhagic/hypovolemic shock 06/03/22--resolved--dropped HGB and BP on 06/03/22 and moved to ICU--CT scan showed LARGE hematoma right groin (had IR embolization of kidneys the day before 06/02/22)--US of right groin showed pseudoaneurysm leaking
blood--IR attempted to thrombinize but was unsuccessful, pt taken to OR by vascular for repair and hematoma evacuation --to date pt has received 9 units of pRBC (3 alone in OR). Hemoglobin improved -Per vascular, drains removed 06/15/22. H&H stable
infected right groin--culture with enterococcus and diphtheroids --apprec vascular--drains removed--apprec ID if and consider with antibiotics per ID. Continue with topical wound care. Plastics input noted.
Hematuria secondary to Bladder CA--apprec urology--had CBI and stopped---s/p OR 06/01/22 for cystoscopy and fulguration--s/p IR embolization of kidneys to stop urine 06/02/22--catheter removed on 06/05.
Acute Blood Loss Anemia on anemia of chronic disease along with iron deficiency-- due to hematuria and blood loss from pseudoaneurysm --s/p 9 units PRBCs--Monitor Hgb--apprec heme re-eval--no active bleeding noted--transfuse another unit now--iron
per heme
Pseudomonas UTI due related to indwelling watson catheter-catheter removed on 06/05. Antibiotics: Transition from cefepime to Cipro. Last day of Cipro was Jun 10
hypokalemia (prior to me assuming patient's care)-- pt on HD
Coronary Artery Disease s/p CABG in April 2021--Hold aspirin in setting of hematuria
Essential Hypertension--Continue Coreg, Hydralazine and Lisinopril. Blood pressure remains on the lower side while on current antihypertensive regimen. Monitor closely for symptomatic hypotension. Adjust accordingly.
Hyperlipidemia--Continue Lipitor and Zetia
Diabetes Mellitus, Type 2--Monitor sugars on AM labs
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
GERD--Continue Protonix
Gout--Continue allopurinol
DVT proph: SCDs
Code Status: DNR
Anticipated Discharge: 24 - 48 hours
Subjective/Interval History
-
Date of Service: June 19, 2022
Denies much of pain from the wound.
No fever or chills.
Tolerating diet.
Denies shortness of breath.
His goal is to go home not to rehab
Objective Data
-
Labs:
Laboratory Results
06/19/22 06/19/22
07:46 07:46
WBC 12.5 H
Hgb 8.4 L
Hct 26.3 L
Plt Count 277
Sodium 134 L
Potassium 5.1
Chloride 95 L
Carbon Dioxide 25
BUN 101 H*
Creatinine 6.8 H*
Glucose 160 H
Calcium 9.0
Vital Signs:
Vital Signs
Temp Pulse Resp BP Pulse Ox
97.7 F 75 20 126/57 96
06/19/22 07:33 06/19/22 13:15 06/19/22 07:33 06/19/22 13:15 06/19/22 07:33
I&O
06/18/22 06/19/22 06/20/22
06:59 06:59 06:59
Intake Total 1450 / 1450 1410 / 1410
Balance 1450 / 1450 1410 / 1410
Review of Systems
-
All other systems: Reviewed and negative
Physical Exam
-
General: No Apparent Distress
HEENT: Moist Mucous Membranes
Respiratory: Clear to Auscultation
Cardiac: Regular Rhythm and S1/S2
GI: Soft
Neuro: AO x 3
Psych: Calm
Data Reviewed
-
Labs: Labs Reviewed by me
--- NOTE | 2022-06-19 15:23 | W.PN.ID1 ---
Today's Communication
-
Continue antibiotics. See below�
Assessment / Plan
-
Right groin surgical site infection
Leukocytosis - trending down
ESRD on HD
Bladder Cancer
S/p embolization of kidneys 06/02/22
S/p repair right groin pseudoaneurysm 06/03/22
s/p bedside evacuation of right groin hematoma
- surgical site culture Enterococcus faecalis, amp sensitive
- blood cultures x2
- Narrow Zosyn (d4) to Unasyn (renally adjusted).
At D/C can transition to oral augmentin 500 mg daily, to treat until 06/28/22
- Local care to wound
Chief Complaint
-
Date of Service: June 19, 2022
-: Leukocytosis and Other (surgical site infection)
Subjective / Review of Systems
-
Review of Systems: No Fever, No Chills and No Headache
Vital Signs / Physical Exam
Vital Signs
Vital Signs
Temp Pulse Resp BP Pulse Ox
97.7 F 75 20 126/57 96
06/19/22 07:33 06/19/22 13:15 06/19/22 07:33 06/19/22 13:15 06/19/22 07:33
Physical Exam
Constitutional: No Acute Distress, Comfortable and Non-toxic
Cardiovascular: S1/S2; Negative S3/S4
Pulmonary: Clear; Negative Wheezes or Rales
Gastrointestinal: Soft and Non Tender
Wound: Other (Right groin dressing in place.)
Neurological: Awake and Alert
Psychological: Calm
Objective Data
Lab Data
Lab Results
06/19/22 07:46
06/19/22 07:46
PT 17.0 Sec (11.4-14.6) H 06/03/22 23:38
INR 1.36 06/03/22 23:38
APTT 29.1 Sec (23.4-35.0) 06/03/22 23:38
Estimated Creat Clear 11 ml/min 06/19/22 07:46
Total Bilirubin 0.8 mg/dl (0.2-1.3) 06/16/22 11:13
AST 27 U/L (17-59) 06/16/22 11:13
ALT 22 U/L (0-50) 06/16/22 11:13
Alkaline Phosphatase 232 U/L (38-126) H 06/16/22 11:13
Most recent labs reviewed.
Micro Results:
06/15/22 14:16 Blood Culture - Preliminary
Blood/Venous No Growth in 4 days- Final report to follow
06/15/22 15:34 Blood Culture - Preliminary
Blood/Venous No Growth in 72 hours- Final report to follow
06/15/22 14:20 Wound Culture - Final
Groin - Right Enterococcus faecalis
Diptheroids
Enterococcus faecalis
M.I.C. RX
--------- ---
Ampicillin <=2 S
Gentamicin Synergy Screen <=500 S
Vancomycin 2 S
06/03/22 09:33 Blood Culture - Final
Blood/Venous No Growth - Final Report
06/03/22 08:33 Blood Culture - Final
Blood/Venous No Growth - Final Report
05/28/22 08:40 Blood Culture - Final
Blood/Venous No Growth - Final Report
05/28/22 08:06 Blood Culture - Final
Blood/Venous No Growth - Final Report
05/28/22 11:17 Urine Culture - Final
Urine Pseudomonas aeruginosa
[2022-06-19 15:30] VITALS: BP 139/61
[2022-06-19] MEDS: NOVOLOG FLEXPEN-MODERATE RESISTANCE 1 UNITS SC (17:09)
[2022-06-19 17:10] LABS: Glucose - Point of Care 181 mg/dl (65-99)
--- NOTE | 2022-06-19 18:09 | PTCARENOTE ---
Dialysis done today without issues. Patient sat in chair after dialysis, no complaints. Hourly rounds done on this shift. Call davidson and belongings within reach. Will continue to monitor and support.
[2022-06-19] MEDS: LIPITOR 80 MG PO (20:17)
[2022-06-19 21:27] LABS: Glucose - Point of Care 187 mg/dl (65-99)
[2022-06-19 23:08] VITALS: BP 130/54
[2022-06-20] MEDS: UNASYN IV ×2 (02:25→13:34)
[2022-06-20 05:17] LABS: Hematocrit 27.2 % (39.0-52.0); Hemoglobin 8.7 g/dL (13.0-18.0); Mean Corpuscular Hgb 31.6 pg (27.0-31.0); Mean Corpuscular Volume 98.9 fL (80.0-94.0); Mean Platelet Volume 10.2 fL (7.4-10.4); Platelet Count 248 10^3/uL (130-400); Red Blood Cell Count 2.75 10^6/uL (4.70-6.10); Red Cell Dist. Width 18.6 % (11.5-14.5); White Blood Cell Count 11.4 10^3/uL (4.8-10.8)
[2022-06-20 05:48] VITALS: BMI 37.1
[2022-06-20 06:01] LABS: Blood Urea Nitrogen 63 mg/dl (9-20); Calcium 9.2 mg/dl (8.4-10.2); Carbon Dioxide 30 mmol/L (22-30); Chloride 93 mmol/L (98-107); Estimated Creatinine Clearance 16 ml/min; Glucose 109 mg/dl (65-99); Potassium 4.5 mmol/L (3.5-5.1); Sodium 133 mmol/L (135-145)
[2022-06-20 07:29] LABS: Glucose - Point of Care 134 mg/dl (65-99)
[2022-06-20 07:32] VITALS: BP 133/57
[2022-06-20] MEDS: RENVELA 3200 MG PO ×3 (08:23→16:50)
[2022-06-20] MEDS: VITAMIN C 1000 MG PO (08:23)
[2022-06-20] MEDS: COREG 6.25 MG PO ×2 (08:24→20:03)
[2022-06-20] MEDS: DESENEX/MITRAZOL/ZEASORB 1 APPLIC TOPICAL ×2 (08:27→20:01)
[2022-06-20] MEDS: SENSIPAR 30 MG PO (08:28)
[2022-06-20] MEDS: PROTONIX 40 MG PO ×2 (08:28→20:02)
[2022-06-20] MEDS: HYDROPHOR 1 APPLIC TOPICAL (08:28)
[2022-06-20] MEDS: VITAMIN B-12 1000 MCG PO (08:29)
[2022-06-20] MEDS: ZETIA 10 MG PO (08:29)
[2022-06-20] MEDS: ZYLOPRIM 100 MG PO (08:29)
[2022-06-20] MEDS: VITAMIN D3 (cholecalciferol) 2000 UNITS PO (08:29)
[2022-06-20] MEDS: NOVOLOG FLEXPEN-MODERATE RESISTANCE SC (08:33)
[2022-06-20] MEDS: COLACE PO (08:34)
[2022-06-20] MEDS: THERAGRAN 1 TABLET PO (08:38)
[2022-06-20] MEDS: COLACE 100 MG PO ×2 (09:09→20:02)
[2022-06-20] MEDS: DAKIN'S SOLUTION 0.25% 1/2 STRENGTH 473 ML TOPICAL ×2 (10:43→20:02)
--- NOTE | 2022-06-20 11:16 | W.PN.ID1 ---
Today's Communication
-
- continue Unasyn (renally adjusted) while inpatient
At / can transition to oral augmentin 500 mg daily, to treat until 06/28/22
Assessment / Plan
-
Right groin surgical site infection
Leukocytosis - continues trending down
ESRD on HD
Bladder Cancer
S/p embolization of kidneys 06/02/22
S/p repair right groin pseudoaneurysm 06/03/22
s/p bedside evacuation of right groin hematoma
Class II Obesity
- surgical site culture Enterococcus faecalis, amp sensitive; diphtheroid is a contaminant
- blood cultures x2 no growth to date
- continue Unasyn (renally adjusted) while inpatient
At D/ can transition to oral augmentin 500 mg daily, to treat until 06/28/22
- continue local care to wound as per plastic surgery
Chief Complaint
-
Date of Service: June 20, 2022
-: Leukocytosis and Other (surgical site infection)
Subjective / Review of Systems
-
remains afebrile
BP stable
leukocytosis has nearly resolved 11.4 today
hgb stable
K normal
Vital Signs / Physical Exam
Vital Signs
Vital Signs
Temp Pulse Resp BP Pulse Ox
98.3 F 74 18 124/57 97
06/20/22 07:32 06/20/22 08:24 06/20/22 07:32 06/20/22 08:24 06/20/22 07:32
Physical Exam
Constitutional: No Acute Distress
Cardiovascular: Regular Rate and S1/S2; Negative Murmur or Rub
Pulmonary: Clear and Symmetric; Negative Wheezes or Rales
Gastrointestinal: Soft, Non Tender, Non Distended and Normal Bowel Sounds
Extremities: Other (dressing clean, dry, intact, surgical site superior partially visalized no erythema, warmth or tenderness, tremayne in place)
Skin: Warm and Dry; Negative Rash or Jaundice
Objective Data
Lab Data
Lab Results
06/20/22 04:53
06/20/22 04:53
PT 17.0 Sec (11.4-14.6) H 06/03/22 23:38
INR 1.36 06/03/22 23:38
APTT 29.1 Sec (23.4-35.0) 06/03/22 23:38
Estimated Creat Clear 16 ml/min 06/20/22 04:53
Total Bilirubin 0.8 mg/dl (0.2-1.3) 06/16/22 11:13
AST 27 U/L (17-59) 06/16/22 11:13
ALT 22 U/L (0-50) 06/16/22 11:13
Alkaline Phosphatase 232 U/L (38-126) H 06/16/22 11:13
Most recent labs reviewed.
Micro Results:
06/15/22 15:34 Blood Culture - Preliminary
Blood/Venous No Growth in 4 days- Final report to follow
06/15/22 14:16 Blood Culture - Preliminary
Blood/Venous No Growth in 4 days- Final report to follow
06/15/22 14:20 Wound Culture - Final
Groin - Right Enterococcus faecalis
Diptheroids
Gram Stain - Final
06/03/22 09:33 Blood Culture - Final
Blood/Venous No Growth - Final Report
06/03/22 08:33 Blood Culture - Final
Blood/Venous No Growth - Final Report
05/28/22 08:40 Blood Culture - Final
Blood/Venous No Growth - Final Report
05/28/22 08:06 Blood Culture - Final
Blood/Venous No Growth - Final Report
05/28/22 11:17 Urine Culture - Final
Urine Pseudomonas aeruginosa
--- NOTE | 2022-06-20 11:21 | W.PN.HOSP.TC ---
Today's Communication/Plan
-
DC planning
Assessment / Plan
Assessment / Plan
pt is an 81 year old male
Hemorrhagic/hypovolemic shock 06/03/22--resolved--dropped HGB and BP on 06/03/22 and moved to ICU--CT scan showed LARGE hematoma right groin (had IR embolization of kidneys the day before 06/02/22)--US of right groin showed pseudoaneurysm leaking
blood--IR attempted to thrombinize but was unsuccessful, pt taken to OR by vascular for repair and hematoma evacuation --to date pt has received 9 units of pRBC (3 alone in OR). Hemoglobin improved -Per vascular, drains removed 06/15/22. H&H stable
infected right groin--culture with enterococcus and diphtheroids --apprec vascular--drains removed--apprec ID if and consider with antibiotics per ID. Continue with topical wound care. Plastics input noted.
Hematuria secondary to Bladder CA--apprec urology--had CBI and stopped---s/p OR 06/01/22 for cystoscopy and fulguration--s/p IR embolization of kidneys to stop urine 06/02/22--catheter removed on 06/05.
Acute Blood Loss Anemia on anemia of chronic disease along with iron deficiency-- due to hematuria and blood loss from pseudoaneurysm --s/p 9 units PRBCs--Monitor Hgb--apprec heme re-eval--no active bleeding noted--transfuse another unit now--hold
further iron .
Pseudomonas UTI due related to indwelling watson catheter-catheter removed on 06/05. Antibiotics: Transition from cefepime to Cipro. Last day of Cipro was Jun 10
Coronary Artery Disease s/p CABG in April 2021--Hold aspirin in setting of hematuria
Essential Hypertension--Continue Coreg, Hydralazine and Lisinopril. Blood pressure remains on the lower side while on current antihypertensive regimen. Monitor closely for symptomatic hypotension. Adjust accordingly.
Hyperlipidemia--Continue Lipitor and Zetia
Diabetes Mellitus, Type 2--Monitor sugars on AM labs
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
GERD--Continue Protonix
Gout--Continue allopurinol
DVT proph: SCDs
Code Status: DNR
Patient is concerned about going home and doing wound care. He is cleared for home health by PT. Will discuss with case management and explore the options of providing care at home.
Likely home tomorrow after hemodialysis.
Anticipated Discharge: Within 24 hours
Subjective/Interval History
-
Date of Service: June 20, 2022
Feels okay. Not much pain at from the right groin site. He states he is requiring 4 times dressing changes to the right groin currently. He is not sure if he can go home and do this himself.
No chest pain or shortness of breath. No fever chills. Tolerating diet.
Objective Data
-
Labs:
Laboratory Results
06/20/22 06/20/22
04:53 04:53
WBC 11.4 H
Hgb 8.7 L
Hct 27.2 L
Plt Count 248
Sodium 133 L
Potassium 4.5
Chloride 93 L
Carbon Dioxide 30
BUN 63 H
Creatinine 4.7 H*
Glucose 109 H
Calcium 9.2
Vital Signs:
Vital Signs
Temp Pulse Resp BP Pulse Ox
98.3 F 74 18 124/57 97
06/20/22 07:32 06/20/22 08:24 06/20/22 07:32 06/20/22 08:24 06/20/22 07:32
I&O
06/19/22 06/20/22 06/21/22
06:59 06:59 06:59
Intake Total 1410 / 1410 1240 / 1240
Balance 1410 / 1410 1240 / 1240
Review of Systems
-
All other systems: Reviewed and negative
Physical Exam
-
General: No Apparent Distress
HEENT: Moist Mucous Membranes
Respiratory: Clear to Auscultation
Cardiac: Regular Rhythm and S1/S2
GI: Soft, Nontender, Nondistended and Normal Bowel Sounds
Neuro: AO x 3
Psych: Calm
Data Reviewed
-
Labs: Labs Reviewed by me
[2022-06-20 11:48] LABS: Glucose - Point of Care 174 mg/dl (70-99)
[2022-06-20] MEDS: NOVOLOG FLEXPEN-MODERATE RESISTANCE 1 UNITS SC ×2 (11:48→16:55)
--- NOTE | 2022-06-20 12:04 | W.PN.NEPH.PH ---
Today's Communication / Plan
-
HD tomorrow
Assessment/Plan
-
Assessment:
Gross hematuria, recurrent
Bladder malignancy received one dose of chemotherapy (cisplatinum + ...)
TURBT April 04, 2022
ESRD (PD 2017; HD 2018)
Anemia, multifactorial
CABG x2 (ANN-LAD, SVG-ramus, on pump with right Endo vein harvest/sternal plate
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
Biopsy-proven focal sclerosis
Diabetes mellitus
Gout, chronic
Secondary hyperparathyroidism
History hypertension with relative hypotension
History morbid obesity
History sleep apnea on CPAP
Left arm AV fistula 2018
Pelvic adenopathy
Pulmonary nodules
Bilateral renal artery coil embolization June 02
Large pseudoaneurysm with tense hematoma right groin status post common femoral artery catheterization and repair June 03
Iron deficiency with�saturation 5%
Plan:
HD tomorrow
d/c after HD
-
-
Date of Service: June 20, 2022
CC / HPI / ROS
-
Chief Complaint:
ESRD
History of Present Illness:
ERSD MWF
hemodynamically stable
s/p embolization of kidneys
Review of Systems:
no chest pain or sob
Labs
-
Labs:
WBC 11.4 10^3/uL (4.8-10.8) H 06/20/22 04:53
RBC 2.75 10^6/uL (4.70-6.10) L 06/20/22 04:53
Hgb 8.7 g/dL (13.0-18.0) L 06/20/22 04:53
Hct 27.2 % (39.0-52.0) L 06/20/22 04:53
Plt Count 248 10^3/uL (130-400) 06/20/22 04:53
Sodium 133 mmol/L (135-145) L 06/20/22 04:53
Potassium 4.5 mmol/L (3.5-5.1) 06/20/22 04:53
Chloride 93 mmol/L (98-107) L 06/20/22 04:53
Carbon Dioxide 30 mmol/L (22-30) 06/20/22 04:53
BUN 63 mg/dl (9-20) H 06/20/22 04:53
Creatinine 4.7 mg/dL (0.7-1.3) H* 06/20/22 04:53
Glomerular Filtr Rate 12.0 06/20/22 04:53
Glucose 109 mg/dl (65-99) H 06/20/22 04:53
Calcium 9.2 mg/dl (8.4-10.2) 06/20/22 04:53
Phosphorus 4.1 mg/dl (2.5-4.5) 06/09/22 12:11
Albumin 2.8 g/dl (3.5-5.0) L 06/16/22 11:13
Physical Exam
-
Vital Signs:
Vital Signs
Temp Pulse Resp BP Pulse Ox
98.3 F 74 18 124/57 97
06/20/22 07:32 06/20/22 08:24 06/20/22 07:32 06/20/22 08:24 06/20/22 07:32
Cardiovascular:: Regular rate and rhythm
Respiratory:: Bilateral: CTA
Lung Excursion:: Normal
Abdomen:: Nontender and Soft
Bowel Sounds:: Normal
Extremity Edema:: +1: Bilateral:
Carey Catheter: No
--- NOTE | 2022-06-20 12:37 | PTCARENOTE ---
Neurovascular checks remains unchanged. On hourly rounds patient remains AAO x 3, no complaints. Dressing change done per order. Patient currently off unit having lunch with . Will continue to monitor and support.
[2022-06-20 13:36] VITALS: BP 135/56; PULSE 69; O2SAT 98
--- NOTE | 2022-06-20 14:36 | CM ---
Patient seen at bedside. Patient talked about having been outside and going to the [facility] with earlier today. Patient said air felt good. Patient thinking about discharge end of week. CM will check with physician about plan. CM will continue
to follow for discharge planning needs.
Plan; home with [facility]/aides.
[2022-06-20 15:22] VITALS: BP 124/53
[2022-06-20 16:53] LABS: Glucose - Point of Care 174 mg/dl (70-99)
--- NOTE | 2022-06-20 17:33 | PTCARENOTE ---
Patient off unit with daughter and grand kids. No complaints of pain or discomfort. Will continue to monitor and support.
--- NOTE | 2022-06-20 18:32 | PTCARENOTE ---
Patient back on unit without issues. No complaints.
[2022-06-20] MEDS: LIPITOR 80 MG PO (20:02)
[2022-06-20] MEDS: TYLENOL 650 MG PO (21:51)
[2022-06-20 21:59] LABS: Glucose - Point of Care 229 mg/dl (70-99)
[2022-06-20 23:03] VITALS: BP 122/57
[2022-06-21] MEDS: UNASYN IV ×2 (02:55→13:14)
[2022-06-21 05:50] VITALS: BMI 37.5
[2022-06-21 07:53] LABS: Hematocrit 26.5 % (39.0-52.0); Hemoglobin 8.8 g/dL (13.0-18.0)
[2022-06-21 07:57] LABS: Carbon Dioxide 24 mmol/L (22-30); Chloride 93 mmol/L (98-107); Potassium 4.8 mmol/L (3.5-5.1); Sodium 130 mmol/L (135-145)
--- NOTE | 2022-06-21 08:25 | CM ---
CM spoke with patient daughter and , via phone. They are planning for discharge but have the following questions; 1. need wound care teaching. 2. Communication of the plastics plan. 3. start date of [facility]. 4. Follow up plan for Oncology,
Plastics, Dr. De La O, ID. 5. Clarifications of medications for discharge and supplies for wound care. Family would like to have patient discharged following HD on Sunday.
Plan; home with [facility]/aides and family support.
[2022-06-21] MEDS: MANNITOL 12.5 GRAMS IV (08:33)
[2022-06-21] MEDS: RETACRIT 10000 UNITS IV (08:33)
[2022-06-21 08:34] VITALS: BP 126/59
[2022-06-21 08:40] LABS: Glucose - Point of Care 155 mg/dl (70-99)
--- NOTE | 2022-06-21 09:44 | W.PN.NEPH.HD ---
Assessment
-
pt seen during HD
vitals stable , hydralazine and lisinopril remains on hold
tolerating UF
AVF functions well
d/c plan per primary
Progress Note - Hemodialysis
-
Date of Service: June 21, 2022
Duration: 4 hours
Potassium Bath: 2
Calcium Bath: 2.5
Opti-Dialyzer: 160
Ultrafiltration: Other (3.5-4kg)
Blood Flow: 400
Dialysate Flow: 600
Heparin: no
EPO: [id number]
--- NOTE | 2022-06-21 09:59 | WOUNDNOTE ---
WOC RN NOTE: WOC RN visit today to follow up on right groin wound. Wound appears with less slough today and measuring slightly less deep at 3x4.5x4.5 than previous assessment. Moderate amount of serosanguineous drainage w/o odor. Appropriate wound
care provided per order. KISHA Choudhury given update.
--- NOTE | 2022-06-21 10:05 | W.PN.HOSP.TC ---
Today's Communication/Plan
-
Follow-up plastics recommendations from today
Continue with hemodialysis
Continue with antibiotics
DC planning
Assessment / Plan
Assessment / Plan
pt is an 81 year old male
Hemorrhagic/hypovolemic shock 06/03/22--resolved--dropped HGB and BP on 06/03/22 and moved to ICU--CT scan showed LARGE hematoma right groin (had IR embolization of kidneys the day before 06/02/22)--US of right groin showed pseudoaneurysm leaking
blood--IR attempted to thrombinize but was unsuccessful, pt taken to OR by vascular for repair and hematoma evacuation --to date pt has received 9 units of pRBC (3 alone in OR). Hemoglobin improved -Per vascular, drains removed 06/15/22. H&H stable
infected right groin--culture with enterococcus and diphtheroids --apprec vascular--drains removed--apprec ID-continue with antibiotics per ID will switch to oral on discharge. Continue with topical wound care. Plastics input noted. Discussed
with plastic today who is going to review the wound and give further instructions. We will keep the current dressing without change till plastics review.
Hematuria secondary to Bladder CA--apprec urology--had CBI and stopped---s/p OR 06/01/22 for cystoscopy and fulguration--s/p IR embolization of kidneys to stop urine 06/02/22--catheter removed on 06/05.
Acute Blood Loss Anemia on anemia of chronic disease along with iron deficiency-- due to hematuria and blood loss from pseudoaneurysm --s/p 9 units PRBCs--Monitor Hgb--apprec heme re-eval--no active bleeding noted--transfuse another unit now--hold
further iron .
Pseudomonas UTI due related to indwelling watson catheter-catheter removed on 06/05. Antibiotics: Transition from cefepime to Cipro. Last day of Cipro was Jun 10
Coronary Artery Disease s/p CABG in April 2021--Hold aspirin in setting of hematuria
Essential Hypertension--Continue Coreg, Hydralazine and Lisinopril. Blood pressure remains on the lower side while on current antihypertensive regimen. Monitor closely for symptomatic hypotension. Adjust accordingly. Blood pressure under goal
this morning
Hyperlipidemia--Continue Lipitor and Zetia
Diabetes Mellitus, Type 2--continue to monitor blood sugars. No hypoglycemia
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
GERD--Continue Protonix
Gout--Continue allopurinol
DVT proph: SCDs
Code Status: DNR
If no further interventions from plastic patient has reached stability for discharge.
Patient wishes to go home on Sunday after hemodialysis.
Discussed with case management
Anticipated Discharge: 24 - 48 hours
Subjective/Interval History
-
Date of Service: June 21, 2022
Did not sleep well last night because of interruptions.
No nausea vomiting or diarrhea with antibiotics.
The right groin pain ok.
Denies shortness of breath or chest pain.
Objective Data
-
Labs:
Laboratory Results
06/21/22 06/21/22
07:15 07:15
Hgb 8.8 L
Hct 26.5 L
Sodium 130 L
Potassium 4.8
Chloride 93 L
Carbon Dioxide 24
Vital Signs:
Vital Signs
Temp Pulse Resp BP Pulse Ox
98.1 F 75 16 126/59 97
06/21/22 08:34 06/21/22 08:34 06/21/22 08:34 06/21/22 08:34 06/21/22 08:34
I&O
06/20/22 06/21/22 06/22/22
06:59 06:59 06:59
Intake Total 1240 / 1240 1320 / 1320
Balance 1240 / 1240 1320 / 1320
Review of Systems
-
All other systems: Reviewed and negative
Physical Exam
-
General: No Apparent Distress
HEENT: Moist Mucous Membranes
Respiratory: Clear to Auscultation
Cardiac: Regular Rhythm and S1/S2
GI: Soft, Nontender, Nondistended and Normal Bowel Sounds
Neuro: AO x 3
Data Reviewed
-
Labs: Labs Reviewed by me
--- NOTE | 2022-06-21 10:08 | WOUNDNOTE ---
WOC RN NOTE: WOC RN visit today to follow up on right groin wound. Wound appears with less slough today and measuring slightly less deep at 3x4.5x4.5 than previous assessment. Moderate amount of serosanguineous drainage w/o odor. Appropriate wound
care provided per order. Heels intact, blanchable and off-loaded with pillow under calves. Sacrum could not be assessed because patient was receiving HD. Patient states he keeps his chair air cushion under sacrum and buttocks when in bed. KISHA Choudhury
given update.
[2022-06-21 11:35] LABS: Glucose - Point of Care 109 mg/dl (70-99)
[2022-06-21] MEDS: NOVOLOG FLEXPEN-MODERATE RESISTANCE SC ×2 (11:59)
[2022-06-21] MEDS: COREG 6.25 MG PO ×2 (12:01→20:06)
[2022-06-21] MEDS: COLACE 100 MG PO ×2 (12:01→20:06)
[2022-06-21] MEDS: RENVELA 3200 MG PO ×2 (12:03→16:54)
[2022-06-21] MEDS: RENVELA PO (12:03)
[2022-06-21] MEDS: DAKIN'S SOLUTION 0.25% 1/2 STRENGTH 1 ML TOPICAL (12:03)
[2022-06-21] MEDS: DESENEX/MITRAZOL/ZEASORB 1 APPLIC TOPICAL ×2 (12:04→20:07)
[2022-06-21] MEDS: HYDROPHOR 1 APPLIC TOPICAL (12:04)
[2022-06-21] MEDS: PROTONIX 40 MG PO ×2 (12:05→20:07)
[2022-06-21] MEDS: THERAGRAN 1 TABLET PO (12:05)
[2022-06-21] MEDS: LIPITOR 80 MG PO (12:06)
[2022-06-21] MEDS: VITAMIN B-12 1000 MCG PO (12:06)
[2022-06-21] MEDS: ZYLOPRIM 100 MG PO (12:06)
[2022-06-21] MEDS: ZETIA 10 MG PO (12:06)
[2022-06-21] MEDS: VITAMIN D3 (cholecalciferol) 2000 UNITS PO (12:06)
[2022-06-21] MEDS: VITAMIN C 1000 MG PO (12:06)
--- NOTE | 2022-06-21 12:16 | WOUNDNOTE ---
WO RN NOTE: Plastics to see patient today. Will follow for any changes to wound care orders for discharge. Spoke to Ashleigh and she requests wound care teaching prior to discharge. Plan is to meet with Ashleigh 10 am on 06/23 for wound care teaching.
LASHON Bailon updated on plan.
[2022-06-21 15:00] VITALS: BP 110/49
--- NOTE | 2022-06-21 16:07 | W.PN.ID1 ---
Today's Communication
-
- continue Unasyn (renally adjusted) while inpatient
At D/ can transition to oral augmentin 500 mg daily, to treat until 06/28/22
Assessment / Plan
-
Right groin surgical site infection
Leukocytosis - continues trending down
ESRD on HD
Bladder Cancer
S/p embolization of kidneys 06/02/22
S/p repair right groin pseudoaneurysm 06/03/22
s/p bedside evacuation of right groin hematoma
Class II Obesity
- surgical site culture Enterococcus faecalis, amp sensitive; diphtheroid is a contaminant
- blood cultures x2 finalized negative
- continue Unasyn (renally adjusted) while inpatient
At D/ can transition to oral augmentin 500 mg daily, to treat until 06/28/22
- continue local care to wound as per plastic surgery
Chief Complaint
-
Date of Service: June 21, 2022
-: Leukocytosis and Other (surgical site infection)
Subjective / Review of Systems
-
afebrile
BP stable
hgb stable today
K 4.8
Vital Signs / Physical Exam
Vital Signs
Vital Signs
Temp Pulse Resp BP Pulse Ox
98.7 F 69 18 110/49 99
06/21/22 15:00 06/21/22 15:00 06/21/22 15:00 06/21/22 15:00 06/21/22 15:00
Physical Exam
Constitutional: No Acute Distress
Cardiovascular: Regular Rate and S1/S2; Negative Murmur or Rub
Pulmonary: Clear and Symmetric; Negative Wheezes or Rales
Gastrointestinal: Soft, Non Tender, Non Distended and Normal Bowel Sounds
Skin: Warm and Dry; Negative Rash or Jaundice
Objective Data
Lab Data
Lab Results
06/21/22 07:15
06/21/22 07:15
PT 17.0 Sec (11.4-14.6) H 06/03/22 23:38
INR 1.36 06/03/22 23:38
APTT 29.1 Sec (23.4-35.0) 06/03/22 23:38
Estimated Creat Clear 16 ml/min 06/20/22 04:53
Total Bilirubin 0.8 mg/dl (0.2-1.3) 06/16/22 11:13
AST 27 U/L (17-59) 06/16/22 11:13
ALT 22 U/L (0-50) 06/16/22 11:13
Alkaline Phosphatase 232 U/L (38-126) H 06/16/22 11:13
Most recent labs reviewed.
Micro Results:
06/15/22 15:34 Blood Culture - Final
Blood/Venous No Growth - Final Report
06/15/22 14:16 Blood Culture - Final
Blood/Venous No Growth - Final Report
06/15/22 14:20 Wound Culture - Final
Groin - Right Enterococcus faecalis
Diptheroids
Gram Stain - Final
06/03/22 09:33 Blood Culture - Final
Blood/Venous No Growth - Final Report
06/03/22 08:33 Blood Culture - Final
Blood/Venous No Growth - Final Report
05/28/22 08:40 Blood Culture - Final
Blood/Venous No Growth - Final Report
05/28/22 08:06 Blood Culture - Final
Blood/Venous No Growth - Final Report
05/28/22 11:17 Urine Culture - Final
Urine Pseudomonas aeruginosa
--- NOTE | 2022-06-21 16:27 | W.PN.PLAS ---
Today's Communication
-
Appropriate for discharge
Continue wound care as recommended - discussed with patient and family
Schedule follow up with [facility]
Progress Note
Subjective Data
Doing well.
Tolerating dressing changes
Would like to be discharged to home on Sunday.
Objective Data
Vital Signs
Temp Pulse Resp BP Pulse Ox
98.7 F 69 18 110/49 99
06/21/22 15:00 06/21/22 15:00 06/21/22 15:00 06/21/22 15:00 06/21/22 15:00
Intake and Output
06/20/22 06/21/22 06/22/22
06:59 06:59 06:59
Intake Total 1240 / 1240 1320 / 1320
Balance 1240 / 1240 1320 / 1320
Intake:
Oral fluids 1240 / 1240 1320 / 1320
Other:
Number of approximated SMALL 1
amounts of urine
Lab Results
06/21/22 07:15
06/21/22 07:15
Microbiology Results
06/15/22 15:34 Blood/Venous Blood Culture - Final
No Growth - Final Report
06/15/22 14:16 Blood/Venous Blood Culture - Final
No Growth - Final Report
Wound Documentation
06/21/22 12:16 Wound Note by Riri Gotti
WOC RN NOTE: Plastics to see patient today. Will follow for any changes to wound care orders for discharge. Spoke to Ashleigh and she requests wound care teaching prior to discharge. Plan is to meet with Ashleigh 10 am on 06/23 for wound care teaching.
LASHON Bailon updated on plan.
Initialized on 06/21/22 12:16 - END OF NOTE
Size in centimeters (length/ 3x4.5x5.5
width/depth) [Right Groin]
Last measured date [Right 06/16/22
Groin]
Physical Exam
Wound:
Size in centimeters (length/ 3x4.5x5.5
width/depth) [Right Groin]
Last measured date [Right 06/16/22
Groin]
PEX:
NAD
No increased WOB
Alert and interactive
Daughter at bedside
Abdominal pannus and anterior thigh skin excess, diffusely edematous
Right groin with surgical incision with tremayne and sutures in place
open wound of right groin
No gross purulence
thin fluid drainage
Interval improvement in granulation tissue
No grossy devitalized tissue
Assessment / Plan
81yoM multiple comorbid, ESRD on dialysis, underwent renal artery embolization c/b right groin pseudoaneurysm and hematoma now with draining groin wound
-Underwent bedside debridement and packing
-Continue wound care with the following recommendations
-Minimum three times daily packing of right groin with 50% Dakins solution. Consider q6h for saturation.
-ABDs applied throughout groin crease replaced regualrly when saturated
-Interval improvement in the appearance of the wound
-Tolerating wound care
-Appropriate for dsicharge
-Recommend he follow up in the [facility] for regular evaluation
[2022-06-21 16:33] LABS: Glucose - Point of Care 175 mg/dl (70-99)
[2022-06-21] MEDS: NOVOLOG FLEXPEN-MODERATE RESISTANCE 1 UNITS SC (16:54)
--- NOTE | 2022-06-21 17:33 | PTCARENOTE ---
Pt had no complaints this shift. Abdominal wound was changed X2 this shift. Pt to be educated by wound care nurse on Sunday about how to change dressings. Pt seen by plastic surgery this shift. Pt had a very large formed, soft BM this shift.
[2022-06-21 19:45] VITALS: BP 117/53
[2022-06-21] MEDS: DAKIN'S SOLUTION 0.25% 1/2 STRENGTH 473 ML TOPICAL (20:07)
[2022-06-21 21:49] LABS: Glucose - Point of Care 209 mg/dl (70-99)
[2022-06-21 23:27] VITALS: BP 122/61
[2022-06-22] MEDS: UNASYN IV ×2 (02:17→13:09)
[2022-06-22 06:00] VITALS: BMI 36.7
[2022-06-22 07:00] VITALS: BP 134/63
[2022-06-22 07:17] LABS: Glucose - Point of Care 135 mg/dl (70-99)
[2022-06-22] MEDS: RENVELA 3200 MG PO ×3 (07:50→16:18)
[2022-06-22] MEDS: COLACE 100 MG PO ×2 (07:50→20:38)
[2022-06-22] MEDS: NOVOLOG FLEXPEN-MODERATE RESISTANCE SC ×2 (07:50→16:34)
[2022-06-22] MEDS: COREG 6.25 MG PO ×2 (07:51→20:39)
[2022-06-22] MEDS: DAKIN'S SOLUTION 0.25% 1/2 STRENGTH 1 ML TOPICAL (07:54)
[2022-06-22] MEDS: DESENEX/MITRAZOL/ZEASORB 1 APPLIC TOPICAL ×2 (07:55→20:39)
[2022-06-22] MEDS: HYDROPHOR 1 APPLIC TOPICAL (07:55)
[2022-06-22] MEDS: VITAMIN B-12 1000 MCG PO (07:56)
[2022-06-22] MEDS: VITAMIN D3 (cholecalciferol) 2000 UNITS PO (07:56)
[2022-06-22] MEDS: ZYLOPRIM 100 MG PO (07:56)
[2022-06-22] MEDS: ZETIA 10 MG PO (07:56)
[2022-06-22] MEDS: PROTONIX 40 MG PO ×2 (07:56→20:39)
[2022-06-22] MEDS: VITAMIN C 1000 MG PO (07:57)
[2022-06-22] MEDS: SENSIPAR 30 MG PO (08:01)
[2022-06-22] MEDS: THERAGRAN 1 TABLET PO (08:01)
--- NOTE | 2022-06-22 09:58 | W.PN.NEPH.PH ---
Today's Communication / Plan
-
HD tomorrow
Assessment/Plan
-
Assessment:
Gross hematuria, recurrent
Bladder malignancy received one dose of chemotherapy (cisplatinum + ...)
TURBT April 04, 2022
ESRD (PD 2017; HD 2018)
Anemia, multifactorial
CABG x2 (ANN-LAD, SVG-ramus, on pump with right Endo vein harvest/sternal plate
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
Biopsy-proven focal sclerosis
Diabetes mellitus
Gout, chronic
Secondary hyperparathyroidism
History hypertension with relative hypotension
History morbid obesity
History sleep apnea on CPAP
Left arm AV fistula 2018
Pelvic adenopathy
Pulmonary nodules
Bilateral renal artery coil embolization June 02
Large pseudoaneurysm with tense hematoma right groin status post common femoral artery catheterization and repair June 03
Iron deficiency with�saturation 5%
Plan:
-HD tomorrow
-d/c after HD
-augmentin at d/c until 06/28
-
-
Date of Service: June 22, 2022
CC / HPI / ROS
-
Chief Complaint:
ESRD
History of Present Illness:
ERSD MWF, tolerated HD yesterday
hemodynamically stable
s/p embolization of kidneys
abx for infected right groin surgical site
Review of Systems:
no chest pain or sob
Labs
-
Labs:
WBC 11.4 10^3/uL (4.8-10.8) H 06/20/22 04:53
RBC 2.75 10^6/uL (4.70-6.10) L 06/20/22 04:53
Hgb 8.8 g/dL (13.0-18.0) L 06/21/22 07:15
Hct 26.5 % (39.0-52.0) L 06/21/22 07:15
Plt Count 248 10^3/uL (130-400) 06/20/22 04:53
Sodium 130 mmol/L (135-145) L 06/21/22 07:15
Potassium 4.8 mmol/L (3.5-5.1) 06/21/22 07:15
Chloride 93 mmol/L (98-107) L 06/21/22 07:15
Carbon Dioxide 24 mmol/L (22-30) 06/21/22 07:15
BUN 63 mg/dl (9-20) H 06/20/22 04:53
Creatinine 4.7 mg/dL (0.7-1.3) H* 06/20/22 04:53
Glomerular Filtr Rate 12.0 06/20/22 04:53
Glucose 109 mg/dl (65-99) H 06/20/22 04:53
Calcium 9.2 mg/dl (8.4-10.2) 06/20/22 04:53
Phosphorus 4.1 mg/dl (2.5-4.5) 06/09/22 12:11
Albumin 2.8 g/dl (3.5-5.0) L 06/16/22 11:13
Physical Exam
-
Vital Signs:
Vital Signs
Temp Pulse Resp BP Pulse Ox
97.9 F 69 16 134/63 96
06/22/22 07:00 06/22/22 07:51 06/22/22 07:00 06/22/22 07:51 06/22/22 07:00
Cardiovascular:: Regular rate and rhythm
Respiratory:: Bilateral: Coarse
Lung Excursion:: Normal
Abdomen:: Nontender and Soft
Bowel Sounds:: Normal
Extremity Edema:: None: Bilateral:
--- NOTE | 2022-06-22 10:29 | CM ---
Addendum entered by Adamaris Ordonez 06/22/22 14:29:
Patient will need ambulance transportation home after HD tomorrow, due to weakness and wound. Patient in agreement and med nec/trans form placed on chart.
Addendum entered by Adamaris Ordonez 06/22/22 10:36:
CM spoke with [facility] regarding patient return to outpatient clinic, no further information needed per [facility] staff member.
Original Note:
CM reviewed discharge plan with patient via phone. Patient for discharge tomorrow following HD. Patient to be seen at 10am with wound care nurse to complete teaching with family. [facility] to follow at discharge. Patient to return to HD clinic
with family transportation. CM reviewed with patient family options for transportation home, await family decision. Patient will need follow up appointments and CM sent text to Wound Care about supplies. CM will continue to follow for discharge
planning needs.
Plan; tentatively tomorrow
[2022-06-22 11:08] LABS: Glucose - Point of Care 194 mg/dl (70-99)
[2022-06-22] MEDS: NOVOLOG FLEXPEN-MODERATE RESISTANCE 1 UNITS SC (11:14)
[2022-06-22 11:15] VITALS: BP 135/57; PULSE 67; O2SAT 97
[2022-06-22 15:00] VITALS: BP 130/52
--- NOTE | 2022-06-22 15:01 | PTCARENOTE ---
Pt calm and cooperative this shift. No issues or concerns reported. Wound care done X2 this shift. Pt OOB to WC with no issues.
--- NOTE | 2022-06-22 15:21 | W.PN.HOSP.TC ---
Today's Communication/Plan
-
DC planning
Assessment / Plan
Assessment / Plan
pt is an 81 year old male
Hemorrhagic/hypovolemic shock 06/03/22--resolved--dropped HGB and BP on 06/03/22 and moved to ICU--CT scan showed LARGE hematoma right groin (had IR embolization of kidneys the day before 06/02/22)--US of right groin showed pseudoaneurysm leaking
blood--IR attempted to thrombinize but was unsuccessful, pt taken to OR by vascular for repair and hematoma evacuation --to date pt has received 9 units of pRBC (3 alone in OR). Hemoglobin improved -Per vascular, drains removed 06/15/22. H&H stable
infected right groin--culture with enterococcus and diphtheroids --apprec vascular--drains removed--apprec ID-continue with antibiotics per ID will switch to oral on discharge. Continue with topical wound care. Plastics input noted from yesterday
noted. Continue with the wound care
Hematuria secondary to Bladder CA--apprec urology--had CBI and stopped---s/p OR 06/01/22 for cystoscopy and fulguration--s/p IR embolization of kidneys to stop urine 06/02/22--catheter removed on 06/05.
Acute Blood Loss Anemia on anemia of chronic disease along with iron deficiency-- due to hematuria and blood loss from pseudoaneurysm --s/p 9 units PRBCs--Monitor Hgb--apprec heme re-eval--no active bleeding noted--transfuse another unit now--hold
further iron .
Pseudomonas UTI due related to indwelling watson catheter-catheter removed on 06/05. Antibiotics: Transition from cefepime to Cipro. Last day of Cipro was Jun 10
Coronary Artery Disease s/p CABG in April 2021--Hold aspirin in setting of hematuria
Essential Hypertension--Continue Coreg, Hydralazine and Lisinopril. Blood pressure remains on the lower side while on current antihypertensive regimen. Monitor closely for symptomatic hypotension. Adjust accordingly. Blood pressure under goal
this morning
Hyperlipidemia--Continue Lipitor and Zetia
Diabetes Mellitus, Type 2--continue to monitor blood sugars. No hypoglycemia
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
GERD--Continue Protonix
Gout--Continue allopurinol
DVT proph: SCDs
Code Status: DNR
DC in a.m. after dialysis if stable.
Portions of this chart may have been created with voice recognition software. Occasional wrong word or ``sound alike�� substitutions may have occurred due to the inherent limitations of voice recognition software.
Anticipated Discharge: Within 24 hours
Subjective/Interval History
-
Date of Service: June 22, 2022
No overnight events.
Voices no specific complaints
Denies any fever chills.
Denies any shortness of breath or chest pain.
Objective Data
-
Vital Signs:
Vital Signs
Temp Pulse Resp BP Pulse Ox
97.9 F 69 16 134/63 96
06/22/22 07:00 06/22/22 07:51 06/22/22 07:00 06/22/22 07:51 06/22/22 07:00
I&O
06/21/22 06/22/22 06/23/22
06:59 06:59 06:59
Intake Total 1320 / 1320 1080 / 1080
Balance 1320 / 1320 1080 / 1080
Review of Systems
-
All other systems: Reviewed and negative
Physical Exam
-
General: No Apparent Distress
HEENT: Moist Mucous Membranes
Respiratory: Clear to Auscultation
Cardiac: Regular Rhythm and S1/S2
GI: Soft, Nontender, Nondistended and Normal Bowel Sounds
Neuro: AO x 3
--- NOTE | 2022-06-22 15:26 | W.PN.ID1 ---
Today's Communication
-
- continue Unasyn (renally adjusted) while inpatient
At D/C can transition to oral augmentin 500 mg daily, to treat until 06/28/22
Assessment / Plan
-
Right groin surgical site infection
Leukocytosis - continues trending down
ESRD on HD
Bladder Cancer
S/p embolization of kidneys 06/02/22
S/p repair right groin pseudoaneurysm 06/03/22
s/p bedside evacuation of right groin hematoma
Class II Obesity
- continue Unasyn (renally adjusted) while inpatient
At D/C can transition to oral augmentin 500 mg daily, to treat until 06/28/22
- continue local care to wound as per plastic surgery
Chief Complaint
-
Date of Service: June 22, 2022
-: Leukocytosis and Other (surgical site infection)
Subjective / Review of Systems
-
afebrile
BP stable
Vital Signs / Physical Exam
Vital Signs
Vital Signs
Temp Pulse Resp BP Pulse Ox
97.9 F 69 16 134/63 96
06/22/22 07:00 06/22/22 07:51 06/22/22 07:00 06/22/22 07:51 06/22/22 07:00
Physical Exam
Constitutional: No Acute Distress, Comfortable and Obese
Wound: Other (surgical site clean, copious serous drainage on the abdominal pad, smells of dakins, skin without erythema, warmth or tenderness, panus overlays the area)
Objective Data
Lab Data
Lab Results
06/21/22 07:15
06/21/22 07:15
PT 17.0 Sec (11.4-14.6) H 06/03/22 23:38
INR 1.36 06/03/22 23:38
APTT 29.1 Sec (23.4-35.0) 06/03/22 23:38
Estimated Creat Clear 16 ml/min 06/20/22 04:53
Total Bilirubin 0.8 mg/dl (0.2-1.3) 06/16/22 11:13
AST 27 U/L (17-59) 06/16/22 11:13
ALT 22 U/L (0-50) 06/16/22 11:13
Alkaline Phosphatase 232 U/L (38-126) H 06/16/22 11:13
Most recent labs reviewed.
Micro Results:
06/15/22 15:34 Blood Culture - Final
Blood/Venous No Growth - Final Report
06/15/22 14:16 Blood Culture - Final
Blood/Venous No Growth - Final Report
06/15/22 14:20 Wound Culture - Final
Groin - Right Enterococcus faecalis
Diptheroids
Gram Stain - Final
06/03/22 09:33 Blood Culture - Final
Blood/Venous No Growth - Final Report
06/03/22 08:33 Blood Culture - Final
Blood/Venous No Growth - Final Report
05/28/22 08:40 Blood Culture - Final
Blood/Venous No Growth - Final Report
05/28/22 08:06 Blood Culture - Final
Blood/Venous No Growth - Final Report
05/28/22 11:17 Urine Culture - Final
Urine Pseudomonas aeruginosa
--- NOTE | 2022-06-22 16:09 | VNURNOTE ---
[facility] with current wound care orders. Liaison spoke to patient and to discuss plan for wound care and supplies. Call to this afternoon and patient's daughter Mikayla, who will roll picker Rx for Dakins solution &
packing later today. Rx is in room, both are aware to follow up at [facility] and that the wound care could possibly change as wound heals. Mikayla will [facility]/tomorrow prior to discharge.
[2022-06-22 16:31] LABS: Glucose - Point of Care 148 mg/dl (70-99)
[2022-06-22] MEDS: DAKIN'S SOLUTION 0.25% 1/2 STRENGTH 473 ML TOPICAL (20:39)
[2022-06-22] MEDS: LIPITOR 80 MG PO (20:41)
[2022-06-22 21:32] LABS: Glucose - Point of Care 190 mg/dl (70-99)
[2022-06-22 23:00] VITALS: BP 145/71
[2022-06-23] MEDS: MELATONIN 5 MG PO (00:09)
[2022-06-23] MEDS: UNASYN IV ×2 (02:05→13:53)
[2022-06-23 06:00] VITALS: BMI 36.9
[2022-06-23 07:05] VITALS: BP 137/58
[2022-06-23 07:12] LABS: Glucose - Point of Care 138 mg/dl (70-99)
[2022-06-23] MEDS: NOVOLOG FLEXPEN-MODERATE RESISTANCE SC ×2 (07:45→12:14)
[2022-06-23] MEDS: RENVELA PO (08:02)
[2022-06-23] MEDS: COREG PO (08:03)
[2022-06-23 08:07] LABS: Hematocrit 26.4 % (39.0-52.0); Hemoglobin 8.6 g/dL (13.0-18.0)
[2022-06-23] MEDS: THERAGRAN PO (08:11)
[2022-06-23] MEDS: VITAMIN B-12 PO (08:11)
[2022-06-23] MEDS: PROTONIX 40 MG PO (08:12)
[2022-06-23] MEDS: VITAMIN D3 (cholecalciferol) 2000 UNITS PO (08:12)
[2022-06-23] MEDS: ZETIA 10 MG PO (08:12)
[2022-06-23] MEDS: ZYLOPRIM 100 MG PO (08:12)
[2022-06-23] MEDS: VITAMIN C PO (08:12)
[2022-06-23] MEDS: COLACE PO (08:13)
[2022-06-23] MEDS: HYDROPHOR 1 APPLIC TOPICAL (08:18)
[2022-06-23] MEDS: DAKIN'S SOLUTION 0.25% 1/2 STRENGTH 473 ML TOPICAL (08:18)
[2022-06-23] MEDS: DESENEX/MITRAZOL/ZEASORB 1 APPLIC TOPICAL (08:19)
--- NOTE | 2022-06-23 08:28 | W.PN.NEPH.HD ---
Assessment
-
Patient seen on HD
sbp stable at 140 for current u/f
discharge today after HD on augmentin re: right groin vascular infection
Progress Note - Hemodialysis
-
Date of Service: June 23, 2022
Duration: 4 hours
Potassium Bath: 2
Calcium Bath: 2.5
Opti-Dialyzer: 160
Ultrafiltration: Other (3kg)
Blood Flow: 400
Dialysate Flow: 600
Heparin: none
EPO: [id number]
[2022-06-23 08:38] LABS: Carbon Dioxide 26 mmol/L (22-30); Chloride 93 mmol/L (98-107); Potassium 5.1 mmol/L (3.5-5.1); Sodium 131 mmol/L (135-145)
[2022-06-23] MEDS: RETACRIT 10000 UNITS IV (09:56)
--- NOTE | 2022-06-23 10:19 | WOUNDNOTE ---
WOC RN NOTE: Met with patient, and daughter, Mikayla. Wound care to right groin demonstrated by this RN and and daughter stated understanding of instructions. They have script for Dakins and supplies and daughter will make appointment at [facility]. All questions answered and discharge instructions updated.
--- NOTE | 2022-06-23 10:44 | CM ---
Patient daughter, and patient seen at bedside. Patient has appointment for Dr. De La O, and wound care. Transfer form/med rec on chart. Patient for transfer possible between 2-3. physician aware. CM will continue to follow for discharge planning
needs.
Plan; home with [facility]; wound care, and HD.
[2022-06-23 12:02] LABS: Glucose - Point of Care 110 mg/dl (70-99)
[2022-06-23] MEDS: RENVELA 3200 MG PO (12:36)
--- NOTE | 2022-06-23 13:05 | W.DS.TRANS ---
DC Summary - [employer]
-
Discharge Instructions:
Discharge Diagnosis/Procedures Hematuria, bladder cancer, bilateral kidney
embolization, right groin pseudoaneurysm
requiring vascular surgery, blood loss anemia
requiring 9 units of PRBC, infected right groin
wound, end-stage renal disease on chronic
hemodialysis
Diet Low Cholesterol,2 Gram Sodium
Activity As tolerated
Driving Restrictions Not until seen by your Dr
Bathing Restrictions None
Other Services PT,VN
Specialty Instructions Weigh Daily
Instructions:
Stand-Alone Forms:
Changes to Home Medications: Yes
Discharge Medications:
DC Medications w/original date entered in [employer]
ascorbic acid (vitamin C) 1,000 mg tablet (Vitamin C) 1,000 mg PO DAILY Supplement 09/20/18
cholecalciferol (vitamin D3) 50 mcg (2,000 unit) capsule (Vitamin D3) 2,000 unit PO DAILY Supplement 09/20/18
cyanocobalamin (vitamin B-12) 1,000 mcg tablet 1,000 mcg PO DAILY Supplement 09/20/18
multivitamin 1 ea PO DAILY Supplement 06/29/20
pantoprazole 40 mg tablet,delayed release 40 mg PO BID Gastrointestinal issue 05/20/21
carvedilol 6.25 mg tablet 6.25 mg PO BID 05/30/21
hydralazine 25 mg tablet 25 mg PO BID Blood pressure 03/31/22
lisinopril 5 mg tablet 5 mg PO DAILY Blood pressure 03/31/22
vit B complx, C-iron 8 mg-folic acid 800 mcg-D3 1,000 unit-zinc tablet (ProRenal) 1 tab PO MOWEFR Supplement 03/31/22
cinacalcet 30 mg tablet 30 mg PO SUTUTHSA Kidney Disease 04/04/22
allopurinol 100 mg tablet 200 mg PO DAILY Gout 04/18/22
aspirin 81 mg chewable tablet 81 mg PO DAILY Blood clot prevention/tx 04/19/22
acetaminophen 325 mg tablet 650 mg PO Q6HPRN PRN mild pain/BARBA/fever 05/08/22
atorvastatin 80 mg tablet 80 mg PO HS High cholesterol 05/08/22
sevelamer carbonate 800 mg tablet 3,200 mg PO AC Kidney Disease 05/08/22
ezetimibe 10 mg tablet 10 mg PO DAILY High cholesterol 05/26/22
amoxicillin 500 mg-potassium clavulanate 125 mg tablet (Augmentin) 1 tab PO DAILY #5 tabs 06/23/22
docusate sodium 100 mg capsule 100 mg PO BID #60 caps 06/23/22
Home Medication Changes
New medication-Augmentin, Colace
Pending Results: No
--- NOTE | 2022-06-23 13:08 | W.PN.HOSP.TC ---
Today's Communication/Plan
-
dc
Assessment / Plan
Assessment / Plan
pt is an 81 year old male
Hemorrhagic/hypovolemic shock 06/03/22--resolved--dropped HGB and BP on 06/03/22 and moved to ICU--CT scan showed LARGE hematoma right groin (had IR embolization of kidneys the day before 06/02/22)--US of right groin showed pseudoaneurysm leaking
blood--IR attempted to thrombinize but was unsuccessful, pt taken to OR by vascular for repair and hematoma evacuation --to date pt has received 9 units of pRBC (3 alone in OR). Hemoglobin improved -Per vascular, drains removed 06/15/22. H&H stable
infected right groin--culture with enterococcus and diphtheroids --apprec vascular--drains removed--apprec ID-continue with antibiotics per ID will switch to oral on discharge. Continue with topical wound care. Plastics input noted noted.
Continue with the wound care
Hematuria secondary to Bladder CA--apprec urology--had CBI and stopped---s/p OR 06/01/22 for cystoscopy and fulguration--s/p IR embolization of kidneys to stop urine 06/02/22--catheter removed on 06/05.
Acute Blood Loss Anemia on anemia of chronic disease along with iron deficiency-- due to hematuria and blood loss from pseudoaneurysm --s/p 9 units PRBCs--Monitor Hgb--apprec heme re-eval--no active bleeding noted--transfuse another unit now--hold
further iron .
Pseudomonas UTI due related to indwelling watson catheter-catheter removed on 06/05. Antibiotics: Transition from cefepime to Cipro. Last day of Cipro was Jun 10
Coronary Artery Disease s/p CABG in April 2021--Hold aspirin in setting of hematuria
Essential Hypertension--Continue Coreg, Hydralazine and Lisinopril. Blood pressure remains on the lower side while on current antihypertensive regimen. Monitor closely for symptomatic hypotension. Adjust accordingly. Blood pressure under goal
this morning
Hyperlipidemia--Continue Lipitor and Zetia
Diabetes Mellitus, Type 2--continue to monitor blood sugars. No hypoglycemia
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
GERD--Continue Protonix
Gout--Continue allopurinol
DVT proph: SCDs
Code Status: DNR
Medically stable for discharge home.
Wound care supplies written.
Coordinated with case management regarding discharge home with services
More than 30 minutes spent in discharge including
Final examination of the patient
Summarizing hospital stay
Instructions for continuing care to all relevant caregivers
Preparation of discharge records, prescriptions, and referral forms
Total time spent (in minutes): 35 minutes
Portions of this chart may have been created with voice recognition software. Occasional wrong word or ``sound alike�� substitutions may have occurred due to the inherent limitations of voice recognition software.
Anticipated Discharge: Today
Subjective/Interval History
-
Date of Service: June 23, 2022
Patient seen at the end of his dialysis. He is voicing no specific complaints. Tolerated dialysis well.
Right groin pain tolerable. No fever chills.
No shortness of breath or chest pain. No nausea vomiting. Tolerating diet.
Objective Data
-
Labs:
Laboratory Results
06/23/22 06/23/22
07:56 07:56
Hgb 8.6 L
Hct 26.4 L
Sodium 131 L
Potassium 5.1
Chloride 93 L
Carbon Dioxide 26
Vital Signs:
Vital Signs
Temp Pulse Resp BP Pulse Ox
97.5 F 69 18 137/58 94
06/23/22 07:05 06/23/22 07:05 06/23/22 07:05 06/23/22 07:05 06/23/22 07:05
I&O
06/22/22 06/23/22 06/24/22
06:59 06:59 06:59
Intake Total 1079 / 1080 1620 / 1620
Balance 1080 / 1080 1620 / 1620
Review of Systems
-
All other systems: Reviewed and negative
Physical Exam
-
General: Comfortable
HEENT: Moist Mucous Membranes
Respiratory: Clear to Auscultation
Cardiac: Regular Rhythm and S1/S2
GI: Soft, Nontender, Nondistended and Normal Bowel Sounds
Neuro: AO x 3
Psych: Calm; Negative Confused or Agitated
== END 2022-06-23 15:27 | disposition home health service (06) | DRG 668 ==
LOC: 2 NORTH 21:03
PROVIDERS: Internal Medicine; Internal Medicine Critical Care Medicine; Internal Medicine Hematology & Oncology; Nurse Practitioner Primary Care; Physician Assistant Medical; Radiology Vascular & Interventional Radiology; Specialist; Student in an Organized Health Care Education/Training Program; Surgery Vascular Surgery; Urology; ADMITTING PHYSICIAN Hospitalist; ATTENDING PHYSICIAN Internal Medicine; CONSULT PHYSICIAN Internal Medicine Hematology & Oncology; CONSULT PHYSICIAN Specialist; CONSULT PHYSICIAN Student in an Organized Health Care Education/Training Program; CONSULT PHYSICIAN Surgery Plastic and Reconstructive Surgery; EMERGENCY PHYSICIAN Emergency Medicine; FAMILY PHYSICIAN Family Medicine
PROC: 30233N1 Transfusion of Nonautologous Red Blood Cells into Peripheral Vein, Percutaneous Approach (ICD-10-PCS; 2022-05-26)
PROC: 5A09357 Assistance with Respiratory Ventilation, Less than 24 Consecutive Hours, Continuous Positive Airway Pressure (ICD-10-PCS; 2022-05-27)
PROC: 5A1D70Z Performance of Urinary Filtration, Intermittent, Less than 6 Hours Per Day (ICD-10-PCS; 2022-05-29)
PROC: 0TCB8ZZ Extirpation of Matter from Bladder, Via Natural or Artificial Opening Endoscopic (ICD-10-PCS; 2022-06-01)
PROC: 0T5B8ZZ Destruction of Bladder, Via Natural or Artificial Opening Endoscopic (ICD-10-PCS; 2022-06-01)
PROC: 04L93DZ Occlusion of Right Renal Artery with Intraluminal Device, Percutaneous Approach (ICD-10-PCS; 2022-06-02)
PROC: 04LA3DZ Occlusion of Left Renal Artery with Intraluminal Device, Percutaneous Approach (ICD-10-PCS; 2022-06-02)
PROC: 0Y3 Anatomical Regions, Lower Extremities, Control (ICD-10-PCS; 2022-06-03)
PROC: 0WCJ0ZZ Extirpation of Matter from Pelvic Cavity, Open Approach (ICD-10-PCS; 2022-06-03)
PROC: 04QK0ZZ Repair Right Femoral Artery, Open Approach (ICD-10-PCS; 2022-06-03)
DX: C67.9 Malignant neoplasm of bladder, unspecified (principal); N18.6 End stage renal disease; T83.511A Infection and inflammatory reaction due to indwelling urethral catheter, initial encounter; N39.0 Urinary tract infection, site not specified; R57.1 Hypovolemic shock; D62 Acute posthemorrhagic anemia; N25.81 Secondary hyperparathyroidism of renal origin; T81.41XA Infection following a procedure, superficial incisional surgical site, initial encounter; N28.0 Ischemia and infarction of kidney; B96.5 Pseudomonas (aeruginosa) (mallei) (pseudomallei) as the cause of diseases classified elsewhere; I25.10 Atherosclerotic heart disease of native coronary artery without angina pectoris; Z95.1 Presence of aortocoronary bypass graft; E11.22 Type 2 diabetes mellitus with diabetic chronic kidney disease; E11.65 Type 2 diabetes mellitus with hyperglycemia; K21.9 Gastro-esophageal reflux disease without esophagitis; Z99.2 Dependence on renal dialysis; E87.6 Hypokalemia; Y84.6 Urinary catheterization as the cause of abnormal reaction of the patient, or of later complication, without mention of misadventure at the time of the procedure; S30.1XXA Contusion of abdominal wall, initial encounter; X58.XXXA Exposure to other specified factors, initial encounter; I72.4 Aneurysm of artery of lower extremity; I25.5 Ischemic cardiomyopathy; M1A.9XX0 Chronic gout, unspecified, without tophus (tophi); E66.01 Morbid (severe) obesity due to excess calories; E83.39 Other disorders of phosphorus metabolism; Z79.84 Long term (current) use of oral hypoglycemic drugs; I15.2 Hypertension secondary to endocrine disorders; Z87.891 Personal history of nicotine dependence; D69.1 Qualitative platelet defects; D63.1 Anemia in chronic kidney disease; M19.90 Unspecified osteoarthritis, unspecified site; Z96.653 Presence of artificial knee joint, bilateral; Z79.899 Other long term (current) drug therapy; Z79.82 Long term (current) use of aspirin; E78.00 Pure hypercholesterolemia, unspecified; Z92.21 Personal history of antineoplastic chemotherapy; Z87.440 Personal history of urinary (tract) infections; G47.33 Obstructive sleep apnea (adult) (pediatric); Y83.8 Other surgical procedures as the cause of abnormal reaction of the patient, or of later complication, without mention of misadventure at the time of the procedure; Y92.239 Unspecified place in hospital as the place of occurrence of the external cause; Z85.51 Personal history of malignant neoplasm of bladder; Z66 Do not resuscitate; R59.0 Localized enlarged lymph nodes
CPT/HCPCS: 35141; 36252; 37243; 51700; 71046; 74174; 74176; 75726; 75774; 76882; 76937; 80048; 80051; 80053; 80069; 81003; 81015; 82728; 82962; 83540; 83550; 83615; 83735; 85014; 85018; 85025; 85027; 85045; 85610; 85730; 86850; 86900; 86901; 86920; 87040; 87070; 87077; 87086; 87186; 87205; 93005; 93926; 97116; 97162; 97164; 97165; 97530; 97535; 99152; 99153; 99285; C1769; G0257; J2916; P9016; P9045; P9047; Q5106; Q9967